=== PATIENT | male | born 1950 | race Caucasian/White ===

== ENCOUNTER 2021-11-20 15:00 | Emergency (ER) | payer MEDICARE, BC, SELFPAY ==
[2021-11-20] VITALS (23 sets, daily range): BP systolic 133–150; BP diastolic 74–98; PULSE 62–69; RESP 20; TEMP 36.4; O2SAT 93–98; BMI 34.0
--- NOTE | 2021-11-20 15:02 | CRLHL7_ITS ---
For Patients: As a result of the Cures Act, medical imaging exams and procedure reports are released immediately into your electronic medical record. You may view this report before your referring provider. If you have questions, please contact your health care provider. INDICATION: Trauma, fall. TECHNIQUE: CT head without contrast. COMPARISON: None. FINDINGS: CSF spaces: Within normal limits for age. Brain parenchyma and extra-axial spaces: Areas of encephalomalacia and deep white matter low-attenuation change are in the left cerebral hemisphere with multiple benign-appearing calcifications in the left posterior frontal cortex. No intracranial hemorrhage. No extra-axial fluid collection. No mass effect or midline shift. Skull base and calvarium: The visualized paranasal sinuses and mastoid air cells demonstrate no acute or significant findings. The visualized orbits are grossly unremarkable. No skull fractures. IMPRESSION: No sign of acute injury. Suspected chronic areas of deep white matter low attenuation and encephalomalacia in the left cerebral hemisphere. Acute deep white matter edema superimposed on chronic disease is difficult to exclude. Please note that all CT scans at this facility use dose modulation, iterative reconstruction, and/or weight-based dosing when appropriate to reduce radiation dose to as low as reasonably achievable. Dictated by Jake Strange MD @ 11/20/2021 4:20:56 PM (Electronically Signed)
--- NOTE | 2021-11-20 15:02 | CRLHL7_ITS ---
For Patients: As a result of the 21st Century Cures Act, medical imaging exams and procedure reports are released immediately into your electronic medical record. You may view this report before your referring provider. If you have questions, please contact your health care provider. INDICATION: Fall 7 feet from ladder. TECHNIQUE: CT of the abdomen chest abdomen pelvis was performed with 111 cc of Isovue-370 IV contrast. COMPARISON: None FINDINGS: CHEST: Cardiovascular structures: Heart size is normal. The thoracic aorta and main pulmonary arteries are normal in size. No pericardial effusion. Aortic valve prosthesis is noted. No evidence for aortic dissection or mediastinal hematoma. Mediastinum and rich: No mass or lymphadenopathy. Lungs: The central airways are clear. No pneumothorax or pleural effusion. A minimal bilateral posterior dependent atelectasis. No consolidation. No suspicious pulmonary nodules. An azygos lobe is noted. Chest wall and axilla unremarkable: No lymphadenopathy. The thyroid is normal. Bones: Median sternotomy wires. Degenerative changes of the spine with findings consistent with DISH. No acute fracture. ABDOMEN AND PELVIS: There is a too small to characterize hyperdense focus within the left hepatic lobe. No liver laceration. The gallbladder, spleen, pancreas and adrenal glands are normal. 4.9 cm simple cyst within the right kidney. No hydronephrosis or stone bilaterally. The ureters and bladder are normal. Diverticulosis, primarily involving the sigmoid colon. Normal appendix. The stomach and small bowel are unremarkable. No lymphadenopathy. No free fluid or free intraperitoneal air. Postsurgical changes of prior right lower abdominal hernia repair are noted. Mild atherosclerotic calcification of the abdominal aorta and iliac arteries without aneurysmal dilatation. A penile implant is noted with the reservoir behind the left rectus abdominis muscle in the pelvis. The abdominal soft tissues are unremarkable. Bones: There are vertical transverse fractures of the left transverse processes of the L2, L3, L4, and L5 vertebral bodies. The sacrum is intact. Chronic irregular ossific changes about the right posterior acetabulum and ischium may represent heterotopic ossification from sequela of remote trauma. Degenerative changes of the lumbar spine and pubic symphysis. IMPRESSION: Vertical left transverse process fractures of L2, L3, L4, and L5. No solid organ or hollow viscus injury within the abdomen. No acute findings within the chest. Please note that all CT scans at this facility use dose modulation, iterative reconstruction, and/or weight-based dosing when appropriate to reduce radiation dose to as low as reasonably achievable. Dictated by Ayo Henao MD @ 11/20/2021 4:45:16 PM (Electronically Signed)
--- NOTE | 2021-11-20 15:02 | CRLHL7_ITS ---
For Patients: As a result of the Century Cures Act, medical imaging exams and procedure reports are released immediately into your electronic medical record. You may view this report before your referring provider. If you have questions, please contact your health care provider. INDICATION: Trauma, fall. TECHNIQUE: CT cervical spine without contrast. COMPARISON: None. FINDINGS: Vertebrae: Alignment is normal. There are no fractures or suspicious bony lesions. Discs and facet joints: There are degenerative disc changes most severe at C1-2, C4-5 and C5-6. There are multilevel degenerative changes in the facets. Extraspinal findings: Paraspinous soft tissues are unremarkable. IMPRESSION: 1. No sign of acute injury. 2. Multilevel degenerative spondylosis. Please note that all CT scans at this facility use dose modulation, iterative reconstruction, and/or weight-based dosing when appropriate to reduce radiation dose to as low as reasonably achievable. Dictated by Jake Strange MD @ 11/20/2021 4:14:42 PM (Electronically Signed)
--- NOTE | 2021-11-20 15:04 | ED_ITS ---
HPI - Fall General Chief Complaint: Fall/Minor Trauma Stated Complaint: Fall from ladder Time Seen by Provider: 11/20/21 15:14 History of Present Illness HPI Narrative: This 71-year-old male comes in by ambulance with a trauma team activation. He was up on a ladder trimming some trees when he fell. He was stepping back to dismount the ladder and missed the step and fell from approximately 7 ft. He landed on his back in some landscape a rock. He did not have loss of consciousness. He does have a history of aneurysm. He is not on blood thinners except for a baby aspirin daily. He reports pain in his right posterior ribs. He denies having any neck pain but does come in with C-collar in place for precautionary reasons. He did not get up after this fall. He does not report any other injury or pain. He denies having any abdominal pain. He does have an abrasion on his right knee. Related Data Home Medications Medication Instructions Recorded Confirmed albuterol sulfate 90 mcg/actuation 2 puff inhalation Q4H PRN 11/20/21 11/20/21 aerosol inhaler (Ventolin HFA) aspirin 81 mg capsule 81 mg PO DAILY 11/20/21 11/20/21 atorvastatin 40 mg tablet 40 mg PO DAILY 11/20/21 11/20/21 azelastine 137 mcg (0.1 %) nasal 2 spray intranasal Q12H 11/20/21 11/20/21 spray aerosol fluticasone propionate 230 2 inh inhalation Q12H 11/20/21 11/20/21 mcg-salmeterol 21 mcg/actuation HFA inhaler (Advair HFA) losartan 50 mg-hydrochlorothiazide 1 tab PO DAILY 11/20/21 11/20/21 12.5 mg tablet montelukast 10 mg tablet 10 mg PO DAILY 11/20/21 11/20/21 omeprazole 40 mg capsule,delayed mg 11/20/21 release Allergies Allergy/AdvReac Type Severity Reaction Status Date / Time hydrocodone Allergy vomiting Verified 11/20/21 15:35 Review of Systems Status of ROS: Reports: 10 or more systems reviewed and unremarkable except as noted in History and below Narrative: Constitutional: No fevers, no weight gain or loss. Eyes: No discharge. No vision changes. HENT: No congestion, no sore throat, no ear pain. Cardiovascular: No chest pain, no palpitations. Respiratory: No shortness of breath, no wheezes, no cough. Pain with taking a deep breath in the right posterior ribs. Gastrointestinal: No abdominal pain, no vomiting, no diarrhea. Genitourinary: No dysuria, no hematuria. Musculoskeletal: Normal range of motion. Skin: No rashes, no pruritis. Neurological: No dizziness, weakness, sensory change, speech change. Endo/Heme/Allergies: No bruising or bleeding. No polydipsia. Pysch: no suicidality, no anxiety, no insomnia. All other systems reviewed and are negative. [facility] Social History Smoking Status: Never smoker Do you use any of these nicotine containing products: None How often do you have a drink containing alcohol: 2-4 times a month How many standard drinks containing alcohol do you have on a typical day: 1 or 2 How often do you have six or more drinks on one occasion: Never AUDIT-C Alcohol total score: 2 Non-prescribed substance use: denies use Exam Narrative: Exam Narrative: Primary Survey: Vital Signs are within normal limits. Airway: Open. Breathing: Easy. Circulation: no obvious bleeding; normal capillary refill. Disability: GCS is 15. Normal pupillary response and motor movements. Secondary Survey: Head: Normocephalic Neck: No midline tenderness. ROM intact. Chest: No external signs of trauma. Abdomen: Non tender. No rebound tenderness. Normal bowel sounds. Pelvis/Genitals: No tenderness to A/P and lateral stress. No blood at the urethral meatus. Extremities: Atraumatic. Back: Pain in the right posterior ribs. Critical Care Time: Primary and Secondary surveys are completed. The patient's GCS is 15. Const: Vital Signs, click to edit/add: Vital Signs - 24 hr 11/20/21 15:00 Temperature 97.5 F L Pulse Rate [Right Pulse Oximeter] 68 Respiratory Rate 20 Blood Pressure [Ri ght Upper Arm] 150/88 H Pulse Oximetry 95 Oxygen Delivery Me thod Room Air Course Course Hospital Course: This patient comes in with a fall as described above. He has discomfort when laying flat but after a bit of time here there was an attempt to sit him up which caused him to become very short of breath and rather uncomfortable. A CT scan of head, C-spine, and chest abdomen pelvis is ordered. I was able to see the the images at approximately 4:[address] scan of the head and C-spine appear negative to me. I did remove his cervical collar. I am awaiting report for the chest, abdomen, and pelvis CT imaging. It appears to me there is a fracture of 1 of the thoracic vertebral bodies. This would explain the patient's symptoms in preference to remain lying flat. I did advise the patient at this time that we would likely transfer him but I would prefer to see an official radiology report. The patient's vital signs are stable. He did agree now to have some pain medicine. An order was placed for Dilaudid 0.5 mg and Zofran 4 mg. Reevaluation(s) Reevaluation #1: At 4:08 p.m. I instructed the ADVISOR CONSULTANT to make a connection with [facility] for transfer this patient. Time: 16:20 Reevaluation #2: I had discussion with Dr. Cuello at [facility]. He states that they are unable to take any patient's as there trauma center is over full at the time. Reconstruction images are being obtained of the thoracic spine at this time. Time: 16:35 Reevaluation #3: I had discussion with phone referral nurse at [facility]. They agree to have him transferred there to the emergency department for further evaluation and treatment. Radiology results of the chest, abdomen, and pelvis CT and reconstruction images are yet pending at this time. Arrangements are made for ambulance transfer to occur within the hour. Vital Signs Vital signs: Initial Vital Signs Temperature 97.5 F L 11/20/21 15:00 Temperature Source Temporal Artery Scan 11/20/21 15:00 Pulse Rate 68 11/20/21 15:00 Respiratory Rate 20 11/20/21 15:00 Blood Pressure 150/88 H 11/20/21 15:00 Blood Pressure Mean 108 11/20/21 15:00 Blood Pressure Position Sitting 11/20/21 15:00 Pulse Oximetry 95 11/20/21 15:00 Oxygen Delivery Method 11/20/21 15:00 Vital Signs Temperature 97.5 F L 11/20/21 15:00 Pulse Rate 68 11/20/21 15:00 Respiratory Rate 20 11/20/21 15:00 Blood Pressure 150/88 H 11/20/21 15:00 Pulse Oximetry 95 11/20/21 15:00 Oxygen Delivery Method 11/20/21 15:00 Temperature 97.5 F L 11/20/21 15:00 Pulse Rate 68 11/20/21 15:00 Respiratory Rate 20 11/20/21 15:00 Blood Pressure 150/88 H 11/20/21 15:00 Pulse Oximetry 95 11/20/21 15:00 Oxygen Delivery Method 11/20/21 15:00 MDM - Fall MDM Narrative Medical decision making narrative: This patient comes in with injury to his back as described above. He has significant pain in this area that is much worse with any kind of upright position such that it becomes difficult for him to breathe. CT imaging of the chest, abdomen, and pelvis by my review with radiology report pending show suggestion of a fracture of the thoracic vertebral body. I did order reconstructed images of the thoracic spine. These results are pending along with the radiology report. The patient is accepted for transfer to [facility]. Initially there was an attempt to transfer to [facility] but they were unable to receive any further transfers for trauma as they are over full currently. The accepting physician at [facility] in [place] is Dr. Valencia. The patient received IV doses of Dilaudid 0.5 mg and Zofran [address] cervical spine: Radiologist's impression: 1. No sign of acute injury. 2. Multilevel degenerative spondylosis. CT scan - head: Radiologist's impression: No sign of acute injury. Suspected chronic areas of deep white matter low attenuation and encephalomalacia in the left cerebral hemisphere. Acute deep white matter edema superimposed on chronic disease is difficult to exclude. ECG Data Attestation: I personally reviewed and interpreted this ECG as follows: Interpretation: Normal sinus rhythm. Rate is 64 beats per minute. There are no specific ST or T-wave abnormalities. Discharge Plan Discharge Clinical Impression: Fracture of thoracic spine Patient Disposition: [facility] Condition: Unchanged Prescriptions: No Action albuterol sulfate [Ventolin HFA] 90 mcg/actuation HFA aerosol inhaler 2 puff INHALATION Q4H PRN Label Comments: INHALE TWO PUFFS BY MOUTH EVERY 4 HOURS atorvastatin 40 mg tablet 40 mg PO DAILY Label Comments: TAKE ONE TABLET BY MOUTH EVERY DAY azelastine 137 mcg (0.1 %) aerosol,spray 2 spray INTRANASAL Q12H Label Comments: TWO SPRAYS NASAL TWO TIMES A DAY Advair HFA 230-21 mcg/actuation HFA aerosol inhaler 2 inh INHALATION Q12H Label Comments: INHALE TWO PUFFS BY MOUTH TWICE A DAY losartan-hydrochlorothiazide 50-12.5 mg tablet 1 tab PO DAILY Label Comments: TAKE ONE TABLET BY MOUTH EVERY DAY montelukast 10 mg tablet 10 mg PO DAILY omeprazole 40 mg capsule,delayed release(DR/EC) Label Comments: TAKE ONE CAPSULE BY MOUTH 30-60 MINUTES BEFORE A MEAL / FOOD TWO TIMES A DAY aspirin 81 mg capsule 81 mg PO DAILY Follow Up/Referrals: Salas Raymundo MD [Primary Care Provider] - Stand Alone Forms[facility] Inst[facility]
--- OUTSIDE RECORDS SUMMARY | 2021-11-20 16:01 | XMS_ITS | Encounter Summary ---
:1950 Author Organization [place] Address [address] [place] [address] Care Team Providers Name Role Phone Salas Raymundo Primary Care Provider Charles Crawford MD Unavailable Charli Jefferson MD Unavailable Encounter Details Date Type Department Care Team Description 07/20/2020 [facility] Provider, Histor ical Social History Tobacco Use Types Packs/Day Years Used Date Never Smoker 0 0 Smokeless Tobacco: Never Used Alcohol Use Standard Drinks/Week Comments Yes 0 (1 standard drink = 0.6 oz pure alcoho l) 2-3/week Alcohol Habits Answer Date Recorded How often do you have a drink containing alcohol? Not asked How many drinks containing alcohol do you have on a typical Not asked day when you are drinking? How often do you have six or more drinks on one occasion? No t asked Comment: 2-3/week 09/08/2018 Sex Assigned at Date Recorded Male 09/04/2018 3:46 PM CDT documented as of this encounter Plan of Treatment Not on filedocumented as of this encounter Procedures Procedure Name Priority Date/Time Associated Diagnosis Comme nts XR VIDEO SWALLOW Routine 08/16/2009 12:00 AM Resu lts for this WITH TURNING LATHE TENDER OR OT CDT procedure are in the results section. documented in this encounter Results XR Video Swallow with TURNING LATHE TENDER or OT (08/16/2009 12:00 AM CDT) Anatomical Region Laterality Modality Other Specimen (Source) Anatomical Location Collection Method / Collectio n Time Received Time / Laterality Volume Narrative 08/16/2009 12:00 AM CDT See Historical Hospital Medical Record f or documentation Procedure Note Provider, Historical - 07/20/2020Formatt ing of this note might be different from the original. See Historical Hospital Medical Record f or documentation Historical Provider IMG DIAGNOSTIC IMAGING ORDER BRIDGETTE documented in this encounter Visit Diagnoses Not on filedocumented in this encounter Care Teams Patient Financial Services Coordinator Relationship Specialty Start Date End Date Salas Raymundo PCP - General Family Practice 08/15/18 Charles Crawford MD MD Urology 08/19/18 [address] [facility] [address] [place] [address] Charli Jefferson MD MD Urology 08/19/18 [address] [facility] [address] [place] [address] documented as of this encounter
--- OUTSIDE RECORDS SUMMARY | 2021-11-20 16:01 | XMS_ITS | Encounter Summary ---
:1950 Author Organization [place] Address [address] [place] [address] Care Team Providers Name Role Phone Salas Raymundo Primary Care Provider Charles Crawford MD Unavailable Charli Jefferson MD Unavailable Reason for Visit Reason Comments Follow Up 1 month Encounter Details Date Type Department Care Team Description 01/05/2019 Office Visit [facility] Urology and Christie Cruz Overactive bladder Inst for Prostate and T, Urologic Cancers [place] [id number] [facility] 4th Floor [address] [place], [place] [id number] [phone] Social History Tobacco Use Types Packs/Day Years [...] PM CDT documented as of this encounter Last Filed Vital Signs Vital Sign Reading Time Taken Comments Blood Pressure 150/80 01/05/2019 2:32 PM OLERICULTURE TEACHER Pulse 61 01/05/2019 2:32 PM OLERICULTURE TEACHER Temperature - - Respiratory Rate - - Oxygen Saturation - - Inhaled Oxygen Concentration - - Weight 101.6 kg (224 lb) 01/05/2019 2:32 PM OLERICULTURE TEACHER Height 174.2 cm (5' 8.6) 01/05/2019 2:32 PM OLERICULTURE TEACHER Body Mass Index 33.47 01/05/2019 2:32 PM OLERICULTURE TEACHER documented in this encounter Progress Notes Eva, Christie Triplett MD - 01/05/2019 3:00 PM CST Rajiv Restrepo is a 68 year old male who is 6-7 weeks s/p AUS placement. ?? 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 Urinary incontinence after that time. Was going through 3-5 pads per day and 2 at night. Also had an element of overactive bladder managed with myrbetriq. Today he reports that he is very happy. He is completely dry at night and when not active during theday. When he exercises is does wear a pad for leakage. Exam: BP (!) 150/80 (BP Location: Right arm, Patient Position: Sitting, Cuff Size: Adult Regular) Pulse 61 Ht 1.742 m (5' 8.6) Wt 101.6 kg (224 lb) BMI 33.47 kg/m?? Alert and healthy Abdomen soft, incision in LLQ well healed Circ male, orthotopic meatus, scrotal pump palpable without signs of infection Perineal incision well healed A/P Excellent outcome after AUS placement - some mild residual stress incontinence but much better than before. Patient is very pleased. F/U: -- Continue francisca -- RTC PRN ICULTURE TEACHER documented in this encounter Nursing Notes Mirian Cheng - 01/05/2019 3:00 PM CST Chief Complaint Patient presents with ??? Follow Up 1 month Blood pressure (!) 150/80, pulse 61, height 1.742 m (5' 8.6), weight 101.6 kg (224 lb). Body mass index is 33.47 kg/m??. Patient Active Problem List Diagnosis ??? Acute renal failure (H) ??? Acute respiratory failure (H) ??? Allergic rhinitis ??? Anemia, unspecified ??? Endocarditis, bacterial, acute/subacute ??? Esophageal reflux ??? Essential hypertension ??? Expressive aphasia syndrome ??? Hyperglycemia ??? Hyperlipidemia ??? Impotence of organic origin ??? Asthma ??? Intracranial hemorrhage (H) ??? Left inguinal hernia ??? Obesity, unspecified ??? Other abnormal glucose ??? Personal history of colonic polyps ??? Prostate cancer (H) ??? Right hemiparesis (H) ??? S/P AVR (aortic valve replacement) ??? Sensorineural hearing loss, bilateral ??? Sepsis (H) ??? Status post tracheostomy (H) ??? Vitamin D deficiency Allergies Allergen Reactions ??? Hydrocodone-Acetaminophen Nausea and Vomiting Current Outpatient Medications Medication Sig Dispense Refill ??? albuterol (PROAIR HFA) 108 (90 Base) MCG/ACT inhaler Inhale 2 puffs into the lungs ??? aspirin 81 MG EC tablet Take 81 mg by mouth ??? atorvastatin (LIPITOR) 40 MG tablet Take 40 mg by mouth ??? Cholecalciferol (D 1000) 1000 units CAPS Take 2,000 Units by mouth ??? famotidine (PEPCID) 20 MG tablet Take 20 mg by mouth 2 times daily ??? fexofenadine (MIGUEL) 180 MG tablet Take 180 mg by mouth ??? fluticasone-salmeterol (ADVAIR HFA) 115-21 MCG/ACT inhaler Inhale 2 puffs into the lungs ??? FLUZONE HIGH-DOSE 0.5 ML injection See Admin Instructions 0 ??? lisinopril-hydrochlorothiazide (PRINZIDE/ZESTORETIC) 10-12.5 MG tablet Take 1 tablet by mouth ??? mirabegron (MYRBETRIQ) 25 MG 24 hr tablet Take 1 tablet (25 mg) by mouth daily (Patient taking differently: Take 50 mg by mouth daily ) 30 tablet 11 ??? mirabegron (MYRBETRIQ) 50 MG 24 hr tablet Take 1 tablet (50 mg) by mouth daily 30 tablet 3 ??? montelukast (SINGULAIR) 10 MG tablet Take 10 mg by mouth ??? Multiple Vitamin (MULTI-VITAMINS) TABS Take 1 tablet by mouth ??? oxybutynin ER (DITROPAN-XL) 5 MG 24 hr tablet Take 3 tablets (15 mg) by mouth daily 30 tablet 3 ??? ranitidine (ZANTAC) 150 MG tablet Take 150 mg by mouth Social History Tobacco Use ??? Smoking status: Never Smoker ??? Smokeless tobacco: Never Used Substance Use Topics ??? Alcohol use: Yes Comment: 2-3/week ??? Drug use: Never MICHA Elena 01/05/2019 2:44 PM ICULTURE TEACHER documented in this encounter Plan of Treatment Not on filedocumented as of this encounter Visit Diagnoses Diagnosis Overactive bladder Hypertonicity of bladder documented in this encounter Care Teams Vp Of Technology Relationship Specialty Start Date End Date Salas Raymundo PCP - General Family Practice 08/15/18 Charles Crawford MD MD Urology 08/19/18 [address] [place] [address] Charli Jefferson MD MD Urology 08/19/18 [address] [facility] [address] [place] [address] documented as of this encounter
--- OUTSIDE RECORDS SUMMARY | 2021-11-20 16:01 | XMS_ITS | Encounter Summary ---
:1950 Author Organization [place] Address [address] [place] [address] Care Team Providers Name Role Phone Salas Raymundo Primary Care Provider Charles Crawford MD Unavailable Charli Jefferson MD Unavailable Encounter Details Date Type Department Care Team Description 01/05/2019 Travel Social History Tobacco Use Types Packs/Day Years [...] filedocumented as of this encounter Visit Diagnoses Not on filedocumented in this encounter Care Teams Public Health Epidemiologist Relationship Specialty Start Date End Date Salas Raymundo PCP - General Family Practice 08/15/18 Charles Crawford MD MD Urology 08/19/18 [address] [facility] [address] [place] [address] Charli Jefferson MD MD Urology 08/19/18 [address] [facility] [address] [place] [address] documented as of this encounter
--- OUTSIDE RECORDS SUMMARY | 2021-11-20 16:01 | XMS_ITS | Encounter Summary ---
:1950 Author Organization [facility] Address [address] [place] [address] Care Team Providers Name Role Phone Salas Raymundo Primary Care Provider Charles Crawford MD Unavailable Charli Jefferson MD Unavailable Christie Cruz MD Unavailable Charli Jefferson MD Unavailable Christie Cruz MD Unavailable Reason for Visit Reason Comments Other acp Encounter Details Date Type Department Care Team Description 11/24/2018 Ambulatory - [facility] [address] [facility] [address] [place] [address] Social History Tobacco Use Types Packs/Day Years [...] on filedocumented in this encounter Care Teams Tie Fastener Relationship Specialty Start Date End Date Salas Raymundo PCP - General Family Practice 08/15/18 Charles Crawford MD MD Urology 08/19/18 [address] [place] [address] Charli Jefferson MD Urology 08/19/18 MD Radha SPIVEY [address] [address] Christie Cruz, Assigned Surgical Provider 11/1904/16/20 [facility] [address] [place] [address] Charli Jefferson, Assigned Surgical Provider 04/1705/03/20 MD Radha SPIVEY [facility] [address] [place] [address] Christie Cruz, Assigned Surgical Provider 05/0407/09/20 [facility] [address] [place], [place] [id number] documented as of this encounter
--- OUTSIDE RECORDS SUMMARY | 2021-11-20 16:01 | XMS_ITS | Encounter Summary ---
:1950 Author Organization [facility] Address [address] [place] [address] Care Team Providers Name Role Phone Salas Raymundo Primary Care Provider Charles Crawford MD Unavailable Charli Jefferson MD Unavailable Reason for Visit Auth/Cert Specialty Diagnoses / Procedures Referred By Contact Refer red To Contact Surgery Diagnoses Male Urinary Stress Incontinence Uu Periop Procedures INSERTION, ARTIFICIAL URINARY SPHINCTER [address] [place] [address] Phone: Fax: Referral ID Status Reason Start Date Expiration Date Visits Requ ested Visits Authorized [id number] 1 1 Encounter Details Date Type Department Care Team Description 11/12/2018 Anesthesia Event [facility], A nna M, MD [address] [place], [place] [id number] PeriOp Services Ferdinand Mitchell MD [address] [place] [address] [address] [place] [address] Anesthesia Record Procedure Summary Procedure Name Responsible Anesthesia Start Anesthesia Stop Anesthesiologist Time Time Insertion Of Lisa Moreno MD 11/12/18 1521 11/12/18 1737 Artifical Urinary Sphincter, Cystoscopy (N/A Bladder) Events Date Time Event Comment 11/12/2018 1521 An Start 1525 An Start Data 1533 An Induction 1536 An Intubation 1545 Initial Antibiotic (Started) 1604 AN INCISION 1725 AN Extubation 1729 an stop data 1737 An Stop Electronically s igned by Checo Bajwa APRN CRNA on Oct 5:49 PM Name Total midazolam 1mg/mL 2 mg fentaNYL (SUBLIMAZE) injection 150 mcg lidocaine 2% 100 mg propofol (DIPRIVAN) injection 10 mg/mL vial 150 mg rocuronium 10mg/mL 80 mg ondansetron 2mg/mL 4 mg sugammadex (BRIDION) 200mg/2ml 200 mg ceFAZolin (ANCEF) intermittent infusion 2 g in 100 mL dextrose PRE-MIX 2 g lactated ringers infusion 1,000 mL Agents Name NO HELIOX O2 N2O Air Exp Sevoflurane Exp Isoflurane Exp Desflurane Exp N2O Ins Sevoflurane Ins Isoflurane Ins Desflurane O2 Auxiliary Blood No blood administrations on file. Lines, Drains, and Airways Type Details Placement Removal Incision/Surgical Site 11/12/18; 1633; 11/12/18 1633 by Dinorah Perineum Radha Lima RN Incision/Surgical Site 11/12/18; 1633; 11/12/18 1633 by Dinorah, Abdomen Radha Lima RN Incision/Surgical Site 11/12/18; 1704; 11/12/18 1704 by Dinorah, Right; Groin Radha Lima RN Peripheral IV 11/12/18; 1225; 20 G; 11/12/18 1225 by Dusty, 10/20 by Right, Dorsal; Hand; Inessa Bello, RN Willis Hager, Chlorhexidine; None RN documented in this encounter Social History Tobacco Use Types Packs/Day Years [...] PM CDT documented as of this encounter OR Notes Anesthesia Postprocedure Evaluation - Vince Howe MD - 11/12/2018 6:38 PM CDT Anesthesia POST Procedure Evaluation Patient: Rajiv Restrepo Gender: male Age: [age] year old : 1950 Preoperative Diagnosis: Male Urinary Stress Incontinence Procedure(s): Insertion Of Artifical Urinary Sphincter, Cystoscopy Postop Comments: No value filed. Anesthesia Type: Not documented No value filed. Reportable Event: NO PAIN: Uncomplicated Sign Out status: Comfortable, Well controlled pain PONV: No PONV Sign Out status: No Nausea or Vomiting Neuro/Psych: Uneventful perioperative course Sign Out Status: Preoperative baseline; Age appropriate mentation Airway/Resp.: Uneventful perioperative course Sign Out Status: Non labored breathing, age appropriate RR; Resp. Status within EXPECTED Parameters CV: Uneventful perioperative course Sign Out status: Appropriate BP and perfusion indices; Appropriate HR/Rhythm Disposition: Sign Out in: PACU Disposition: Phase II; Home Recovery Course: Uneventful Follow-Up: Not required Last Anesthesia Record Vitals: MATCH UP PERSON VITALS 11/12/2018 1659 - 11/12/2018 1759 11/12/2018 EKG: -- Last PACU Vitals: Vitals Value Taken Time BP 134/81 11/12/2018 6:30 PM Temp 36.7 ??C (98 ??F) 11/12/2018 5:35 PM Pulse 54 11/12/2018 6:30 PM Resp 14 11/12/2018 6:00 PM SpO2 97 % 11/12/2018 6:38 PM Temp src NIBP Pulse SpO2 Resp Temp Ht Rate Temp 2 Vitals shown include unvalidated device data. Electronically Signed By: Vince Howe MD, November 12, 2018, 6:38 PM Anesthesia Preprocedure Evaluation - Lisa Moreno MD - 11/12/2018 3:40 PM CDT Anesthesia Pre-Procedure Evaluation Patient: Rajvi Restrepo Gender: male Age: [age] year old : 1950 Preoperative Diagnosis: Male Urinary Stress Incontinence Procedure(s): Insertion Of Artifical Urinary Sphincter, Cystoscopy Past Medical History: Diagnosis Date ??? Antiplatelet or antithrombotic long-term use asa 81 stopped one week preop ??? 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 Gastroesophageal reflux disease ??? Hemiplegia (H) right face and side ??? Hernia, abdominal ??? History of thrombophlebitis ??? Hypertension ??? 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 Renal disease H/O renal failure with dialysis/ with full recovery ??? Sepsis (H) 2009 Past Surgical History: Procedure Laterality Date ??? ABDOMEN SURGERY feeding tube placed and removed 07-29-2009 ??? APPENDECTOMY ??? CARDIAC SURGERY aortic valve replacement 07-26-2009 ??? COLONOSCOPY ??? CYSTOSCOPY ??? ENT SURGERY h/o trach with removal ??? HERNIA REPAIR Incarcerated [facility] 11-27-2010 ??? ORTHOPEDIC SURGERY Bilat CTR ??? PROSTATE SURGERY ??? VASCULAR SURGERY IVC filter placement/removal 09-15-2009 Anesthesia Evaluation . ROS/MED HX ENT/Pulmonary: Neurologic: (+)CVA date: hemorrhagic with deficits- weakness and numbness in bilateral lower extremities, Cardiovascular: (+) hypertension----. Taking blood thinners : Instructions Given to patient: Takes ASA only s/p ICH.. . :. 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 METS/Exercise Tolerance: Hematologic: Musculoskeletal: GI/Hepatic: (+) GERD Asymptomatic on medication, Renal/Genitourinary: Endo: (+) Obesity, . Psychiatric: Infectious Disease: (+) MRSA, Malignancy: Other: PHYSICAL EXAM: Mental Status/Neuro: Age Appropriate Airway: Facies: Feasible Mallampati: I Mouth/Opening: Full TM distance: > 6 cm Neck ROM: Full Respiratory: Auscultation: CTAB Resp. Rate: Normal Resp. Effort: Normal CV: Rhythm: Regular Heart: Normal Sounds Edema: None Comments: Dental: Normal Dentition LABS: CBC: No results found for: WBC, HGB, HCT, PLT BMP: Lab Results Component Value Date POTASSIUM 3.9 11/12/2018 COAGS: No results found for: PTT, INR, FIBR POC: Lab Results Component Value Date BGM 101 (H) 11/12/2018 OTHER: No results found for: PH, LACT, A1C, TAJ, PHOS, MAG, ALBUMIN, PROTTOTAL, ALT, AST, GGT, ALKPHOS, BILITOTAL, BILIDIRECT, LIPASE, AMYLASE, JAGDEEP, TSH, T4, T3, CRP, SED Preop Vitals BP Readings from Last 3 Encounters: 11/12/18 132/80 10/29/18 114/73 09/08/18 125/83 Pulse Readings from Last 3 Encounters: 11/12/18 67 10/29/18 80 09/08/18 61 Resp Readings from Last 3 Encounters: 11/12/18 16 09/08/18 16 SpO2 Readings from Last 3 Encounters: 11/12/18 97% 08/15/18 97% Temp Readings from Last 1 Encounters: 11/12/18 37.2 ??C (98.9 ??F) (Oral) Ht Readings from Last 1 Encounters: 11/12/18 1.727 m (5' 8) Wt Readings from Last 1 Encounters: 11/12/18 101 kg (222 lb 10.6 oz) Estimated body mass index is 33.86 kg/m?? as calculated from the following: Height as of this encounter: 1.727 m (5' 8). Weight as of this encounter: 101 kg (222 lb 10.6 oz). LDA: Peripheral IV 11/12/18 Right;Dorsal Hand (Active) Line Status Saline locked 11/12/2018 12:25 PM Phlebitis Scale 0-->no symptoms 11/12/2018 12:25 PM Number of days: 0 Assessment: ASA SCORE: 3 H&P: History and physical reviewed and following examination; no interval change. Smoking Status: Non-Smoker/Unknown NPO Status: NPO Appropriate Plan: Anes. Type: General Pre-Medication: None Induction: IV (Standard) Airway: ETT; Oral Access/Monitoring: PIV Maintenance: Balanced Postop Plan: Postop Pain: Opioids Postop Sedation/Airway: Not planned Disposition: Outpatient PONV Management: Adult Risk Factors:, Non-Smoker, Postop Opioids Prevention: Ondansetron CONSENT: Direct conversation Plan and risks discussed with: Patient Blood Products: Consent Deferred (Minimal Blood Loss) Lisa Moreno MD documented in this encounter Miscellaneous Notes Anesthesia Care Transfer Note - Checo Bajwa APRN CRNA - 11/12/2018 5:49 PM CDT Patient: Rajiv Restrepo Procedure(s): Insertion Of Artifical Urinary Sphincter, Cystoscopy Diagnosis: Male Urinary Stress Incontinence Diagnosis Additional Information: No value filed. Anesthesia Type: No value filed. Note: Airway :Room Air Patient transferred to:PACU Comments: Awake in PAR. Tolerated anesthesia well. VSSHandoff Report: Identifed the Patient, Identified the Reponsible Provider, Reviewed the pertinent medical history, Discussed the surgical course, Reviewed Intra-OP anesthesia mangement and issues during anesthesia, Set expectations for post-procedure period and Allowed opportunity for questions and acknowledgement of understanding Vitals: (Last set prior to Anesthesia Care Transfer) TERENCE VITALS 11/12/2018 1659 - 11/12/2018 1749 11/12/2018 EKG: -- Electronically Signed By: Checo Bajwa APRN CRNA November 12, 2018 5:49 PM documented in this encounter Plan of Treatment Not on filedocumented as of this encounter Visit Diagnoses Not on filedocumented in this encounter Administered Medications Inactive Administered Medications - up to 3 most recent administrations Medication Order MAR Action Action Date Dose Rate Site ceFAZolin (ANCEF) intermittent Given 11/12/2018 3:45 PM CDT 2 g infusion 2 g in 100 mL dextrose PRE-MIX Routine, 2 g, Intravenous, PRE-OP/PRE-PROCEDURE, Starting on Sat11/12/18 at 1115, For 1 dose, Give first dose within 1 hour PRIOR to incision. If patient weight is greater than or equal to 120 kg increase dose to 3 g., Indications: Perioperative Pharmacoprophylaxis, Pre-procedure fentaNYL (PF) (SUBLIMAZE) injection Given 11/12/2018 4:03 PM CDT 100 mcg Intravenous, PRN, Administer over 3-5 Minutes, Starting on Sat11/12/18 at 1533, Anesthesia Intra-op Given 11/12/2018 3:33 PM CDT 50 mcg lactated ringers infusion New Bag 11/12/2018 5:07 PM CDT at 25 mL/hr, Intravenous, CONTINUOUS, IF patient NOT on dialysis., Pre-procedure, Starting on Sat11/12/18 at 1130, Until Sat11/12/18 at 1732 New Bag 11/12/2018 3:21 PM CDT lidocaine 2% injection (MDV) Given 11/12/2018 3:33 PM CDT 100 mg Intravenous, PRN, Starting on Sat11/12/18 at 1533, Anesthesia Intra-op midazolam (VERSED) injection Given 11/12/2018 3:21 PM CDT 2 mg Intravenous, Administer over 2 Minutes, PRN, Starting on Sat11/12/18 at 1521, Anesthesia Intra-op ondansetron (ZOFRAN) injection Given 11/12/2018 5:05 PM CDT 4 mg Intravenous, PRN, Administer over 2-5 Minutes, Starting on Sat11/12/18 at 1705, Anesthesia Intra-op propofol (DIPRIVAN) injection 10 mg/mL v ial Given 11/12/2018 3:33 PM CDT 150 mg Intravenous, PRN, Starting on Sat11/12/18 at 1533, Anesthesia Intra-op rocuronium injection Given 11/12/2018 4:31 PM CDT 30 mg Intravenous, PRN, Starting on Sat11/12/18 at 1533, Anesthesia Intra-op Given 11/12/2018 3:33 PM CDT 50 mg sugammadex (BRIDION) injection Given 11/12/2018 5:17 PM CDT 200 mg PRN, Starting on Sat11/12/18 at 1717, Anesthesia Intra-op documented in this encounter Care Teams Electrical Assistant Relationship Specialty Start Date End Date Salas Raymundo PCP - General Family Practice 08/15/18 Charles Crawford MD MD Urology 08/19/18 [address] [facility] [address] [place] [address] Charli Jefferson MD MD Urology 08/19/18 [address] [facility] [address] [place] [address] documented as of this encounter
--- OUTSIDE RECORDS SUMMARY | 2021-11-20 16:01 | XMS_ITS | Encounter Summary ---
:1950 Author Organization [facility] Address [address] [place] [address] Care Team Providers Name Role Phone Salas Raymundo Primary Care Provider Charles Crawford MD Unavailable Charli Jefferson MD Unavailable Encounter Details Date Type Department Care Team Description 11/12/2018 Travel Social History Tobacco Use Types Packs/Day [...] on filedocumented in this encounter Care Teams Preventive Medicine Officer Relationship Specialty Start Date End Date Salas Raymundo PCP - General Family Practice 08/15/18 Charles Crawford MD MD Urology 08/19/18 [address] [facility] [address] [place] [address] Charli Jefferson MD MD Urology 08/19/18 [address] [facility] [address] [place] [address] documented as of this encounter
--- OUTSIDE RECORDS SUMMARY | 2021-11-20 16:01 | XMS_ITS | Clinical Summary ---
:1950 Author Organization [facility] Address Formerly [facility], [facility] [place] [address] Care Team Providers Name Role Phone Salas Raymundo Primary Care Provider Charles Crawford MD Unavailable Charli Jefferson MD Unavailable Allergies Active Allergy Reactions Severity Noted Date Comments Hydrocodone-Acetaminophen Nausea and Vomiting 03/15/19 15 Medications Medication Sig Dispensed Refills Start Date End Date Status albuterol (PROAIR HFA) Inhale 2 puffs 0 02/05/2014 Active 108 (90 Base) MCG/ACT into the lungs inhaler aspirin 81 MG EC Take 81 mg by 0 09/05/2009 Active tablet mouth atorvastatin (LIPITOR) Take 40 mg by 0 05/20/2018 Active 40 MG tablet mouth Cholecalciferol (D Take 2,000 Units 0 02/10/2016 Active 1000) 1000 units CAPS by mouth fexofenadine (MIGUEL) Take 180 mg by 0 10/07/2009 Active 180 MG tablet mouth lisinopril-hydrochloro Take 1 tablet by 0 04/22/2018 Active thiazide mouth (PRINZIDE/ZESTORETIC) 10-12.5 MG tablet montelukast Take 10 mg by 0 04/11/2017 Act soni (SINGULAIR) 10 MG mouth tablet fluticasone-salmeterol Inhale 2 puffs 0 09/01/2010 Active (ADVAIR HFA) 115-21 into the lungs MCG/ACT inhaler Multiple Vitamin Take 1 tablet by 0 11/27/2010 Active (MULTI-VITAMINS) TABS mouth ranitidine (ZANTAC) Take 150 mg by 0 02/05/2014 Active 150 MG tablet mouth oxybutynin ER Take 3 tablets (15 30 tablet 3 09/08/2018 Active (DITROPAN-XL) 5 MG 24 mg) by mouth daily hr tabletIndications: Urinary urgency famotidine (PEPCID) 20 Take 20 mg by 0 Active MG tablet mouth 2 times daily FLUZONE HIGH-DOSE 0.5 See Admin 0 11/25/2018 Active ML injection Instructions mirabegron (MYRBETRIQ) Take 1 tablet (50 90 tablet 3 9 Active 50 MG 24 hr mg) by mouth daily tabletIndications: Overactive bladder Active Problems Problem Noted Date Essential hypertension 09/08/2018 Obesity, unspecified 09/08/2018 Sensorineural hearing loss, bilateral 09/11/2013 Prostate cancer 11/20/2012 Vitamin D deficiency 11/20/2012 Personal history of colonic polyps 08/14/2012 Overview: Colonoscopy 07/2012 normal repeat in 5 ye ars Colonoscopy 08/2017 polyps, repeat in 5 y ears Left inguinal hernia 12/12/2010 Expressive aphasia syndrome 08/29/2009 Anemia, unspecified 08/05/2009 Hyperglycemia 08/05/2009 Right hemiparesis 08/05/2009 Status post tracheostomy 08/05/2009 S/P AVR (aortic valve replacement) 07/26/2009 Overview: 07/26/09 Minimally invasive aortic valve r eplacement (25 mm) Clemente magna supraannular pericardial tissue valve per Dr. Bond. Acute renal failure 07/11/2009 Acute respiratory failure 07/11/2009 Intracranial hemorrhage 07/11/2009 Sepsis 07/11/2009 Endocarditis, bacterial, acute/subacute 07/06/2009 Other abnormal glucose 07/06/2009 Hyperlipidemia 07/02/2009 Impotence of organic origin 07/02/2009 Esophageal reflux 02/18/1986 Asthma 02/18/1986 Allergic rhinitis 02/19/1976 Overview: seasonal Immunizations Name Administration Dates Next Due FLU 6-35 months 11/11/2015, 11/10/2014, 11/20/2010, 10/28/2009 Flu, Unspecified 11/02/2016, 11/12/2015 [id number] Novel Flu 02/09/2009 Influenza (H1N1) 02/09/2009 Influenza (High Dose) 3 valent 10/31/2017 vaccine Influenza (IIV3) PF 11/02/2016, 11/11/2014, 10/21/2012, 10/29/2011, 10/09/2011, 11/01/2010, 10/28/2009, 11/18/2008, 11/29/2003, 12/21/1996, 11/27/1995, 12/15/1994, 12/16/1993, 11/26/1992, 01/12/1992 Influenza Vaccine IM > 6 months 11/20/2013 Valent IIV4 (Alfuria,Fluzone) Influenza Vaccine, 6+MO IM 11/02/2016 (QUADRIVALENT W/PRESERVATIVES) Pneumo Conj 13-V (2010&after) 04/24/2017 Pneumococcal 23 valent 04/22/2018, 12/14/2008 TDAP Vaccine (Adacel) 09/01/2015, 02/09/2009 Td (Adult), Adsorbed 03/16/1999 Zoster vaccine recombinant adjuvanted 02/13/2018, 01/31/2018 , 10/31/2017 (SHINGRIX) Zoster vaccine, live 02/03/2013 Family History Medical History Relation Comments Diabetes Brother Diabetes Father Heart Disease Father Skin Cancer Father Heart Disease Mother Cancer Sister Relation Status Comments Brother Father Mother Sister Social History Tobacco Use Types Packs/Day Years Used Date Never Smoker 0 0 Smokeless Tobacco: Never Used Tobacco Cessation: Counseling Given: No Alcohol Use Standard Drinks/Week Comments Yes 0 [...] Date Recorded Male 09/04/2018 3:46 PM CDT Last Filed Vital Signs Vital Sign Reading Time Taken Comments Blood Pressure 150/80 01/05/2019 2:32 PM NIGHT WORKER Pulse 61 01/05/2019 2:32 PM NIGHT WORKER Temperature 36.6 ??C (97.8 ??F) 11/12/2018 7:50 PM CDT Respiratory Rate 16 11/12/2018 7:50 PM CDT Oxygen Saturation 98% 11/12/2018 8:10 PM CDT Inhaled Oxygen Concentration - - Weight 101.6 kg (224 lb) 01/05/2019 2:32 PM NIGHT WORKER Height 174.2 cm (5' 8.6) 01/05/2019 2:32 PM NIGHT WORKER Body Mass Index 33.47 01/05/2019 2:32 PM NIGHT WORKER Plan of Treatment Health Maintenance Due Date Last Done Comments ANNUAL REVIEW OF HM ORDERS 1950 ASTHMA ACTION PLAN 1950 ASTHMA CONTROL TEST 1950 [address] COLONOGRAPHY 1950 FIT-DNA (Cologuard) 1950 FIT 1950 FLEX SIG 1950 COVID-19 Vaccine (#1) 1950 HEPATITIS C SCREENING 1970 LIPID 1987 AORTIC ANEURYSM SCREENING 2017 (SYSTEM ASSIGNED) MEDICARE ANNUAL WELLNESS 2017 VISIT FALL RISK ASSESSMENT 12/02/2019 12/01/2018 PHQ-2 (once per calendar 02/18/2021 08/15/2018 year) INFLUENZA VACCINE (#1) 2021 11/25/2018, 10/31/2017, 11/02/2016, Additional history exists ADVANCE CARE PLANNING 11/25/2023 11/24/2018 DTAP/TDAP/TD IMMUNIZATION 08/31/2025 09/01/2015, 02/09/2009 , (3 - Td or Tdap) 03/16/1999 COLONOSCOPY 08/21/2027 08/20/2017 COLORECTAL CANCER SCREENING 08/21/2027 ZOSTER IMMUNIZATION Completed 02/13/2018, 01/31/2018, 10/31/2017, Additional history exists Pneumococcal Vaccine: 65+ Completed 04/22/2018, 04/24/2017 , Years 12/14/2008 HEPATITIS B IMMUNIZATION Aged Out No long er eligible based on patient 's age to complete this topic IPV IMMUNIZATION Aged Out No longer eligi ble based on patient 's age to complete this topic MENINGITIS IMMUNIZATION Aged Out No longe r eligible based on patient 's age to complete this topic Medical Devices Implanted Type Area Developer Prover Upholstering Device Shelf Model / Identifier Expiration Serial / Lot Date Kit Accessory Ucs Ams 800 [id number] Leads N/A: ICELANDIC 09/29/2022 [id number] / Implanted: Qty: 1 on 11/12/2018 by Christie Pandya MD at [facility] Abdomen MEDICAL SY S / [id number] Imp Urinary Sphincter Balloon Ams 61-70cm [id number] Metallic N/A: ICELANDIC 03/11/2023 [id number] / Implanted: Qty: 1 on 11/12/2018 by Christie Pandya MD at [facility] Hardware/Anch Abdomen MEDICAL SYS / or [id number] Imp Urinary Sphincter Cuff Occlusive Ams 5.0cm [id number] Prosthes is N/A: ICELANDIC 01/20/2019 [id number] / Implanted: Qty: 1 on 11/12/2018 by Christie Pandya MD at [facility] Groin MEDICAL SY S / [id number] Description: around urethra Insurance Payer Benefit Plan / Subscriber ID Effective Phone Address T ype Group Dates MEDICARE MEDICARE FOR HB [id number] 2017-Prese [phone] ATTN CLAIMS Medicare SUPPLEMENT nt 40 [address] [place] [address] [place] [id number] 2017-Prese [phone] [address] [address] PPO BLUE nt 00 [place] [address] (Home) [place] [address] Rajiv Restrepo Personal/Family Self [address] (Home) [place] [address] Advance Directives For more information, please contact: [phone] Documents on File Type Date Recorded Patient Cloth Neutralizer Explanati on Advance Directives and 11/24/2018 8:06 AM Health Care Directive Living Will 12-27-14 Healthcare Agents on File Name Relationship Healthcare Agent Communication Relationship Mary Restrepo Spouse Health Care Agent Ayo Restrepo Son [facility] Health Care Agent Carla Restrepo Daughter [facility] Health Care Agent Brent Restrepo Son [facility] Health Care Agent Moraima (step-dtr) Relative [facility] Health Octavio Care Agent Care Teams Lawn Mower Sharpener Relationship Specialty Start Date End Date Salas Raymundo PCP - General Family Practice 08/15/18 Charles Crawford MD MD Urology 08/19/18 [address] [place] [address] Charli Jefferson MD MD Urology 08/19/18 [address] [facility] [address] [place] [address]
--- OUTSIDE RECORDS SUMMARY | 2021-11-20 16:01 | XMS_ITS | Encounter Summary ---
:1950 Author Organization [place] Address [address] [place] [address] Care Team Providers Name Role Phone Salas Raymundo Primary Care Provider Charles Crawford MD Unavailable Charli Jefferson MD Unavailable Reason for Visit Reason Onset Date Comments Medication Question 01/06/2019 mirabegron (MYRBETRI Q) 50 MG 24 hr tablet Encounter Details Date Type Department Care Team Description 01/06/2019 [facility] Urology and Christie Cruz Medication Question Inst for Prostate and TMD (mirabegron Urologic Cancers [facility] (MYRBETRIQ) 50 MG [address] [place] hr tablet ) 4th [address] [place], [place] [address] [phone] Social History Tobacco Use Types Packs/Day Years [...] PM CDT documented as of this encounter Miscellaneous Notes Telephone Encounter - Tracey Bhandari RN - 01/06/2019 2:04 PM CST Spoke to Roxy Marinelli pharmacist, he just wanted verification of the Myrbetriq because it wasn't signed in clinic when script was given to patient. Tracey Bhandari RN, BSN Passenger Car Conductor- Reconstructive Urology STRY PROFESSOR Telephone Encounter - Cecy Maxwell - 01/06/2019 11:46 AM CST [facility] Phone Message May a detailed message be left on voicemail: yes Reason for Call: Medication Question or concern regarding medication Prescription Clarification Name of Medication: mirabegron (MYRBETRIQ) 50 MG 24 hr tablet Prescribing Provider: Roopa Velasquez Pharmacy: [facility] What on the order needs clarification? Information on medication Action Taken: Message routed to: [facility] URO STRY PROFESSOR documented in this encounter Plan of Treatment Not on filedocumented as of this encounter Visit Diagnoses Not on filedocumented in this encounter Care Teams Pot Lining Supervisor Relationship Specialty Start Date End Date Salas Raymundo PCP - General Family Practice 08/15/18 Charles Crawford MD MD Urology 08/19/18 [address] [place] [address] Charli Jefferson MD MD Urology 08/19/18 [address] [facility] [address] [place] [address] documented as of this encounter
--- OUTSIDE RECORDS SUMMARY | 2021-11-20 16:01 | XMS_ITS | Encounter Summary ---
:1950 Author Organization [place] Address [address] [place] [address] Care Team Providers Name Role Phone Salas Raymundo Primary Care Provider Charles Crawford MD Unavailable Charli Jefferson MD Unavailable Encounter Details Date Type Department Care Team Description 07/20/2020 Records - [facility] Provider, Histor ical Social History Tobacco [...] Name Priority Date/Time Associated Diagnosis Comme nts US MISC(FCIS) US Routine 08/11/2009 12:00 AM Resu lts for this ORDER CDT procedure are i n the results section. documented in this encounter Results US Miscellaneous US Order (08/11/2009 12:00 AM CDT) Anatomical Region Laterality Modality Other Specimen (Source) Anatomical Location Collection Method / Collectio n Time Received Time / Laterality Volume Narrative 08/11/2009 12:00 AM CDT See Historical Hospital Medical Record f or documentation Procedure Note Provider, Historical - 07/20/2020Formatt ing of this note might be different from the original. See Historical Hospital Medical Record f or documentation Historical Provider IMG US ORDERABLES documented in this encounter Visit Diagnoses Not on filedocumented in this encounter Care Teams Stained Glass Glazier Helper Relationship Specialty Start Date End Date Salas Raymundo PCP - General Family Practice 08/15/18 Charles Crawford MD MD Urology 08/19/18 [address] [facility] [address] [place] [address] Charli Jefferson MD MD Urology 08/19/18 [address] [facility] [address] [place] [address] documented as of this encounter
--- OUTSIDE RECORDS SUMMARY | 2021-11-20 16:01 | XMS_ITS | Encounter Summary ---
:1950 Author Organization [place] Address [address] [place] [address] Care Team Providers Name Role Phone Salas Raymundo Primary Care Provider Charles Crawford MD Unavailable Charli Jefferson MD Unavailable Encounter Details Date Type Department Care Team Description 07/20/2020 Records - [facility] Provider, Histor ical Social [...] encounter Procedures Procedure Name Priority Date/Time Associated Comments Diagnosis US MISC(FCIS) US ORDER Routine 08/13/2009 12:00 R esults for this AM CDT procedure are i n the results section. IR IVC FILTER Routine 08/13/2009 12:00 Results fo r this PLACEMENT AM CDT procedure are i n the results section. IR MISCELLANEOUS Routine 08/13/2009 12:00 Results for this PROCEDURE AM CDT procedure are i n the results section. IR MISCELLANEOUS Routine 08/13/2009 12:00 Results for this PROCEDURE AM CDT procedure are i n the results section. IR VENOCAVAGRAM Routine 08/13/2009 12:00 Results for this INFERIOR AM CDT procedure are i n the results section. documented in this encounter Results IR Miscellaneous Procedure (08/13/2009 12:00 AM CDT) Anatomical Region Laterality Modality Procedure Other Specimen (Source) Anatomical Location Collection Method / Collectio n Time Received Time / Laterality Volume Narrative 08/13/2009 12:00 AM CDT See Historical Hospital Medical Record f or documentation Procedure Note Provider, Historical - 07/20/2020Formatt ing of this note might be different from the original. See Historical Hospital Medical Record f or documentation Historical Provider IMG IR ORDERABLES IR Miscellaneous Procedure (08/13/2009 12:00 AM CDT) Anatomical Region Laterality Modality Procedure Other Specimen (Source) Anatomical Location Collection Method / Collectio n Time Received Time / Laterality Volume Narrative 08/13/2009 12:00 AM CDT See Historical Hospital Medical Record f or documentation Procedure Note Provider, Historical - 07/20/2020Formatt ing of this note might be different from the original. See Historical Hospital Medical Record f or documentation Historical Provider IMG IR ORDERABLES IR Venocavagram Inferior (08/13/2009 12:00 AM CDT) Anatomical Region Laterality Modality Abdomen/Pelvis Other Specimen (Source) Anatomical Location Collection Method / Collectio n Time Received Time / Laterality Volume Narrative 08/13/2009 12:00 AM CDT See Historical Hospital Medical Record f or documentation Procedure Note Provider, Historical - 07/20/2020Formatt ing of this note might be different from the original. See Historical Hospital Medical Record f or documentation Historical Provider IMG IR ORDERABLES IR IVC Filter Placement (08/13/2009 12:00 AM CDT) Anatomical Region Laterality Modality Abdomen/Pelvis Other Specimen (Source) Anatomical Location Collection Method / Collectio n Time Received Time / Laterality Volume Narrative 08/13/2009 12:00 AM CDT See Historical Hospital Medical Record f or documentation Procedure Note Provider, Historical - 07/20/2020Formatt ing of this note might be different from the original. See Historical Hospital Medical Record f or documentation Historical Provider IMG IR ORDERABLES US Miscellaneous US Order (08/13/2009 12:00 AM CDT) Anatomical Region Laterality Modality Other Specimen (Source) Anatomical Location Collection Method / Collectio n Time Received Time / Laterality Volume Narrative 08/13/2009 12:00 AM CDT See Historical Hospital Medical Record f or documentation Procedure Note Provider, Historical - 07/20/2020Formatt ing of this note might be different from the original. See Historical Hospital Medical Record f or documentation Historical Provider IMG US ORDERABLES documented in this encounter Visit Diagnoses Not on filedocumented in this encounter Care Teams Zipper Setter Relationship Specialty Start Date End Date Salas Raymundo PCP - General Family Practice 08/15/18 Charles Crawford MD MD Urology 08/19/18 [address] [facility] [address] [place] [address] Charli Jefferson MD MD Urology 08/19/18 [address] [facility] [address] [place] [address] documented as of this encounter
--- OUTSIDE RECORDS SUMMARY | 2021-11-20 16:01 | XMS_ITS | Encounter Summary ---
:1950 Author Organization [place] Address [address] [place] [address] Care Team Providers Name Role Phone Salas Raymundo Primary Care Provider Charles Crawford MD Unavailable Charli Jefferson MD Unavailable Encounter Details Date Type Department Care Team Description 07/20/2020 Records - [facility] CONVERSION Provider, Histor ical Social History Tobacco [...] Diagnosis Comme nts US MISC(FCIS) US Routine 08/25/2009 12:00 AM Resu lts for this ORDER CDT procedure are i n the results section. documented in this encounter Results US Miscellaneous US Order (08/25/2009 12:00 AM CDT) Anatomical Region Laterality Modality Other Specimen (Source) Anatomical Location Collection Method / Collectio n Time Received Time / Laterality Volume Narrative 08/25/2009 12:00 AM CDT See Historical Hospital Medical Record f or documentation Procedure Note Provider, Historical - 07/20/2020Formatt ing of this note might be different from the original. See Historical Hospital Medical Record f or documentation Historical Provider IMG US ORDERABLES documented in this encounter Visit Diagnoses Not on filedocumented in this encounter Care Teams Lens Matcher Relationship Specialty Start Date End Date Salas Raymundo PCP - General Family Practice 08/15/18 Charles Crawford MD MD Urology 08/19/18 [address] [facility] [address] [place] [address] Charli Jefferson MD MD Urology 08/19/18 [address] [facility] [address] [place] [address] documented as of this encounter
--- OUTSIDE RECORDS SUMMARY | 2021-11-20 16:01 | XMS_ITS | Encounter Summary ---
:1950 Author Organization [place] Address [address] [place] [address] Care Team Providers Name Role Phone Salas Raymundo Primary Care Provider Charles Crawford MD Unavailable Charli Jefferson MD Unavailable Reason for Visit Reason Comments Follow Up Post-op follow up, procedure 11/12 Encounter Details Date Type Department Care Team Description 12/01/2018 Office Visit [facility] Urology and Christie Cruz Male urinary stress Inst for Prostate TMD incontinence (Primary and Urologic Cancers [facility] Dx) [address] [facility] 4th Floor [address] [place], [place] [address] [phone] Social History Tobacco Use Types Packs/Day Years [...] Sign Reading Time Taken Comments Blood Pressure 120/78 12/01/2018 4:54 PM CDT Pulse 60 12/01/2018 4:54 PM CDT Temperature - - Respiratory Rate - - Oxygen Saturation - - Inhaled Oxygen Concentration - - Weight 101.6 kg (224 lb) 12/01/2018 4:54 PM CDT Height 172.7 cm (5' 8) 12/01/2018 4:54 PM CDT Body Mass Index 34.06 12/01/2018 4:54 PM CDT documented in this encounter Patient Instructions Patient InstructionsMirian Cheng - 12/01/2018 5:00 PM CDT Please schedule a follow up appointment with Dr. Velasquez in 1 month. It was a pleasure meeting with you today. Thank you for allowing me and my team the privilege of caring for you today. YOU are the reason we are here, and I truly hope we provided you with the excellent service you deserve. Please let us know if there is anything else we can do for you so that we can be sure you are leaving completely satisfied with your care experience. documented in this encounter Progress Notes Christie Velasquez MD - 12/01/2018 5:00 PM CDT HPI: Rajiv Restrepo is a 68 year old male who is 2.5 weeks s/p AUS placement. 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 Urinary incontinence since that time. Managed with nixon clamp. Was going through 3-5 pads per day and 2 at night. Also has an element of overactive bladder managed with myrbetriq. Pain is gone. He continues to leak. Eager for activation. Exam: BP 120/78 Pulse 60 Ht 1.727 m (5' 8) Wt 101.6 kg (224 lb) BMI 34.06 kg/m?? Incision clean, dry, intact No tenderness or evidence of cellulitis Some bruising in the inguinal crease Pump palpable in scrotum with minimal edema AUS activated and patient had slight leakage with strong cough. A/P Excellent outcome after AUS placement. F/U: -- RTC 1 month for assessment of symptoms documented in this encounter Nursing Notes Mirian Cheng - 12/01/2018 5:00 PM CDT Chief Complaint Patient presents with ??? Follow Up Post-op follow up, procedure 11/12 Blood pressure 120/78, pulse 60, height 1.727 m (5' 8), weight 101.6 kg (224 lb). Body mass index is 34.06 kg/m??. Patient Active Problem List Diagnosis ??? [...] 1 tablet (25 mg) by mouth daily 30 tablet 11 ??? montelukast (SINGULAIR) 10 MG tablet Take [...] 2-3/week ??? Drug use: Never MICHA Elena 12/01/2018 4:56 PM documented in this encounter Plan of Treatment Not on filedocumented as of this encounter Visit Diagnoses Diagnosis Male urinary stress incontinence - Prima ry Stress incontinence, male documented in this encounter Care Teams Dairy Frozen Manager Relationship Specialty Start Date End Date Salas Raymundo PCP - General Family Practice 08/15/18 Charles Crawford MD MD Urology 08/19/18 [address] [place] [address] Charli Jefferson MD MD Urology 08/19/[address] [place] [address] [address] [place] [address] documented as of this encounter
--- OUTSIDE RECORDS SUMMARY | 2021-11-20 16:01 | XMS_ITS | Encounter Summary ---
:1950 Author Organization [place] Address [address] [place] [address] Care Team Providers Name Role Phone Salas Raymundo Primary Care Provider Charles Crawford MD Unavailable Charli Jefferson MD Unavailable Reason for Visit Reason Onset Date Comments Pre Visit Planning - Done 12/17/2018 Encounter Details Date Type Department Care Team Description 12/17/2018 PRE VISIT [facility] Urology and Christie Cruz Pre Visit Planning - Inst for Prostate and TMD Done Urologic Cancers [address] 4th Floor [address] [place], [place] [address] [phone] Social History Tobacco Use Types Packs/Day Years [...] this encounter Miscellaneous Notes Telephone Encounter - Mirian Cheng - 12/17/2018 2:37 PM CDT Reason for Visit: 1 month symptom check Diagnosis: Urinary stress incontinence Orders/Procedures/Records: Records available Contact Patient: N/A Rooming Requirements: Elia Cheng 12/17/18 2:37 PM documented in this encounter Plan of Treatment Not on filedocumented as of this encounter Visit Diagnoses Not on filedocumented in this encounter Care Teams Director Of Catering Sales Relationship Specialty Start Date End Date Salas Raymundo PCP - General Family Practice 08/15/18 Charles Crawford MD MD Urology 08/19/18 [address] [facility] [address] [place] [address] Charli Jefferson MD MD Urology 08/19/18 [address] [facility] [address] [place] [address] documented as of this encounter
--- OUTSIDE RECORDS SUMMARY | 2021-11-20 16:01 | XMS_ITS | Encounter Summary ---
:1950 Author Organization [place] Address [facility] [place] [address] Care Team Providers Name Role Phone Salas Raymundo Primary Care Provider Charles Crawford MD Unavailable Charli Jefferson MD Unavailable Encounter Details Date Type Department Care Team Description 12/31/2018 Orders Only [facility] Urology and Christie Cruz Overactive bladder Inst for Prostate and TMD (Primary Dx) Urologic Cancers [address] 4th Floor [address] [place], [place] [address] [phone] Social History Tobacco Use Types Packs/Day Years [...] this encounter Visit Diagnoses Diagnosis Overactive bladder - Primary Hypertonicity of bladder documented in this encounter Care Teams Client Evaluator Relationship Specialty Start Date End Date Salas Raymundo PCP - General Family Practice 08/15/18 Charles Crawford MD MD Urology 08/19/18 [address] [facility] [address] [place] [address] Charli Jefferson MD MD Urology 08/19/18 [address] [place] [address] [facility] [address] [place] [address] documented as of this encounter
--- OUTSIDE RECORDS SUMMARY | 2021-11-20 16:01 | XMS_ITS | Encounter Summary ---
:1950 Author Organization [place] Address [address] [place] [address] Care Team Providers Name Role Phone Salas Raymundo Primary Care Provider Charles Crawford MD Unavailable Charli Jefferson MD Unavailable Encounter Details Date Type Department Care Team Description 07/20/2020 Records - [facility] Provider, Histor ical Social History Tobacco [...] Procedure Name Priority Date/Time Associated Comments Diagnosis CT LEG LENGTH Routine 08/26/2009 12:00 AM Results for this COMPARISON CDT procedure are i n the results section. documented in this encounter Results CT Leg Length Comparison (08/26/2009 12:00 AM CDT) Anatomical Region Laterality Modality Leg, SUBRAD CT MSK, UMP CT MSK, RAD CT C omputed Tomography Specimen (Source) Anatomical Location Collection Method / Collectio n Time Received Time / Laterality Volume Narrative 08/26/2009 12:00 AM CDT See Historical Hospital Medical Record f or documentation Procedure Note Provider, Historical - 07/20/2020Formatt ing of this note might be different from the original. See Historical Hospital Medical Record f or documentation Historical Provider IMG CT ORDERABLES documented in this encounter Visit Diagnoses Not on filedocumented in this encounter Care Teams Senior Systems Analyst Relationship Specialty Start Date End Date Salas Raymundo PCP - General Family Practice 08/15/18 Charles Crawford MD MD Urology 08/19/18 [address] [facility] [address] [place] [address] Charli Jefferson MD MD Urology 08/19/18 [address] [facility] [address] [place] [address] documented as of this encounter
--- OUTSIDE RECORDS SUMMARY | 2021-11-20 16:01 | XMS_ITS | Encounter Summary ---
:1950 Author Organization [place] Address [address] [place] [address] Care Team Providers Name Role Phone Salas Raymundo Primary Care Provider Charles Crawford MD Unavailable Charli Jefferson MD Unavailable Encounter Details Date Type Department Care Team Description 07/20/2020 Records - [facility] Provider, Histor ical Social History Tobacco [...] Name Priority Date/Time Associated Diagnosis Comme nts CT HEAD W/O Routine 08/12/2009 12:00 AM Results for this CONTRAST CDT procedure are i n the results section. documented in this encounter Results CT Head w/o Contrast (08/12/2009 12:00 AM CDT) Anatomical Region Laterality Modality Head, SUBRAD CT NEURO, SUBRAD CT NEURO, UMP CT NEURO, Computed Tomography RAD CT Specimen (Source) Anatomical Location Collection Method / Collectio n Time Received Time / Laterality Volume Narrative 08/12/2009 12:00 AM CDT See Historical Hospital Medical Record f or documentation Procedure Note Provider, Historical - 07/20/2020Formatt ing of this note might be different from the original. See Historical Hospital Medical Record f or documentation Historical Provider IMG CT ORDERABLES documented in this encounter Visit Diagnoses Not on filedocumented in this encounter Care Teams Acquisitions Logistics Analyst Relationship Specialty Start Date End Date Salas Raymundo PCP - General Family Practice 08/15/18 Charles Crawford MD MD Urology 08/19/18 [address] [facility] [address] [place] [address] Charli Jefferson MD MD Urology 08/19/18 420 [facility] [address] [place] [address] documented as of this encounter
--- OUTSIDE RECORDS SUMMARY | 2021-11-20 16:01 | XMS_ITS | Encounter Summary ---
:1950 Author Organization [place] Address [address] [place] [address] Care Team Providers Name Role Phone Salas Raymundo Primary Care Provider Charles Crawford MD Unavailable Charli Jefferson MD Unavailable Reason for Visit Reason Onset Date Comments Pre Visit Planning - Done 11/17/2018 Encounter Details Date Type Department Care Team Description 11/17/2018 PRE VISIT [facility] Urology and Christie Cruz Pre Visit Planning - Inst for Prostate and TMD Done Urologic Cancers [address] 4[address] Floor [address] [place], [place] [address] [phone] Social History Tobacco Use Types Packs/Day Years [...] Notes Telephone Encounter - Mirian Cheng - 11/17/2018 10:20 AM CDT Reason for Visit: Post-op follow up, procedure 11/12 Diagnosis: Male stress urinary incontinence Orders/Procedures/Records: Records available Contact Patient: N/a Rooming Requirements: Flow/PVR Mirian Cheng 11/17/18 10:20 AM documented in this encounter Plan of Treatment Not on filedocumented as of this encounter Visit Diagnoses Not on filedocumented in this encounter Care Teams Staff Development Coordinator Rn Relationship Specialty Start Date End Date Salas Raymundo PCP - General Family Practice 08/15/18 Charles Crawford MD MD Urology 08/19/18 [address] [facility] [address] [place] [address] Charli Jefferson MD MD Urology 08/19/18 420 [facility] [address] [place] [address] documented as of this encounter
--- OUTSIDE RECORDS SUMMARY | 2021-11-20 16:01 | XMS_ITS | Encounter Summary ---
:1950 Author Organization [place] Address [address] [place] [address] Care Team Providers Name Role Phone Salas Raymundo Primary Care Provider Charles Crawford MD Unavailable Charli Jefferson MD Unavailable Reason for Visit Reason Comments acp Encounter Details Date Type Department Care Team Description 11/24/2018 Documentation Only [place] Pilar Kessler acp [address] [facility] [address] [place] [address] Social History Tobacco Use Types Packs/Day Years [...] on filedocumented in this encounter Care Teams Icing Maker Relationship Specialty Start Date End Date Salas Raymundo PCP - General Family Practice 08/15/18 Charles Crawford MD MD Urology 08/19/18 [address] [address] Charli Jefferson MD MD Urology 08/19/18 420 [facility] [address] [place] [address] documented as of this encounter
--- OUTSIDE RECORDS SUMMARY | 2021-11-20 16:01 | XMS_ITS | Encounter Summary ---
:1950 Author Organization [place] Address [address] [place] [address] Care Team Providers Name Role Phone Salas Raymundo Primary Care Provider Charles Crawford MD Unavailable Charli Jefferson MD Unavailable Encounter Details Date Type Department Care Team Description 12/01/2018 Travel Social History Tobacco Use Types Packs/Day [...] on filedocumented in this encounter Care Teams Ice Guard Inspector Relationship Specialty Start Date End Date Salas Raymundo PCP - General Family Practice 08/15/18 Charles Crawford MD MD Urology 08/19/18 [address] [facility] [address] [place] [address] Charli Jefferson MD MD Urology 08/19/18 420 [facility] [address] [place] [address] documented as of this encounter
--- OUTSIDE RECORDS SUMMARY | 2021-11-20 16:01 | XMS_ITS | Encounter Summary ---
:1950 Author Organization [place] Address [address] [place] [address] Care Team Providers Name Role Phone Salas Raymundo Primary Care Provider Charles Crawford MD Unavailable Charli Jefferson MD Unavailable Encounter Details Date Type Department Care Team Description 07/20/2020 Records - [facility] Provider, Histor ical Social History [...] Diagnosis Comme nts US MISC(FCIS) US Routine 08/15/2009 12:00 AM Resu lts for this ORDER CDT procedure are i n the results section. US MISC(FCIS) US Routine 08/15/2009 12:00 AM Resu lts for this ORDER CDT procedure are i n the results section. documented in this encounter Results US Miscellaneous US Order (08/15/2009 12:00 AM CDT) Anatomical Region Laterality Modality Other Specimen (Source) Anatomical Location Collection Method / Collectio n Time Received Time / Laterality Volume Narrative 08/15/2009 12:00 AM CDT See Historical Hospital Medical Record f or documentation Procedure Note Provider, Historical - 07/20/2020Formatt ing of this note might be different from the original. See Historical Hospital Medical Record f or documentation Historical Provider IMG US ORDERABLES US Miscellaneous US Order (08/15/2009 12:00 AM CDT) Anatomical Region Laterality Modality Other Specimen (Source) Anatomical Location Collection Method / Collectio n Time Received Time / Laterality Volume Narrative 08/15/2009 12:00 AM CDT See Historical Hospital Medical Record f or documentation Procedure Note Provider, Historical - 07/20/2020Formatt ing of this note might be different from the original. See Historical Hospital Medical Record f or documentation Historical Provider IMG US ORDERABLES documented in this encounter Visit Diagnoses Not on filedocumented in this encounter Care Teams Client Evaluator Relationship Specialty Start Date End Date Salas Raymundo PCP - General Family Practice 08/15/18 Charles Crawford MD MD Urology 08/19/18 [address] [facility] [address] [place] [phone] Charli Jefferson MD MD Urology 08/19/[address] [place] [address] [address] [place] [address] documented as of this encounter
--- OUTSIDE RECORDS SUMMARY | 2021-11-20 16:02 | XMS_ITS | Encounter Summary ---
:1950 Author Organization [place] Address [address] [place] [address] Care Team Providers Name Role Phone Salas Raymundo Primary Care Provider Charles Crawford MD Unavailable Charli Jefferson MD Unavailable Reason for Visit Reason Onset Date Comments Medication Question 11/06/2018 oxybutynin ER (DITRO TAN-XL) 5 MG 24 hr tablet Encounter Details Date Type Department Care Team Description 11/06/2018 [facility] Urology and Charli Jefferson Medica tion Question Inst for Prostate and Ioana Rudd (oxybutynin ER Urologic Cancers [address] [facility] (DITROPAN-XL) 5 MG 24 [address] [facility] [address] hr tablet) [address] [place] [id number] [phone] Social History Tobacco Use Types Packs/Day Years [...] this encounter Miscellaneous Notes Telephone Encounter - Anaya Mallory LPN - 11/06/2018 8:[address] jaime last note from October mentioned changing medication to myrbetriq Called patient and sent new script Anaya Mallory LPN Staff Nurse Telephone Encounter - Jaimie Tan - 11/06/2018 8:22 AM CDT [facility] Call Center Phone Message May a detailed message be left on voicemail: yes Reason for Call: Medication Question or concern regarding medication Prescription Clarification Name of Medication: oxybutynin ER (DITROPAN-XL) 5 MG 24 hr tablet Prescribing Provider: Dr. Jefferson Pharmacy: -[facility] What on the order needs clarification? [facility] called because the pt though he was supposedto be having a new medication sent over to them from Dr. Jefferson to try in place of the Oxybutynin. Pt could not recall the name of the new medication, but [facility] did not have any new prescription on file. Please give them a call back. Action Taken: Message routed to: [facility] Urology documented in this encounter Plan of Treatment Not on filedocumented as of this encounter Visit Diagnoses Not on filedocumented in this encounter Care Teams Junior Systems Engineer Relationship Specialty Start Date End Date Salas Raymundo PCP - General Family Practice 08/15/18 Charles Crawford MD MD Urology 08/19/18 [address] [facility] [address] [place] [address] Charli Jefferson MD MD Urology 08/19/18 [address] [facility] [address] [place] [address] documented as of this encounter
--- OUTSIDE RECORDS SUMMARY | 2021-11-20 16:02 | XMS_ITS | Encounter Summary ---
:1950 Author Organization [place] Address [address] [place] [address] Care Team Providers Name Role Phone Salas Raymundo Primary Care Provider Charles Crawford MD Unavailable Charli Jefferson MD Unavailable Reason for Visit Reason Comments Health Maintenance Encounter Details Date Type Department Care Team Description 11/05/2018 Documentation Only [facility] Magali Hodgson, Health Maintenance Coordination, [facility] Ambulatory [address] [place] [address] Social History Tobacco Use Types Packs/Day Years [...] Name Priority Date/Time Associated Diagnosis Comme nts HIM COLONOSCOPY SCAN Routine 08/20/2017 Results for this procedure are i n the results section . documented in this encounter Results - HIM Screen Colonoscopy Scan (08/20/2017) Narrative Magali Hodgson CMA - 08/20/2017 Result Transit Department Clerk Simone eRnee MD - 08/20/2017 10 :07 AM CDT Patient Name: Rajiv Restrepo ?Procedure Date: 08/20/2017 ? Gender: Male ? Date of : 1950 Admit Type: Outpatient ? Procedure: ? Colonoscopy Proceduralist: ?Golden Renee MD , Irasema Chapman (Nurse) Referring MD: ? Anselmo Raymundo Indications/Pre-Op Diagnosis: Surveillan ce: Personal history of adenomatous ?polyps on last colonoscopy 5 years ago, Last ?colonoscopy: July 2012 Medications: ?F entanyl 200 micrograms IV, Midazolam 4 mg IV Procedure Description: ? The patient had risks, benefits a nd alternatives explained to and gave ? informed consent. The patient had a stable cardiopulmonary status and ? judged an adequate candidate for conscious sedation. ? The Colon [id number] was p assed through the anus and advanced to ? the cecum, identified by appendic eal orifice and ileocecal valve. The ? colonoscopy was performed without difficulty. The patient tolerated the ? procedure well. The quality of th e bowel preparation was good. The ? ileocecal valve, appendiceal orif ice, and rectum were photographed. Complications: ?No immediate complications. Estimated Blood Loss & Specimen: ? Estimated blood loss: none. Speci men collected - Yes and sent to ? Laboratory Findings: ? The perianal and digital rectal e xaminations were normal. ? Multiple small and large-mouthed diverticula were found in the sigmoid ? colon and descending colon. ? A 2 mm polyp was found in the cec um. The polyp was removed with a cold ? biopsy forceps. Resection and ret rieval were complete. ? Two sessile polyps were found in the transverse colon. The polyps were 4 ? mm in size. These polyps were rem cristobal with a cold snare. Resection and ? retrieval were complete. ? The colon (entire examined portio n) was significantly redundant. Cecum ? reached with patient prone using an adult scope. ? The exam was otherwise without ab normality. Impressions/Post-Op Diagnosis: ? - Diverticulosis in the sigmoid c olon and in the descending colon. ? - One 2 mm polyp in the cecum, re moved with a cold biopsy forceps. ? Resected and retrieved. ? - Two 4 mm polyps in the transver se colon, removed with a cold snare. ? Resected and retrieved. ? - Redundant colon. ? - The examination was otherwise n ormal. Recommendation: ? - Patient has a contact number av ailable for emergencies. The signs and ? symptoms of potential delayed com plications were discussed with the ? patient. Return to normal activit ies tomorrow. Written discharge ? instructions were provided to the patient. ? - Resume previous diet. ? - Continue present medications. ? - Await pathology results. ? - Repeat colonoscopy in 5 years f or surveillance. ? - Patient's sedation for a repeat study will require Anesthesia staff ? assistance. ? - For future colonoscopy the katrin ent will require an extended ? preparation, PEG 4L. If there are any questions, please contact the ? precinct captain. Moderate Sedation: ? Moderate (conscious) sedation was administered by the endoscopy nurse ? and supervised by the endoscopist . The following parameters were ? monitored: oxygen saturation, hea rt rate, respiratory rate, blood ? pressure, adequacy of pulmonary v entilation and reponse to care. ? Please refer to the [facility] record flowsheets and nursing ? notes for moderate sedation detai ls. ? Total physician intraservice time was 43 minutes. Simone Renee MD 08/20/2017 10:07:00 AM This report has been signed electronical ly. Note Initiated On: 08/20/2017 8:36 AM Scope In: 8:48:46 AM Scope Withdrawal Time 0 hours 11 minutes 32 seconds Scope Out: 9:29:41 AM Result Narrative This result has an attachment that is no t available. Provider Outside PROCEDURES documented in this encounter Visit Diagnoses Not on filedocumented in this encounter Care Teams Wax Specialist Relationship Specialty Start Date End Date Salas Raymundo PCP - General Family Practice 08/15/18 Charles Crawford MD MD Urology 08/19/18 [address] [facility] [address] [place] [address] Charli Jefferson MD MD Urology 08/19/18 [address] [facility] [address] [place] [address] documented as of this encounter
--- OUTSIDE RECORDS SUMMARY | 2021-11-20 16:02 | XMS_ITS | Encounter Summary ---
:1950 Author Organization [place] Address [address] [place] [address] Care Team Providers Name Role Phone Salas Raymundo Primary Care Provider Charles Crawford MD Unavailable Charli Jefferson MD Unavailable Encounter Details Date Type Department Care Team Description 09/08/2018 Travel Social History Tobacco Use Types Packs/Day [...] on filedocumented in this encounter Care Teams Solar Energy Sales Specialist Relationship Specialty Start Date End Date Salas Raymundo PCP - General Family Practice 08/15/18 Charles Crawford MD MD Urology 08/19/18 [address] [facility] [address] [place] [address] Charli Jefferson MD MD Urology 08/19/18 [address] [facility] [address] [place] [address] documented as of this encounter
--- OUTSIDE RECORDS SUMMARY | 2021-11-20 16:02 | XMS_ITS | Encounter Summary ---
:1950 Author Organization [place] Address [address] [place] [address] Care Team Providers Name Role Phone Salas Raymundo Primary Care Provider Charles Crawford MD Unavailable Charli Jefferson MD Unavailable Encounter Details Date Type Department Care Team Description 10/29/2018 Travel Social History Tobacco Use Types Packs/Day [...] on filedocumented in this encounter Care Teams Counter Top Assembler Relationship Specialty Start Date End Date Salas aRymundo PCP - General Family Practice 08/15/18 Charles Crawford MD MD Urology 08/19/18 [address] [facility] [address] [place] [address] Charli Jefferson MD MD Urology 08/19/18 [address] [facility] [address] [place] [address] documented as of this encounter
--- OUTSIDE RECORDS SUMMARY | 2021-11-20 16:02 | XMS_ITS | Encounter Summary ---
:1950 Author Organization [place] Address [address] [place] [address] Care Team Providers Name Role Phone Salas Raymundo Primary Care Provider Charles Crawford MD Unavailable Charli Jefferson MD Unavailable Reason for Visit Reason Onset Date Comments Pre Visit Planning - Done 10/21/2018 Encounter Details Date Type Department Care Team Description 10/21/2018 PRE VISIT [facility] Urology and Charli Jefferson Pre Vi sit Planning - Inst for Prostate and Ioana Rudd Done Urologic Cancers [address] [facility] [address] [facility] [address] [place], [place] [address] [phone] Social History Tobacco Use Types Packs/Day Years [...] this encounter Miscellaneous Notes Telephone Encounter - Arianne Daley CMA - 10/21/2018 5:00 PM CDT Reason for visit: Discuss AUS Relevant information: incontinence, Thuy clamp Records/imaging/labs/orders: all records available Pt called: no need for a call At Rooming: regular documented in this encounter Plan of Treatment Not on filedocumented as of this encounter Visit Diagnoses Not on filedocumented in this encounter Care Teams Employment Instructional Associate Relationship Specialty Start Date End Date Salas Raymundo PCP - General Family Practice 08/15/18 Charles Crawford MD MD Urology 08/19/18 [address] [facility] [address] [place] [address] Charli Jefferson MD MD Urology 08/19/18 [address] [facility] [address] [place] [address] documented as of this encounter
--- OUTSIDE RECORDS SUMMARY | 2021-11-20 16:02 | XMS_ITS | Encounter Summary ---
:1950 Author Organization [place] Address [address] [place] [address] Care Team Providers Name Role Phone Salas Raymundo Primary Care Provider Charles Crawford MD Unavailable Charli Jefferson MD Unavailable Reason for Visit Reason Onset Date Comments Medication Question 11/06/2018 Encounter Details Date Type Department Care Team Description 11/06/2018 Telephone [facility] Urology and Charli Jefferson Medica tion Question Inst for Prostate and Ioana Rudd Urologic Cancers [address] [facility] [address] [facility] [address] [place] [address] [place], [place] [phone] (Wo rk) [address] [phone] Social History Tobacco Use Types Packs/Day Years [...] bladder documented in this encounter Care Teams Garbage Collector Supervisor Relationship Specialty Start Date End Date Salas Raymundo PCP - General Family Practice 08/15/18 Charles Crawford MD MD Urology 08/19/18 [address] [facility] [facility] [address] [place] [address] Charli Jefferson MD MD Urology 08/19/18 [address] [facility] [address] [place] [address] documented as of this encounter
--- OUTSIDE RECORDS SUMMARY | 2021-11-20 16:02 | XMS_ITS | Encounter Summary ---
:1950 Author Organization [facility] Address [address] [place] [address] Care Team Providers Name Role Phone Salas Raymundo Primary Care Provider Charles Crawford MD Unavailable Charli Jefferson MD Unavailable Reason for Visit Auth/Cert Specialty Diagnoses / Procedures Referred By Contact Refer red To Contact Surgery Diagnoses Male Urinary Stress Incontinence Uu Periop Procedures INSERTION, ARTIFICIAL URINARY SPHINCTER [address] [place] [address] Phone: Fax: Referral ID Status Reason Start Date Expiration Date Visits Requ ested Visits Authorized [id number] 1 1 Encounter Details Date Type Department Care Team Description 11/12/2018 Hospital Encounter [facility] Charli Jefferson Str ess incontinence [facility] Same Day MD Tobin of urine (Primary Surgery [place] [address] Dx) [address] [facility] [address] [place] [address] [place], [place] [phone] Social History Tobacco Use Types Packs/Day Years [...] Sign Reading Time Taken Comments Blood Pressure 125/76 11/12/2018 7:50 PM CDT Pulse 54 11/12/2018 7:50 PM CDT Temperature 36.6 ??C (97.8 ??F) 11/12/2018 7:50 PM CDT Respiratory Rate 16 11/12/2018 7:50 PM CDT Oxygen Saturation 98% 11/12/2018 8:10 PM CDT Inhaled Oxygen Concentration - - Weight 101 kg (222 lb 10.6 oz) 11/12/2018 11:15 AM CDT Height 172.7 cm (5' 8) 11/12/2018 11:15 AM CDT Body Mass Index 33.86 11/12/2018 11:15 AM CDT documented in this encounter Discharge Instructions Discharge Ce Marte RN - 11/12/2018 6:31 PM CDT Same-Day Surgery Adult Discharge Orders & Instructions For 24 hours after surgery: 1. Get plenty of rest. A responsible adult must stay with you for at least 24 hours after you leave the hospital. 2. Pain medication can slow your reflexes. Do not drive or use heavy equipment. If you have weaknessor tingling, don't drive or use heavy equipment until this feeling goes away. 3. Mixing alcohol and pain medication can cause dizziness and slow your breathing. It can even be fatal. Do not drink alcohol while taking pain medication. 4. Avoid strenuous or risky activities. Ask for help when climbing stairs. 5. You may feel lightheaded. If so, sit for a few minutes before standing. Have someone help you getup. 6. If you have nausea (feel sick to your stomach), drink only clear liquids such as apple juice, sudeep renee, broth or 7-Up. Rest may also help. Be sure to drink enough fluids. Move to a regular diet asyou feel able. Take pain medications with a small amount of solid food, such as toast or crackers, to avoid nausea. 7. A slight fever is normal. Call the doctor if your fever is over 100??F (37.7??C) (taken under thetongue) or lasts longer than 24 hours. 8. You may have a dry mouth, muscle aches, trouble sleeping or a sore throat. These symptoms should go away after 24 hours. 9. Do not make important or legal decisions. Tips for taking pain medications To get the best pain relief possible , remember these points: ?? Take pain medications as directed, before pain becomes severe ?? Pain medication can upset your stomach: taking it with food may help ?? Constipation is a common side effect of pain medication. Drink plenty of Fluids ?? Eat foods high in fiber. Take a stool softener if recommended by your doctor or Pharmacist. ?? Do not drink alcohol, drive or operate machinery while taking pain medications. ?? Ask about other ways to control pain, such as with heat, ice or relaxation. Call your doctor for any of the followin. Signs of infection (fever, growing tenderness at the surgery site, severe pain, a large amount ofdrainage or bleeding, foul-smelling drainage, redness, swelling). 2. It has been over 8 to 10 hours since surgery and you are still not able to urinate (pee). To contact a doctor, call Dr Hernandez's office at [phone] (clinic)or: X [phone] and ask for the Resident Electrician'S Assistant for: Urology (answered 24 hours a day) X Emergency Department: [facility]: [phone] Rev. 11/2013 documented in this encounter Medications at Time of Discharge Medication Sig Dispensed Refills Start Date End Date albuterol (PROAIR HFA) 108 Inhale 2 puffs 0 02/05 (90 Base) MCG/ACT inhaler into the lungs aspirin 81 MG EC tablet Take 81 mg by 0 0 mouth atorvastatin (LIPITOR) 40 Take 40 mg by 0 019 MG tablet mouth Cholecalciferol (D 1000) Take 2,000 Units 0 02/09 1000 units CAPS by mouth famotidine (PEPCID) 20 MG Take 20 mg by 0 tablet mouth 2 times daily fexofenadine (MIGUEL) 180 Take 180 mg by 0 10/07 MG tablet mouth fluticasone-salmeterol Inhale 2 puffs 0 1 (ADVAIR HFA) 115-21 MCG/ACT into the lungs inhaler lisinopril-hydrochlorothiaz Take 1 tablet by 0 martin (PRINZIDE/ZESTORETIC) mouth 10-12.5 MG tablet montelukast (SINGULAIR) 10 Take 10 mg by 0 2017 MG tablet mouth Multiple Vitamin Take 1 tablet by 0 11/27/2010 (MULTI-VITAMINS) TABS mouth oxybutynin ER (DITROPAN-XL) Take 3 tablets (15 30 tablet 3 09/08/2018 5 MG 24 hr mg) by mouth daily tabletIndications: Urinary urgency ranitidine (ZANTAC) 150 MG Take 150 mg by 0 02/05 tablet mouth oxyCODONE (ROXICODONE) 5 MG Take 1 tablet (5 12 tablet 0 11/15/2018 tabletIndications: Stress mg) by mouth every incontinence of urine 6 hours as needed for pain mirabegron (MYRBETRIQ) 25 Take 1 tablet (25 30 tablet 11 01/05/2019 MG 24 hr tabletIndications: mg) by mouth daily Overactive bladder documented as of this encounter Progress Notes Wilmer Love - 11/12/2018 12:59 PM CDT Spiritual Health Services Progress Note [facility] [address] Provided systems engineer care with Gopal, his (Heather) and their friend (Maddison) prior to his surgery. Discussed hopes related to surgery and how it will hopefully improve his quality of life. They are active within their jewish ([employer], in [place]). Mariana is important for coping. Prayer was shared. I have no plan for follow-up as surgery is scheduled for same day. Chaplain Wilmer Love Inessa Montano RN - 11/12/2018 11:22 AM CDT PRE OP CARE: PLANNED PROCEDURE: (A) Insertion of Artificial Urinary Spincter (B) Cystoscopy RELATED TO: Urinary Incontinent from a Prosectomy In 2009 for prostate cancer Surgeon: Dr. Jefferson In pt chart assessing medical documentation relevant to gathering information in order to do my job as pt nurse while proving safe care and documentation of such reflected in my charting. @1120 NST in room with pt obtaining VS and preforming pre op care. (see VS flow sheet for more details) Surgical pre op orders released Anesthesia standing orders placed Pt has no jewelery on at this time Pt assessed. Adult assessment charted. Skin assessed. Mepilex dressing placed on sacrum for protection and prevention. CBC, BMP, UA obtained 11/06 (see chart for details) EKG 11/06 SB with PVCs HR 58 Status Board ALERT: Bariatric BMI 33.86 Consent is signed and matches aff. Of consent order in [facility] Pt has glasses inside of bubble wrap with label in FMCU Bag @ 1225 PIV 20g insert to right hand ([id number]) SL @ 1230 [place] @ pt bedside @ 1235 Family @ pt bedside Maddison (friend) & Mary (spouse) Advance care directives obtained from and placed in chart Albuterol inhaler placed inside of bag with label and taped inside pt chart Pt states that he will randomly experience mild numbness intermittently to right toes since 2009. Pt states that he experiences infrequent cough since 2009. Pt denies pain, numbness, SOB, difficulty breathing, chest pain/pressure, nausea, numbness, tingling, sensation change, weakness, new vision changes, ringing in ears or other new alterations to baseline or major forms of discomfort mentioned. Handoff to Radha GONZALEZ @ 1205 @ pt bedside documented in this encounter Miscellaneous Notes Op Note - Ignacio Gonzalez MD - 11/12/2018 6:11 PM CDT PREOPERATIVE DIAGNOSIS: male stress urinary incontinence. POSTOPERATIVE DIAGNOSIS: male stress urinary incontinence. PROCEDURES PERFORMED: 1. Artificial urinary sphincter placement. 5 cm cuff placed through perineal incision. 61-70 cm H2O pressure regulating balloon placed through abdominal incision in the left above the posterior sheath . Scrotal pump placed on patients left side. 2. Cystoscopy. SURGEON: Charli Jefferson MD FELLOW: Christie Velasquez MD RESIDENT: Ignacio Gonzalez MD ESTIMATED BLOOD LOSS: 20 mL. TUBES AND DRAINS: None BRIEF HISTORY OF PRESENT ILLNESS: Rajiv Restrepo is a 68 year oldnbl-mdsb-sla gentleman with urinary incontinence refractory to minimally invasive management. Etiology of incontinence is history of prostatectomy (no history of radiation). Prior failed treatments for incontinencehave included Daley clamp use. Risks, benefits and alternatives of AUS placement were discussedincluding but not limited to bleeding, infection, penile/scrotal pain/numbness, device erosion, urinary retention, persistent urinary incontinence and need for additional procedures. DESCRIPTION OF PROCEDURE: After informed consent was obtained and pre-operative antibiotics were given in the form of vancomycin and gentamycin, the patient was brought to the operating room. Under general anesthesia he was placed in the low lithotomy position with all pressure points well-padded. Thelower abdomen, penis, scrotum and perineum were prepped and draped in the standard sterile fashion. The nursing team began preparing a 61-70 cm H2O PRB. A vertical midline perineal incision was made and carried down through Colle's fascia. The bulbospongiosus muscles were divided in the midline and dissected off the corpus spongiosum. We circumferentially dissected the bulbar urethra off the underlying corporal bodies and encircled it with the measuring tape. The diameter measured comfortably at 5 cm.. A 5 cm cuff was selected and prepared. An abdominal incision was made on the left side and dissection was carried down to the anterior sheath and 0-PDS sutures were pre-placed. We then dissected down to the level above the posterior sheath.. The 61-70 cm H20 PRB was placed in this space in the deflated state then inflated with 22cc NS. Theprevious placed sutures were then tied down. The cuff was then passed around the urethra with the tubing exiting on the left side. A sub-inguinal incision was subsequently made on the patient's left side. A sub dartos pouch was subsequently created using blunt dissection through this wound. A single stitch of 3-0 vicryl was then to separate tubing and pretend cephalad migration of the pump. A tubing p asser was then used to pass the tubing from the PRB to the sub-inguinal wound. Tubing was then cut in parallel and connections were all done in the standard fashion. The subinguinal wound was closed in2 layers with 3-0 Vicryl on Minerva's fascia and a 4-0 Monocryl subcuticular stitch. The abdominal wound was closed in a similar fashion. Steri-strips and small island dressings were applied. The perineal wound was closed in 2 layers with 3-0 Vicryl on Colle's fascia and 4-0 Monocryl in an interrupted horizontal mattress fashion on the skin. Bacitracin was applied. Fluffs and a scrotal support were also applied. The cuff was left deactivated. 5' 8 222 lbs 10.63 oz Body mass index is 33.86 kg/m??. Associated attestation - Charli Jefferson MD - 11/19/2018 6:51 PM CDT Physician Attestation I was present for the entire procedure between opening and closing. Charli Jefferson Brief Op Note - Ignacio Gonzalez MD - 11/12/2018 5:30 PM CDT [facility], [facility] Brief Operative Note Pre-operative diagnosis: Male Urinary Stress Incontinence Post-operative diagnosis * No post-op diagnosis entered * Procedure: Procedure(s): Insertion Of Artifical Urinary Sphincter, Cystoscopy Surgeon: Surgeon(s) and Role: * Charli Jefferson MD - Primary * Ignacio Gonzalez MD - Resident - Assisting * Christie Velasquez MD - Fellow - Assisting Anesthesia: General Estimated blood loss: Less than 50 ml Drains: None Specimens: * No specimens in log * Findings: See full operative report, pump in left jessica-scrotum, PRB in left sub- rectus space, 22 cc NSm 5 cm cuff. Complications: None. Implants: Implant Name Type Inv. Item Serial No. Med Spa Manager Lot No. LRB No. Used IMP URINARY SPHINCTER BALLOON AMS 61-70CM [id number] Metallic Hardware/[place] IMP URINARY SPHINCTER BALLOON AMS 61-70CM [id number] [employer] [id number] N/A 1 IMP URINARY SPHINCTER AMS 800 PUMP SYSTEM [id number] Prosthesis IMP URINARY SPHINCTER AMS 800 PUMP SYSTEM [id number] [employer] [id number] N/A 1 KIT ACCESSORY UCS AMS 800 076150-16 Leads KIT ACCESSORY UCS AMS 800 [id number] [employer] [id number] N/A 1 IMP URINARY SPHINCTER CUFF OCCLUSIVE AMS 5.0CM [id number] Prosthesis IMP URINARY SPHINCTER CUFF OCCLUSIVE AMS 5.0CM [id number] [employer] [phone] N/A 1 documented in this encounter Plan of Treatment Not on filedocumented as of this encounter Procedures Procedure Name Priority Date/Time Associated Diagnosis Comme nts INSERTION, ARTIFICIAL 11/12/2018 3:23 PM Male Urinary Stress URINARY SPHINCTER CDT Incontinence Special Needs Body mass index is 33.75 kg/ m??. GLUCOSE BY METER Routine 11/12/2018 2:22 PM CDT R esults for this procedure are in the resu lts section. POTASSIUM STAT 11/12/2018 11:34 AM CDT Resu lts for this procedure are in the resu lts section. GLUCOSE BY METER Routine 11/12/2018 11:20 AM CDT Results for this procedure are in the resu lts section. EKG CARDIAC - HIM SCAN 11/06/2018 12:00 AM CDT documented in this encounter Results (ABNORMAL) Glucose by meter (11/12/2018 2:22 PM CDT) P athologist Signature Glucose 101 (H) 70 - 99 11/12/2018 POINT OF CARE mg/dL 2:33 PM CDT TEST, GLUCOSE Comment: /LISA Notified Specimen Anatomical Collection Method Collection Time Receive d Time (Source) Location / / Volume Laterality 11/12/2018 2:22 PM 9 2:33 CDT PM CDT Charli BRYANT - TAMIKO POCT Performing Organization Address City/State/ZIP Code Phon e Number [facility] POINT OF CARE TEST, GLUCOSE POINT OF CARE TEST, GLUCOSE Potassium (11/12/2018 11:34 AM CDT) athologist Signature Potassium 3.9 3.4 - 5.3 11/12/2018 [facility] mmol/L 12:50 PM CDT [facility] Specimen Anatomical Collection Method Collection Time Receive d Time (Source) Location / / Volume Laterality Blood specimen 11/12/2018 11:34 9 (specimen) AM CDT 11:35 AM CDT Rohan Yarbrough MD LAB - BLOOD ORDERABLES Performing Organization Address City/State/ZIP Code Phon e Number [facility] [address] [place] [address] [facility] (ABNORMAL) Glucose by meter (11/12/2018 11:20 AM CDT) athologist Signature Glucose 100 (H) 70 - 99 11/12/2018 POINT OF CARE mg/dL 11:31 AM CDT TEST, GLUCOSE Comment: /LISA Notified Specimen Anatomical Collection Method Collection Time Receive d Time (Source) Location / / Volume Laterality 11/12/2018 11:20 11/12/2018 AM CDT 11:31 AM CDT Charli BRYANT - TAMIKO POCT Performing Organization Address City/State/ZIP Code Phon e Number [facility] POINT OF CARE TEST, GLUCOSE POINT OF CARE TEST, GLUCOSE EKG CARDIAC - HIM SCAN (11/06/2018 12:00 AM CDT) Specimen (Source) Anatomical Location Collection Method / Collectio n Time Received Time / Laterality Volume 11/06/2018 Narrative This result has an attachment that is no t available. Provider Outside ECG ORDERABLES documented in this encounter Visit Diagnoses Diagnosis Stress incontinence of urine - Primary documented in this encounter Administered Medications Inactive Administered Medications - up to 3 most recent administrations Medication Order MAR Action Action Date Dose Rate Site HYDROmorphone (PF) (DILAUDID) Given 11/12/2018 5:55 PM CDT 0.5 m g injection 0.3-0.5 mg 0.3-0.5 mg, Intravenous, EVERY 5 MIN PRN, other, acute pain. ??May administer if Respiratory Rate is greater than 10, Starting on Sat11/12/18 at 1745, Max cumulative dose = 2 mg If fentaNYL (SUBLIMAZE) is also ordered, use HYDROmorphone (DILAUDID) if pain control insufficient with fentaNYL (SUBLIMAZE) or a longer acting agent is needed. For ordered IV doses 0.1-4 mg give IV Push undiluted. Administer each 2mg over 2-5 minutes., PACU naloxone (NARCAN) injection 0.1-0.4 mg 0.1-0.4 mg, Intravenous, EVERY 2 MIN PRN , opioid reversal, Starting on Sat11/12/18 at 1746, For 24 hours, For apnea or imminent respirato ry arrest: give 0.4 mg IV undiluted Q 2 minutes PRN until desired degree of reversal is obtained, stop opioid and notify provider. Continue monitoring until dischar ge criteria are met for a minimum of 2 hours. For severe sedation, decrease in respiratory depth, quality or respiratory rate less than 8: give 0.1 m g IV Q 2 minutes x 3 doses, stop opioid and notify provider. Try to minimize reversa l of analgesia especially in end-of-life patients For ordered IV doses 0.1-2mg gi ve IVP. Give each 0.4mg over 15 seconds in emergency situations. For non-emergent s ituations further dilute in 9mL of NS to facilitate titration of response., Post-procedure ondansetron (ZOFRAN) injection 4 mg Given 11/12/2018 6:55 PM CDT 4 mg 4 mg, Intravenous, EVERY 30 MIN PRN, nausea, Administer over 2-5 Minutes, Starting on Sat11/12/18 at 1745, For 2 doses, MAX total dose = 8 mg, including OR dosing. If not resolved in 15 minutes, then go to step 2 [prochlorperazine (COMPAZINE), if ordered]. Irritant. For ordered IV doses 0.1-4 mg, give IV Push undiluted over 2-5 minutes., PACU oxyCODONE (ROXICODONE) tablet 5 mg Given 11/12/2018 6:08 PM CDT 5 mg 5 mg, Oral, EVERY 4 HOURS PRN, moderate to severe pain, Starting on Sat11/12/18 at 1746, Max: 5 mg for opioid-na??ve patient., Post-procedure documented in this encounter Active and Recently Administered Medications Times are shown in CDT. Scheduled Medication Order 11/10/2018 11/11/2018 11/12/2018 ceFAZolin (ANCEF) intermittent infusion 2 g in 100 mL dextrose PRE-MIX (COMPLETED) 1545 (Given - Provid er: Checo Bajwa APRN CRNA) 2 g, Intravenous, PRE-OP/PRE-PROCEDURE, Starting Sat11/12/18 at 1115, For 1 dose, Give first dose within 1 hour PRIOR to incision. If patient weight is greater than or equal to 120 kg increase dose to 3 g., Indications: Perioperative Pharmacoprophylaxis, Pre-procedu re Continuous Medication Order 11/10/2018 11/11/2018 11/12/2018 lactated ringers infusion (CANCELED) 1521 (New Bag - Provider: Checo Bajwa APRN CRNA)1707 (New Bag - Provider: Checo Bajwa APRN CRNA) at 25 mL/hr, Intravenous, CONTINUOUS, IF patient NOT on dialysis., Pre- procedure, Starting Sat11/12/18 at 1130, Until Sat11/12/18 at 1732 PRN Medication Order 11/10/2018 11/11/2018 11/12/2018 HYDROmorphone (PF) (DILAUDID) injection 0.3-0.5 mg (CANCELED) 1755 (Given - Provider: Ce Hager RN) 0.3-0.5 mg, Intravenous, EVERY 5 MIN PRN , Starting Sat11/12/18 at 1745, Until Sat11/12/18 at 1853, other, acute pain. ??May administer if Respiratory Rate is greater than 10, PACU, Max cumulative dose = 2 mg If fentaNYL (SUBLIMAZE) is also or dered, use HYDROmorphone (DILAUDID) if pain control insufficient with fentaNYL (SUBLIMAZE) or a longer acting agent is needed. For ordered IV doses 0.1-4 mg give IV Push undiluted. Administer each 2mg over 2-5 minutes. naloxone (NARCAN) injection 0.1-0.4 mg 0.1-0.4 mg, Intravenous, EVERY 2 MIN PRN , opioid reversal, Starting Sat11/12/18 at 1746, For 24 hours, For apnea or imminent respiratory arrest: give 0.4 mg IV undiluted Q 2 minutes PRN until desired de gree of reversal is obtained, stop opioi d and notify provider. Continue monitoring until discharge criteria are met for a minimum of 2 hours. For severe sedation, decrease in respiratory depth, quality or respiratory rate less than 8: give 0. 1 mg IV Q 2 minutes x 3 doses, stop opioid and notify provider. Try to minimize reversal of analgesia especially in end-of-life patients For ordered IV doses 0.1- 2mg give IVP. Give each 0.4mg over 15 se conds in emergency situations. For non- emergent situations further dilute in 9mL of NS to facilitate titration of response., Post-procedure ondansetron (ZOFRAN) injection 4 mg (CANCELED) 1854 (Given - Provider: Ce Hager, LISA) 4 mg, Intravenous, EVERY 30 MIN PRN, gage sea, Administer over 2-5 Minutes, Starting Sat11/12/18 at 1745, For 2 doses, MAX total dose = 8 mg, including OR dosing. If not resolved in 15 minutes, then go to step 2 [prochlorperazine (COMPAZINE), i f ordered]. Irritant. 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
--- OUTSIDE RECORDS SUMMARY | 2021-11-20 16:02 | XMS_ITS | Encounter Summary ---
:1950 Author Organization [place] Address [address] [place] [address] Care Team Providers Name Role Phone Salas Raymundo Primary Care Provider Charles Crawford MD Unavailable Charli Jefferson MD Unavailable Reason for Visit Reason Comments Consult Patient is here for consult for surgery Encounter Details Date Type Department Care Team Description 09/08/2018 Office Visit [facility] Urology and Charli Jefferson y urgency Inst for Prostate and Ioana Rudd (Primary Dx) Urologic Cancers [address] [facility] [address] [facility] [address] [place], [place] [phone] [phone] Social History Tobacco Use Types Packs/Day Years [...] Sign Reading Time Taken Comments Blood Pressure 125/83 09/08/2018 11:34 AM CDT Pulse 61 09/08/2018 11:34 AM CDT Temperature - - Respiratory Rate 16 09/08/2018 11:34 AM CDT Oxygen Saturation - - Inhaled Oxygen Concentration - - Weight 102.5 kg (226 lb) 09/08/2018 11:34 AM CDT Height - - Body Mass Index 33.86 08/15/2018 10:18 AM CDT documented in this encounter Patient Instructions Patient InstructionsCuArianne ponce CMA - 09/08/2018 12:00 PM CDT Return to clinic to discuss symptoms and possible AUS. It was a pleasure meeting with you [...] experience. documented in this encounter Progress Notes Charli Jefferson MD - 09/08/2018 12:00 PM CDT Images from the original note were not included. 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 Plan: - trial oxybutynin XL 15mg QD - will consider AUS placement after patient returns from vacation - based on history there is a component of Urge Incontinence but that shouldn't prevent us from addressing the ELIGIO with AUS or Daley clamp per patient's preference. No need for UDS. - I explained that AUS might help get his incontinence from 3-4 ppd with Daley clamp down to 1 ppd. Follow up: RTC mid-Sept As the attending surgeon I, Charli Jefferson, interviewed and examined the patient. The plan was developed between me and the patient. My findings and plan are as stated by the resident. Charli Jefferson MD Chief Complaint: Urinary incontinence HPI: Rajiv Restrepo is a 68 year old male referred from Dr. Crawford for consideration of AUS. 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 Fortunately, his PSAs have been undetectable but he has been incontinent since immediately post- op. He has both urinary urgency and stress incontinence. He had a normal cystoscopy with Dr. Gutierrez. Dr. Crawford was concerned that he may have a small bladder capacity and would require anticholinergic medication in addition to AUS. He currently uses a Daley clamp to manage his leakage however still needs 3-4 pads per day. He voids every 30-45 minutes with good strength of stream. He has never had urodynamics. Of note, he is scheduled for AUS with Dr Gutierrez on 11/17 however he is here for a 2nd opinion. Regarding his neurological deficits after stroke, pt notes residual weakness in his right hand and some loss of vision in his left eye. He ambulates independently. Given that he had a stroke in the immediate post-op period after RRP, he is unable to differentiate voiding symptoms pre and post stroke. Review of Systems: Pertinent items are noted in HPI or as below, remainder of complete ROS is negative. Active Medications: Current Outpatient Medications: ??? albuterol (PROAIR HFA) 108 (90 Base) MCG/ACT inhaler, Inhale 2 puffs into the lungs, Disp: , Rfl: ??? aspirin 81 MG EC tablet, Take 81 mg by mouth, Disp: , Rfl: ??? atorvastatin (LIPITOR) 40 MG tablet, Take 40 mg by mouth, Disp: , Rfl: ??? Cholecalciferol (D 1000) 1000 units CAPS, Take 2,000 Units by mouth, Disp: , Rfl: ??? fexofenadine (MIGUEL) 180 MG tablet, Take 180 mg by mouth, Disp: , Rfl: ??? fluticasone-salmeterol (ADVAIR HFA) 115-21 MCG/ACT inhaler, Inhale 2 puffs into the lungs, Disp:, Rfl: ??? lisinopril-hydrochlorothiazide (PRINZIDE/ZESTORETIC) 10-12.5 MG tablet, Take 1 tablet by mouth, Disp: , Rfl: ??? montelukast (SINGULAIR) 10 MG tablet, Take 10 mg by mouth, Disp: , Rfl: ??? Multiple Vitamin (MULTI-VITAMINS) TABS, Take 1 tablet by mouth, Disp: , Rfl: ??? ranitidine (ZANTAC) 150 MG tablet, Take 150 mg by mouth, Disp: , Rfl: Allergies: Hydrocodone-acetaminophen Past Medical History: Abdominal hernia History of thrombophlebitis Prostate cancer Stroke DVT Past Surgical History: Cystoscopy Hernia repair Radical prostatectomy Family History: Mother: heart disease Father: skin cancer, heart disease, diabetes mellitus Social History: No tobacco use. Physical Exam: B/P: Data Unavailable, T: Data Unavailable, P: Data Unavailable, R: Data Unavailable Estimated body mass index is 33.71 kg/m?? as calculated from the following: Height as of 08/15/18: 1.74 m (5' 8.5). Weight as of 08/15/18: 102.1 kg (225 lb). General: age-appropriate appearing male in NAD HEENT: Head AT/NC, EOMI, CN Grossly intact Resp: no respiratory distress Back: bony spine is non-tender, flanks are nontender Abdomen: mild obesity , soft, non-distended, non-tender. No organomegaly. Surgical scars include: midline suprapubic scar, right inginal scar : testicles normal without atrophy or masses and penis normal without urethral discharge; Daley clamp in place Neuro: grossly intact Motor: excellent strength throughout Skin: clear of rashes or ecchymoses. Imaging: No recent imaging Laboratory: No recent labs Laurel Merritt MD Urology PGY-3 Answers for HPI/ROS submitted by the patient on 09/04/2018 General Symptoms: No Skin Symptoms: No HENT Symptoms: Yes EYE SYMPTOMS: No HEART SYMPTOMS: No LUNG SYMPTOMS: No INTESTINAL SYMPTOMS: No URINARY SYMPTOMS: Yes REPRODUCTIVE SYMPTOMS: No SKELETAL SYMPTOMS: No BLOOD SYMPTOMS: No NERVOUS SYSTEM SYMPTOMS: No MENTAL HEALTH SYMPTOMS: No Ear pain: No Ear discharge: No Hearing loss: No Tinnitus: No Nosebleeds: No Congestion: Yes Sinus pain: No Trouble swallowing: No Voice hoarseness: Yes Mouth sores: No Sore throat: No Tooth pain: No Gum tenderness: No Bleeding gums: No Change in taste: No Change in sense of smell: No Dry mouth: Yes Hearing aid used: No Neck lump: No Trouble holding urine or incontinence: Yes Pain or burning: No Trouble starting or stopping: No Increased frequency of urination: No Blood in urine: No Decreased frequency of urination: No Frequent nighttime urination: Yes Flank pain: No Difficulty emptying bladder: No Answers for HPI/ROS submitted by the patient on 09/04/2018 General Symptoms: No Skin Symptoms: No HENT Symptoms: Yes EYE SYMPTOMS: No HEART SYMPTOMS: No LUNG SYMPTOMS: No INTESTINAL SYMPTOMS: No URINARY SYMPTOMS: Yes REPRODUCTIVE SYMPTOMS: No SKELETAL SYMPTOMS: No BLOOD SYMPTOMS: No NERVOUS SYSTEM SYMPTOMS: No MENTAL HEALTH SYMPTOMS: No Ear pain: No Ear discharge: No Hearing loss: No Tinnitus: No Nosebleeds: No Congestion: Yes Sinus pain: No Trouble swallowing: No Voice hoarseness: Yes Mouth sores: No Sore throat: No Tooth pain: No Gum tenderness: No Bleeding gums: No Change in taste: No Change in sense of smell: No Dry mouth: Yes Hearing aid used: No Neck lump: No Trouble holding urine or incontinence: Yes Pain or burning: No Trouble starting or stopping: No Increased frequency of urination: No Blood in urine: No Decreased frequency of urination: No Frequent nighttime urination: Yes Flank pain: No Difficulty emptying bladder: No documented in this encounter Nursing Notes Sheri Herron CMA - 09/08/2018 12:00 PM CDT Chief Complaint Patient presents with ??? Consult Patient is here for consult for surgery Sheri Herron CMA 11:34 AM on 09/08/2018. documented in this encounter Plan of Treatment Not on filedocumented as of this encounter Procedures Procedure Name Priority Date/Time Associated Diagnosis Comme nts HC MEASURE POST-VOID Routine 09/08/2018 1:13 PM Urinary urgenc y RESIDUAL URINE/BLADDER CDT CAPACITY, US NON-IMAGING HC COMPLEX UROFLOWMETRY Routine 09/08/2018 1:13 PM Urinary urg ency CDT documented in this encounter Visit Diagnoses Diagnosis Urinary urgency - Primary Urgency of urination documented in this encounter Care Teams Internal Salesperson Relationship Specialty Start Date End Date Salas Raymundo PCP - General Family Practice 08/15/18 Charles Crawford MD MD Urology 08/19/18 [address] [facility] [address] [place] [phone] Charli Jefferson MD MD Urology 08/19/[address] [place] [phone] documented as of this encounter
--- OUTSIDE RECORDS SUMMARY | 2021-11-20 16:02 | XMS_ITS | Encounter Summary ---
:1950 Author Organization [place] Address [address] [place] [address] Care Team Providers Name Role Phone Salas Raymundo Primary Care Provider Charles Crawford MD Unavailable Charli Jefferson MD Unavailable Reason for Visit Reason Comments Allied Health Visit Surgery Teaching Encounter Details Date Type Department Care Team Description 10/29/2018 [facility] Urology and Nurse, [facility] Health/Nurse Inst for Prostate Cancer Ctr (Surgery T eaching) Visit and Urologic Cancers [address] [facility] [address] [place] [address] Social History Tobacco Use Types [...] PM CDT documented as of this encounter Progress Notes Tracey Bhandari RN - 10/29/2018 11:30 AM CDT Pre Op Teaching Flowsheet Pre and Post op Patient Education Relevant Diagnosis: Male Stress Urinary Incontinence Teaching Topic: Pre and post op teaching for Insertion of artifical urinary sphincter; cystoscopy Person Involved in teaching: Rajiv Restrepo Motivation Level: Asks Questions: Yes Eager to Learn: Yes Cooperative: Yes Receptive (willing/able to accept information): Yes Patient demonstrates understanding of the following: Date and time of surgery: 11/12/18 Location of surgery: [address] [place] [address] History and Physical and any other testing necessary prior to surgery: Yes Required time line for completion of History and Physical and any pre-op testing: Yes NPO Guidelines: NPO per Anesthesia Guidelines Patient demonstrates understanding of the following: Patient understands the need for a responsible adult to drive them home and someone to stay with them for the first 24 hours post-operatively: YES Pre-op bowel prep: No, not needed Pre-op showering/scrub information with Hibiclens Soap: Yes Medications to take the day of surgery: Per PCP Blood thinner medications discussed and when to stop (if applicable): Yes Diabetes medication management (if applicable): N/A Discussed pain control after surgery: pain scale, pain medications and pain management techniques Infection Prevention: Patient demonstrates understanding of the following: Patient instructed on hand hygiene: Yes Surgical procedure site care taught: Yes Signs and symptoms of infection taught: Yes Wound care will be taught at the time of discharge. Central venous catheter care will be taught at the time of discharge (if applicable). Post-op follow-up: Discussed how to contact the hospital, nurse, and clinic scheduling staff if necessary. Instructional materials used/given/mailed: [facility] Booklet, post op teaching sheet, Map, Soap, and arrival/location information. Surgical instructions given to patient in clinic: Yes. Instructional Materials given: Before your surgery packet , Medications to avoid before surgery , Showering or Bathing instructionsbefore surgery and What to expect after surgery Post-op appointment/testing scheduled per MD orders: Yes Total time with patient: 10 minutes Tracey Bhandari RN, BSN Urology Window Shade Estimator documented in this encounter Plan of Treatment Not on filedocumented as of this encounter Visit Diagnoses Diagnosis Urinary urgency - Primary Urgency of urination Urinary incontinence, unspecified type Male urinary stress incontinence Stress incontinence, male documented in this encounter Care Teams Mid Level Business Analyst Relationship Specialty Start Date End Date Salas Raymundo PCP - General Family Practice 08/15/18 Charles Crawford MD MD Urology 08/19/18 [address] [facility] [address] [place] [phone] Charli Jefferson MD MD Urology 08/19/18 [address] [facility] [address] [place] [address] documented as of this encounter
--- OUTSIDE RECORDS SUMMARY | 2021-11-20 16:02 | XMS_ITS | Encounter Summary ---
:1950 Author Organization [place] Address [address] [place] [address] Care Team Providers Name Role Phone Salas Raymundo Primary Care Provider Charles Crawford MD Unavailable Charli Jefferson MD Unavailable Reason for Visit Auth/Cert Specialty Diagnoses / Procedures Referred By Contact Refer red To Contact Surgery Diagnoses Male Urinary Stress Incontinence Uu Periop Procedures INSERTION, ARTIFICIAL URINARY SPHINCTER [address] [place] [address] Phone: Fax: Referral ID Status Reason Start Date Expiration Date Visits Requ ested Visits Authorized [id number] 1 1 Encounter Details Date Type Department Care Team Description 11/12/2018 Surgery [facility] Charli Jefferson rtion Of Artifical PeriOp Services MD Tobin Urinary Sphincter, [address] [place] [address] [facility] [phone] [place] [address] (Wo rk) Surgery Details Date/Time Status Location OR Service Patient Case Class Case Tr auma Class Type Case? 11/12/18 3:05 Posted UU OR UU OR Urology Same Day PM 09 Surgery Panel 1 Procedure LRB Anes Op Region Wound Class Commen ts Insertion Of Artifical Urinary N/A General Bladder II-Cl katja Contaminated Sphincter, Cystoscopy Surgeon Surgeon Role Service Panel Charli Jefferson MD Primary Urology 1 Christie Cruz MD Fellow - Assisting Urology 1 Ignacio Gonzalez MD Resident - Assisting 1 Special Needs Body mass index is 33.75 kg/m??. documented in this encounter Social History Tobacco [...] Sign Reading Time Taken Comments Blood Pressure 132/80 11/12/2018 11:15 AM CDT Pulse 67 11/12/2018 11:15 AM CDT Temperature 37.2 ??C (98.9 ??F) 11/12/2018 11:15 AM CDT Respiratory Rate 16 11/12/2018 11:15 AM CDT Oxygen Saturation 97% 11/12/2018 11:15 AM CDT Inhaled Oxygen Concentration - - Weight 101 kg (222 lb 10.6 oz) 11/12/2018 11:15 AM CDT Height 172.7 cm (5' 8) 11/12/2018 11:15 AM CDT Body Mass Index 33.86 11/12/2018 11:15 AM CDT documented in this encounter Discharge Instructions Discharge InstructionsCe Hager RN - 11/12/2018 6:31 PM CDT Same-Day [...] only clear liquids such as apple juice, suedep renee, broth or 7-Up. Rest may also [...] a doctor, call Dr Hernandez's office at [phone] (clinic)or: X [phone] and ask for the Resident Home Health Specialist for: Urology (answered 24 hours a day) X Emergency Department: [facility]: [phone] Rev. 11/2013 documented in this encounter Medications [...] PM CDT Spiritual Health Services Progress Note [facility] [address] Provided sports medicine trainer care with Gopal, his (Heather) and their friend (Maddison) prior to his surgery. Discussed hopes related to surgery and how it will hopefully improve his quality of life. They are active within their rastafarian ([employer], in [place]). Mariana is important for coping. Prayer was [...] and matches aff. Of consent order in epic Pt has glasses inside of bubble wrap with label in FMCU Bag @ 1225 PIV 20g insert to right hand ([id number]) SL @ 1230 [place] @ pt bedside @ 1235 Family @ [...] forms of discomfort mentioned. Handoff to Radha RN @ 1205 @ pt bedside documented in [...] ILLNESS: Rajiv Restrepo is a 68 year oldjdl-yuoy-nth gentleman with urinary incontinence refractory to minimally [...] Gonzalez MD - 11/12/2018 5:30 PM CDT [facility] [place] Brief Operative Note Pre-operative diagnosis: Male Urinary [...] Implant Name Type Inv. Item Serial No. Living Advisor Lot No. LRB No. Used IMP URINARY SPHINCTER BALLOON AMS 61-70CM [id number] Metallic Hardware/[place] IMP URINARY SPHINCTER BALLOON AMS 61-70CM [id number] [facility] [id number] N/A 1 IMP URINARY SPHINCTER AMS 800 PUMP SYSTEM [id number] Prosthesis IMP URINARY SPHINCTER AMS 800 PUMP SYSTEM [id number] [facility] [id number] N/A 1 KIT ACCESSORY UCS AMS 800 [id number] Leads KIT ACCESSORY UCS AMS 800 156555-10 [facility] [id number] N/A 1 IMP URINARY SPHINCTER CUFF OCCLUSIVE AMS 5.0CM [id number] Prosthesis IMP URINARY SPHINCTER CUFF OCCLUSIVE AMS 5.0CM [id number] [facility] [id number] N/A 1 documented in this encounter Plan [...] Glucose by meter (11/12/2018 2:22 PM CDT) athologist Signature Glucose 101 (H) 70 - 99 11/12/2018 POINT OF CARE mg/dL 2:33 PM CDT TEST, GLUCOSE Comment: /RN Notified Specimen Anatomical Collection Method Collection Time Receive d Time (Source) Location / / Volume Laterality 11/12/2018 2:22 PM 9 2:33 CDT PM CDT Charli Jefferson MD LAB - BEAKER POCT Performing Organization Address City/State/ZIP Code Phon e Number [facility] POINT OF CARE TEST, GLUCOSE POINT OF CARE TEST, GLUCOSE Potassium (11/12/2018 11:34 AM CDT) athologist Signature Potassium 3.9 3.4 - 5.3 11/12/2018 [facility] mmol/L 12:50 PM CDT [facility] Specimen Anatomical Collection Method Collection Time Receive d Time (Source) Location / / Volume Laterality Blood specimen 11/12/2018 11:34 9 (specimen) AM CDT 11:35 AM CDT Rohan Yarbrough MD LAB - BLOOD ORDERABLES Performing Organization Address City/State/ZIP Code Phon e Number [facility] [address] [place] [address] [facility] (ABNORMAL) Glucose by meter (11/12/2018 11:20 AM CDT) athologist Signature Glucose 100 (H) 70 - 99 11/12/2018 POINT OF CARE mg/dL 11:31 AM CDT TEST, GLUCOSE Comment: Dr/RN Notified Specimen Anatomical Collection Method Collection Time Receive d Time (Source) Location / / Volume Laterality 11/12/2018 11:20 11/12/2018 AM CDT 11:31 AM CDT Charli Jefferson MD [facility] POCT Performing Organization Address City/State/ZIP Code Phon [...] HYDROmorphone (PF) (DILAUDID) injection 0.3-0.5 mg (CANCELED) 1754 (Given - Provider: Ce Hager RN) 0.3-0.5 [...] minutes., PACU oxyCODONE (ROXICODONE) tablet 5 mg 1803 (Given - Provider: Ce Hager, RN) 5 mg, Oral, EVERY 4 HOURS PRN, moderate to severe pain, Starting 11/12/18 at 1746, Max: 5 mg for opioid-na??ve patient., Post-procedure documented in this encounter Care Teams Registered Nurse Cardiac Telemetry Relationship Specialty Start Date End Date Salas Raymundo PCP - General [facility] Practice 08/15/18 Charles Crawford MD MD Urology 08/19/18 [address] [facility] [address] [place] [address] Charli Jefferson MD MD Urology 08/19/18 [address] [facility] [address] [place] [address] documented as of this encounter
--- OUTSIDE RECORDS SUMMARY | 2021-11-20 16:02 | XMS_ITS | Encounter Summary ---
:1950 Author Organization [place] Address [address] [place] [address] Care Team Providers Name Role Phone Salas Raymundo Primary Care Provider Charles Crawford MD Unavailable Charli Jefferson MD Unavailable Reason for Visit Reason Onset Date Comments Pre Visit Planning - Done 09/03/2018 Encounter Details Date Type Department Care Team Description 09/03/2018 PRE VISIT [facility] Urology and Charli Jefferson Pre Vi sit Planning - Inst for Prostate and Ioana Rudd Done Urologic Cancers [address] [facility] [address] [facility] [address] [place], [place] [phone] [phone] Social History Tobacco Use Types Packs/Day Years Used Date Never Smoker Smokeless Tobacco: Never Used Sex Assigned at Date Recorded Male 09/04/2018 3:46 PM CDT documented as of this encounter Miscellaneous Notes Telephone Encounter - Arianne Daley CMA - 09/03/2018 1:11 PM CDT Reason for visit: incontinence consult Relevant information: referred by Dr. Crawford, history of prostatectomy Records/imaging/labs/orders: records available Pt called: yes At [facility] hour pad weight documented in this encounter Plan of Treatment Not on filedocumented as of this encounter Visit Diagnoses Not on filedocumented in this encounter Care Teams Local Government Legislator Relationship Specialty Start Date End Date Salas Raymundo PCP - General Family Practice 08/15/18 Charles Crawford MD MD Urology 08/19/18 [address] [facility] [address] [place] [address] Charli Jefferson MD MD Urology 08/19/18 [address] [facility] [address] [place] [address] documented as of this encounter
--- OUTSIDE RECORDS SUMMARY | 2021-11-20 16:02 | XMS_ITS | Encounter Summary ---
:1950 Author Organization [place] Address [address] [place] [address] Care Team Providers Name Role Phone Salas Raymundo Primary Care Provider Encounter Details Date Type Department Care Team Description 08/15/2018 Travel Social History Tobacco Use Types Packs/Day Years Used Date Never Smoker Smokeless Tobacco: Never Used Sex Assigned at Date Recorded Male 09/04/2018 3:46 PM CDT documented as of this encounter Plan of Treatment Not on filedocumented as of this encounter Visit Diagnoses Not on filedocumented in this encounter Care Teams Machine Repairer Maintenance Relationship Specialty Start Date End Date Salas Raymundo PCP - General Family Practice 08/15/18 documented as of this encounter
--- OUTSIDE RECORDS SUMMARY | 2021-11-20 16:02 | XMS_ITS | Encounter Summary ---
:1950 Author Organization [facility] Address [address] [place] [address] Care Team Providers Name Role Phone Salas Raymundo Primary Care Provider Charles Crawford MD Unavailable Charli Jefferson MD Unavailable Reason for Visit Reason Onset Date Comments Medication Question 09/08/2018 Encounter Details Date Type Department Care Team Description 09/08/2018 Telephone [facility] Urology and Charli Jefferson Medica tion Question Inst for Prostate and Ioana Rudd Urologic Cancers [address] [facility] [address] [facility] [address] [place] [address] [place], [place] [phone] (Wo rk) [address] [phone] Social History Tobacco Use Types Packs/Day Years [...] this encounter Miscellaneous Notes Telephone Encounter - Carola Medrano CMA - 09/09/2018 4:26 PM CDT [facility] pharmacy was notified that the dispense should be 90 instead of 30. New Oxybutynin prescription with the correction was sent to [facility] pharmacy. Carola Medrano MA Telephone Encounter - Gavin Bernard - 09/09/2018 4:02 PM CDT [facility] Phone Message May a detailed message be left on voicemail: yes Reason for Call: Other: [facility] calling back. He states no one has called the pharmacy. Please call him back to discuss. Action Taken: Message routed to: [facility] otny arredondo Telephone Encounter - Jovi Mc - 09/08/2018 2:55 PM CDT [facility] Phone Message May a detailed message be left on voicemail: yes Reason for Call: Other: Pharmacy called said they need clarification on the OXYBUTIN 5mgs. Directions say take 3 capsules daily but quantity is written for 30 so it is only a 10 day supply. If doctor want to write 15 mgs for 30 days they can do that with refills. Please call to clarify Action Taken: Message routed to: [facility] urology documented in this encounter Plan of Treatment Not on filedocumented as of this encounter Visit Diagnoses Diagnosis Urinary urgency - Primary Urgency of urination documented in this encounter Care Teams Glove Parts Cutter Relationship Specialty Start Date End Date Salas Raymundo PCP - General Family Practice 08/15/18 Charles Crawford MD MD Urology 08/19/18 [address] [facility] [address] [place] [address] Charli Jefferson MD MD Urology 08/19/18 [address] [facility] [address] [place] [address] documented as of this encounter
--- OUTSIDE RECORDS SUMMARY | 2021-11-20 16:02 | XMS_ITS | Encounter Summary ---
:1950 Author Organization [place] Address [address] [place] [address] Care Team Providers Name Role Phone Salas Raymundo Primary Care Provider Reason for Visit Reason Comments Urine Incontinence Patient here today to talk a bout Artificial Sphincter Encounter Details Date Type Department Care Team Description 08/15/[address] [facility] Charles Crawford Urin ary incontinence, Urology Clinic Darin HOPKINS unspecified type [address] (Primary Dx) [address] [place] [address] [place] [phone] [address] Social History Tobacco Use Types Packs/Day Years Used Date Never Smoker Smokeless Tobacco: Never Used Tobacco Cessation: Counseling Given: No Sex Assigned at Date Recorded Male 09/04/2018 3:46 PM CDT documented as of this encounter Last Filed Vital Signs Vital Sign Reading Time Taken Comments Blood Pressure 118/66 08/15/2018 10:18 AM CDT Pulse 76 08/15/2018 10:18 AM CDT Temperature - - Respiratory Rate - - Oxygen Saturation 97% 08/15/2018 10:18 AM CDT Inhaled Oxygen Concentration - - Weight 102.1 kg (225 lb) 08/15/2018 10:18 AM CDT Per Pa tient Height 174 cm (5' 8.5) 08/15/2018 10:18 AM CDT Per Pat ient Body Mass Index 33.71 08/15/2018 10:18 AM CDT documented in this encounter Patient Instructions Patient InstructionsGrace Hobbs - 08/15/2018 10:30 AM CDT Please call [phone] to schedule an appointment with Dr Charli Jefferson. documented in this encounter Progress Notes Charles Crawford MD - 08/15/2018 10:30 AM CDT Rajiv Restrepo is a very pleasant 68-year-old male who underwent radical prostatectomy in [facility] 9 years ago. Immediately after discharge he was transferred to [facility] with a systemic infection, required dialysis and had a stroke. Fortunately, his PSAs have been undetectable but he has been incontinent since his Robertson catheter was removed. He has both urinary urgency and stress incontinence. I have reviewed the complete clinic notes from Wilmer Aguilar MD and Valdez Gutierrez MD. Patient has a normal urinalysis today. He had a normal cystoscopy with Dr. Gutierrez Other past medical history: History of DVT, hernia, non-smoker Medications: Albuterol, aspirin, Lipitor, vitamin D, Fe, Advair inhaler, lisinopril/hydrochlorothiazide, Singulair, multivitamin, Zantac Allergies: Hydrocodone Review of systems: No dysuria or hematuria. Wears 12 pads a day if he does not use the Daley clamp. He has not had urodynamic studies Exam: Alert and oriented, with spouse. Normal vital signs, normal appearance, normal respirations, neuro grossly intact Assessment: Stress and urgency incontinence. Patient should have urodynamic studies prior to any artificial sphincter insertion. I am concerned that after his stroke he has had urinary urgency and willhave a small bladder capacity. He may require anticholinergic medication or Myrbetriq daily in addition to his artificial sphincter. Suggest he see Charli Jefferson MD at the [facility] who has an expertise in these 2 areas. He will follow-up with Dr. Aguilar for PSA testing in the future documented in this encounter Nursing Notes Nisa Martinez CMA - 08/15/2018 10:30 AM CDT Chief Complaint Patient presents with ??? Urine Incontinence Patient here today to talk about Sphincter Blood pressure 118/66, pulse 76, height 1.74 m (5' 8.5), weight 102.1 kg (225 lb), SpO2 97 %. Body mass index is 33.71 kg/m??. There is no problem list on file for this patient. Allergies Allergen Reactions ??? Hydrocodone-Acetaminophen Nausea and Vomiting No current outpatient medications on file. Social History Tobacco Use ??? Smoking status: Never Smoker ??? Smokeless tobacco: Never Used Substance Use Topics ??? Alcohol use: None ??? Drug use: None UA RESULTS: Recent Labs Lab Test 08/15/18 1023 COLOR Yellow APPEARANCE Clear URINEGLC Negative URINEBILI Negative URINEKETONE Negative SG 1.015 UBLD Negative URINEPH 7.0 PROTEIN Negative UROBILINOGEN 0.2 NITRITE Negative LEUKEST Negative documented in this encounter Plan of Treatment Not on filedocumented as of this encounter Procedures Procedure Name Priority Date/Time Associated Diagnosis Comme nts URINE MACROSCOPIC Routine 08/15/2018 10:23 Urinary Result s for this ONLY AM CDT incontinence, procedure are in unspecified type the results section. documented in this encounter Results UA without Microscopic [[id number]] (08/15/2018 10:23 AM CDT) [facility] Method Time Signature Color Urine Yellow 08/15/2018 [facility] 10:27 AM [facility]OLOGIC [facility] Appearance Urine Clear 08/15/2018 [facility] 10:27 AM [facility]OLOGIC [facility] Glucose Urine Negative NEG^Negat 08/15/2018 [facility] soni mg/dL 10:27 AM [facility]OLOGIC CD[facility] Bilirubin Urine Negative NEG^Negat 08/15/2018 [facility] soni 10:27 AM [facility]OLOGIC [facility] Ketones Urine Negative NEG^Negat 08/15/2018 [facility] soni mg/dL 10:27 AM [facility]OLOGIC [facility] Specific [place] 1.015 1.003 - 08/15/2018 [facility] Urine 1.035 10:27 AM UROLOGIC CD[facility] Blood Urine Negative NEG^Negat 08/15/2018 [facility] soni 10:27 AM UROLOGIC [facility] pH Urine 7.0 5.0 - 7.0 08/15/2018 [facility] pH 10:27 AM [facility] Protein Albumin Negative NEG^Negat 08/15/2018 [facility] Urine soni mg/dL 10:27 AM UROLOGIC CD[facility] Urobilinogen 0.2 0.2 - 1.0 08/15/2018 [facility] Urine EU/dL 10:27 AM [facility]OLOGIC [facility] Nitrite Urine Negative NEG^Negat 08/15/2018 [facility] soni 10:27 AM UROLOGIC CD[facility] Leukocyte Negative NEG^Negat 08/15/2018 [facility] Esterase Urine soni 10:27 AM [facility]OLOGIC [facility] Source Midstream 08/15/2018 [facility] Urine 10:24 AM [facility]OLOGIC CD[facility] Specimen (Source) Anatomical Collection Method Collection Time Re ceived Time Location / / Volume Laterality Examination of 08/15/2018 10:23 9 midstream urine AM CDT 10:24 AM CDT specimen (procedure) Charles Crawford MD LAB - URINE ORDERABLES Performing Organization Address City/State/ZIP Code Phon e Number [facility] [address] [id number] CLINIC [address] documented in this encounter Visit Diagnoses Diagnosis Urinary incontinence, unspecified type - Primary documented in this encounter Care Teams Hitcher Relationship Specialty Start Date End Date Salas Raymundo PCP - General Family Practice 6/28/19 documented as of this encounter
--- OUTSIDE RECORDS SUMMARY | 2021-11-20 16:02 | XMS_ITS | Encounter Summary ---
:1950 Author Organization [facility] Address [address] [place] [address] Care Team Providers Name Role Phone Salas Raymundo Primary Care Provider Charles Crawford MD Unavailable Charli Jefferson MD Unavailable Reason for Visit Reason Onset Date Comments Pre Visit Planning - Done 08/19/2018 Encounter Details Date Type Department Care Team Description 08/19/2018 PRE VISIT [facility] Urology and Charli Jefferson Pre Vi sit Planning - Inst for Prostate and Ioana Rudd Done Urologic Cancers [address] [facility] [address] [facility] [address] [place], [place] [address] [phone] Social History Tobacco Use Types Packs/Day Years Used Date Never Smoker Smokeless Tobacco: Never Used Sex Assigned at Date Recorded Male 09/04/2018 3:46 PM CDT documented as of this encounter Miscellaneous Notes Telephone Encounter - Simone Jaimie - 08/19/2018 8:21 AM CDT Images from the original note were not included. MEDICAL RECORDS REQUEST [place] [facility] Urology Clinic [address] [place] [address] PHONE: [phone] FUTURE VISIT INFORMATION Rajiv Restrepo, : 1950 scheduled for future visit at [facility] APPOINTMENT INFORMATION: ?? Date: 09/08/18 12PM ?? Provider: Charli Hernandez MD ?? Reason for Visit/Diagnosis: Urinary Sphincter REFERRAL INFORMATION: ?? Referring provider: Charles Crawford ?? Specialty: MD ?? Referring providers clinic: [facility] ?? Clinic contact number: [phone] RECORDS REQUESTED FOR VISIT NOTES STATUS/DETAILS OFFICE NOTE from referring provider yes OFFICE NOTE from other specialist yes DISCHARGE SUMMARY from hospital no DISCHARGE REPORT from the ER no OPERATIVE REPORT yes MEDICATION LIST no PRE-VISIT CHECKLIST Record collection complete Yes- Recs in [facility] recs with Dr. Aguilar in Appointment appropriately scheduled (right time/right provider) Yes MyChart activation If no, please explain: In process Questionnaire complete If no, please explain: In process Completed by: Jaimie Nichols documented in this encounter Plan of Treatment Not on filedocumented as of this encounter Visit Diagnoses Not on filedocumented in this encounter Care Teams City Carrier Relationship Specialty Start Date End Date Salas Raymundo PCP - General Family Practice 08/15/18 Charles Crawford MD MD Urology 08/19/18 [address] [phone] Charli Jefferson MD MD Urology 08/19/18 [address] [facility] [address] [place] [address] documented as of this encounter
--- OUTSIDE RECORDS SUMMARY | 2021-11-20 16:02 | XMS_ITS | Encounter Summary ---
:1950 Author Organization [facility] Address [address] [place] [address] Care Team Providers Name Role Phone Salas Raymundo Primary Care Provider Charles Crawford MD Unavailable Charli Jefferson MD Unavailable Encounter Details Date Type Department Care Team Description 11/06/2018 Orders Only [facility] Urology and Inst Charli Jefferson, for Prostate and Urologic MD Cancers [address] [facility] [address] [place] [address] [address] [place], [place] [phone] Social History Tobacco Use Types Packs/Day Years [...] on filedocumented in this encounter Care Teams Axminster Weaver Relationship Specialty Start Date End Date Salas Raymundo PCP - General Family Practice 08/15/18 Charles Crawford MD MD Urology 08/19/18 [address] [facility] [address] [place] [address] Charli Jefferson MD MD Urology 08/19/18 [address] [facility] [address] [place] [address] documented as of this encounter
--- OUTSIDE RECORDS SUMMARY | 2021-11-20 16:02 | XMS_ITS | Clinical Summary ---
:1950 Author Organization [facility] [place] [address] Care Team Providers Name Role Phone Salas Raymundo MD Primary Care Provider [phone] Allergies Active Allergy Reactions Severity Noted Date Comments Hydrocodone-Acetaminophen Vomiting 03/15/2014 Medications Medication Sig Dispensed Refills Start Date End Date Status aspirin enteric Take 1 tablet by 30 tablet 0 09/05/2009 Active coated 81 mg tablet mouth once daily with a meal. fexofenadine Take 1 tablet by 90 tablet 3 10/07/2009 Active (MIGUEL) 180 mg mouth once daily. tablet multivitamin (MVI) Take 1 tablet by 0 11/27/2010 Active tablet mouth once daily. albuterol HFA Inhale 2 Puffs by 0 02/05/2014 Active (PRO-AIR; VENTOLIN; mouth 4 times daily PROVENTIL) 90 if needed. mcg/actuation inhaler cholecalciferol Take 1,000 units by 0 02/10/2016 Active (VITAMIN D3) 1,000 mouth 2 times unit capsule daily. montelukast Take 1 tablet by 0 04/11/2017 Active (SINGULAIR) 10 mg mouth at bedtime. tablet amoxicillin (AMOXIL) TAKE ONE CAPSULE BY 0 Active 500 mg capsule MOUTH THREE TIMES A DAY, STARTING THE MORNING PRIOR TO THE PROCEDURE atorvastatin Take 1 Tablet (40 90 tablet. 3 04/15/2021 Active (LIPITOR) 40 mg mg) by mouth once tabletIndications: daily. Due for Hypertension, cardiology follow unspecified type up in May 2020. Please call [phone] to schedule. mirabegron Take 1 Tablet (50 90 tablet. 3 06/02/2021 Active EXTENDED-release mg) by mouth once (MYRBETRIQ) 50 mg daily. tabletIndications: Overactive bladder azelastine 137 Inhale 1 [place] into 0 Active mcg/actuation affected nostril(s) (ASTELIN) nasal spray once daily. fluticasone (50 mcg Inhale 1 [place] into 0 Active per actuation) nasal affected nostril(s) solution (FLONASE) once daily in the afternoon. fluticasone Inhale 2 Puffs by 0 Active propion-salmeteroL mouth every 12 (Advair HFA) 230-21 hours. mcg/actuation inhaler polyethylene glycol Mix 17 g in liquid 0 06/17/2021 Active (MIRALAX; GLYCOLAX) then take by mouth 17 g powder for once daily. solutionIndications: Hiatal hernia ibuprofen (ADVIL; Take 3 Tablets (600 0 06/16/2021 Active MOTRIN) 200 mg mg) by mouth every tabletIndications: 6 hours if needed Hiatal hernia for Pain. Maximum of 3200 mg in 24 hours. acetaminophen Take 2 Tablets 0 06/16/2021 Active (TYLENOL EXTRA (1,000 mg) by mouth STRGTH) 500 mg every 6 hours if tabletIndications: needed for Pain. Hiatal hernia Max acetaminophen dose: 4000mg in 24 hrs. losartan-hydrochlorot Take 1 Tablet by 90 Tablet 3 06/19/2021 Active hiazide, 50-12.5 mg, mouth once daily. (HYZAAR) 50-12.5 mg tabletIndications: Benign essential HTN Active Problems Problem Noted Date Status post Paxton fundoplication 06/14/2021 06/20/2021 Hiatal hernia 09/08/2020 Laryngopharyngeal reflux (LPR) 09/08/2020 Chronic cough 09/08/2020 Cough syncope 05/11/2020 Urinary incontinence 05/11/2020 Sensorineural hearing loss, bilateral 09/11/2013 Prostate cancer 11/20/2012 Inguinal hernia, left 12/12/2010 Right hemiparesis 08/05/2009 S/P AVR (aortic valve replacement) 07/26/2009 Overview: 07/26/09 Minimally invasive aortic valve r eplacement (25 mm) Clemente magna supraannular pericardial tissue valve per Dr. Bond. Intracranial hemorrhage, left 07/14/2009 Endocarditis, bacterial, acute/subacute 07/06/2009 Unspecified asthma(493.90) Esophageal reflux Impotence of organic origin Other and unspecified hyperlipidemia Obesity, unspecified Unspecified essential hypertension Allergic rhinitis, cause unspecified Overview: seasonal Prediabetes Resolved Problems Problem Noted Date Resolved Date Vitamin D deficiency 11/20/2012 05/11/2020 Personal history of colonic polyps 08/14/201205/11 Overview: Colonoscopy 07/2012 normal repeat in 5 ye ars Colonoscopy 08/2017 polyps, repeat in 5 y ears Expressive aphasia syndrome 08/29/2009 04/30/2019 Clostridium difficile infection 08/05/2009 08/15/19 13 S/p tracheostomy 08/05/2009 05/11/2020 Diarrhea 08/05/2009 08/14/2012 Encephalopathy 08/05/2009 05/11/2020 Anemia, unspecified 08/05/2009 05/11/2020 Hyperglycemia 08/05/2009 05/11/2020 Fever 07/14/2009 08/14/2012 Sepsis, MRSA 07/11/2009 05/23/2021 Acute renal failure 07/11/2009 04/30/2019 Acute respiratory failure 07/11/2009 04/30/2019 Other abnormal glucose 05/23/2021 Encounters Date Type Specialty Care Team Description 08/29/2021 Office Visit Princess Santamaria MD Follow Up (1 year follow up/echo) 08/29/2021 Travel from Last 3 Months Immunizations Name Administration Dates Next Due AMB Influenza, IIV4 PF (=>6 mos 11/20/2013 Flulaval,Fluzone Fluarix)(Flu Clinic Only) COVID-19 vaccine ([employer] 05/02/2020, 04/11/2020 30mcg/0.3mL) PF, MDV Influenza A (H1N1), Inactivated 02/09/2009 Influenza A (H1N1), Inactivated (Age 1202/09/2009 >=3 Years) Influenza Virus, Unspecified 11/02/2016, 11/12/2015 Influenza, High-dose Inactivated 11/16/2020, 10/05/2019, 09/2018, 10/31/2017 Influenza, IIV3 (Age 6-35 mos) 11/11/2015, 11/10/2014, 11/20, 10/28/2009 Influenza, IIV3 (Age >=3 years) 11/02/2016, 11/11/2014, 04/2012, 10/29/2011, 11/01/2010, 10/28/2009, 11/18/2008, 11/29/2003, 12/21/1996, 11/27/1995, 12/15/1994, 12/16/1993, 11/26/1992, 01/12/1992 Influenza, IIV4 11/20/2013 Influenza, IIV4 (=>6mos) MDV 11/02/2016 Influenza, Inactivated AIIV4 (Age 65+ 11/16/2020 Years) Preserv Free Pneumococcal Poly,23-Valent 04/22/2018, 12/14/2008 (Pneumovax) Pneumococcal conj 13-Valent (Prevnar 04/24/2017 13) Td (Age >=7 Years) 03/16/1999 Tdap 09/01/2015, 02/09/2009 Zoster (Shingrix-RZV, recombinant) 02/13/2018, 10/31/2017 Zoster (Zostavax-ZVL, live) 02/03/2013 Family History Medical History Relation Name Comments Diabetes Brother Diabetes Father type 2 Heart Disease Father ND at age 55 Heart Disease Mother CHF Cancer-colon Neg. Cancer Sister 1 Liver, Brain, Kasie ng Cancer Sister 2 uterine Anesthesia Problem No Family History Relation Name Status Comments Brother Father Mother Neg. Sister 1 Sister 2 Social History Tobacco Use Types Packs/Day Years Used Date Never Smoker Smokeless Tobacco: Never Used Tobacco Cessation: Counseling Given: Yes Alcohol Use Standard Drinks/Week Comments Yes 0 (1 standard drink = 0.6 oz pure alcoho l) 1-3 drinks a week Alcohol Habits Answer Date Recorded How often do you have a drink containing alcohol? 2-4 times a month 04/22/2018 How many drinks containing alcohol do you have on a 1 or 2 04/22/2018 typical day when you are drinking? How often do you have six or more drinks on one Monthly 04/22/2018 occasion? Comment: 1-3 drinks a week 04/11/2017 Sex Assigned at Date Recorded Not on file Obstetrics History Last Filed Vital Signs Vital Sign Reading Time Taken Comments Blood Pressure 115/70 08/29/2021 10:38 AM CDT Pulse 64 08/29/2021 10:38 AM CDT Temperature 37 ??C (98.6 ??F) 06/16/2021 7:41 AM CDT Respiratory Rate 18 06/16/2021 7:41 AM CDT Oxygen Saturation 96% 08/29/2021 10:38 AM CDT Inhaled Oxygen Concentration - - Weight 106 kg (233 lb 11.2 oz) 08/29/2021 10:38 AM CDT Height 172.7 cm (5' 8) 06/14/2021 8:44 AM CDT Body Mass Index 35.53 06/14/2021 8:44 AM CDT Plan of Treatment Health Maintenance Due Date Last Done Comments Influenza for age 65+ 10/19/2021 11/16/2020, 11/16/2020, 10/05/2019, Additional history exists Depression screening for age 12+ 05/23/2022 05/23/2021, , 05/04/2019, Additional history exists Medicare Wellness for age 65+ 05/23/2022 05/23/2021, 2020, 04/30/2019, Additional history exists BMI (ht and wt on same day) for 06/02/2022 06/02/2021, 04/0 06/2021, age 18+ 09/08/2020, Additional history exists Colonoscopy through age 75 08/20/2022 08/20/2017, 8, 08/20/2017, Additional history exists Tetanus booster 08/31/2025 09/01/2015, 02/09/2009, 03/16/1999 Lipids for age 45-75 05/19/2026 05/19/2021, 05/11/2020, 06/01/2019, Additional history exists Hepatitis C screening for age Completed 02/08/2015, 2009 18-79 Tdap Completed 09/01/2015, 02/09/2009 Zoster (shingles) series for age Completed 02/13/2018, , 50+ 02/03/2013 Pneumococcal series for age 65+ Completed 04/22/2018, 08/2017, 12/14/2008 COVID-19 vaccine series Completed 05/19/2021, 11/17/2020, 05/02/2020, Additional history exists Medical Devices Implanted Type Area Dust Collector Device Shelf Model / Identifier Expiration Serial / Date Lot Anw [id number] Aortic Clemente 04/20/2013 3000 [id number] / Implanted: Qty: 1 on 07/26/2009 at [facility] Valve [employer] [id number] / Explanted: at [facility] (Quantity not on file) Kris Results Not on filefrom Last 3 Months Additional Health Concerns Infection Onset Date Last Indicated MRSA ClearanceComment: Infection Control Note: Hx of MRSA, surveillance criteria met, no need for further testing or isolation precautions. Do not delete or resolve the infection flag. 06/13/2021 06/13/2021 MRSA + urine 07/05/09 Insurance Payer Benefit Plan / Subscriber ID Effective Dates Phone Addre ss Type Group MEDICARE PART A MEDICARE PART A [id number] 2017-Presen ATTN: CLAIMS - HB USE ONLY HB ONLY t [address] [place] [address] BLUE CROSS [place] BLUE CROSS [id number] 2017-Presen [address] [address] [place] [address] [place], [place] ONLY [id number] MEDICARE PART B MEDICARE PART B [id number] 2017-Presen ATTN: CLAIMS - HB USE ONLY HB ONLY t [address] [place] [address] BLUE CROSS BLUE CROSS [id number] 2017-Presen [address] [address] [address] [place], [place] HB ONLY [id number] (Home) [place] [id number] Advance Directives Documents on File Type Date Recorded Patient Health Information Director Explanati on Healthcare Directive 02/09/2015 2:08 PM EUGENIO HALE, 12/27/2014 Latest Code Status on File Code Status Date Activated Date Inactivated Comments Full Code 06/14/2021 7:53 AM 06/16/2021 3:07 PM Code Status Discussion: Not Discussed Full Code 08/29/2009 11:18 AM 09/06/2009 6:38 PM Full Code 07/26/2009 1:05 PM 08/08/2009 3:32 PM Full Code 07/05/2009 7:15 AM 07/26/2009 1:05 PM Care Teams Ic Design Engineer Relationship Specialty Start Date End Date Salas Raymundo MD PCP - General 07/13/[address] [place] [address]
--- OUTSIDE RECORDS SUMMARY | 2021-11-20 16:02 | XMS_ITS | Encounter Summary ---
:1950 Author Organization [place] Address [facility] 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 Urology and Charli Jefferson Male u rinary stress incontinence (Primary Dx); Inst for Prostate and Ioana Rudd Urinary urgency; Urologic C[facility] [address] [facility] [address] Urinary incontinence, unspec ified type [address] [facility] [address] [place] [phone] Social History Tobacco Use Types Packs/Day Years [...] Sign Reading Time Taken Comments Blood Pressure 114/73 10/29/2018 10:07 AM CDT Pulse 80 10/29/2018 10:07 AM CDT Temperature - - Respiratory Rate - - Oxygen Saturation - - Inhaled Oxygen Concentration - - Weight 100.7 kg (222 lb) 10/29/2018 10:07 AM CDT Height 172.7 cm (5' 8) 10/29/2018 10:07 AM CDT Body Mass Index 33.75 10/29/2018 10:07 AM CDT documented in this encounter Patient Instructions Patient InstructionsTobin Ryder EMT - 10/29/2018 10:00 AM CDT Please schedule surgery with Dr. Jefferson, possibly on 11/12. It was a pleasure meeting with you [...] leaving completely satisfied with your care experience. 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 Has had urinary incontinence since that time. Managed with daley clamp. Goes through 3-5 pads per day and 2 at night. Also has an element of overactive bladder managed with oxybutynin 15mg daily but causes severe dry mouth. Interested in AUS placement. He understands the risks to include but not be limited to bleeding, infection, penile or scrotal pain/numbness, AUS infection, cuff erosion, urinary retention, sub-suff atrophy, persistent incontinence and need for additional procedures. He understands there is a 25-40% 10-year revision rate. He understands I consult for AMS. We will plan to place components on his left side and ectopically place his reservoir due to bilateral inguinal hernia repair. He is aware that we will perform cystoscopy the day of surgery to ensure no bladder neck or urethral stenosis/stricture and this could prevent us from placing the AUS. He wishes to proceed. Plan: -- AUS placement --Myrbetriq exchange for oxybutynin Angela Velasquez MD Reconstructive Urology Fellow ___ As the attending surgeon I, Charli Jefferson, interviewed and examined the patient. The plan was developed between me and the patient. My findings and plan are as stated by the resident. Charli Jefferson MD HPI Rajiv Restrepo is a 68 year old male who previously visited with Dr. Crawford for consideration of AUS. 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 He currently uses a Dlaey clamp to manage his leakage however still needs 3-5 pads per day. He voids every 60 minutes with good strength of stream. He is not dry at night, voids 3x and 2x pads per night. Activities which exacerbate incontinence include standing, coughing, lifting, walking, laughing. He has never had urodynamics. Of note, he is scheduled for AUS with Dr Gutierrez on 11/17. There is not a history of bladder neck contracture, just had cystoscopy with Dr. Gutierrez which hereports was normal but no records from that available. ?? 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 Physical Exam: Estimated body mass index is 33.86 kg/m?? as calculated from the following: Height as of 08/15/18: 1.74 m (5' 8.5). Weight as of 09/08/18: 102.5 kg (226 lb). General: age-appropriate appearing male in NAD. normal body habitus. HEENT: Head AT/NC, EOMI, CN Grossly intact Resp: no respiratory distress CV: heart rate regular Back: bony spine is non-tender, flanks are nontender Abdomen: mild obesity , soft, non-distended, non-tender. Surgical scars include: right open appy, midline RRP, right inguinal hernia incision hard to see any left incision LE: no edema. Skin: clear of rashes or ecchymoses. Laboratory: I personally reviewed all applicable laboratory data and went over findings with patient Significant for: UA RESULTS: Recent Labs Lab Test 08/15/18 1023 SG 1.015 URINEPH 7.0 NITRITE Negative Imaging: I personally reviewed all applicable imaging and went over the below findings with patient. No results found for this or any previous visit. Scribe Disclosure: Florida Munroe, a scribe, prepared the chart for today's encounter. documented in this encounter Nursing Notes Giancarlo Leon - 10/29/2018 10:00 AM CDT Chief Complaint Patient presents with ??? Consult Discuss surgery for artifical urinary sphincter Blood pressure 114/73, pulse 80, height 1.727 m (5' 8), weight 100.7 kg (222 lb). Body mass index is 33.75 kg/m??. Patient Active Problem List Diagnosis ??? [...] CAPS Take 2,000 Units by mouth ??? fluticasone-salmeterol (ADVAIR HFA) 115-21 MCG/ACT inhaler Inhale 2 puffs into the lungs ??? lisinopril-hydrochlorothiazide (PRINZIDE/ZESTORETIC) 10-12.5 MG tablet Take 1 tablet by mouth ??? montelukast (SINGULAIR) 10 MG tablet Take 10 mg by mouth ??? Multiple Vitamin (MULTI-VITAMINS) TABS Take 1 tablet by mouth ??? oxybutynin ER (DITROPAN-XL) 5 MG 24 hr tablet Take 3 tablets (15 mg) by mouth daily-oral 90 tablet 3 ??? oxybutynin ER (DITROPAN-XL) 5 MG 24 hr tablet Take 3 tablets (15 mg) by mouth daily 30 tablet 3 ??? ranitidine (ZANTAC) 150 MG tablet Take 150 mg by mouth ??? fexofenadine (MIGUEL) 180 MG tablet Take 180 mg by mouth Social History Tobacco Use ??? Smoking status: Never Smoker ??? Smokeless tobacco: Never Used Substance Use Topics ??? Alcohol use: Yes Comment: 2-3/week ??? Drug use: Never Giancarlo Leon 10/29/2018 10:11 AM documented in this encounter Plan of Treatment Scheduled Orders Name Type Priority Associated Diagnoses Order S chedule Queenie-Operative Procedures Routine Male urinary stress Ordere d: 10/29/2018 Worksheet (Urology incontinence General) documented as of this encounter Visit Diagnoses Diagnosis Male urinary stress incontinence - Prima ry Stress incontinence, male Urinary urgency Urgency of urination Urinary incontinence, unspecified type documented in this encounter Care Teams Geometry Tutor Relationship Specialty Start Date End Date Salas Raymundo PCP - General Family Practice 08/15/18 Charles Crawford MD MD Urology 08/19/18 [address] [facility] [address] [place] [address] Charli Jefferson MD MD Urology 08/19/[address] [place] [address] [address] [place] [address] documented as of this encounter
[2021-11-20] MEDS: ONDANSETRON 2 MG/ML inj 4 MG IVP (16:16)
[2021-11-20] MEDS: HYDROmorphone 0.5 mg/0.5 ml inj IVP (16:18)
--- NOTE | 2021-11-20 16:19 | CRLHL7_ITS ---
For Patients: As a result of the Cures Act, medical imaging exams and procedure reports are released immediately into your electronic medical record. You may view this report before your referring provider. If you have questions, please contact your health care provider. INDICATION: Trauma, fall. TECHNIQUE: CT thoracic spine without contrast. COMPARISON: None. FINDINGS: Vertebrae: Alignment is normal. There are no fractures or suspicious bony lesions. Multilevel anterior ankylosis. Discs and facet joints: Disc spaces and facets are within normal limits. Extraspinal findings: Prevertebral soft tissues, visualized airway, and visualized lungs are unremarkable. IMPRESSION: No sign of acute injury in the thoracic spine. Please note that all CT scans at this facility use dose modulation, iterative reconstruction, and/or weight-based dosing when appropriate to reduce radiation dose to as low as reasonably achievable. Dictated by Jake Strange MD @ 11/20/2021 5:33:24 PM (Electronically Signed)
--- NOTE | 2021-11-20 17:36 | ED.NURSE ---
Pt transfered to [facility] via [facility]. updated per pt request
== END 2021-11-20 17:40 | disposition short-term general hospital (02) ==
PROVIDERS: Emergency Provider Emergency Medicine Emergency Medical Services; PCP Family Medicine
DX: S22.009A Unspecified fracture of unspecified thoracic vertebra, initial encounter for closed fracture (principal); S32.028A Other fracture of second lumbar vertebra, initial encounter for closed fracture; S32.038A Other fracture of third lumbar vertebra, initial encounter for closed fracture; S32.048A Other fracture of fourth lumbar vertebra, initial encounter for closed fracture; S32.058A Other fracture of fifth lumbar vertebra, initial encounter for closed fracture; W11.XXXA Fall on and from ladder, initial encounter; Y93.H2 Activity, gardening and landscaping; Y92.017 Garden or yard in single-family (private) house as the place of occurrence of the external cause; Y99.8 Other external cause status
CPT/HCPCS: 70450; 71260; 72125; 72128; 74177; 93005; 96374; 96375; 99285; 99291; G0390; J1170; J2405; Q9967

== ENCOUNTER 2021-11-20 17:31 | Outpatient (CLI) | payer MEDICARE, BC, SELFPAY ==
--- OUTSIDE RECORDS SUMMARY | 2021-12-29 11:44 | XMS_ITS | Encounter Summary ---
:1950 Author Organization [facility] Address [address] [place] [address] Care Team Providers Name Role Phone Elsewhere, Pcp Primary Care Provider Unavailable Encounter Details Date Type Department Care Team Description 11/24/2021 Orders Only Department of [facility] Orthopedic Surgery in Adilia Galvin , M.S. Intermittent (HCC) [place], [place] [address] [facility] (Primary Dx) [address] [place] [phone] Social History Tobacco Use Types Packs/Day Years Used Date Smoking Tobacco: Never Smokeless Tobacco: Never Alcohol Use Standard Drinks/Week Comments Never 0 (1 standard drink = 0.6 oz pure alcoho l) Sex Assigned at Date Recorded Not on file documented as of this encounter Plan of Treatment Not on filedocumented as of this encounter Visit Diagnoses Diagnosis Asthma Mild Intermittent (HCC) - Primary documented in this encounter Care Teams Sorting Grapple Operator Relationship Specialty Start Date End Date Elsewhere, Pcp PCP - General 04/21/18 documented as of this encounter
--- OUTSIDE RECORDS SUMMARY | 2021-12-29 11:44 | XMS_ITS | Encounter Summary ---
:1950 Author Organization [facility] Address [address] [place] [address] Care Team Providers Name Role Phone Elsewhere, Pcp Primary Care Provider Unavailable Reason for Visit Reason Comments Med Refill Encounter Details Date Type Department Care Team Description 11/27/2021 Clinical Communication Department of Wilmer Nevarez Med Refill Orthopedic Surgery dameon Triplett M.D. [employer], [place] [address] [facility] [address] [place] [phone] Social History Tobacco Use Types Packs/Day Years Used Date Smoking Tobacco: Never Smokeless Tobacco: Never Alcohol Use Standard Drinks/Week Comments Never 0 (1 standard drink = 0.6 oz pure alcoho l) Sex Assigned at Date Recorded Not on file documented as of this encounter Miscellaneous Notes Telephone Encounter - Risa Lynn - 11/27/2021 4:39 PM CDT I called patient and notified him that refills have been sent to his pharmacy. He was appreciative of my call and had no further questions at this time. Telephone Encounter - Jameson Osullivan M.D. - 11/27/2021 1:48 PM CDT Rx written and sent. Please notify patient. Thank you Telephone Encounter - Ruthy Lau - 11/27/2021 12:23 PM CDT Who called: Patient Reason for call today: Pt is calling for a refill of Valium 5 mg, and Dilaudid 2mg; Pt states she istaking it as prescribed and only has enough for tonight Medication teed up. She doesn't want to run out of meds tomorrow. Expected reply: [facility] [place] [facility] [place] [place] [facility] [address] [facility] [phone] ESEQUIEL: Please call pt back once the script is sent to the pharmacy at [phone] [facility] Authorization Present: N/A-patient request documented in this encounter Plan of Treatment Not on filedocumented as of this encounter Visit Diagnoses Not on filedocumented in this encounter Care Teams Prison Officer Relationship Specialty Start Date End Date Elsewhere, Pcp PCP - General 04/21/18 documented as of this encounter
--- OUTSIDE RECORDS SUMMARY | 2021-12-29 11:44 | XMS_ITS | Encounter Summary ---
:1950 Author Organization [facility] Address [address] [place] [id number] Care Team Providers Name Role Phone Elsewhere, Pcp Primary Care Provider Unavailable Reason for Visit Reason Comments Med Refill Encounter Details Date Type Department Care Team Description 12/18/2021 Refill Department of Orthopedic Jameson Osullivan M.D. Med Refill Surgery in [place], [address] [place] [phone] [place] [address] [place] [address] [phone] Social History Tobacco Use Types Packs/Day Years [...] on filedocumented in this encounter Care Teams Living Supervisor Relationship Specialty Start Date End Date Elsewhere, Pcp PCP - General 04/21/18 documented as of this encounter
--- OUTSIDE RECORDS SUMMARY | 2021-12-29 11:44 | XMS_ITS | Clinical Summary ---
:1950 Author Organization [facility] Address [address] [place] [address] Care Team Providers Name Role Phone Elsewhere, Pcp Primary Care Provider Unavailable Source Comments Patient records contain information from all sites at [facility]. For routine questions regarding patient records, call [phone] during business hours, M-F 8:00 AM - 5:00 PM Central Time. Record requests for emergency care only can be directed to [phone] at any time.[facility] Allergies Active Allergy Reactions Severity Noted Date Comments Hydrocodone-Acetaminophen Nausea And Vomiting, GI 02/19 intolerance Medications Medication Sig Dispensed Refills Start End Status Date Date albuterol 90 Inhale 2 puffs 0 Ac tive mcg/actuation every 6 (six) 4 inhaler hours as needed for wheezing or shortness of breath. aspirin [address] Take 81 mg by 0 Active tablet mouth daily. 0 atorvastatin Take 40 mg by 0 Act soni (LIPITOR) 40 mg mouth at 9 tablet bedtime. azelastine Administer 1 0 Active (ASTELIN) 137 spray into mcg/spray (0.1 %) nostril(s) nasal spray daily. cholecalciferol Take 1,000 Units 0 Active (VITAMIN D3) 25 mcg by mouth 2 (two) 6 (1,000 Unit) times a day. capsule fexofenadine Take 1 tablet by 0 Active (MIGUEL) 180 mg mouth daily. 0 tablet fluticasone Inhale 2 puffs 0 Act soni propion-salmeteroL every 12 (ADVAIR HFA) 230-21 (twelve) hours. mcg/actuation inhaler fluticasone Administer 1 0 Activ e propionate spray into (FLONASE) 50 nostril(s) at mcg/actuation nasal bedtime. spray losartan-hydroCHLOR Take 1 tablet by 0 Active Othiazide (HYZAAR) mouth daily. 2 50-12.5 mg per tablet mirabegron Take 50 mg by 0 Activ e (MYRBETRIQ) 50 mg mouth at 9 24 hr tablet bedtime. montelukast Take 1 tablet by 0 A ctive (SINGULAIR) 10 mg mouth at 8 tablet bedtime. naproxen sodium Take 220 mg by 0 Active (ALEVE/ANAPROX) 220 mouth 2 (two) mg tablet times a day as needed for pain. multivitamin tablet Take 1 tablet by 0 Active mouth daily. acetaminophen Take 2 tablets 100 tablet 0 Active (TYLENOL) 500 mg (1,000 mg total) 2 tablet by mouth every 6 (six) hours as needed for mild pain or score 1-3 of 10 or moderate pain or score 4-6 of 10. albuterol 2.5 mg /3 Inhale 3 mL (2.5 75 mL 11 Active mL nebulizer mg total) by 2 solution nebulization every 6 (six) hours as needed for wheezing. HYDROmorphone Take 1 tablet (2 18 tablet 0 Active (DILAUDID) 2 mg mg total) by 2 tabletIndications: mouth every 4 Acute Pain (four) hours as Exception needed for moderate pain or score 4-6 of 10 Indication: Acute Pain Exception. diazePAM (VALIUM) 5 TAKE ONE TABLET 15 tablet 0 Active mg tablet BY MOUTH THREE 2 TIMES A DAY NEEDED FOR MUSCLE SPASMS sennosides-docusate TAKE 1 TABLET BY 100 tablet 0 Active sodium (SENOKOT-S) MOUTH TWO TIMES 2 023 8.6-50 mg per A DAY tablet diazePAM (VALIUM) 5 Take 1 tablet (5 15 tablet 0 Discontinued mg tablet mg total) by 2 022 mouth 3 (three) times a day as needed for muscle spasms. HYDROmorphone Take 1 tablet (2 18 tablet 0 Discontinued (DILAUDID) 2 mg mg total) by 2 022 ( Reorder) tabletIndications: mouth every 4 Acute Pain (four) hours as Exception needed for moderate pain or score 4-6 of 10 Indication: Acute Pain Exception. Active Problems Problem Noted Date Fracture Vertebra Thoracic Closed Initial 11/20/2021 Encounters Date Type Specialty Care Team Description 12/18/2021 Refill Orthopedic Surgery Jameson Osullivan Re ava Nelson M.D. 12/11/2021 Clinical Orthopedic Surgery [place], Pre-visit Testing Communication Wilmer Triplett M.D. Orders 11/30/2021 Clinical Orthopedic Surgery [place], Almost ou t of Communication Wilmer Triplett M.D. hydromorphone, refill request 11/27/2021 Clinical Orthopedic Surgery [place], Med Refil l Communication Wilmer Triplett M.D. 11/24/2021 Orders Only Orthopedic Surgery [place], Asthma Mi ld Bryan D, Intermittent (H CC) P.A.-C., M.S. (Primary Dx) 11/22/2021 Orders Only Jameson Osullivan M.D. 11/22/2021 Clinical Pharmacy Anirudh Ha Communication J, C.Ph.T. 11/21/2021 Surgery [place], Posterior thora cic Wilmer Triplett M.D. spine fusion, proceed as indicated 11/21/2021 Anesthesia Event Winnie Monteiro M.D. Layton, Justin S, APRN, PEGGER DOBBY [employer]OMS, DNAP 11/20/2021 Ancillary Procedure Radiology Mark Brooks M.D. 11/20/2021 Ancillary Procedure Radiology Mark Brooks M.D. 11/20/2021 Ancillary Procedure Radiology Mark Brooks M.D. 11/20/2021 Ancillary Procedure Radiology Mark Brooks M.D. 11/20/2021 Ancillary Procedure Radiology Mark Brooks M.D. 11/20/2021 - Hospital Encounter Mark Brooks Fractur e Vertebra Thoracic Closed Initial (HCC) (Primary Dx); 11/24/2021 Desire Johnson Difficulty In Walking Not Elsewhere Clas sified [R26.2 (ICD-10-CM)]; Geri, Ai Functio nal Status [R53.81 (ICD-10-CM)] Desire Luna Neha P, M.D., M.S. from Last 3 Months Social History Tobacco Use Types Packs/Day Years Used Date Smoking Tobacco: Never Smokeless Tobacco: Never Tobacco Cessation: Counseling Given: Not Answered Alcohol Use Standard Drinks/Week Comments Never 0 (1 standard drink = 0.6 oz pure alcoho l) Sex Assigned at Date Recorded Not on file Last Filed Vital Signs Vital Sign Reading Time Taken Comments Blood Pressure 113/62 11/24/2021 1:30 PM CDT Pulse 83 11/24/2021 1:30 PM CDT Temperature 36.9 ??C (98.4 ??F) 11/24/2021 1:30 PM CDT Respiratory Rate 18 11/24/2021 8:30 AM CDT Oxygen Saturation 94% 11/24/2021 8:30 AM CDT Inhaled Oxygen Concentration - - Weight 107 kg (236 lb 8.9 oz) 11/23/2021 1:57 PM CDT Height 176.8 cm (5' 9.6) 11/21/2021 12:09 AM CDT Body Mass Index 34.33 11/21/2021 12:09 AM CDT Plan of Treatment Health Maintenance Due Date Last Done Comments CT Colonography 1950 Cologuard 1950 Colonoscopy 1950 Colorectal Cancer Screening 1950 FIT 1950 Hepatitis C Screening 1950 Depression Screening (Annual 02/18/2021 PHQ-2) Creatinine Level 11/23/2022 11/23/2021, 11/22/2021, 11/20/2021, Additional history exists Potassium Level 11/23/2022 11/23/2021, 11/22/2021, 11/20/2021, Additional history exists Sodium Level 11/23/2022 11/23/2021, 11/22/2021, 11/20/2021, Additional history exists Fasting Glucose for Diabetes 11/23/2024 11/23/2021, 022, Screening 11/20/2021, Additional history exists DTaP,Tdap,and Td Vaccines (3 - Td 08/31/2025 09/01/2015, , or Tdap) 03/16/1999 Zoster Vaccines Completed 02/13/2018, 01/31/2018, 10/31/2017, Additional history exists Pneumococcal vaccine (65+ years) Completed 04/22/2018, 08/2017, 12/14/2008 Fall Risk Screen (Annual) Completed 11/21/2021 COVID-19 Vaccine Completed 12/18/2021, 05/19/2021, 11/17/2020, Additional history exists Influenza Vaccine Completed 12/18/2021, 11/16/2020, 11/16/2020, Additional history exists Medical Devices Implanted Type Area Motion Study Technician Device Shelf Model / Identifier Expiration Serial / Date Lot Ams 800 System Artificial Pelvis [id number] / Implanted: 11/12/2018 (Quantity not on file) Sphincter / Description: AMS 800 per Care Everywhere SLJ Grft Bn Fem Hd Fr 44 - [id number] - [id number] Bone or Posterior: Musculoskeletal 01/06/2026 [id number] / Implanted: Qty: 1 on 11/21/2021 by Wilmer Ladd M.D. 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 Pos terior: Spine Medtronic [id number] / Implanted: Qty: 12 on 11/21/2021 by Wilmer Live M.D. at [facility] pins/screws/rods Thoracic / Procedures Procedure Name Priority Date/Time Associated Comments Diagnosis DX CHEST PORTABLE 1 RAD - Semiurgent 11/24/2021 6:30 R esults for VIEW (Fast; most ED AM CDT this procedur e patients; some are in the inpatients) results section. ECG STAT 11/24/2021 5:53 Results for AM CDT this procedure are in the results section. CBC WITHOUT Routine 11/23/2021 3:41 Results for DIFFERENTIAL, B AM CDT this procedu re are in the results section. BASIC METABOLIC PANEL, Routine 11/23/2021 3:41 Re sults for S/P AM CDT this procedure are in the results section. CBC WITHOUT Routine 11/22/2021 5:06 Results for DIFFERENTIAL, B AM CDT this procedu re are in the results section. BASIC METABOLIC PANEL, Routine 11/22/2021 5:06 Re sults for S/P AM CDT this procedure are in the results section. ADULT OXYGEN THERAPY Routine 11/21/2021 7:15 PM CDT ADULT OXYGEN THERAPY Routine 11/21/2021 7:15 PM CDT AUTOLOGOUS RED BLOOD Routine 11/21/2021 6:14 CELLS-CELL SALVAGE PM CDT FL FLUORO LESS THAN 1 RAD - Routine 11/21/2021 5:55 Re sults for HOUR (most inpatients PM CDT this proced ure and all are in the outpatients) results section. LDA ANE ARTERIAL LINE Routine 11/21/2021 3:22 Res ults for INSERTION PM CDT this procedure are in the results section. GA ARTL CATH/CNULA Routine 11/21/2021 3:22 Result s for MONITOR PERC PM CDT this procedure are in the results section. LDA ANE ENDOTRACHEAL Routine 11/21/2021 3:02 Resu lts for AIRWAY PM CDT this procedure are in the results section. FUSION SPINE POSTERIOR 11/21/2021 2:33 Fracture THORACIC PM CDT Vertebra Thoracic Closed Initial (HCC) IONM - EMG Routine 11/21/2021 8:33 Results for AM CDT this procedure are in the results section. CT LUMBAR SPINE WITHOUT RAD - Semiurgent 11/21/2021 Results for IV CONTRAST (Fast; most ED 12:08 AM CDT this procedur e patients; some are in the inpatients) results section. SARS CORONAVIRUS 2, STAT 11/20/2021 Results for RNA, RAPID POC, V 11:41 PM CDT this proce dure are in the results section. ECG STAT 11/20/2021 9:42 Results for PM CDT this procedure are in the results section. LACTATE, POCT, B Routine 11/20/2021 8:23 Results for PM CDT this procedure are in the results section. LACTATE, POCT, B STAT 11/20/2021 8:22 Results for PM CDT this procedure are in the results section. HEPATIC FUNCTION PANEL, STAT 11/20/2021 8:22 R esults for S PM CDT this procedure are in the results section. TYPE AND SCREEN STAT 11/20/2021 8:22 Results f or PM CDT this procedure are in the results section. ACTIVATED PARTIAL STAT 11/20/2021 8:22 Results for THROMBOPLASTIN TIME PM CDT this pro cedure (APTT), P are in the results section. PROTHROMBIN TIME (PT), STAT 11/20/2021 8:22 Re sults for P PM CDT this procedure are in the results section. CBC WITH DIFFERENTIAL, STAT 11/20/2021 8:22 Re sults for B PM CDT this procedure are in the results section. ETHANOL, S STAT 11/20/2021 8:22 Results for PM CDT this procedure are in the results section. BASIC METABOLIC PANEL, STAT 11/20/2021 8:22 Re sults for S/P PM CDT this procedure are in the results section. ASPARTATE STAT 11/20/2021 8:22 Results for AMINOTRANSFERASE (AST), PM CDT this procedure S/P are in the results section. AMYLASE, TOT, S STAT 11/20/2021 8:22 Results f or PM CDT this procedure are in the results section. THROMBOELASTOGRAPH, STAT 11/20/2021 8:20 Resul ts for KAOLIN, B PM CDT this procedure are in the results section. INTERPRETATION OF RAD - Semiurgent 11/20/2021 8:14 Res ults for OUTSIDE CT SPINE (Fast; most ED PM CDT this proc edure patients; some are in the inpatients) results section. INTERPRETATION OF RAD - Semiurgent 11/20/2021 8:13 Res ults for OUTSIDE CT SPINE (Fast; most ED PM CDT this proc edure patients; some are in the inpatients) results section. INTERPRETATION OF RAD - Semiurgent 11/20/2021 8:13 Res ults for OUTSIDE CT HEAD (Fast; most ED PM CDT this proce dure patients; some are in the inpatients) results section. INTERPRETATION OF RAD - Semiurgent 11/20/2021 8:13 Res ults for OUTSIDE CT CHEST (Fast; most ED PM CDT this proc edure patients; some are in the inpatients) results section. INTERPRETATION OF RAD - Semiurgent 11/20/2021 8:12 Res ults for OUTSIDE CT ABDOMEN AND (Fast; most ED PM CDT thi s procedure OR PELVIS patients; some are in the inpatients) results section. OUTSIDE CT NEURO Routine 11/20/2021 4:35 Results for PM CDT this procedure are in the results section. OUTSIDE CT BODY Routine 11/20/2021 3:30 Results f or PM CDT this procedure are in the results section. OUTSIDE CT NEURO Routine 11/20/2021 3:25 Results for PM CDT this procedure are in the results section. OUTSIDE CT NEURO Routine 11/20/2021 3:20 Results for PM CDT this procedure are in the results section. from Last 3 Months Results DX Chest Portable 1 View (11/24/2021 6:30 AM CDT) Anatomical Region Laterality Modality Chest, Thoracic RST LOS, Thoracic ARZ LOS, Thoracic N/A Digital Radiography FLA LOS Specimen (Source) Anatomical Collection Method Collection Time Re ceived Time Location / / Volume Laterality 11/24/2021 6:39 AM CDT Impressions 11/24/2021 6:40 AM CDT Comparison with 11/20/2021. Hypoinflated lungs with mild bilateral perihilar atelectasis. No pneumothorax or effusion . Sternotomy and AVR. Spinal fusion hardware. Narrative 11/24/2021 6:40 AM CDT EXAM: ??DX CHEST PORTABLE 1 VIEW Procedure Note Vini Rubin M.D. - 11/24/2021Formatt ing of this note might be different from the original. EXAM: DX CHEST PORTABLE 1 VIEW IMPRESSION: Comparison with 11/20/2021. Hypoinflated lungs with mild bilateral perihilar atelectasis. No pneumothorax or effusion . Sternotomy and AVR. Spinal fusion hardware. Jameson Osullivan M.D. IMG DIAGNOSTIC IMAGING PROCE [facility] ECG 12 Lead (11/24/2021 5:53 AM CDT)Only the most recent of2 resultswithin the time period is included. P athologist Signature Ventricular Rate 79 BPM MUSE ECG/Min GA Interval 170 ms MUSE QRSD Interval 110 ms MUSE QT Interval 380 ms MUSE QTC Interval 435 ms MUSE P [place] 19 degrees MUSE R [place] -43 degrees MUSE T Wave [place] 28 degrees MUSE Specimen Anatomical Collection Method Collection Time Receive d Time (Source) Location / / Volume Laterality 11/24/2021 5:53 AM 2 CDT 10:20 AM CDT Impressions MUSE - 11/24/2021 6:01 AM CDT Normal sinus rhythm Left axis deviation Minimal voltage criteria for LVH, may be normal variant Non-specific intra-ventricular conductio n delay Nonspecific ST and T wave abnormality When compared with ECG of 20-NOV-2021 21 :42, GA interval has decreased Reviewed by ROXANNA Loya Narrative This result has an attachment that is no t available. Procedure Note Nestor Pritchett M.D. - 11/24/2021Formatt ing of this note might be different from the original. IMPRESSION: Normal sinus rhythm Left axis deviation Minimal voltage criteria for LVH, may be normal variant Non-specific intra-ventricular conductio n delay Nonspecific ST and T wave abnormality When compared with ECG of 20-NOV-2021 21 :42, GA interval has decreased Reviewed by ROXANNA Loya Jameson Osullivan M.D. ECG ORDERABLES Performing Organization Address City/State/ZIP Code Phon e Number MUSE MUSE NA (ABNORMAL) CBC without Differential (11/23/2021 3:41 AM CDT)Only the most recent of2 resultswithin the time period is included. [facility] Method Time Signature Hemoglobin 12.7 (L) 13.2 - 11/23/2021 DTL 16.6 g/dL 4:31 AM CDT Hematocrit 38.0 (L) 38.3 - 11/23/2021 DTL 48.6 % 4:31 AM CDT Erythrocytes 4.53 4.35 - 11/23/2021 DTL 5.65 4:31 AM CDT x10(12)/L MCV 83.9 78.2 - 11/23/2021 DTL 97.9 fL 4:31 AM CDT RBC Distrib Width 14.6 (H) 11.8 - 11/23/2021 DTL 14.5 % 4:31 AM CDT Platelet Count 155 135 - 317 11/23/2021 DTL x10(9)/L 4:31 AM CDT Leukocytes 10.5 (H) 3.4 - 9.6 11/23/2021 DTL x10(9)/L 4:31 AM CDT Specimen Anatomical Collection Method Collection Time Receive d Time (Source) Location / / Volume Laterality Blood (Blood, 11/23/2021 3:41 AM 11/24/19 4:24 Venous) CDT AM CDT Vince Hernandez M.D. LAB BLOOD ADD-ON Performing Organization Address City/State/ZIP Code Phon e Number [facility] - [address] [place], [place] [address] [facility] [place] [address] [facility] [address] [facility] Basic Metabolic Panel (11/23/2021 3:41 AM CDT)Only the most recent of3 results within the time period is included. P athologist Signature Potassium, S 4.4 3.6 - 5.2 11/23/2021 DTL mmol/L 4:58 AM CDT Sodium, S 137 135 - 145 11/23/2021 DTL mmol/L 4:58 AM CDT Chloride, S 101 98 - 107 11/23/2021 DTL mmol/L 4:58 AM CDT Bicarbonate, S 26 22 - 29 11/23/2021 DTL mmol/L 4:58 AM CDT Anion Gap 10 7 - 15 11/23/2021 DTL 4:58 AM CDT BUN (Blood Urea 14 8 - 24 11/23/2021 DTL Nitrogen), S mg/dL 4:58 AM CDT Creatinine 0.98 0.74 - 11/23/2021 DTL 1.35 mg/dL 4:58 AM CDT Estimated GFR 83 >=60 11/23/2021 DTL (eGFR) mL/min/BSA 4:58 AM CDT Comment: Estimated GFR calculated using the 2020 CKD_EPI creatinine equation. Calcium, Total, S 9.1 8.8 - 10.2 mg/dL 11/23/2021 4:58 AM CDT DTL Glucose, S 105 70 - 140 mg/dL 11/23/2021 4:58 AM CDT D TL Specimen Anatomical Collection Method Collection Time Receive d Time (Source) Location / / Volume Laterality Blood (Blood, 11/23/2021 3:41 AM 11/24/19 4:40 Venous) CDT AM CDT Vince Hernandez M.D. LAB BLOOD ADD-ON Performing Organization Address City/State/ZIP Code Phon e Number [facility] - [address] [place], [place] [address] [facility] [place] [address] [facility] [address] [facility] Transfuse autologous RBC (Cell Salvage) : (11/21/2021 6:15 PM CDT) Nicole Jefferson M.D. BLOOD TRANSFUSION ORDERABLES FL Fluoro Less Than 1 Hour (11/21/2021 5:55 PM CDT) Specimen (Source) Anatomical Location Collection Method / Collectio n Time Received Time / Laterality Volume Narrative 152 HOS LOS RST - 11/21/2021 5:58 PM CDT This exam does not require a radiologist review or interpretation. Please refer to the patient's medical record on this date for clinical details. Jameson Osullivan M.D. IMG FLUOROSCOPY PROCEDURES Performing Organization Address City/State/ZIP Code Phon e Number 152 HOS LOS RST GA ARTL CATH/CNULA MONITOR PERC, LDA ANE ARTERIAL LINE INSERTION (11/21/2021 3:22 PM CDT) Narrative Vini Eric APRN, CRNA - 11/21/2021 3:22 PM CDT Vini Eric APRN, CRNA ? 11/21/2021 ??3:23 PM Invasive Catheter Performed by: Vini Eric APRN, CRN A Authorized by: Rock Snow MIzabellaB.B. SIzabella Location: OR PROCEDURE DETAILS: Line type: arterial ?? Laterality: left Location: radial Location details: new site ? Age group: adult Catheter diameter: 20 Ga Technique: palpation ?? Monitored: yes ?? Number of attempts: 2 UNIVERSAL PROTOCOL All relevant documentation and testing w ere reviewed and available. All required blood products, implants, devic es and or special equipment were made available as applicable. Pre-proced ure verification was conducted and the correct site was marked if required. A fire risk assessment was done as applicable. The procedural time-out t o verify correct patient, correct side/site, and procedure was conducted p rior to performing the procedure and confirmed in a procedural pause. PRE-PROCEDURE DETAILS: Appropriate hand hygiene, gown, cap, mas k, protective eyewear, sterile gloves, skin preparation, sterile drape, and strict aseptic technique were utilized as applicable for the procedure .: yes ?? Skin preparation: chlorhexidine ?? SEDATION / ANESTHESIA Anesthesia method: anesthesia POST-PROCEDURE DETAILS: Procedure completed successfully: yes ?? Line secured: secured with sutureless de vice Chlorhexidine disc around insertion site and under catheter with slight turn: yes ?? Complications - arterial: none Rock Saba PROCEDURE/MINOR SURGICAL ORD ERABLES LDA ANE ENDOTRACHEAL AIRWAY (11/21/2021 3:02 PM CDT) Narrative Vini Eric APRN, CRNA - 11/21/2021 3:02 PM CDT Vini Eric APRN, CRNA ? 11/21/2021 ??3:24 PM Airway Date/Time: 11/21/2021 3:02 PM Performed by: Vini Eric APRN, CRN A Authorized by: Rock Snow M.B.B. S. Patient location during procedure: OR / Procedure Area PROCEDURE DETAILS: Mask difficulty assessment: not attempte d Final airway type: video laryngoscope Laryngeal Manipulation: no ?? Final best view of glottic structures - Cormack/Lehane Score: grade 1 ETT location: oral VL device: glide scope Montalba scope blade size: 4 Adult tube size: 7 Adult ETT distance at teeth/gum: 22 Oral tube type: standard ETT Cuffed: yes Number of attempt to successful placemen t: 1 Airway confirmation: bilateral breath so unds, positive ETCO2 and bilateral chest rise Other previous techniques attempted: non e PRE PROCEDURE DETAILS: Pre evaluation for airway management: pr ocedure Urgency: elective Preop assessment of probable difficulty: no difficulty anticipated Preoxygenation: bag valve mask SEDATION / ANESTHESIA Anesthesia method: anesthesia POST PROCEDURE DETAILS: ? Procedure outcome: successful ?? Airway event: no complications Rock Saba ANESTHESIA ORDERABLES IONM - EMG (11/21/2021 8:33 AM CDT) Specimen (Source) Anatomical Collection Method Collection Time Re ceived Time Location / / Volume Laterality 11/21/2021 9:00 AM CDT Narrative [facility] EMG - 11/21/2021 6:24 PM CDT Table formatting from the original result was not included. 21-Nov-2021 ? Intraopera tive Monitoring ? Final Report Study Number: 1 EMG Trade Facilitator: Dank Huffman . 127 or [phone] Referred by: WILMER NEVAREZ (127 or [phone]) Referred for: Referral Code: ?1956 RX: 1956 SUMMARY: Somatosensory evoked potentials (SEPs) and transcranial electric motor evoked potentials (MEPs) were monitored during posterior t horacic fusion. All stimulation and recording was performed with needle electrodes. Ulnar and tibial nerves were stimulated for SEPs. MEPs were recorded from the following muscles bila terally: extensor digitorum communis, abductor digiti minimi, vastus lateralis, tibialis anter ior, and abductor hallucis. Four twitches were present on train of four (TOF) from all four limbs during baseline MEP recordings and after exposure was completed prior to resumption of MEP mon itoring. SEP Reliable cortical SEPs were recorded at baseline from all four limbs in the supine position; the surgeon was informed prior to exposure. There were no significant iqbal ges in cortical SEP amplitudes during surgery. MEP Reliable MEPs were recorded at baseline from all muscles in the supine position; the surgeon was informed prior to exposure. There were no significant changes in MEPs during surgery. I provided exclusive direct professional oversight for the entirety of the surgery without providing oversight for other concurrent surgical monitoring or performing other direct patient care activities. ??Real-[place] neurophysiologic data was available for me to view and interrogate contemporaneously. Throughou t monitoring, there were provisions for continuous and immediate communication directly with [facility] operating room team in the surgical suite. Oscar Huffman (127 or [phone])/[facility] Surgery ? Staff Minutes Start-DateTime End-DateTim e Remote Simultaneous Supervision 0 2021 00:00 AM ART STUDIO TEACHER 11/21/2021 00:00 AM ART STUDIO TEACHER Remote Exclusive (1:1) Supervision 149 1 15:36 PM ART STUDIO TEACHER 11/21/2021 18:05 PM ART STUDIO TEACHER In-Room Exclusive (1:1) Supervision 0 00:00 AM ART STUDIO TEACHER 11/21/2021 00:00 AM ART STUDIO TEACHER Total Monitoring Time: 149 ?? This interpretation has been electron ically signed: Dank Huffman MD at 11/21/2021 6:21:07 PM CDT Procedure Note Dank Huffman M.D. - 11/22/2021Formatt ing of this note is different from the original. 21-Nov-2021 Intraoperative Monitoring Fi nal Report Study Number: 1 EMG Trade Facilitator: Dank Huffman . 127 or [phone] Referred by: WILMER NEVAREZ (127 or [phone]) Referred for: Referral Code: 1957 RX: 1956 SUMMARY: Somatosensory evoked potentials (SEPs) and transcranial electric motor evoked potentials (MEPs) were monitored during posterior t horacic fusion. All stimulation and recording was performed with needle electrodes. Ulnar and tibial nerves were stimulated for SEPs. MEPs were recorded from the following muscles bila terally: extensor digitorum communis, abductor digiti minimi, vastus lateralis, tibialis anter ior, and abductor hallucis. Four twitches were present on train of four (TOF) from all four limbs during baseline MEP recordings and after exposure was completed prior to resumption of MEP mon itoring. SEP Reliable cortical SEPs were recorded at baseline from all four limbs in the supine position; the surgeon was informed prior to exposure. There were no significant iqbal ges in cortical SEP amplitudes during surgery. MEP Reliable MEPs were recorded at baseline from all muscles in the supine position; the surgeon was informed prior to exposure. There were no significant changes in MEPs during surgery. I provided exclusive direct professional oversight for the entirety of the surgery without providing oversight for other concurrent surgical monitoring or performing other direct patient care activities. Real-betty e neurophysiologic data was available for me to view and interrogate contemporaneously. Throughou t monitoring, there were provisions for continuous and immediate communication directly with [facility] operating room team in the surgical suite. T. Nathanael ([phone] or [phone])/[facility] Surgery Staff Minutes Start-DateTime End-DateTim e Remote Simultaneous Supervision 0 2021 00:00 AM ART STUDIO TEACHER 11/21/2021 00:00 AM ART STUDIO TEACHER Remote Exclusive (1:1) Supervision 149 1 15:36 PM ART STUDIO TEACHER 11/21/2021 18:05 PM ART STUDIO TEACHER In-Room Exclusive (1:1) Supervision 0 00:00 AM ART STUDIO TEACHER 11/21/2021 00:00 AM ART STUDIO TEACHER Total Monitoring Time: 149 This interpretation has been electron ically signed: Dank Huffman MD at 11/21/2021 6:21:07 PM CDT Wilmer Nevarez M.D. NEUROLOGY ORDERABLES Performing Organization Address City/State/ZIP Code Phon e Number MC EMG CT Lumbar Spine without IV Contrast (11/21/2021 12:08 AM CDT) Anatomical Region Laterality Modality Lumbar Spine, Neuroradiology RST LOS, N/A Co mputed Tomography, Computed Neuroradiology ARZ LOS, Neuroradiology T omography FLA [facility] Specimen (Source) Anatomical Collection Method Collection Time Re ceived Time Location / / Volume Laterality 11/20/2021 11:47 PM CDT Impressions 11/21/2021 8:01 AM CDT Acute minimally displaced left transvers e process fractures at L2, L3, and L4. Narrative 11/21/2021 8:01 AM CDT EXAM: CT LUMBAR SPINE WITHOUT IV CONTRAST COMPARISON: CT abdomen and pelvis perfor med earlier today 11/20/2021. FINDINGS: There are 5 lumbar-type vertebral bodies . Normal alignment of the lumbar spine. The vertebral body heights are maintained. Acute minimally displaced and distracted left transverse process fractures at L2 (series 4 image 164), L3 (series 4 image 204), and L4 (series 4 image 250). No other fractures. Degenerative changes of the l umbar spine with prominent anterior disc osteophyte complex at L2-L3 and Schmorl's node at the infer ior L5 endplate. No high-grade central spinal canal or neural foraminal stenoses. Atherosclerot ic calcifications. Procedure Note Theo Alvarenga M.D. - 11/21/2021Formatti ng of this note might be different from the original. EXAM: CT LUMBAR SPINE WITHOUT IV CONTRAS T COMPARISON: CT abdomen and pelvis perfor med earlier today 11/20/2021. FINDINGS: There are 5 lumbar-type vertebral bodies . Normal alignment of the lumbar spine. The vertebral body heights are maintained. Acute minimally displaced and distracted left transverse process fractures at L2 (series 4 image 164), L3 (series 4 image 204), and L4 (series 4 image 250). No other fractures. Degenerative changes of the l umbar spine with prominent anterior disc osteophyte complex at L2-L3 and Schmorl's node at the infer ior L5 endplate. No high-grade central spinal canal or neural foraminal stenoses. Atherosclerot ic calcifications. IMPRESSION: Acute minimally displaced left transvers e process fractures at L2, L3, and L4. Alisia Moy APRNN.P., M.S.N. IMG CT PROCEDURES SARS Coronavirus 2, RNA, Rapid POC, V Asymptomatic (11/20/2021 11:41 PM CDT) [facility] Method Time Signature SARS Undetected Undetected 11/21/2021 DTLR Coronavirus-2 12:03 AM CDT , RNA, Rapid POC, V Comment: Negative for SARS-CoV-2. The [employer] COVID-19 test is a molecular una t for SARS-CoV-2, the virus that causes COVID- 19. A Negative result means that the [employer] COV ID-19 test did not detect SARS-CoV-2 virus in your sample. [employer] COVID-19 test uses the [employer] Mo nitoring System. This test has received Emergency Use Authorization (EUA) by the U.S. Food and Drug Administration (FDA) and is used per man acturer instructions. Performance characteristic s were verified by [facility] in a manner consistent with CLIA requirements. Fact sheets for this Emerg ency Use Authorization (EUA) can be found at the following links: Providers: https://[email or web address]/prov iders.pdf Patients: [email or web address]://[email or web address]/katrin [email or web address].pdf SARS Coronavirus 2, Source Nasopharynx DEFAULT 11/21/2021 12:03 AM CDT DTLR Specimen Anatomical Collection Method Collection Time Receive d Time (Source) Location / / Volume Laterality Swab 11/20/2021 11:41 11/20/2021 (Nasopharynx) PM CDT 11:41 PM CDT Halie Hong APRN, C.N.P., M.S.N. LAB MICROBIOLOGY - GE NERAL ORDERABLES Performing Organization Address City/[facility]/ZIP Code Phon e Number PERFORMING LABS, [place] [address] INTERFACE Ref Interface [address] [facility] DT Performing Labs, [place] [address] Interface 200 [facility] Lactate, POCT (11/20/2021 8:23 PM CDT)Only the most recent of2 resultswithin the time period is included. athologist Signature Lactate, POCT 0.72 0.50 - 11/20/2021 PCLX 2.20 8:30 PM CDT mmol/L Sample Site, Venstick 11/20/2021 PCLX POCT 8:30 PM CDT Specimen Anatomical Collection Method Collection Time Receive d Time (Source) Location / / Volume Laterality Blood 11/20/2021 8:23 PM 8:31 CDT PM CDT Unknown Provider LAB POCT ORDERABLES - DEVICE Performing Organization Address City/[facility] Phon e Number POC [facility] [address] [place] [address] PCLX [facility] [place] [address] [place] POC [address] [facility] Ethanol Level, Serum (11/20/2021 8:22 PM CDT) P athologist Signature Ethanol, S <10 <10 mg/dL 11/20/2021 9:08 DTL PM CDT Specimen Anatomical Collection Method Collection Time Receive d Time (Source) Location / / Volume Laterality Blood (Blood, 11/20/2021 8:22 PM 11/21/19 8:45 Venous) CDT PM CDT Mark Brooks M.D. LAB BLOOD NON ADD-ON Performing Organization Address City/[facility]/ZIP [facility] [place]on e [place] [facility] - [address] [place], [place] [address] [facility] [place] [address] Laboratories-[facility] [address] [facility] Hepatic Function Panel (11/20/2021 8:22 PM CDT) [facility] Method Time Signature Bilirubin, Total, S 0.9 <=1.2 11/20/2021 DTL mg/dL 9:08 PM CDT Bilirubin, Direct, S 0.3 0.0 - 0.3 11/20/2021 DTL mg/dL 9:08 PM CDT Aspartate CANCELED U/L 11/20/2021 DTL Aminotransferase 8:45 PM CDT (AST), S Comment: Duplicate test request. Result canceled by the ancillary. Alanine Aminotransferase (ALT), S 27 7 - 55 U/L 11/20 9:08 PM CDT DTL Alkaline Phosphatase, S 85 40 - 129 U/L 11/20/2021 9: 08 PM CDT DTL Albumin, S 4.5 3.5 - 5.0 g/dL 11/20/2021 9:08 PM CDT D TL Protein, Total, S 6.6 6.3 - 7.9 g/dL 11/20/2021 9:08 P M CDT DTL Specimen Anatomical Collection Method Collection Time Receive d Time (Source) Location / / Volume Laterality Blood (Blood, 11/20/2021 8:22 PM 11/21/19 8:45 Venous) CDT PM CDT Mark Brooks M.D. LAB BLOOD ADD-ON Performing Organization Address City/[facility] Code Phon e Number [facility] - [address] [place] [address] [address] [facility] APTT (Activated Partial Thromboplastin Time) (11/20/2021 8:22 PM CDT) P athologist Signature Activated 31 25 - 37 sec [facility] Partial 8:38 PM CDT Thrombopl Time, P Specimen Anatomical Collection Method Collection Time Receive d Time (Source) Location / / Volume Laterality Blood (Blood, 11/20/2021 8:22 PM 11/21/19 8:29 Venous) CDT PM CDT Mark Brooks M.D. LAB BLOOD ADD-ON Performing Organization Address City/[facility]/ZIP Code Phon e Number [facility] - [address] [place] [address] Prothrombin Time (PT) (11/20/2021 8:22 PM CDT) P athologist Signature Prothrombin 11.7 9.4 - 12.5 11/20/2021 [facility] Time, P sec 8:35 PM CDT INR 1.1 0.9 - 1.1 11/20/2021 [facility] 8:35 PM CDT Comment: ----ADDITIONAL INFORMATION---- Standard intensity warfarin therapeutic range: 2.0 to 3.0 ?? High intensity warfarin therapeutic rang e: 2.5 to 3.5 Specimen Anatomical Collection Method Collection Time Receive d Time (Source) Location / / Volume Laterality Blood (Blood, 11/20/2021 8:22 PM 11/21/19 8:29 Venous) CDT PM CDT Mark Brooks M.D. LAB BLOOD ADD-ON Performing Organization Address City/State/ZIP Code Phon e Number [facility] - [address] [place] [address] [place] [address] Laboratories-[address] (ABNORMAL) CBC with Differential, Blood (11/20/2021 8:22 PM CDT) Patholo gist Method Time Signature Hemoglobin 16.1 13.2 - 11/20/2021 [facility] 16.6 g/dL 8:31 PM CDT Hematocrit 47.3 38.3 - 11/20/2021 [facility] 48.6 % 8:31 PM CDT Erythrocytes 5.61 4.35 - 11/20/2021 [facility] 5.65 8:31 PM CDT x10(12)/L MCV 84.3 78.2 - 11/20/2021 [facility] 97.9 fL 8:31 PM CDT RBC Distrib Width 14.1 11.8 - 11/20/2021 [facility] 14.5 % 8:31 PM CDT Platelet Count 201 135 - 317 11/20/2021 [facility] x10(9)/L 8:31 PM CDT Leukocytes 11.3 (H) 3.4 - 9.6 11/20/2021 [facility] x10(9)/L 8:31 PM CDT Neutrophils 9.64 (H) 1.56 - 11/20/2021 [facility] 6.45 8:31 PM CDT x10(9)/L Lymphocytes 0.86 (L) 0.95 - 11/20/2021 [facility] 3.07 8:31 PM CDT x10(9)/L Monocytes 0.77 0.26 - 11/20/2021 [facility] 0.81 8:31 PM CDT x10(9)/L Eosinophils <0.03 0.03 - 11/20/2021 [facility] 0.48 8:31 PM CDT x10(9)/L Basophils <0.03 0.01 - 11/20/2021 [facility] 0.08 8:31 PM CDT x10(9)/L Specimen Anatomical Collection Method Collection Time Receive d Time (Source) Location / / Volume Laterality Blood (Blood, 11/20/2021 8:22 PM 11/21/19 22 8:28 Venous) CDT PM CDT Mark Brooks M.D. LAB BLOOD ADD-ON Performing Organization Address City/[facility] Phon e Number [facility] - [address] [place] [address] Type and Screen (with reflex Antibody ID) (11/20/2021 8:22 PM CDT) [facility] Method Time Signature ABORh A Pos Not 11/20/2021 STRM applicable 8:57 PM CDT Antibody Negative Negative 11/20/2021 STRM Screen 9:04 PM CDT Type & Screen 11/23/2021 11/20/2021 STRM Expiration 23:59 8:57 PM CDT Testing [place] DEFAULT 11/20/2021 STRM Location 8:30 PM CDT Specimen Anatomical Collection Method Collection Time Receive d Time (Source) Location / / Volume Laterality Blood (Blood, 11/20/2021 8:22 PM 11/21/19 8:30 Venous) CDT PM CDT Mark Brooks M.D. LAB BLOOD BANK TEST ORDERABL ES Performing Organization Address [facility] Phon e Number [facility] [address] [place] [address] AST (Aspartate Aminotransferase) (11/20/2021 8:22 PM CDT) [facility] Signature Aspartate 32 8 - 48 11/20/2021 [facility] Aminotransferase U/L 8:48 PM CDT (AST), P Specimen Anatomical Collection Method Collection Time Receive d Time (Source) Location / / Volume Laterality Blood (Blood, 11/20/2021 8:22 PM 11/21/19 22 8:28 Venous) CDT PM CDT Mark Brooks M.D. LAB BLOOD ADD-ON Performing Organization Address City/[facility] Phon e Number [facility] - [address] [place] [address] [place], [place] [address] [address] Amylase, Total (11/20/2021 8:22 PM CDT) athologist Signature Amylase, Total, 62 28 - 100 11/20/2021 DTL S U/L 9:08 PM CDT Specimen Anatomical Collection Method Collection Time Receive d Time (Source) Location / / Volume Laterality Blood (Blood, 11/20/2021 8:22 PM 11/21/19 8:45 Venous) CDT PM CDT Mark Brooks M.D. LAB BLOOD ADD-ON Performing Organization Address City/[facility] Code Phon e Number [facility] - [address] [place] [address] [address] [place] [address] Thromboelastograph, Kaolin, Blood (11/20/2021 8:20 PM CDT) athologist Signature R, Kaolin, TEG 6.1 4.0 - 9.0 11/20/2021 [facility] min 9:43 PM CDT K, Kaolin, TEG 1.4 1.0 - 1.8 11/20/2021 [facility] min 9:43 PM CDT Angle, Kaolin, 68.9 64.0 - 78.1 11/20/2021 [facility] TEG degrees 9:43 PM CDT MA, Kaolin, 64.3 57.1 - 72.6 11/20/2021 [facility] TEG mm 9:43 PM CDT Ly30, Kaolin, 0.1 0.0 - 4.8 % 11/20/2021 [facility] TEG 9:43 PM CDT Specimen Anatomical Collection Method Collection Time Receive d Time (Source) Location / / Volume Laterality Blood (Blood, 11/20/2021 8:20 PM 11/21/19 22 8:27 Venous) CDT PM CDT Mark Brooks M.D. LAB BLOOD NON ADD-ON Performing Organization Address City/State/ZIP Code Phon e Number [facility] - [address] [place], [place] [address] [place] [address] [facility] [address] Interpretation of Outside CT Spine (11/20/2021 8:14 PM CDT)Only the most recent of2 resultswithin the time period is included. Anatomical Region Laterality Modality Spine, Neuroradiology RST LOS, Neuroradiology ARZ LOS, N/A Computed Tomography Neuroradiology FLA LOS, Other Specimen (Source) Anatomical Collection Method Collection Time Re ceived Time Location / / Volume Laterality 11/20/2021 9:03 PM CDT Impressions 11/20/2021 9:19 PM CDT Acute T8-T9 fracture with mild distraction at the T9 superior endplate, suggesting anterior longitudinal ligament injury, and extens ion across the T8-9 intervertebral disc. No acute traumatic findings in the cervi tomi spine. Narrative 11/20/2021 9:19 PM CDT EXAM: ??INTERPRETATION OF OUTSIDE CT SPINE, INTERPRETATION OF OUTSIDE CT SPINE COMPARISON: ??None FINDINGS: ?? CT cervical spine without intravenous co ntrast performed 11/20/2021. No fracture or traumatic malalignment. Prevertebral soft tissues within normal limits. Spondylotic changes most advanced at C4-5 and C5-6. Disc osteophyte complexes result in canal narrowing that is mild C3-4 and C4-5 and mild to moderate C5-6. Uncovertebral and facet hypertrophy result in foraminal narrowings that are most advanced on the left at C4-5 and ri ght at C5-6. CT thoracic spine without intravenous co ntrast performed 11/20/2021. Note, bone algorithm axial images are not available for review. Acu te T8-T9 fracture. Transversely oriented component of the fracture extends through the anterior as pect of the T9 vertebral body, just along the inferior margin of the superior endplate and is m ildly distracted (approximately 2 mm) (series 4, image 19). This fracture extends through the mid as pect of the intervertebral disc and into the T8 vertebral body (series 4, image 13). Coronally margaret ented fracture cleft continues through the T8 vertebral body (series 1, image 124). The T8 fracture e xtends through the posterior lateral cortex of the vertebral body on the right (series 4, image 23 an d series 1, image 116). No bony retropulsion. No convincing involvement of the posterior elements. N o evidence of spinal significant spinal canal or foraminal narrowing. Procedure Note Juli Hinds M.D., Ph.D. - 11/20 EXAM: INTERPRETATION OF OUTSIDE CT SPINE , INTERPRETATION OF OUTSIDE CT SPINE COMPARISON: None FINDINGS: CT cervical spine without intravenous co ntrast performed 11/20/2021. No fracture or traumatic malalignment. Prevertebral soft tissues within normal limits. Spondylotic changes most advanced at C4-5 and C5-6. Disc osteophyte complexes result in canal narrowing that is mild C3-4 and C4-5 and mild to moderate C5-6. Uncovertebral and facet hypertrophy result in foraminal narrowings that are most advanced on the left at C4-5 and ri ght at C5-6. CT thoracic spine without intravenous co ntrast performed 11/20/2021. Note, bone algorithm axial images are not available for review. Acu te T8-T9 fracture. Transversely oriented component of the fracture extends through the anterior as pect of the T9 vertebral body, just along the inferior margin of the superior endplate and is m ildly distracted (approximately 2 mm) (series 4, image 19). This fracture extends through the mid as pect of the intervertebral disc and into the T8 vertebral body (series 4, image 13). Coronally margaret ented fracture cleft continues through the T8 vertebral body (series 1, image 124). The T8 fracture e xtends through the posterior lateral cortex of the vertebral body on the right (series 4, image 23 an d series 1, image 116). No bony retropulsion. No convincing involvement of the posterior elements. N o evidence of spinal significant spinal canal or foraminal narrowing. IMPRESSION: Acute T8-T9 fracture with mild distracti on at the T9 superior endplate, suggesting anterior longitudinal ligament injury, and extens ion across the T8-9 intervertebral disc. No acute traumatic findings in the cervi tomi spine. Mark Brooks M.D. [facility] CT PROCEDURES Interpretation of Outside CT Head (11/20/2021 8:13 PM CDT) Anatomical Region Laterality Modality Head, Neuroradiology RST LOS, Neuroradiology ARZ LOS, N/A Computed Tomography Neuroradiology FLA LOS, Other Specimen (Source) Anatomical Collection Method Collection Time Re ceived Time Location / / Volume Laterality 11/20/2021 8:55 PM CDT Impressions 11/20/2021 9:43 PM CDT No acute intracranial findings. Narrative 11/20/2021 9:43 PM CDT EXAM: ??INTERPRETATION OF OUTSIDE CT HEAD COMPARISON: ??None FINDINGS: ??Outside interpretation of a CT head without IV contrast performed on 11/20/2021. No intracranial hemorrhage, mass effect, or acute infarct. No acute calvarial fracture. Postoperative changes left frontotempora l lobe with embolization coils. Left frontotemporal and left temporoparietal encephalomalacia with mi ld asymmetric enlargement of the left ventricle. Mild generalized parenchymal volume loss and leukoaraiosis. Vertebral artery and intracranial vascular calcifications. Mild bilateral maxillary sinus mucosal thickening. Procedure Note Juli Hinds M.D., Ph.D. - 11/20 EXAM: INTERPRETATION OF OUTSIDE CT HEAD COMPARISON: None FINDINGS: Outside interpretation of a CT head without IV contrast performed on 11/20/2021. No intracranial hemorrhage, mass effect, or acute infarct. No acute calvarial fracture. Postoperative changes left frontotempora l lobe with embolization coils. Left frontotemporal and left temporoparietal encephalomalacia with mi ld asymmetric enlargement of the left ventricle. Mild generalized parenchymal volume loss and leukoaraiosis. Vertebral artery and intracranial vascular calcifications. Mild bilateral maxillary sinus mucosal thickening. IMPRESSION: No acute intracranial findings. Mark Brooks M.D. [place] CT PROCEDURES Interpretation of Outside CT Chest (11/20/2021 8:13 PM CDT) Anatomical Region Laterality Modality Chest, Thoracic RST LOS, Thoracic ARZ LOS, Thoracic N/A Computed Tomography FLA LOS, Other, Body Specimen (Source) Anatomical Collection Method Collection Time Re ceived Time Location / / Volume Laterality 11/20/2021 8:53 PM CDT Impressions 11/20/2021 9:13 PM CDT No acute findings in the chest cavity. ??Please see separate spine CT report. Narrative 11/20/2021 9:13 PM CDT EXAM: ??INTERPRETATION OF OUTSIDE CT CHEST COMPARISON: ??None FINDINGS: ??Interpretation of outside CT chest with intravenous contrast performed 11/20/2021 No pneumothorax or pleural effusions. No acute rib fractures. Chronic fracture of the lateral right 11th rib. No focal consolidations. The central air ways are widely patent. Azygos fissure. No hilar or mediastinal lymphadenopathy. Normal hear t size. Bioprosthetic aortic valve replacement. No pericardial effusion, thickening or calc ification. Small hiatal hernia. This examination was performed in conjun ction with separately dictated interpretations of the CT of the abdomen, pelvis and thoracic spine, which will be reported separately. Procedure Note Nathan Bauman M.D. - 11/20/2021Forma tting of this note might be different from the original. EXAM: INTERPRETATION OF OUTSIDE CT CHEST COMPARISON: None FINDINGS: Interpretation of outside CT c hest with intravenous contrast performed 11/20/2021 No pneumothorax or pleural effusions. No acute rib fractures. Chronic fracture of the lateral right 11th rib. No focal consolidations. The central air ways are widely patent. Azygos fissure. No hilar or mediastinal lymphadenopathy. Normal hear t size. Bioprosthetic aortic valve replacement. No pericardial effusion, thickening or calc ification. Small hiatal hernia. This examination was performed in conjun ction with separately dictated interpretations of the CT of the abdomen, pelvis and thoracic spine, which will be reported separately. IMPRESSION: No acute findings in the chest cavity. P lease see separate spine CT report. Mark Brooks M.D. IMG CT PROCEDURES Interpretation of Outside CT Abdomen and or Pelvis (11/20/2021 8:12 PM CDT) Anatomical Region Laterality Modality Abdomen, Pelvis, Abdominal RST LOS, Abdominal ARZ LOS, N/A Computed Tomography Abdominal FLA LOS, Other Specimen (Source) Anatomical Collection Method Collection Time Re ceived Time Location / / Volume Laterality 11/20/2021 8:38 PM CDT Impressions 11/20/2021 9:12 PM CDT 1. No acute abdominopelvic process. 2. Acute vertebral body fractures of T8 and T9, please see dedicated thoracic spine interpretation for further characterization. Narrative 11/20/2021 9:12 PM CDT EXAM: ??INTERPRETATION OF OUTSIDE CT ABDOMEN AND OR PELVIS COMPARISON: ??None FINDINGS: ??Outside interpretation of a CT abdomen and pelvis with IV contrast performed on 11/20/2021. Left hepatic lobe cyst versus hemangiom a. Normal gallbladder, spleen, adrenal glands, and left kidney. Atrophic pancreas. Right renal c ysts. Colonic diverticulosis without evidence of diverticulitis. Penile pump. Fat-contain ing left inguinal hernia. Scattered abdominal calcifications. No lymphadenopathy Aorto iliac arterial calcifications. Acute fractures involving the anterosupe rior T9 vertebral body and through the mid body of T8. Please see dedicated thoracic spine inte rpretation for further characterization. Prominent heterotopic ossification about the right hip without definite fracture. Procedure Note Nathan Bauman M.D. - 11/20/2021Forma tting of this note might be different from the original. EXAM: INTERPRETATION OF OUTSIDE CT ABDOM EN AND OR PELVIS COMPARISON: None FINDINGS: Outside interpretation of a CT abdomen and pelvis with IV contrast performed on 11/20/2021. Left hepatic lobe cyst versus hemangiom a. Normal gallbladder, spleen, adrenal glands, and left kidney. Atrophic pancreas. Right renal c ysts. Colonic diverticulosis without evidence of diverticulitis. Penile pump. Fat-contain ing left inguinal hernia. Scattered abdominal calcifications. No lymphadenopathy Aorto iliac arterial calcifications. Acute fractures involving the anterosupe rior T9 vertebral body and through the mid body of T8. Please see dedicated thoracic spine inte rpretation for further characterization. Prominent heterotopic ossification about the right hip without definite fracture. IMPRESSION: 1. No acute abdominopelvic process. 2. Acute vertebral body fractures of T8 and T9, please see dedicated thoracic spine interpretation for further characterization. Mark [facility] PROCEDURES CT THORACIC SPINE WO CON-Outside CT Neuro (11/20/2021 4:35 PM CDT)Only the most recent of3 resultswithin the time period is included. Specimen (Source) Anatomical Collection Method Collection Time Re ceived Time Location / / Volume Laterality 11/20/2021 4:34 PM CDT Narrative [facility] - 11/20/2021 4:45 PM CDT This order has been created and auto-finalized to support the import of outside images. If available, original i nterpretation can be found on the Media Tab in Chart Review, in Document V iewer, or as an image in QREADS. If a re-interpretation or overread is re quired please follow defined workflow. ?? Provider Not In System IMG CT PROCEDURES Performing Organization Address [facility] Code Phon e Number JODI ZAPATA NA CT chest abdomen pelv w con-Outside CT Body (11/20/2021 3:30 PM CDT) Specimen (Source) Anatomical Collection Method Collection Time Re ceived Time Location / / Volume Laterality 11/20/2021 3:20 PM CDT Narrative [facility] - 11/20/2021 4:50 PM CDT This order has been created and auto-finalized to support the import of outside images. If available, original i nterpretation can be found on the Media Tab in Chart Review, in Document V iewer, or as an image in QREADS. If a re-interpretation or overread is re quired please follow defined workflow. ?? Provider Not In System IMG CT PROCEDURES Performing Organization Address [facility] Code Phon e Number II II NA from Last 3 Months Insurance Payer Benefit Plan Subscriber ID Effective Phone Address Typ e / Group Dates MEDICARE MEDICARE A [id number] 2017-Pres [address] [place] [address] BLUE CROSS BCBS [place] [id number] 2017-Pres [phone] [address] X Cost Share BLUE SHIELD BLUE COST ent [phone] [place] [address] [phone] (Home) [place] [phone] Advance Directives For more information, please contact: [phone] Latest Code Status on File Code Status Date Activated Date Inactivated Comments Full Code 11/21/2021 12:22 AM 11/24/2021 5:46 PM Question Answer Comments Full Code: Discussed Care Teams Kick Press Operator Relationship Specialty Start Date End Date Elsewhere, Pcp PCP - General 04/21/18
--- OUTSIDE RECORDS SUMMARY | 2021-12-29 11:44 | XMS_ITS | Encounter Summary ---
:1950 Author Organization [facility] Address [address] [place] [address] Care Team Providers Name Role Phone Elsewhere, Pcp Primary Care Provider Unavailable Reason for Referral MRI/CAT/PET Scan (Routine) - Authorized Specialty Diagnoses / Procedures Referred By Contact Refer red To Contact Radiology Diagnoses Chance Flexion Fracture Injury Spine Thoracic Initial (HCC) Jameson Osullivan M.D. [facility] Procedures CT Thoracic Spine without IV Contrast [address] [place] [address] Referral ID Status Reason Start Date Expiration Date Visits V isits Requested Authorized [id number] Authorized 12/11/2021 12/11/2022 1 1 Outpatient (Routine) - Authorized Specialty Diagnoses / Procedures Referred By Contact Refer red To Contact Diagnoses Chance Flexion Fracture Injury Spine Thoracic Initial (HCC) Jameson Osullivan M.D. [facility] Procedures DX Thoracolumbar Spine with Flexion Extension 4 Views [address] [place] [address] Referral ID Status Reason Start Date Expiration Date Visits V isits Requested Authorized [id number] Authorized 12/11/2021 12/11/2022 1 1 Reason for Visit Reason Comments Pre-visit Testing Orders Encounter Details Date Type Department Care Team Description 12/11/2021 Clinical Communication Department of [place], Pre- visit Testing Orthopedic Surgery Wilmer Triplett M.D. Orders in [place], [address] [place], [place] [address] [place] [id number] [place], [place] [phone] (Work) [phone] Social History Tobacco Use Types Packs/Day Years Used Date Smoking Tobacco: Never Smokeless Tobacco: Never Alcohol Use Standard Drinks/Week Comments Never 0 (1 standard drink = 0.6 oz pure alcoho l) Sex Assigned at Date Recorded Not on file documented as of this encounter Miscellaneous Notes Telephone Encounter - Jameson Osullivan M.D. - 12/11/2021 10:[address] and XR orders created for the patient to complete prior to his 4 month appointment in early March Telephone Encounter - Nabeel Rain - 12/11/2021 10:01 AM CDT Patient is wanting imaging orders to be sent for him to complete locally. Thank You documented in this encounter Plan of Treatment Scheduled Orders Name Type Priority Associated Order Schedule Diagnoses DX Thoracolumbar Spine Imaging RAD - Routine (most Chance Flex ion Expected: with Flexion Extension inpatients and all Fracture Inj ury 03/23/2022, 4 Views outpatients) Spine Thoracic Expires: Initial ([facility]) 03/13/2023 CT Thoracic Spine Imaging RAD - Routine (most Chance Flexion E xpected: without IV Contrast inpatients and all Fracture Injury 03/23/2022, outpatients) Spine Thoracic Expires: Initial ([facility]) 03/13/2023 documented as of this encounter Visit Diagnoses Diagnosis Chance Flexion Fracture Injury Spine Tho racic Initial ([facility]) documented in this encounter Care Teams Carpet Measurer Relationship Specialty Start Date End Date Elsewhere, Pcp PCP - General 04/21/18 documented as of this encounter
--- OUTSIDE RECORDS SUMMARY | 2021-12-29 11:44 | XMS_ITS | Encounter Summary ---
:1950 Author Organization [facility] Address [address] [place] [address] Care Team Providers Name Role Phone Elsewhere, Pcp Primary Care Provider Unavailable Reason for Visit Reason Comments Almost out of hydromorphone, refill request Encounter Details Date Type Department Care Team Description 11/30/2021 Clinical Communication Department of [facility] out of Orthopedic Surgery Wilmer Triplett M.D. hydromorphone, in [place] [address] [address] [facility] refill request [place], [place] [address] [facility] [address] [place], [place] [phone] (Work) [phone] Social History Tobacco Use Types Packs/Day Years Used Date Smoking Tobacco: Never Smokeless Tobacco: Never Alcohol Use Standard Drinks/Week Comments Never 0 (1 standard drink = 0.6 oz pure alcoho l) Sex Assigned at Date Recorded Not on file documented as of this encounter Miscellaneous Notes Telephone Encounter - Jameson Osullivan M.D. - 11/30/2021 2:15 PM CDT Phone call, patient not seen or examined. I was able to speak with the patient regarding his currentpain regimen. He is taking Tylenol, 1000 mg every 6 hours and using ice. He has not tried any [id number] gels or creams in the other areas throughout his back that he is experiencing pain. He hasbeen taking hydromorphone approximately every 4 hours. I will send him a new prescription and he states that he will try to space out his Dilaudid to every 5 hours at this point and will plan on picking up some [id number]-[id number] gels and creams to be used at the pharmacy. I instructed him not to use the chills or creams directly around the incision. He expressed understanding of this and will reach out to us should any further questions or concerns arise. Telephone Encounter - Iman Garcia - 11/30/2021 10:38 AM CDT Who called: Patient Reason for call today: Patient is almost out of hydromorphone. He only has enough to last until tonight. Order palomo'd up for the [facility] in [place]. He says he has plenty of the valium. The patient also wonders what else can help relieve his pain. He has pretty bad bruising on his back. He has tried ice. Please call the patient to discuss. Pain Today: 5-6 after taking hydromorphone at 10 am Expected reply: Call patient on cell phone: [phone] 's cell Vaild Authorization Present: N/A-patient request documented in this encounter Plan of Treatment Not on filedocumented as of this encounter Visit Diagnoses Not on filedocumented in this encounter Care Teams Candy Attendant Relationship Specialty Start Date End Date Elsewhere, Pcp PCP - General 04/21/18 documented as of this encounter
--- OUTSIDE RECORDS SUMMARY | 2021-12-29 11:45 | XMS_ITS | Encounter Summary ---
:1950 Author Organization [facility] Address [address] [place] [address] Care Team Providers Name Role Phone Elsewhere, Pcp Primary Care Provider Unavailable Reason for Referral Outpatient (Routine) - Authorized Specialty Diagnoses / Procedures Referred By Contact Refer red To Contact Orthopedic Surgery Jameson Osullivan M .D. [facility] [address] [place] [address] Referral ID Status Reason Start Date Expiration Date Visits V isits Requested Authorized [id number] Authorized 11/22/2021 11/21/2024 1 1 Scheduling Instructions There will be imaging and testing relate d to this appointment Outpatient (Routine) - Authorized Specialty Diagnoses / Procedures Referred By Contact Refer red To Contact Diagnoses Fracture Vertebra Thoracic Closed Initial (HCC) Wilmer Nevarez M.D. [facility] Procedures DX Thoracic Spine 2 Views [address] [place] [address] Referral ID Status Reason Start Date Expiration Date Visits V isits Requested Authorized [id number] Authorized 11/21/2021 11/21/2022 1 1 MRI/CAT/PET Scan (Routine) - Authorized Specialty Diagnoses / Procedures Referred By Contact Refer red To Contact Radiology Diagnoses Fracture Vertebra Thoracic Closed Initial (HCC) Wilmer Nevarez M.D. [facility] Procedures CT Thoracic Spine without IV Contrast [address] [place] [address] Referral ID Status Reason Start Date Expiration Date Visits V isits Requested Authorized [id number] Authorized 11/21/2021 11/21/2022 1 1 Reason for Visit Reason Comments Fall Back Pain Encounter Details Date Type Department Care Team Description 11/20/2021 - Hospital Encounter [facility] Rogers Brooks M.D. [address] [place] [phone] Fracture Vertebra Thoracic Closed Initia l (HCC) (Primary Dx); 11/24/2021 [facility] Wilmer Nevarez M.D. [address] [place] [phone] Difficulty In Walking Not Elsewhere Clas sified [R26.2 (ICD-10-CM)]; [facility] Tamika Christine M.D., M.S. [address] [place] [phone] Decline Functional Status [R53.81 (ICD-1 0-CM)] [facility], Sixth Floor [address] [place] [phone] Social History Tobacco Use Types Packs/Day Years Used Date Smoking Tobacco: Never Smokeless Tobacco: Never Tobacco Cessation: Counseling Given: Not Answered Alcohol Use Standard Drinks/Week Comments Never 0 (1 standard drink = 0.6 oz pure alcoho l) Sex Assigned at Date Recorded Not on file documented as of this encounter Last Filed [...] Mass Index 34.33 11/21/2021 12:09 AM CDT documented in this encounter Discharge Summaries Jameson Osullivan M.D. - 11/24/2021 7:48 AM CDT DISCHARGE SUMMARY BRIEF OVERVIEW Hospital: [facility] Discharge Provider: Wilmer Nevarez M.D. Primary Team: [facility] Orthopedic Surgery - Geri Primary Care Providers: Elsewhere, Pcp (General) No address on file Primary Care Provider Phone Number: None Primary Care Provider Fax Number: None Other Providers: None Admission Date: 11/20/2021 Discharge Date: 11/24/2021 PRINCIPAL DIAGNOSIS Fracture Vertebra Thoracic Closed Initial (HCC) SECONDARY DIAGNOSES Principal Problem: Fracture Vertebra Thoracic Closed Initial (HCC) Resolved Problems: * No resolved hospital problems. * Surgery Information This Encounter Past Procedures (11/24/2020 to Today) Date Procedures Providers Location 11/21/2021 Posterior thoracic spine fusion, proceed as indicated Wilmer Nevarez M.D.Hadley, Matthew L, M.D.HardikVince piedra MZander., Ph.D. [facility] ROMB OR DISCHARGE DISPOSITION Home or Self Care [1] ACTIVE ISSUES REQUIRING FOLLOW UP None OUTPATIENT FOLLOW UP For appointment details refer to your Patient Appointment Guide. TEST RESULTS PENDING AT DISCHARGE Pending Labs None DETAILS OF HOSPITAL STAY REASON FOR ADMISSION Fracture Vertebra Thoracic Closed Initial (HCC) HOSPITAL COURSE After informed consent was obtained, the patient was brought to the operating room and underwent theabove-stated procedure performed by Dr. Nevarez. For further details, please see Dr. Nevarez'soperative note. The patient was taken to the post anesthesia care unit postoperatively for recovery.The patient was subsequently transferred to the general floor where care was uncomplicated. The patient worked with nursing staff and therapy as needed and progressed their mobility. When the patient's pain was well-controlled, diet was tolerated, bowel function had returned, ambulation was safe, and all discharge criteria was met, the patient was discharged from the hospital. Medication refills will not be provided outside of normal clinic hours of 8:00 am to 5:00 pm Saturday through Saturday. Please prepare ahead if you are going to run out of medication over the weekend. The patient should have a follow-up appointment in approximately 2 weeks from surgery for a wound check. This will be followed by an appointment at 4 months with x-rays, then at 1 year. These appointments will be arranged and sent to you in the mail. For any questions regarding these appointments please call and ask to speak with Dr. Nevarez's appointment desk. If the patient has general questions or concerns please call during regular weekday working hours (8 am to 5 pm). For urgent questions or situations at night or on weekends the patient may contact Dr. Nevarez's service through the [facility] do all operator at . Please note, this number should not be used for routine queries that can be answered during business hours. In theevent of an emergency please do not call this number, call or seek urgent care locally. CONSULTS ORDERED DURING THIS ADMISSION IP CONSULT TO ORTHO-NEURO SPINE IP CONSULT TO CARE MANAGEMENT IP CONSULT TO UROLOGY CONDITION AT DISCHARGE stable Discharge instructions were provided to the patient and caregiver(s). documented in this encounter Discharge Instructions Discharge Instr - Cady Walter D.PIzabellaT. - 11/23/2021 10:53 AM CDT Physical Therapy Discharge Summary MOBILITY RESTRICTIONS/PRECAUTIONS: Weight Bearing Status: WBAT Other Precautions: spinal, hx stroke (R side weakness) CURRENT FUNCTIONAL STATUS: Bed Mobility-Supine to Sit # of Assistants: 1 Level of Assistance: Supervision/Set-up, Minimal assistance Device: Bed rail, Head of bed elevated Cuing: Verbal Transfer-Sit to Stand # of Assistants: 1 Transfer Surface: Chair Transfer Equipment: Gait belt, Front wheeled walker Level of Assistance: Supervision/set-up Bed to Chair/Wheelchair Gait Assessment Distance (m): 116.67 m Surface: Even, Smooth/hard Device: Gait belt, Front-wheeled walker # of Assistants: 1 Level of Assistance: Contact guard assistance, Supervision/Set-up Quality/Pattern: Guarding, Increased base of support Cueing Provided: Verbal Stairs # Stairs: 5 Rails: 1 Device: Gait belt # of Assistants: 1 Level of Assistance: Contact guard assistance, Supervision/Set-up Stair Navigation Pattern-Ascending: Step-to pattern Stair Navigation Pattern-Descending: Step-to pattern Cueing Provided: Verbal RECOMMENDATIONS: Discharge Therapy Needs - PT: No further skilled therapy Level of Care Needed - PT: Assistance with walking and moving around the home, Assistance with bed mobility, Assistance with stairs Discharge information provided on 11/23/2021 Contact information: {[facility] CONTACT #'[id number]} AttachmentsThe following attachments cannot be sent through Care Everywhere. Acetaminophen (By mouth) ([place])Diazepam (By mouth) ([place])Hydromorphone (By mouth) ([place])Senna (By mouth) ([place])documented in this encounter Medications at Time of Discharge Medication Sig Dispensed Refills Start Date End Date acetaminophen (TYLENOL) Take 2 tablets 100 tablet 0 11/23/19 22 500 mg tablet (1,000 mg total) by mouth every 6 (six) hours as needed for mild pain or score 1-3 of 10 or moderate pain or score 4-6 of 10. albuterol 2.5 mg /3 mL Inhale 3 mL (2.5 mg 75 mL 11 08/2021 nebulizer solution total) by nebulization every 6 (six) hours as needed for wheezing. albuterol 90 Inhale 2 puffs every 0 02/05/2014 mcg/actuation inhaler 6 (six) hours as needed for wheezing or shortness of breath. aspirin [address] tablet Take 81 mg by mouth 0 daily. atorvastatin (LIPITOR) Take 40 mg by mouth 0 03/2018 40 mg tablet at bedtime. azelastine (ASTELIN) 137 Administer 1 spray 0 mcg/spray (0.1 %) nasal into nostril(s) spray daily. cholecalciferol (VITAMIN Take 1,000 Units by 0 D3) 25 mcg (1,000 Unit) mouth 2 (two) times capsule a day. fexofenadine (FE) Take 1 tablet by 0 010 180 mg tablet mouth daily. fluticasone Inhale 2 puffs every 0 propion-salmeteroL 12 (twelve) hours. (ADVAIR HFA) 230-21 mcg/actuation inhaler fluticasone propionate Administer 1 spray 0 (FLONASE) 50 into nostril(s) at mcg/actuation nasal bedtime. spray losartan-hydroCHLOROthia Take 1 tablet by 0 09/19 zide (HYZAAR) 50-12.5 mg mouth daily. per tablet mirabegron (MYRBETRIQ) Take 50 mg by mouth 0 12/19 50 mg 24 hr tablet at bedtime. montelukast (SINGULAIR) Take 1 tablet by 0 2017 10 mg tablet mouth at bedtime. multivitamin tablet Take 1 tablet by 0 mouth daily. naproxen sodium Take 220 mg by mouth 0 (ALEVE/ANAPROX) 220 mg 2 (two) times a day tablet as needed for pain. sennosides-docusate TAKE 1 TABLET BY 100 tablet 0 11/22/2021 11/22/2022 sodium (SENOKOT-S) MOUTH TWO TIMES A 8.6-50 mg per tablet DAY diazePAM (VALIUM) 5 mg Take 1 tablet (5 mg 15 tablet 0 06/202111/27/2021 tablet total) by mouth 3 (three) times a day as needed for muscle spasms. HYDROmorphone (DILAUDID) Take 1 tablet (2 mg 25 tablet 0 11/27/2021 2 mg tabletIndications: total) by mouth Acute Pain Exception every 4 (four) hours as needed for moderate pain or score 4-6 of 10 Indication: Acute Pain Exception. documented as of this encounter Progress Notes Cady Jauregui D.P.T. - 11/24/2021 11:54 AM CDT Physical Therapy Inpatient Treatment Note SUBJECTIVE Patient's Name: Rajiv Restrepo Referring/Attending: Wilmer Nevarez M.D. Medical Diagnosis: Fracture Vertebra Thoracic Closed Initial (HCC) [S22.009A] Reason for Referral: PT Evaluate and Treat General PT acute Onset Date: 11/20/21 Payor: MEDICARE / Plan: MEDICARE A AND B / Product Type: Medicare / History of Present Illness: 71 y.o. male w/ T8-T9 fracture now s/p T6-T11 posterior spinal fusion due to falling from ladder (Geri, 11/22/21). 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 Family/Caregiver Present: Yes Patient/Caregiver Goals: to return home Patient Comments: Patient agreeable to PT session. Reports 4/10 pain and just received pain medications. Planning to head home today. Precautions Weight Bearing Status: WBAT Other Precautions: spinal, hx stroke (R side weakness) Fall Risk (65 and older) Fall in the last 12 months: Yes Did you have an injury with the fall?: Yes Are you fearful of falling?: No Fall Risk Comments: most recent fall from ladder - causing current hospitalization OBJECTIVE Vitals not formally assessed during session. No concerns during chart review and the patient had no signs or symptoms consistent with vital changes during therapy session. Treatment consisted of: Bed Mobility - Supine to Sit # of Assistants: 0 Level of Assistance: Independent Device: None Comments: patient performed slowly and with increased effort but no cueing or physicla assist needed Bed Mobility - Sit to Supine # of Assistants: 0 Level of Assistance: Independent Device: None Sit to Stand Transfers # of Assistants: 0 Transfer Surface: Bed, Chair Transfer Equipment: Gait belt, Front wheeled walker Level of Assistance: Modified Independent Assessment/Delivery: Assessed Comments: Safely performed , good hand placement ; initial cueing in breathing Stand to Sit Transfers # of Assistants: 0 Transfer Surface: Bed, Chair Transfer Equipment: Gait belt, Front wheeled walker Level of Assistance: Modified independent Assessment/Delivery: Assessed Comments: Good controlled descent Gait Assessment/Training Distance (m): 66.67 m Surface: Even, Smooth/hard Device: Gait belt, Front-wheeled walker # of Assistants: 0 Level of Assistance: Supervision/Set-up, Modified Independent Quality/Pattern: Guarding Cueing Provided: Verbal Training/Intervention: Patient with improved step through gait and reduced guarding as walking improved Response: Tolerated well; pain remained stable Stairs/Curb # Stairs: 7 Rails: 1 Device: Gait belt # of Assistants: 1 Level of Assistance: Supervision/Set-up, Contact guard assistance Stair Navigation Pattern-Ascending: Step-to pattern Stair Navigation Pattern-Descending: Step-to pattern Patient/Caregiver Education Completed this Session: PT POC Discharge Planning spinal Precautions Assistive device use Gait training Deep Breathing Techniques Car Transfer Training Stair training The following coordination of care occurred today: Patient's nurse was contacted and patient's status was discussed, Discussed patient's care with OT Inpatient AVS Complete - PT: Yes Inpatient AVS Completion Date - PT: 11/24/21 Patient was left in bedside chair at end of session with call light in reach, all needs met and questions answered. Outcome Measures [facility] Inpatient Short Form: -[facility] Basic Mobility (V.2) How much help from another person do you currently need???If the patient hasn't done an activity recently, how much help from another person do you think he/she would need if he/she tried? 1. Turning from your back to your side while in a flat bed without using bedrails?: None 2. Moving from lying on your back to sitting on the side of a flat bed without using bedrails?: None 3. Moving to and from a bed to a chair (including a wheelchair)?: None 4. Standing up from a chair using your arms (e.g., wheelchair, or bedside chair)?: None 5. To walk in hospital room?: None 6. Climbing 3-5 steps with a railing?: A Little -[facility] Basic Mobility (V.2) Raw Score: 23 -[facility] Basic Mobility (V.2) Standardized Score: 50.88 Interpretation: Clinicians answer the -[facility] Inpatient Short Form based on observed patient activityand/or clinical judgement (ie. patient can be scored without physically performing each activity) Based on scoring guidelines using the raw score value: Those going to home had an average score at or above 18 Those going to facility had an average score at or below 17 Assessment Discharge Therapy Needs - PT: No further skilled therapy Skilled therapy can include physical therapy provided by home health, outpatient clinic, or a post-acute facility. The location of these services is determined by the patient's care team in partnershipwith patient/family. Level of Care Needed - PT: Assistance with stairs Equipment Recommended - PT: Front-wheeled walker ongoing - patient can borrow FWW from friend From a physical therapy perspective, the level of care above has been recommended for Mr. Restrepo after hospital discharge. This level of care is based on his functional abilities during today's session. This may change throughout the hospital course and will be updated as appropriate. Clinical Impression of today's session: Patient was seen today for progression of mobility, assessment of current level of function, facilitation of discharge planning, education and treatment to progress toward established physical therapy goals, gait training, and stair training to assess feasibility and safety of accessing home environment. Facilitated bed mobility, transfers, gait, and stairs. Patient grossly requiring Modified independent-contact guard assistance x1 with walker. Patient has met all goals. Limited by pain levels and spinal restrictions - though it was well controlled and patient adhered well. At this time, the patient appears to be at/near functional baseline and is no longer in need of skilled inpatient physical therapy intervention. If patient status significantly changes, please re-orderPT consultation. Educated and discussed home exercise program, precautions, and activity recommendations. Goals discussed with patient and patient agreeable to the plan of care at this time. Activity Recommendations During Hospitalization: Encourage active participation in ADL's Encourage up to chair 3-5x/day to improve functional strength and promote mobility Recommended DME and Assist: Assist x1, Gait Belt, and FWW Ambulate in hallway 3-5x/day to promote improvement in cardiovascular endurance Rehab potential: Mr. Restrepo has Good potential to achieve established physical therapy goals within the time frame outlined below. Progress: All PT goals achieved Functional Goals and Timeframes: PT Inpatient Goals PT Goal #1: Patient will perform bed mobility with independence in order to prepare for transfers. PT Goal #1 Status: Achieved PT Goal #2: Patient will perform all functional transfers with supervision and least restrictive assistive device in order to facilitate return to prior level of function. PT Goal #2 Status: Achieved PT Goal #3: Patient will ambulate x50 meters with supervision and least restrictive assistive devicein order to facilitate return to prior level of function. PT Goal #3 Status: Achieved PT Goal #4: Patient will negotiate x4 steps with minimum assist in order to access home environment. PT Goal #4 Status: Achieved Plan Treatment Plan: Plan: Discontinue PT PT Frequency: PT Amount: 1 visit per day PT Frequency: Follow-up visit only PT Inpatient Duration : Until goals are met or hospital discharge Requires Inpatient Follow-Up: No PT Plan Comments: All goals met and all questions answered - discontinue PT Treatment interventions may include: Treatment/Interventions: Therapeutic exercise, Therapeutic functional activity, Neuromuscular re-education, Gait training, Self-care/home management Billing: Time Spent with Patient Therapeutic Interventions Therapeutic Activity (min): 27 min Time Tracking Total Timed Units (min): 27 min Total Treatment Time (min): 27 min Cady Jauregui D.P.T. Jameson Osullivan M.D. - 11/24/2021 6:08 AM CDT Orthopedic Spine Surgery Progress Note Name: Rajiv Restrepo Surgery: Surgery Information This Encounter Past Procedures (11/24/2020 to Today) Date Procedures Providers Location 11/21/2021 Posterior thoracic spine fusion, proceed as indicated Wilmer Nevarez M.D.Hadley, Matthew L, M.D.[facility] Ph.D. [facility] OR Interval History: Mr. Restrepo was evaluated in his hospital room this morning. No acute events overnight. When I evaluated him, he had just returned to bed after voiding. He reports that he is quite short of breath and has been short of breath with any mobilizing since his surgery. He has not been using the incentivespirometer. He reports that otherwise his pain is well controlled, he is tolerating an oral diet, and passing gas. He does state he has a history of asthma. He denies any chest pain or other symptoms or concerns at this time. Physical Exam: Vital signs: BP 141/78 (BP Location: Left arm;Upper, Patient Position: Semi- recumbent) Pulse 80 Temp 36.9 ??C (Oral) Resp 18 Ht 176.8 cm Wt 107 kg SpO2 94% BMI 34.33 kg/m?? General: NAD, calm & comfortable Respiratory: Patient demonstrating increased work of breathing with some audible wheezing Dressing clean, dry and intact Sensory (UE) ?C5 (Ax)?? C6 (MC)?? C7 (Mid finger)?? C8 (MACN)?? T1 (MBCN)?? T2- L2 ?? R?? nl?? nl?? nl?? nl?? nl?? nl?? L?? nl?? nl?? nl?? nl?? nl?? nl?? Motor (UE) Deltoid?? (C5)Ax?? Biceps?? (C6)MC?? WrE??xt (C6)R?? Triceps?? (C7)R?? WrF??fercho (C7)M?? Fing Flex?? (C8)AIN?? Fing Abd?? (T1)?? R?? 5?? 5?? 5?? 5?? 5?? 5?? 5?? L?? 5?? 5?? 5?? 5?? 5?? 5?? 5?? Sensory (LE) L2?? (Groin)?? L3?? (Leg)?? L4?? (Knee)?? L5 ?? (Grt Toe)?? S1 ?? (Sm toe)?? S2 ?? (Post Thigh)?? R?? nl?? nl?? nl?? nl?? nl?? nl?? L?? nl?? nl?? nl?? nl?? nl?? nl? Motor (LE) Add?? (L2)?? Quad?? (L3)?? Ant Tib?? (L4/DP)?? EHL/GM?? (L5/SG)?? Peroneal?? (S1/SP)?? GS?? (S1-2/T)?? R?? 5 5 5?? 5?? 5?? 5?? L?? 5?? 5?? 5?? 5?? 5?? 5? His posterior wound dressing is intact with no strike through. Assessment & Plans: Lauro / [phone] ASSESSMENT: 71 y.o. male w/T8-T9 fracture now s/p T6-T11 posterior spinal fusion (Geri, 11/22/21). We will obtain an EKG as well as a chest x-ray to evaluate for this patient is short of shortness ofbreath. We will also administer albuterol which the patient takes at home given his history of asthma and his wheezing. As long as the patient is doing well from a clinical status later today he may discharge from the hospital. PLAN - Activity: Up to chair for meals. Weight-bearing as tolerated in his bilateral lower extremities. No heavy bending, twisting, or lifting. - Antibiotics: Perioperative cefazolin x2 doses. Completed - Blood: Hemodynamically stable; currently asymptomatic. - Cultures: None. - Diet: ADAT to general diet. - Drains: None. - DVT Prophylaxis: SCD's and early mobilization. No DVT chemoprophylaxis given spine surgery - Pain: Tylenol, oxycodone, tramadol, Dilaudid push as needed - Urinary: Removed - Disposition: Pending mobilization Active Issues # PT clearance # Pain control # Shortness of breath: no chest pain, EKG and CXR this am For any questions or concerns from 6 am until 6 pm, please page Geri service. If outside of 06:00 - 18:00 on weekdays or any time on the weekend, please contact the [facility] Orthopedic Surgery house resident travel registered nurse oncology at [phone]. Radha Davis [facility] - 11/23/2021 2:31 PM CDT Occupational Therapy Acute Hospital Inpatient Treatment SUBJECTIVE Patient's Name: Rajiv Restrepo Referring/Attending Provider: Wilmer Nevarez M.D. Medical Diagnosis: Fracture Vertebra Thoracic Closed Initial (HCC) [S22.009A] Reason for Referral: Occupational Therapy Evaluation and Treatment General OT acute Onset Date: 11/20/21 Payor: MEDICARE / Plan: MEDICARE A AND B / Product Type: Medicare / History of Present Illness:71 y.o. male w/ T8-T9 fracture now s/p T6-T11 posterior spinal fusion dueto falling from ladder (Geri, 11/22/21). 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 Family/Caregiver Present: Yes () Patient/Caregiver Goals: to return home Patient Comments: Upon OT arrival, patient was found lying supine in bed with . Patient was agreeable to OT session and patient rated pain at 3/10. Fall Risk (65 and older) Fall in the last 12 months: Yes Did you have an injury with the fall?: Yes Are you fearful of falling?: No Fall Risk Comments: most recent fall from ladder - causing current hospitalization Precautions Weight Bearing Status: WBAT Other Precautions: spinal, hx stroke (R side weakness) OBJECTIVE Vitals taken during session: Blood pressure: 121/65 mmHg LE Dressing LE Dressing Location: Supported sitting in bed LE Dressing Delivery: Assessed LE Dressing Adaptive Equipment: Dressing stick, Sock aid LE Dressing Items Included: Pants, Socks LE Dressing Level of Assistance: Modified independent, Supervision/Set-up LE Dressing Comments: Therapist educated and demonstrated the use of adaptive equipemnt for dressing. Patient found it most comfortable to perform task while lying in bed to avoid extreme bending adhering to precautions. Patient and caregiver receptive to education and provided with home-going equipment sheet to purchase needs. ADL Comments ADL Comments: Therapist provided education on home safety and fall prevention strategies. Patient and caregiver demonstrated understanding through connnecting information to current home environment and acknowledging tips or items currently at home. Handouts provided today: Bathroom Safety Equip. [id number] , Preventing Falls [id number], Home Safety Suggestions [id number], and Adaptive Equipment Catalog/List of Vendors Team Communication: Patient's nurse was contacted and patient's status was discussed Outcome Measures [facility] [facility] In[facility] Short Form: Putting on and taking off regular lower body clothing?: None Putting on and taking off regular upper body clothing?: None Taking care of personal grooming such as brushing teeth?: None Bathing (including washing, rinsing, drying)?: A Little Toileting, which includes using toilet, bedpan, or urinal?: None Eating meals?: None Daily Activities Raw Score (max 24): 23 Daily Activities Standardized Score: 51.12 Interpretation: Clinicians answer the [facility] Inpatient Short Form based on observed patient activityand/or clinical judgement (ie. patient can be scored without physically performing each activity) Based on scoring guidelines using the raw score value: Those going to home had an average score at or above 18 Those going to facility had an average score at or below 17 Patient was left in bed at end of session with call light in reach, all needs met and questions answered. Assessment Discharge Therapy Needs - OT: No further skilled therapy Skilled therapy can include occupational therapy provided by home health, outpatient clinic, or a post-acute facility. The location of these services is determined by the patient's care team in partnership with patient/family. Level of Care Needed - OT: Assistance with housekeeping, Assistance with transportation Barriers to Discharge Home: Fall risk Clinical Impression: Mr. Restrepo has made positive progress and achieved all his OT acute goals. Patient was able to verbalize understanding of home safety and fall prevention education to promote safe dismissal home. Additionally, patient verbalized understanding of adaptive equipment to utilize when performing dressing activities and effectively demonstrated proper use of adaptive equipment. Patient is currently performing transfers and self-care ADL activities with modified independence-supervision assistance of 1 and is currently approaching prior baseline level. Therefore at this time, no further OT skilled service is required and patient is ready for discharge home. Rehab potential: Mr. Restrepo has excellent potential to achieve established occupational therapy goals within the time frame outlined below. Functional Goals: OT Goal #1: Patient will tolerate standing at sink for grooming routine with supervision as needed to progress standing balance and endurance during functional tasks. OT Goal #1 Status: Achieved OT Goal #2: Patient will verbalize understanding of home safety and fall prevention strategies to implement safe discharge planning. OT Goal #2 Status: Achieved OT Goal #3: Patient will complete total body dressing utilizing adaptive equipment as needed with supervision by discharge. OT Goal #3 Status: Achieved Progress: All OT goals achieved Plan Occupational Therapy Attestation Statement: Patient agrees with the plan of care and goals. OT Frequency: OT Frequency: Follow-up visit only OT Inpatient Duration : Until goals are met or hospital discharge Requires Inpatient OT Follow-Up: No Plan: Discontinue OT Treatment interventions may include: Treatment Interventions: Self-care/home management Billing: Time Spent with Patient Therapeutic Interventions Home Management Training (min): 33 min Time Tracking Total Timed Units (min): 33 min Total Treatment Time (min): 33 min SALUD Bueno Associated attestation - Ruthy Meyer O.T. - 11/24/2021 8:56 AM CDT This therapist has reviewed all documentation and supervised today???s session. The therapist agreeswith the plan developed in collaboration with the patient. Cady Jauregui D.P.T. - 11/23/2021 10:03 AM CDT Physical Therapy Inpatient Treatment Note SUBJECTIVE Patient's Name: Rajiv Restrepo Referring/Attending: Wilmer Nevarez M.D. Medical Diagnosis: Fracture Vertebra Thoracic Closed Initial (HCC) [S22.009A] Reason for Referral: PT Evaluate and Treat General PT acute Onset Date: 11/20/21 Payor: MEDICARE / Plan: MEDICARE A AND B / Product Type: Medicare / History of Present Illness: 71 y.o. male w/ T8-T9 fracture now s/p T6-T11 posterior spinal fusion due to falling from ladder (Geri, 11/22/21). 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 Family/Caregiver Present: Yes Patient/Caregiver Goals: to return home Patient Comments: Patient agreeable to PT sessoin. Son and present for session. 4/10 back pain.Some nausea this morning. Wants to trial stairs. Precautions Weight Bearing Status: WBAT Other Precautions: spinal, hx stroke (R side weakness) Fall Risk (65 and older) Fall in the last 12 months: Yes Did you have an injury with the fall?: Yes Are you fearful of falling?: No Fall Risk Comments: most recent fall from ladder - causing current hospitalization OBJECTIVE Vitals monitored throughout session; within normal ranges. Treatment consisted of: Sit to Stand Transfers # of Assistants: 1 Transfer Surface: Chair Transfer Equipment: Gait belt, Front wheeled walker Level of Assistance: Supervision/set-up Assessment/Delivery: Assessed, Instructed Comments: Cueing in scooting forward and anterior weight shift; deep breathing to prevent holding breath Stand to Sit Transfers # of Assistants: 1 Transfer Surface: Bed Transfer Equipment: Gait belt, Front wheeled walker Level of Assistance: Contact guard assistance, Supervision/set-up Assessment/Delivery: Assessed, Instructed, Therapist assisted Comments: Patient had good controlled descent Balance Static Sitting-Balance: Good (Maintains balance without support) Dynamic Sitting-Balance: Good (Maintains balance without support) Static Standing-Balance: Fair (Maintains balance with handheld/contact guard assistance) Dynamic Standing-Balance: Fair (Maintains balance with handheld/contact guard assistance) Gait Assessment/Training Distance (m): 116.67 m Surface: Even, Smooth/hard Device: Gait belt, Front-wheeled walker # of Assistants: 1 Level of Assistance: Contact guard assistance, Supervision/Set-up Quality/Pattern: Guarding, Increased base of support Cueing Provided: Verbal Training/Intervention: Cueing in upright posture, increasing adi and step length bilaterally Response: tolerated well; slight inrease in pain and nauesa but able to progress amb. distance today Stairs/Curb # Stairs: 5 Rails: 1 Device: Gait belt # of Assistants: 1 Level of Assistance: Contact guard assistance, Supervision/Set-up Stair Navigation Pattern-Ascending: Step-to pattern Stair Navigation Pattern-Descending: Step-to pattern Cueing Provided: Verbal Training/Intervention: Initial cueing in step-to gait pattern Response: tolearted well; no LOB Seated Exercises Seated Exercise - Side Addressed: Bilateral Sitting Surface: Chair Seated Exercise: Ankle pumps Sets/Repetitions: x10 bilaterally for DVT prevention; along with quad sets and glute sets in reclined position bilaterally x10 Patient/Caregiver Education Completed this Session: PT POC Safe Transfer/Mobility Techniques Exercise Instruction Discharge Planning Assistive device use Gait training Deep Breathing Techniques Car Transfer Training Stair training The following coordination of care occurred today: Patient's nurse was contacted and patient's status was discussed, Discussed patient's care with OT Inpatient AVS Complete - PT: Yes Inpatient AVS Completion Date - PT: 11/23/21 Patient was left in bedside chair at end of session with call light in reach, all needs met and questions answered. Outcome Measures AM-PAC Inpatient Short Form: AM-PAC Basic Mobility (V.2) How much help from another person do you currently need???If the patient hasn't done an activity recently, how much help from another person do you think he/she would need if he/she tried? 1. Turning from your back to your side while in a flat bed without using bedrails?: None 2. Moving from lying on your back to sitting on the side of a flat bed without using bedrails?: A Little 3. Moving to and from a bed to a chair (including a wheelchair)?: None 4. Standing up from a chair using your arms (e.g., wheelchair, or bedside chair)?: A Little 5. To walk in hospital room?: A Little 6. Climbing 3-5 steps with a railing?: A Little AM-[facility] Basic Mobility (V.2) Raw Score: 20 AM-[facility] Basic Mobility (V.2) Standardized Score: 43.99 Interpretation: Clinicians answer the -[facility] Inpatient Short Form based on observed patient activityand/or clinical judgement (ie. patient can be scored without physically performing each activity) Based on scoring guidelines using the raw score value: Those going to home had an average score at or above 18 Those going to facility had an average score at or below 17 Assessment Discharge Therapy Needs - PT: No further skilled therapy Skilled therapy can include physical therapy provided by home health, outpatient clinic, or a post-acute facility. The location of these services is determined by the patient's care team in partnershipwith patient/family. Level of Care Needed - PT: Assistance with walking and moving around the home, Assistance with bed mobility, Assistance with stairs Equipment Recommended - PT: Front-wheeled walker ongoing - patient can borrow FWW from friend Barriers to Discharge Home: Current functional status, Fall risk Barriers to Discharge Comments: 3 KODY From a physical therapy perspective, the level of care above has been recommended for Mr. Restrepo after hospital discharge. This level of care is based on his functional abilities during today's session. This may change throughout the hospital course and will be updated as appropriate. Clinical Impression of today's session: Patient was seen today for progression of mobility, assessment of current level of function, facilitation of discharge planning, education and treatment to progress toward established physical therapy goals, instruction of exercise program to facilitate improved functional strength and range of motion, gait training, and stair training to assess feasibility and safety of accessing home environment. Facilitated transfers, gait, stairs x5 with 1 HR, and ambulating x350 feet with FWW. Patient grossly requiring CGA-SBA x1 with use of walker. Patient limited today by pain and nausea. Progressing exceptionally well. F/U visit per patient request if he does not DC home today. Supportive family, very motivated. Patient remains below their baseline level of function. Patient presents with deficits in mobility, transfers, ambulation, balance and safety. Therefore, continued skilled PT remains medically necessary in the acute care setting in order to restore and maximize function, participate in interdisciplinary discharge planning, and provide skilled education and training to return to patient's prior level of participation in daily roles. Activity Recommendations During Hospitalization: Encourage active participation in ADL's Encourage up to chair 3-5x/day to improve functional strength and promote mobility Recommended DME and Assist: Assist x1, Gait Belt, and FWW Ambulate in hallway 3-5x/day to promote improvement in cardiovascular endurance Rehab potential: Mr. Resrtepo has Good potential to achieve established physical therapy goals within the time frame outlined below. Progress: Progressing toward goals Functional Goals and Timeframes: PT Inpatient Goals PT Goal #1: Patient will perform bed mobility with independence in order to prepare for transfers. PT Goal #1 Status: Progressing PT Goal #2: Patient will perform all functional transfers with supervision and least restrictive assistive device in order to facilitate return to prior level of function. PT Goal #2 Status: Progressing PT Goal #3: Patient will ambulate x50 meters with supervision and least restrictive assistive devicein order to facilitate return to prior level of function. PT Goal #3 Status: Achieved PT Goal #4: Patient will negotiate x4 steps with minimum assist in order to access home environment. PT Goal #4 Status: Achieved Plan Treatment Plan: Plan: Continue with current plan PT Frequency: PT Amount: 1 visit per day PT Frequency: Follow-up visit only PT Inpatient Duration : Until goals are met or hospital discharge Requires Inpatient Follow-Up: Yes PT - Next Inpatient Appointment: 11/24/21 PT Plan Comments: progress independence with bed mobility and transfers; gait with LRAD; DC planning, review car transfer Treatment interventions may include: Treatment/Interventions: Therapeutic exercise, Therapeutic functional activity, Neuromuscular re-education, Gait training, Self-care/home management Billing: Time Spent with Patient Therapeutic Interventions Gait Training (min): 25 min Time Tracking Total Timed Units (min): 25 min Total Treatment Time (min): 25 min Ana Luisa RussoP.TIzabella Jameson Osullivan M.D. - 11/23/2021 6:47 AM CDT Orthopedic Spine Surgery Progress Note Name: Rajiv Restrepo Surgery: Surgery Information This Encounter Past Procedures (11/23/2020 to Today) Date Procedures Providers Location 11/21/2021 Posterior thoracic spine fusion, proceed as indicated Wilmer Nevarez M.D.Jameson Osullivan M.D.Vince Dye M.D., Ph.D. RST ROMB OR Interval History: Mr. Restrepo was evaluated in his hospital room this morning. No acute events overnight. He is overall feeling well. He reports that he was having some painful muscle spasms in his thoracic spine overnight which were alleviated with Valium. He otherwise denies any new numbness, tingling, or weakness.His Robertson catheter was removed, his artificial urinary sphincter was reactivated by the urology team, and he has been voiding spontaneously since. He is tolerating an oral diet. He states that he has not had a bowel movement in a number of days. No other issues or concerns this morning. Physical Exam: Vital signs: BP 128/79 Pulse 78 Temp 36.8 ??C (Oral) Resp 19 Ht 176.8 cm Wt 101 kg SpO2 92% BMI 32.45 kg/m?? General: NAD, calm & comfortable Dressing clean, dry and intact Sensory (UE) ?C5 (Ax)?? C6 (MC)?? C7 (Mid finger)?? C8 (MACN)?? T1 (MBCN)?? T2- L2 ?? R?? nl?? nl?? nl?? nl?? nl?? nl?? L?? nl?? nl?? nl?? nl?? nl?? nl?? Motor (UE) Deltoid?? (C5)Ax?? Biceps?? (C6)MC?? WrE??xt (C6)R?? Triceps?? (C7)R?? WrF??fercho (C7)M?? Fing Flex?? (C8)AIN?? Fing Abd?? (T1)?? R?? 5?? 5?? 5?? 5?? 5?? 5?? 5?? L?? 5?? 5?? 5?? 5?? 5?? 5?? 5?? Sensory (LE) L2?? (Groin)?? L3?? (Leg)?? L4?? (Knee)?? L5 ?? (Grt Toe)?? S1 ?? (Sm toe)?? S2 ?? (Post Thigh)?? R?? nl?? nl?? nl?? nl?? nl?? nl?? L?? nl?? nl?? nl?? nl?? nl?? nl? Motor (LE) Add?? (L2)?? Quad?? (L3)?? Ant Tib?? (L4/DP)?? EHL/GM?? (L5/SG)?? Peroneal?? (S1/SP)?? GS?? (S1-2/T)?? R?? 5 5 5?? 5?? 5?? 5?? L?? 5?? 5?? 5?? 5?? 5?? 5? His posterior wound dressing is intact with no strike through. Assessment & Plans: Lauro / [phone] ASSESSMENT: 71 y.o. male w/T8-T9 fracture now s/p T6-T11 posterior spinal fusion (Loiza, 11/22/21). Patient is doing well postoperatively. Patient is interested in trialing a suppository this morning.In order is in for this. I have also increase the frequency with which he can receive Valium for muscle spasms. We also discussed nutrition in the patient would like to try some of the boost protein supplements in his diet. Encouraged the patient to mobilize as much as possible out of bed today. If heis feeling well, he may discharge from the hospital this afternoon. Otherwise, if he requires additional assistance for mobility we will continue to work on this and consider discharge tomorrow. PLAN - Activity: Up to chair for meals. Weight-bearing as tolerated in his bilateral lower extremities. No heavy bending, twisting, or lifting. - Antibiotics: Perioperative cefazolin x2 doses. Completed - Blood: Hemodynamically stable; currently asymptomatic. - Cultures: None. - Diet: ADAT to general diet. - Drains: None. - DVT Prophylaxis: SCD's and early mobilization. No DVT chemoprophylaxis given spine surgery - Pain: Tylenol, oxycodone, tramadol, Dilaudid push as needed - Urinary: Removed - Disposition: Pending mobilization Active Issues # PT clearance # Pain control For any questions or concerns from 6 am until 6 pm, please page Geri service. If outside of 06:00 - 18:00 on weekdays or any time on the weekend, please contact the [facility] Orthopedic Surgery house resident travel registered nurse oncology at [phone]. Zoya Edgar L.I.C.S.W., M.S.W. - 11/22/2021 4:58 PM CDT SUBJECTIVE Social Work attempted to meet with patient, however patient was engaged with other providers at the time of my attempts. OBJECTIVE Discharge planning consult ASSESSMENT / PLAN ASSESSMENT Patient was not assessed. PLAN - Social Work attempted to meet with patient, however patient was not in his room at the time of this visit. Deven Mcdaniel, M.S.W. 11/22/21 HAT Vince Dye M.D., Ph.D. - 11/22/2021 6:34 AM CDT Orthopedic Spine Surgery Progress Note Name: Rajiv Restrepo Spine Fellow: Vince Dye M.D., Ph.D. Surgery: Surgery Information This Encounter Past Procedures (11/22/2020 to Today) Date Procedures Providers Location 11/21/2021 Posterior thoracic spine fusion, proceed as indicated Wilmer Nevarez M.D.Hadley, Matthew L, M.D.Goh, Brian C, M.D., Ph.D. RST ROMB OR Interval History: - No acute events overnight - Afebrile and vital signs stable - Pain well controlled - Denies any nausea, vomiting, shortness of breath, chest pain, or chest pressure - Tolerating PO appropriately - Patient has already ambulated the halls without difficulty - Plan to remove catheter today with urology reactivating the AUS - Switched to PO dilaudid as he was not tolerating PO oxycodone Physical Exam: Vital signs: BP 131/83 Pulse 73 Temp 36.7 ??C (Oral) Resp 19 Ht 176.8 cm Wt 101 kg SpO2 96% BMI 32.45 kg/m?? General: NAD, calm & comfortable Dressing clean, dry and intact Sensory (UE) ?C5 (Ax)?? C6 (MC)?? C7 (Mid finger)?? C8 (MACN)?? T1 (MBCN)?? T2- L2 ?? R?? nl?? nl?? nl?? nl?? nl?? nl?? L?? nl?? nl?? nl?? nl?? nl?? nl?? Motor (UE) Deltoid?? (C5)Ax?? Biceps?? (C6)MC?? WrE??xt (C6)R?? Triceps?? (C7)R?? WrF??fercho (C7)M?? Fing Flex?? (C8)AIN?? Fing Abd?? (T1)?? R?? 5?? 5?? 5?? 5?? 5?? 5?? 5?? L?? 5?? 5?? 5?? 5?? 5?? 5?? 5?? Sensory (LE) L2?? (Groin)?? L3?? (Leg)?? L4?? (Knee)?? L5 ?? (Grt Toe)?? S1 ?? (Sm toe)?? S2 ?? (Post Thigh)?? R?? nl?? nl?? nl?? nl?? nl?? nl?? L?? nl?? nl?? nl?? nl?? nl?? nl? Motor (LE) Add?? (L2)?? Quad?? (L3)?? Ant Tib?? (L4/DP)?? EHL/GM?? (L5/SG)?? Peroneal?? (S1/SP)?? GS?? (S1-2/T)?? R?? 5 5 5?? 5?? 5?? 5?? L?? 5?? 5?? 5?? 5?? 5?? 5? Assessment & Plans: Lauro / [phone] ASSESSMENT: 71 y.o. male w/T8-T9 fracture now s/p T6-T11 posterior spinal fusion (Loiza, 11/22/21). Pertinent PMH (and implications for clinical care): PLAN - Activity: Up to chair for meals. Weight-bearing as tolerated in his bilateral lower extremities. No heavy bending, twisting, or lifting. - Antibiotics: Perioperative cefazolin x2 doses. - Blood: Hemodynamically stable; currently asymptomatic. - Cultures: None. - Diet: ADAT to general diet. - Drains: None. - DVT Prophylaxis: SCD's and early mobilization. No DVT chemoprophylaxis given spine surgery - Pain: Tylenol, oxycodone, tramadol, Dilaudid push as needed - Urinary: To remain in place until tomorrow. - Disposition: Pending mobilization Active Issues # PT clearance # Pain control For any questions or concerns from 6 am until 6 pm, please page Loiza service. If outside of 06:00 - 18:00 on weekdays or any time on the weekend, please contact the [facility] Orthopedic Surgery house resident travel registered nurse oncology at [phone]. Vince Dye MD, PhD Spine Surgery Fellow [facility] Orthopedic Surgery [phone] Jameson Osullivan M.D. - 11/21/2021 7:21 PM CDT Orthopedic Service: [facility] Admission Day: 11/20/2021 SUBJECTIVE Mr. Restrepo was evaluated in the acute postoperative setting in the PACU. He is doing well at this time. He is following commands. VITALS Temperature: [36.4 ??C-36.7 ??C] 36.6 ??C Resp Rate: [17-19] 18 Blood Pressure: (127-164)/(79-90) 138/85 SpO2: [93 %-96 %] 96 % Pulse Rate: [58-74] 58 PHYSICAL EXAM General: No acute distress, resting comfortably Patient is moving all extremities to command. 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 The patient's urinary catheter should remain in place until tomorrow. The patient may mobilize out of bed when he is ready. He can be weight-bearing as tolerated in his bilateral lower extremities. No heavy bending, twisting, or lifting through the thoracic spine. The patient may have a regular diet. We will consult PT and OT to work with this patient. PLAN - Activity: Up to chair for meals. Weight-bearing as tolerated in his bilateral lower extremities. No heavy bending, twisting, or lifting. - Antibiotics: Perioperative cefazolin x2 doses. - Blood: Hemodynamically stable; currently asymptomatic. - Cultures: None. - Diet: ADAT to general diet. - Drains: None. - DVT Prophylaxis: SCD's and early mobilization. No DVT chemoprophylaxis given spine surgery - Pain: Tylenol, oxycodone, tramadol, Dilaudid push as needed - Urinary: To remain in place until tomorrow. - Disposition: Pending mobilization Active Issues # Acute blood loss anemia - monitor CBC and transfuse as needed Comorbidities Present on Admission Endocarditis status post valve replacement Stroke ICH Asthma Hypertension Hyperlipidemia For any questions or concerns from 6 am until 6 pm, please page [facility] at [phone] For urgent matters from 6 pm until 6 am, please page Ortho Mark. Radha Davis OTS - 11/21/2021 4:02 PM CDT 11/21/21 1602 Reason Therapy Missed Reason Therapy Missed Medical hold OT was unable to see patient today as patient had a procedure in the OR scheduled for today and has activity orders of bedrest until after surgery. OT will visit at a later time. Radha Davis OTS Sandy Blair PharmIzabellaDIzabella, R.Ph. - 11/21/2021 10:12 AM CDT Images from the original note were not included. 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 Admission Medication History Note Adherence issues: No concerns Medication list source: Patient Medication related information: NA Prior to Admission Medications Med List Status: Pharmacy Complete Set By: Sandy Blair, PharmIzabellaDIzabella, R.Ph. at 11/21/2021 10:12AM Taking? Last Dose Informant Start Date End Date LT albuterol 90 mcg/actuation inhaler -- -- 02/05/14 -- Inhale 2 puffs every 6 (six) hours as needed for wheezing or shortness of breath. aspirin [address] tablet 11/20/2021 -- 09/05/09 -- Take 81 mg by mouth daily. atorvastatin (LIPITOR) 40 mg tablet -- -- 05/20/18 -- Take 40 mg by mouth at bedtime. azelastine (ASTELIN) 137 mcg/spray (0.1 %) nasal spray -- -- -- -- Administer 1 spray into nostril(s) daily. cholecalciferol (VITAMIN D3) 25 mcg (1,000 Unit) capsule -- -- 02/10/16 -- Take 1,000 Units by mouth 2 (two) times a day. fexofenadine (FE) 180 mg tablet -- -- 10/07/09 -- Take 1 tablet by mouth daily. fluticasone propion-salmeteroL (ADVAIR HFA) 230-21 mcg/actuation inhaler -- -- -- -- Inhale 2 puffs every 12 (twelve) hours. fluticasone propionate (FLONASE) 50 mcg/actuation nasal spray -- -- -- -- Administer 1 spray into nostril(s) at bedtime. losartan-hydroCHLOROthiazide (HYZAAR) 50-12.5 mg per tablet 11/20/2021 -- 09/19/21 -- Take 1 tablet by mouth daily. mirabegron (MYRBETRIQ) 50 mg 24 hr tablet -- -- 01/05/19 -- Take 50 mg by mouth at bedtime. montelukast (SINGULAIR) 10 mg tablet -- -- 04/11/17 -- Take 1 tablet by mouth at bedtime. multivitamin tablet -- -- -- -- Take 1 tablet by mouth daily. naproxen sodium (ALEVE/ANAPROX) 220 mg tablet 11/18/2021 -- -- -- Take 220 mg by mouth 2 (two) times a day as needed for pain. Vince Dye M.D., Ph.D. - 11/21/2021 7:49 AM CDT Spine Surgery Fellow Attestation I have personally conducted a history and physical examination of this patient. Patient was discussed with travel registered nurse oncology resident and films were reviewed personally by me. I agree with the [facility], PMH, allergies, medications, social history, family history, and exam as documented by Dr. Hernandez with the following changes and additions: In brief, the patient is a 71 year old male who presents with back pain after a fall from a ladder yesterday. He has a history of prior prostate cancer status post resection as well as endocarditis with previous stroke with right distal lower extremity numbness at baseline. She On exam the patient demonstrates Sensory (UE) ?C5 (Ax)?? C6 (MC)?? C7 (Mid finger)?? C8 (MACN)?? T1 (MBCN)?? T2- L2 ?? R?? nl?? nl?? nl?? nl?? nl?? nl?? L?? nl?? nl?? nl?? nl?? nl?? nl?? Motor (UE) Deltoid?? (C5)Ax?? Biceps?? (C6)MC?? WrE??xt (C6)R?? Triceps?? (C7)R?? WrF??fercho (C7)M?? Fing Flex?? (C8)AIN?? Fing Abd?? (T1)?? R?? 5?? 5?? 5?? 5?? 5?? 5?? 4+ L?? 5?? 5?? 5?? 5?? 5?? 5?? 5?? Sensory (LE) L2?? (Groin)?? L3?? (Leg)?? L4?? (Knee)?? L5 ?? (Grt Toe)?? S1 ?? (Sm toe)?? S2 ?? (Post Thigh)?? R?? nl?? nl?? dim nl?? nl?? nl?? L?? nl?? nl?? nl?? nl?? nl?? nl? Motor (LE) Add?? (L2)?? Quad?? (L3)?? Ant Tib?? (L4/DP)?? EHL/GM?? (L5/SG)?? Peroneal?? (S1/SP)?? GS?? (S1-2/T)?? R?? 5 5 5?? 5?? 5?? 5?? L?? 5?? 5?? 5?? 5?? 5?? 5?\ NL = normal/intact, Dec = decreased, n/a = unable to assess Downgoing Babinski Lamin: Negative No clonus CT of the thoracic spine demonstrates fracture from T8 to T9 with extension to the posterior body ofT8 in the setting of severely ankylosed thoracic spine. Assessment/Plan: 71-year-old male with a previous history of prostate cancer as well as previous stroke with residualright-sided lower extremity numbness at baseline. Unfortunately the patient has suffered a T8-T9 vertebral body fracture with extension into the posterior vertebral body of T8. Unfortunately, this is a unstable injury in the setting of an ankylosed spine and lower choir surgical stabilization. We willplan for surgical intervention today for with posterior thoracic fusion. No additional imaging needed at this time. Vince Dye MD, PhD Spine Surgery Fellow Department of Orthopedic Surgery [phone] Jameson Osullivan M.D. - 11/21/2021 6:33 AM CDT Orthopedic Service: [facility] Admission Day: 11/20/2021 SUBJECTIVE Mr. Restrepo was evaluated on the general medical floor this morning. No acute events overnight. Thepatient reports that his pain is adequately controlled at this time. He denies any new numbness, tingling, or weakness in his bilateral lower extremities. He has been able to void spontaneously into a urinal. He is passing gas. He has remained NPO. He has no new issues or concerns this morning. VITALS Temperature: [36.4 ??C-37 ??C] 36.4 ??C Heart Rate: [67] 67 Resp Rate: [17-19] 17 Blood Pressure: (127-164)/(79-90) 153/79 SpO2: [93 %-96 %] 95 % Pulse Rate: [58-74] 64 PHYSICAL EXAM General: No acute distress, resting comfortably Lower Extremity: Hip Flexion: Left 5/5 Right 5/5 Hip Extension: Left 5/5 Right 5/5 Knee Flexion: Left 5/5 Right 5/5 Knee Extension: Left 5/5 Right 5/5 Ankle Plantarflexion: Left 5/5 Right 5/5 Ankle Dorsiflexion: Left 5/5 Right 5/5 1st Toe MCP Plantarflexion: Left 5/5 Right 5/5 1st Toe MCP Dorsiflexion: Left 5/5 Right 5/5 Sensation to soft touch intact and symmetric bilaterally in the obturator, LFC, sural, saphenous, deep peroneal, superficial peroneal and tibial distributions tested on exam. Negative clonus Vascular: DP 2+ bilaterally LABS Lab Results Component Value Date HGB 16.1 11/20/2021 WBC 11.3 (H) 11/20/2021 PLT 201 11/20/2021 CREATININE 0.87 11/20/2021 NA 133 (L) 11/20/2021 INR 1.1 11/20/2021 IMPRESSION & REPORT #1 T8/T9 vertebral body fracture in the setting of an ankylosed spine #2 Fall from 4 feet 11/20/2021 Fortunately, the patient remains neurologically intact. We will plan for the patient to continue to be NPO and obtain an MRI of his thoracic spine. Operative versus non operative decision will be basedoff of further discussion with staff and review of all available imaging this morning. Until then, the patient should remain on bed rest, all anticoagulation should be held, and he shouldremain NPO. For any questions or concerns from 6 am until 6 pm, please page Geri service at [phone] For urgent matters from 6 pm until 6 am, please page [facility]. documented in this encounter H&P Notes Wilmer Nevarez M.D. - 11/22/2021 7:47 AM CDT INTERVAL HISTORY AND PHYSICAL PRE-PROCEDURE UPDATE H&P reviewed. The patient was examined and there are no significant changes to the H&P. I had the opportunity to sit and visit and examined Mr. Jeffries in prior to surgery. He is in good spiritsbut unable to stand due to severe back pain, but does have preserved lower extremity function. He has a known mechanical sphincter for urinary management and this has been reviewed with urology and they have made specific recommendations. When he sits, he gets severe chest discomfort in a radicular pattern and is unable to take a complete breath. We did review his history, physical exam and imaging with him in detail. He does have largely ankylosed spine; he has an extension 3 column fracture which will require stabilization. We did discuss non operative management this and due to his poor mobilityand inability to sit I am not recommending it. We discussed the pros and cons of surgical treatment and recommended a posterior stabilization. He relates his understanding and is agreeable to the plan. Wilmer Nevarez M.D. Source Note - Jameson Osullivan M.D. - 11/21/2021 7:21 PM CDT Orthopedic Service: [facility] Admission Day: 11/20/2021 SUBJECTIVE Mr. Restrepo was evaluated in the acute postoperative setting in the PACU. He is doing well at this time. He is following commands. VITALS Temperature: [36.4 ??C-36.7 ??C] 36.6 ??C Resp Rate: [17-19] 18 Blood Pressure: (127-164)/(79-90) 138/85 SpO2: [93 %-96 %] 96 % Pulse Rate: [58-74] 58 PHYSICAL EXAM General: No acute distress, resting comfortably Patient is moving all extremities to command. 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 The patient's urinary catheter should remain in place until tomorrow. The patient may mobilize out of bed when he is ready. He can be weight-bearing as tolerated in his bilateral lower extremities. No heavy bending, twisting, or lifting through the thoracic spine. The patient may have a regular diet. We will consult PT and OT to work with this patient. PLAN - Activity: Up to chair for meals. Weight-bearing as tolerated in his bilateral lower extremities. No heavy bending, twisting, or lifting. - Antibiotics: Perioperative cefazolin x2 doses. - Blood: Hemodynamically stable; currently asymptomatic. - Cultures: None. - Diet: ADAT to general diet. - Drains: None. - DVT Prophylaxis: SCD's and early mobilization. No DVT chemoprophylaxis given spine surgery - Pain: Tylenol, oxycodone, tramadol, Dilaudid push as needed - Urinary: To remain in place until tomorrow. - Disposition: Pending mobilization Active Issues # Acute blood loss anemia - monitor CBC and transfuse as needed Comorbidities Present on Admission Endocarditis status post valve replacement Stroke ICH Asthma Hypertension Hyperlipidemia For any questions or concerns from 6 am until 6 pm, please page Loiza service at [phone] For urgent matters from 6 pm until 6 am, please page [facility]. documented in this encounter Consult Notes Radha Davis, OTS - 11/22/2021 12:02 PM CDT Occupational Therapy Acute Hospital Inpatient Evaluation/Treatment SUBJECTIVE Patient's Name: Rajiv Restrepo Referring/Attending Provider: Wilmer Nevarez M.D. Medical Diagnosis: Fracture Vertebra Thoracic Closed Initial (HCC) [S22.009A] Reason for Referral: Occupational Therapy Evaluation and Treatment General OT acute Onset Date: 11/20/21 Payor: MEDICARE / Plan: MEDICARE A AND B / Product Type: Medicare / PERTINENT MEDICAL / SURGICAL HISTORY: Patient Active Problem List Diagnosis Fracture Vertebra Thoracic Closed Initial (HCC) Past Surgical History: Procedure Laterality Date FUSION SPINE POSTERIOR THORACIC N/A 11/21/2021 Procedure: Posterior thoracic spine fusion, proceed as indicated; Surgeon: Wilmer Nevarez M.D.; Location: [facility] OR History of Present Illness:71 y.o. male w/ T8-T9 fracture now s/p T6-T11 posterior spinal fusion dueto falling from ladder (Geri, 11/22/21). 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 Leisure Interests: model train, read, woodworking Prior Mobility/Functional Transfers Level of [place]: Independent Home Living Type of Home: House Home Layout: Two level, Able to live on main level with bedroom/bathroom, Laundry main level Home Access: Stairs to enter with rails Entrance Stairs: Rails: Both Entrance Stairs: Number of Steps: 3 KODY Bathroom Shower/Tub: Walk-in shower Walk-in shower location: Main floor Walk-in shower enclosure type: Curtain Bathroom Toilet: Comfort height Bathroom Accessibility: Yes How Accessible: Accessible via walker Home Equipment Home Adaptive Equipment: None Bathroom Equipment: Grab bars in shower, Toilet safety frame, Hand-held shower head Family/Caregiver Present: Yes () Patient/Caregiver Goals: to return home Patient Comments: Upon OT arrival, patient was found seated in bedside chair with and PT. Patient was agreeable to OT session and patient rated pain at 2/10. Fall Risk (65 and older) Fall in the last 12 months: Yes Did you have an injury with the fall?: Yes Are you fearful of falling?: No Fall Risk Comments: most recent fall from ladder - causing current hospitalization Precautions Weight Bearing Status: WBAT Other Precautions: spinal, hx stroke (R side weakness) OBJECTIVE Vitals taken during session: Pre-Activity: Blood Pressure: 118/70 mmHg Post Activity: Blood Pressure: 142/83 mmHg Activity Tolerance Endurance: Tolerates 20-30 minutes of activity Balance Static Sitting-Balance: Good (Maintains balance without support) Dynamic Sitting-Balance: Good (Maintains balance without support) Static Standing-Balance: Fair (Maintains balance with handheld/contact guard assistance) Dynamic Standing-Balance: Fair (Maintains balance with handheld/contact guard assistance) General ROM / Strength Screening ROM - Upper Extremity Screen: Impaired right ROM - Upper Extremity Screen Comments: history of CVA and right frozen shoulder but WFL ROM - Lower Extremity Screen: Impaired right ROM - Lower Extremity Screen Comments: hx of CVA but hip mobility WFL Strength - Upper Extremity Screen: Impaired right Strength - Upper Extremity Screen Comments: hx of CVA Strength - Lower Extremity Screen: Impaired right Strength - Lower Extremity Screen Comments: hx of CVA Cognition Cognitive assessment method: Therapist observations Arousal/Alertness: Appropriate responses to stimuli Attention: Addressed, no concerns noted Initiation: No difficulty with initiation Orientation: Oriented X4 Following Commands: Follows all commands/directions without difficulty Safety/Judgment: Addressed, no concerns noted Cognition Comments: No cognitive deficits present at this time. Bed Mobility - Sit to Supine # of Assistants: 1 Level of Assistance: Supervision/Set-up, Modified Independent Device: Head of bed elevated, Bed rail Comments: Patient required supervision for safety and patient was able to complete log roll and change positions from sit to supine position with increased time. Sit to Stand Transfers # of Assistants: 1 Transfer Surface: Chair Transfer Equipment: Gait belt, Front wheeled walker Level of Assistance: Contact guard assistance Assessment/Delivery: Assessed, Instructed, Therapist assisted Comments: Patient demonstrated good carry over of hand placement and sequencing as well as deep breaths from PT session. Stand to Sit Transfers # of Assistants: 1 Transfer Surface: Bed Transfer Equipment: Gait belt, Front wheeled walker Level of Assistance: Contact guard assistance Assessment/Delivery: Assessed, Instructed, Therapist assisted Comments: Patient had good controlled descent into bed. Grooming Grooming Location: Standing at sink Grooming Delivery: Educated, Therapist assisted, Facilitated, Assessed Grooming Level of Assistance: Modified independent, Supervision/Set-up Grooming Comments: Therapist provided education on two-cup method for brushing teeth at the sink andrequired set-up assistance of grooming tools. Patient was able to complete task with increased time. ADL Comments ADL Comments: Therapist addressed questions and concerns patient's had about discharging home. Therapist will continue next session with addressing home safety, fall prevention and dressing adaptive equipment. Handouts provided today: Rehabilitation After Spine Surgery [id number] Team Communication: Patient's nurse was contacted and patient's status was discussed, Discussed patient's care with PT Outcome Measures -[facility] Inpatient Short Form: Putting on and taking off regular lower body clothing?: A Little Putting on and taking off regular upper body clothing?: A Little Taking care of personal grooming such as brushing teeth?: None Bathing (including washing, rinsing, drying)?: A Little Toileting, which includes using toilet, bedpan, or urinal?: None Eating meals?: None Daily Activities Raw Score (max 24): 21 Daily Activities Standardized Score: 44.27 Interpretation: Clinicians answer the -PAC Inpatient Short Form based on observed patient activityand/or clinical judgement (ie. patient can be scored without physically performing each activity) Based on scoring guidelines using the raw score value: Those going to home had an average score at or above 18 Those going to facility had an average score at or below 17 Patient was left in bed at end of session with call light in reach, all needs met and questions answered. Assessment Discharge Therapy Needs - OT: Ongoing skilled occupational therapy Skilled therapy can include occupational therapy provided by home health, outpatient clinic, or a post-acute facility. The location of these services is determined by the patient's care team in partnership with patient/family. Level of Care Needed - OT: Assistance with housekeeping, Assistance with transportation Barriers to Discharge Home: Fall risk Clinical Impression: Mr. Restrepo is progressing well towards OT acute goals. Patient is currently performing bed mobility, transfers, and self-care ADLs with a supervision and contact guard assistance of 1. Additionally, patient had good carryover of walker management, hand placement, and spinal precautions demonstratinggood safety awareness. In discussing discharge planning with patient and caregiver, patient is able to live on the main floor of his home with a bathroom, bedroom, and kitchen to perform self-care ADLsand household tasks which patient was previously independent with. OT would like to have a follow-upsession with patient and caregiver to provide education of home safety, fall prevention, and adaptive equipment to maximize safety upon dismissal from hospital. Therefore, patient would benefit from a follow-up OT session to promote safe discharge. Rehab potential: Mr. Restrepo has excellent potential to achieve established occupational therapy goals within the time frame outlined below. Tiered OT Evaluation Codes: Personal Factors: History of falls, Needs assistive device Occupational Profile and History review: Brief Performance Deficits: 1 - 3 performance deficits Evaluation Complexity: Low Functional Goals: OT Goal #1: Patient will tolerate standing at sink for grooming routine with supervision as needed to progress standing balance and endurance during functional tasks. OT Goal #1 Status: Achieved OT Goal #2: Patient will verbalize understanding of home safety and fall prevention strategies to implement safe discharge planning. OT Goal #2 Status: Ongoing OT Goal #3: Patient will complete total body dressing utilizing adaptive equipment as needed with supervision by discharge. OT Goal #3 Status: Ongoing Progress: Improving as expected Plan Occupational Therapy Attestation Statement: Patient agrees with the plan of care and goals. OT Frequency: OT Frequency: Follow-up visit only OT Inpatient Duration : Until goals are met or hospital discharge Requires Inpatient OT Follow-Up: Yes OT - Next Inpatient Appointment: 11/23/21 Plan: Plan of care initiated Treatment interventions may include: Treatment Interventions: Self-care/home management Billing: Time Spent with Patient Evaluations OT Eval - Low Complexity : 11 min Therapeutic Interventions Home Management Training (min): 26 min Time Tracking Total Timed Units (min): 26 min Total Treatment Time (min): 37 min SALUD Bueno Associated attestation - Ruthy Meyer O.T. - 11/23/2021 7:44 AM CDT This therapist has reviewed all documentation and supervised today???s session. The therapist agreeswith the plan developed in collaboration with the patient. Cady Jauregui D.P.T. - 11/22/2021 9:50 AM CDT Physical Therapy Inpatient Evaluation/Treatment SUBJECTIVE Patient's Name: Rajiv Restrepo Referring/Attending Provider: Wilmer Nevarez M.D. Medical Diagnosis: Fracture Vertebra Thoracic Closed Initial (HCC) [S22.009A] Reason for Referral: PT Evaluate and Treat General PT acute Onset Date: 11/20/21 Payor: MEDICARE / Plan: MEDICARE A AND B / Product Type: Medicare / PERTINENT MEDICAL / SURGICAL HISTORY: Patient Active Problem List Diagnosis Fracture Vertebra Thoracic Closed Initial (HCC) Past Surgical History: Procedure Laterality Date FUSION SPINE POSTERIOR THORACIC N/A 11/21/2021 Procedure: Posterior thoracic spine fusion, proceed as indicated; Surgeon: Wilmer Nevarez M.D.; Location: [facility] History of Present Illness: 71 y.o. male w/ T8-T9 fracture now s/p T6-T11 posterior spinal fusion due to falling from ladder (Geri, 11/22/21). 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 Leisure Interests: model train, read, woodworking Prior Mobility/Functional Transfers Level of [place]: Independent Home Equipment Home Adaptive Equipment: None Bathroom Equipment: Grab bars in shower, Toilet safety frame, Hand-held shower head Home Living Type of Home: House Home Layout: Two level, Able to live on main level with bedroom/bathroom, Laundry main level Home Access: Stairs to enter with rails Entrance Stairs: Rails: Both Entrance Stairs: Number of Steps: 3 KODY Bathroom Shower/Tub: Walk-in shower Walk-in shower location: Main floor Walk-in shower enclosure type: Curtain Bathroom Toilet: Comfort height Bathroom Accessibility: Yes How Accessible: Accessible via walker Dominant Hand: Left Family/Caregiver Present: Yes Patient/Caregiver Goals: to return home Patient Comments: Patient agreeable to PT consult. present. Rates pain as: 2/10 in spine. Lyingcomfortably in bed. Just got done walking and SN reports patient had a likely vago-vasal response. Assessed patient's home environment then came back 1.5 hours later to assess mobility when he was feeling better. Precautions Weight Bearing Status: WBAT Other Precautions: spinal, hx stroke (R side weakness) Fall Risk (65 and older) Fall in the last 12 months: Yes Did you have an injury with the fall?: Yes Are you fearful of falling?: No Fall Risk Comments: most recent fall from ladder - causing current hospitalization OBJECTIVE Vitals monitored throughout session; within normal ranges. Cognition Arousal/Alertness: Appropriate responses to stimuli Attention: Addressed, no concerns noted Initiation: No difficulty with initiation Orientation: Oriented X4 Following Commands: Follows all commands/directions without difficulty Safety/Judgment: Addressed, no concerns noted General ROM / Strength Screening ROM - Upper Extremity Screen: Impaired right ROM - Upper Extremity Screen Comments: history of CVA and right frozen shoulder but WFL ROM - Lower Extremity Screen: Impaired right ROM - Lower Extremity Screen Comments: hx of CVA but hip mobility WFL Strength - Upper Extremity Screen: Impaired right Strength - Upper Extremity Screen Comments: hx of CVA Strength - Lower Extremity Screen: Impaired right Strength - Lower Extremity Screen Comments: hx of CVA Bed Mobility - Supine to Sit # of Assistants: 1 Level of Assistance: Supervision/Set-up, Minimal assistance Device: Bed rail, Head of bed elevated Cuing: Verbal Comments: Cueing in log-rolling Sit to Stand Transfers # of Assistants: 1 Transfer Surface: Bed, Chair Transfer Equipment: Gait belt, Front wheeled walker Level of Assistance: Contact guard assistance, Minimal assistance Assessment/Delivery: Assessed, Instructed, Educated Comments: Cueing in sequencing and safety with walker; cueing in breathing as patient tends to hold breath Stand to Sit Transfers # of Assistants: 1 Transfer Surface: Bed, Chair Transfer Equipment: Gait belt, Front wheeled walker Level of Assistance: Contact guard assistance Assessment/Delivery: Assessed, Instructed, Facilitated Comments: Good controlled descent Balance Static Sitting-Balance: Good (Maintains balance without support) Dynamic Sitting-Balance: Good (Maintains balance without support) Static Standing-Balance: Fair (Maintains balance with handheld/contact guard assistance) Dynamic Standing-Balance: Fair (Maintains balance with handheld/contact guard assistance) Gait Assessment/Training Distance (m): 50 m Surface: Even, Smooth/hard Device: Gait belt, Front-wheeled walker # of Assistants: 1 Level of Assistance: Contact guard assistance Quality/Pattern: Guarding, Shuffling, Increased base of support Cueing Provided: Verbal Training/Intervention: Cueing in upright posture, increasing adi Response: tolerated well; no increase in pain; vitals remained stable Seated Exercises Seated Exercise - Side Addressed: Bilateral Sitting Surface: Chair Seated Exercise: Ankle pumps Sets/Repetitions: x10 bilaterally for DVT prevention Activity Tolerance Endurance: Tolerates 20-30 minutes of activity Patient/Caregiver Education Completed this Session: Role of PT in acute care PT POC Safe Transfer/Mobility Techniques Exercise Instruction Discharge Planning spinal Precautions Assistive device use Gait training Activity pacing techniques, Energy Conservation principles Deep Breathing Techniques The following coordination of care occurred today: Patient's nurse was contacted and patient's status was discussed, Discussed patient's care with OT Patient was left in bedside chair at end of session with call light in reach, all needs met and questions answered. Outcome Measures AM-PAC Inpatient Short Form: AM-[facility] Basic Mobility (V.2) How much help from another person do you currently need???If the patient hasn't done an activity recently, how much help from another person do you think he/she would need if he/she tried? 1. Turning from your back to your side while in a flat bed without using bedrails?: None 2. Moving from lying on your back to sitting on the side of a flat bed without using bedrails?: A Little 3. Moving to and from a bed to a chair (including a wheelchair)?: A Little 4. Standing up from a chair using your arms (e.g., wheelchair, or bedside chair)?: A Little 5. To walk in hospital room?: A Little 6. Climbing 3-5 steps with a railing?: A Lot AM-[facility] Basic Mobility (V.2) Raw Score: 18 AM-[facility] Basic Mobility (V.2) Standardized Score: 41.05 Interpretation: Clinicians answer the -[facility] Inpatient Short Form based on observed patient activityand/or clinical judgement (ie. patient can be scored without physically performing each activity) Based on scoring guidelines using the raw score value: Those going to home had an average score at or above 18 Those going to facility had an average score at or below 17 Assessment Discharge Therapy Needs - PT: No further skilled therapy Skilled therapy can include physical therapy provided by home health, outpatient clinic, or a post-acute facility. The location of these services is determined by the patient's care team in partnershipwith patient/family. Level of Care Needed - PT: Assistance with transfers (Comment), Assistance with walking and moving around the home, Assistance with bed mobility, Assistance with stairs, Physical assistance needed Equipment Recommended - PT: Front-wheeled walker ongoing - patient does not own any AD Barriers to Discharge Home: Current functional status, Fall risk Barriers to Discharge Comments: 3 KODY Clinical Impression of today's session: Rajiv Restrepo is a 71 y.o. y/o male who is admitted for 11/20/2021 for Fracture Vertebra ThoracicClosed Initial (HCC) [S22.009A] (see EMR for full details). Patient currently presents with impairedstatic and dynamic standing balance, decreased safety and independence with functional mobility, gait impairments, diminished activity tolerance, pain that limits activity, and new post-operative activity restrictions. Patient is currently requiring up to Supervision, Minimal assist x 1 with use of walker. Patient at baseline is IND without AD for ADLs, mobility, and IADLs; he lives in a two-level house (able to live on main floor) with 3 KODY. Facilitated bed mobility, transfers, gait x150 feet, andinitiation of HEP. Vitals stable and no adverse effects during session. Excellent support system. Limited primarily by pain and spinal precautions. Patient is motivated to improve. Patient is functioning below their baseline level of function. Therefore, patient would benefit fromskilled physical therapy in the acute care setting to address the above noted impairments and facilitate a return to prior level of function and participation in previous life roles. PT will assist with progression of mobility safety and independence, facilitate discharge planning, and update DME recommendations as appropriate. Activity Recommendations During Hospitalization: Encourage active participation in ADL's Encourage up to chair 3-5x/day to improve functional strength and promote mobility Recommended DME and Assist: Assist x1, Gait Belt, and FWW Ambulate in hallway 3-5x/day to promote improvement in cardiovascular endurance Rehab potential: Mr. Restrepo has Good potential to achieve established physical therapy goals within the time frame outlined below. Progress: Progressing toward goals Tiered PT Evaluation Codes: Comorbid Conditions: Cerebrovascular accident, Cancer Personal Factors: History of falls, Needs assistive device Examination elements: 4+ Clinical Presentation: Evolving Clinical Decision Making: Moderate complexity clinical decision making Functional Goals: PT Inpatient Goals PT Goal #1: Patient will perform bed mobility with independence in order to prepare for transfers. PT Goal #1 Status: Progressing PT Goal #2: Patient will perform all functional transfers with supervision and least restrictive assistive device in order to facilitate return to prior level of function. PT Goal #2 Status: Progressing PT Goal #3: Patient will ambulate x50 meters with supervision and least restrictive assistive devicein order to facilitate return to prior level of function. PT Goal #3 Status: Progressing PT Goal #4: Patient will negotiate x steps with minimum assist in order to access home environment. PT Goal #4 Status: Ongoing Plan Patient agrees with the plan of care and goals. Treatment Plan: Plan: Plan of care initiated PT Amount: 1 visit per day PT Frequency: 3 times per week PT Inpatient Duration : Until goals are met or hospital discharge Requires Inpatient Follow-Up: Yes PT - Next Inpatient Appointment: 11/23/21 PT Plan Comments: progress independence with bed mobility, transfers, gait; stairs x3 with 2 HR; progress HEP; assess for DME needs Treatment interventions may include: Treatment/Interventions: Therapeutic exercise, Therapeutic functional activity, Neuromuscular re-education, Gait training, Self-care/home management Billing: Time Spent with Patient Evaluations PT Eval - Mod Complexity: 15 min Therapeutic Interventions Therapeutic Activity (min): 24 min Time Tracking Total Timed Units (min): 24 min Total Treatment Time (min): 39 min Cady Jauregui D.P.T. Sergio Perea M.B., B.Ch. - 11/21/2021 12:55 PM CDTAssociated Order(s): IP CONSULT TO UROLOGY Urology Consult Note: Subjective: 71 y.o. 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 Urology service were consulted for AUS device deactivation in planning of Robertson catheter placement intraoperatively. AUS was deactivated at bedside with urine leak on Valsalva. I waited for 5 minutes by bedside to confirm persistent deactivation of the device. Recommendations: - No placement of more than 10-12 [place] Robertson catheter - Robertson catheter has to be removed within 48 hours at maximum - Patient can stay on diaper versus condom catheter after 48 hours - If the patient develops retention or will require more than 48 hours of catheter placement, we recommend considering suprapubic tube placement by IR - Please page Urology Service for device activation when seems appropriate by the primary Electronically signed by: Derek Mullins, B.Ch. 11/21/21 1:05 PM CDT Vince Hernandez M.D. - 11/20/2021 10:12 PM CDTAssociated Order(s): Spine Surgery consult (hospital) REFERRAL SOURCE Spine Surgery consult ([facility]) Referring Provider: Mrak Brooks M.D. SUBJECTIVE CHIEF COMPLAINT: back pain s/p fall HISTORY OF PRESENT ILLNESS Rajiv Restrepo is a 71 y.o. 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 Around 2:00 p.m. today, the patient was up for feet on a wall while he was repositioning a ladder. 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 Unfortunately, he lost his balance and landed onhis back on an uneven surface. He noted immediate pain in his mid back and subsequently presented [facility] outside emergency department. At that ED, CT scan of his abdomen, chest, pelvis was performed. This revealed a T8/T9 fracture in the setting of an ankylosed spine. No other injuries were detected. The patient was subsequently transferred to [facility] for further evaluation and care. Patient notes pain in his back currently but denies any pain elsewhere in his body. He denies any history of back surgery or prior injections. He states he has only had mild intermittent back pain which has not been evaluated in the past. He denies any numbness, tingling, weakness in his bilateral lower extremities at this time. He denies any saddle anesthesia though does note that he has some chronic groin numbness from a prior MRSA infection. He states this is unchanged since his recent injury. 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 Denies any bowel incontinence. Bowel/bladder: No changes, does have prosthetic urethra Saddle anesthesia: no new - does have chronic groin numbness secondary to MRSA infection after prostate surgery Weakness: At baseline, he does have some right upper extremity weakness which he describes as mostlydifficulty with dexterity secondary to a prior stroke 12 years ago. He does have some numbness/tingling in his right toes again secondary to the prior stroke. No new weakness or numbness the patient has detected since this injury. Balance: Has not tested Fever/chills: None Gait Aide: None Prior level of mobility: Normal Living Situation: Lives with NPO since: Noon 11/20/21 Anticoagulation: Baby aspirin Malignancy: Prior prostate cancer s/p resection DM: None Chronic Neuropathy: Slight numbness in RLE toes secondary to stroke - unchanged at this time PAST MEDICAL & SURGICAL HISTORY PMH: Endocarditis s/p valve replacement, stroke, ICH, asthma, htn, hld PSH: No prior spine surgery Meds: Albuterol, baby aspirin, atorvastatin, Advair FAMILY HISTORY Denies past history bone or bleeding issues. SOCIAL HISTORY Tobacco: Denies Lives with OBJECTIVE VITAL SIGNS Temperature: [36.4 ??C-37 ??C] 36.4 ??C Heart Rate: [67] 67 Resp Rate: [18] 18 Blood Pressure: (127-164)/(81-90) 127/81 SpO2: [93 %-96 %] 94 % Height: [175.3 cm] 175.3 cm Pulse Rate: [58-71] 64 PHYSICAL EXAM General: No acute distress. Alert and oriented x 3. Lungs: Non-labored breathing Neurological/Spine: - Midline tenderness to palpation: C-spine no; T-spine yes, L-spine no - Upper Extremity Motor: Delt Bi Tri WE WF Retail Manager In Training Fing Flex Fing Abd RIGHT 5 5 5 5 5 4 5 5 LEFT 5 5 5 5 5 5 5 5 *NT = not tested. PL = pain limited. PLAG = pain limited, but antigravity. Sensory: UE C5 C6 C7 C8 T1 Median Ulnar Nondermatomal RIGHT N N N N N N N None LEFT N N N N N N N None N = normal. D = diminished. A = absent. IP = intermittant paresthesia. - Lower Extremity Motor: IP Quad HipAbd HipAdd Ham TA EHL P GS RIGHT 5 5 5 5 5 5 5 5 5 LEFT 5 5 5 5 5 5 5 5 5 *NT = not tested. PL = pain limited. PLAG = pain limited, but antigravity. Sensory LE L1 L2 L3 L4 L5 S1 Stocking Nondermatomal RIGHT N N N N N N None None LEFT D N N N N N None None N = normal. D = diminished. A = absent. IP = intermittant paresthesia. Reflexes: Bi Tri BR Pat Ach [place] IBR Clonus Bab RIGHT 2 2 2 2 2 - - 0-2bts - LEFT 2 2 2 2 2 - - 0-2bts - Tone: Normal Atrophy: None ERICKA: Deep anal pressure intact, Voluntary anal contraction intact. Sensation intact to light and sharp touch in all four quadrants. No saddle-distribution numbness or tingling. Peripheral vascular: Radial pulses are palpated and 2+ bilaterally. Posterior tibial pulses are palpated at 2+ bilaterally. There is no distal cyanosis or edema bilaterally. Skin: Inspection of the skin is unremarkable. DIAGNOSTICS Lab Results Component Value Date WBC 11.3 (H) 11/20/2021 HGB 16.1 11/20/2021 HCT 47.3 11/20/2021 MCV 84.3 11/20/2021 PLT 201 11/20/2021 Lab Results Component Value Date NA 133 (L) 11/20/2021 CL 95 (L) 11/20/2021 CO2 27 05/11/2020 Lab Results Component Value Date CREATININE 0.87 11/20/2021 Lab Results Component Value Date INR 1.1 11/20/2021 PT 11.7 11/20/2021 IMAGING: CT of the thoracic spine was reviewed. This demonstrates a fracture extending from T9 into T8 and exiting out the posterior body of T8. There is slight widening anteriorly between T8 and T9 intervertebral disc space suggestive of potentially ALL injury. There is evidence of ankylosis in multiple spinal segments including the region of the fracture. ASSESSMENT / PLAN #1 T8/T9 vertebral body fracture in the setting of an ankylosed spine #2 Fall from 4 feet 11/20/2021 PLAN: Rajiv Restrepo is a 71 y.o. 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 Unfortunately, Mr. Restrepo has sustained a T8/T9 vertebral body fracture in the setting of an ankylosed spine. Fortunately, the patient is currently at his neurologic baseline. He does have some chronic numbness in his left groin secondary to a prior MRSA infection. He also has some difficulty with dexterity and thumb strength in the right upper extremity as well as some tingling of his right lower extremity toes, but, besides these deficits he has no new neurologic deficits on exam. No evidence ofcauda equina. No long track signs. We will plan on admitting to the Orthopedic spine Service and have the patient NPO at midnight. Maintain thoracic spine precautions. We will obtain L-spine CT tonight for full imaging of his spine. I have ordered an MRI of the thoracic spine to be completed in the morning. This injury may require operative intervention which will be discussed further with the patient in the morning pending discussionwith staff. Patient was discussed with spine fellow on-call. Code status discussed with the patient and the patient is FULL CODE. Please contact Spine Surgery at [phone] with any questions or concerns regarding management of this patient. This patient will be staffed within 24 hours with the service of Dr. Nevarez. Once the patient has been staffed, please contact their team with spine related questions regarding this patient. Vince Hernandez MD Orthopedic Surgery Resident documented in this encounter OR Notes Op Note - Wilmer Nevarez M.D. - 11/21/2021 4:25 PM CDT Pre-op Diagnosis Fracture Vertebra Thoracic Closed Initial (HCC) Post-op Diagnosis Fracture Vertebra Thoracic Closed Initial (HCC) Findings There was disruption of the interspinous ligament and the spinous process at the fracture site. This case was substantially more difficult than usual because of significant effort and difficulty mobilizing and identifying anatomical structures due to altered surgical field secondary to distorted anatomy and obesity. Complications None Operative Note Narrative PROCEDURE(S) #1 Posterior spinal instrumentation, fifth thoracic through eleventh thoracic #2 Posterior spinal fusion, fifth thoracic through eleventh thoracic #3 Autologous spinal bone grafting harvesting; same fascial incision #4 Reduction of thoracolumbar fracture in the OR with instrumentation #5 Allograft bone grafting; Cecil [employer] femoral head Following correct identification of the patient and the procedure to be performed, the patient underwent a general anesthetic. They were endotracheally intubated and positioned prone in pinions on the Sukumar table frame. Antibiotics were given and a tranexamic acid bolus was initiated. Biplanar fluoroscopy was used to localize the planned incision, and then the back was prepped and draped in the usual sterile fashion. Neurophysiologic monitoring leads were placed and baseline SSEP and MEP signals were obtained prior to positioning prone. Complex sandwich flip was performed using the Sukumar table t o stabilize the spine. Following completion of the positioning there were no changes of the spinal cord signals from baseline. A surgical pause was completed to verify that the sponge and needle countswere correct and that all equipment necessary for the case was present and functioning. Headlamp illumination and loupe magnification were used throughout the case. The skin was excised and the spine was exposed. There was a large amount of soft tissue damage with disruption of the supraspinous and intraspinous ligament ligaments and fracture of the spinous processes seen, consistent with the trauma. Radiographic markers were placed and biplanar fluoroscopy was used to localize the levels. A secondary spine pause was performed, involving the entire operative team in which the intraoperative images were reviewed and compared to the preoperative films that were available in the operating room. Once consensus was obtained that we had identified the intended levels, the case progressed. The spine was then prepared to accept intra-pedicular instrumentation. This was placed from T-5 through 11. The position of the implants found to be acceptable using intraoperative biplanar fluoro. Thewound was irrigated with saline a dilute Betadine solution and saline again. Rods were cut contouredand placed. There was a very slow and planned reduction performed using the rods to bring the patient out of extension and into kyphosis. The rods were then final adjusted and tightened to specifications. Autologous bone graft was then taken from the spinous processes, transverse processes, and lamina from T5 through T11 through the same fascial incision. This was morselized, combined with Cecil Bone Bank femoral head. The bone graft placed over the decorticated lamina, transverse processes and posterolateral spine from T5 to T-11 Final sponge and needle count was performed after spine pause, and then the wound was closed in layers in watertight fashion using interrupted and running suture. The wound was covered andthe patient awakened and examined and was spontaneously moving the upper and lower extremities. Theywere kept intubated and removed from the operating room table to be transferred to the intensive care unit in stable condition. Wilmer Nevarez M.D. documented in this encounter ED Notes Maxine Lorenz, Ana LuisaO., M.P.H. - 11/20/2021 11:23 PM CDT Care of patient transferred to [place] by Outgoing team. Disposition pending Spine surgery consult. Mr. Restrepo is a very pleasant 71 year old male who presents to [facility] ED from outside ED with back pain after a fall from 4 feet onto an uneven amaya surface. At the time accepted care of the patient weare awaiting spine evaluation. VITAL SIGNS BP 144/88 Pulse 74 Temp 36.4 ??C (Oral) Resp 18 Ht 175.3 cm SpO2 95% ED Course as of 11/20/212333 Mon Nov 20, 2021 225 Patient experiencing emesis. Will give Zofran. [address] Spine Acute T8-T9 fracture with mild distraction at the T9 superior endplate, suggesting anterior longitudinal ligament injury, and extension across the T8-9 intervertebral disc. 2321 Will be admitted to spine for further care. 2333 Patient remains nauseous. Will provide additional doses Zofran. Final Diagnoses: as of 11/20/212333 Fracture Vertebra Thoracic Closed Initial (HCC) Maxine Lorenz D.O., M.P.H. Resident 11/20/212323 Mark Brooks M.D. - 11/20/2021 9:34 PM CDT SUBJECTIVE CHIEF COMPLAINT/REASON FOR VISIT Fall and Back Pain HISTORY OF PRESENT ILLNESS The patient is a 71-year-old male sent from the [facility] for evaluation of back pain. Earlier today he was working on trimming some shrubs when he stepped off his ladder onto a wall and slipped. He fell approximately 4 ft landing on his back and head. There was no loss of consciousness. Hehad the wind knocked out of him at that time. He was able to ambulate around the scene but complainsof severe back pain. No bowel or bladder symptoms. No neck pain. Has a mild headache associated withthis. He is not on blood thinners. Denies any chest or abdominal pain. Last tetanus was 3 years ago at an outside facility. Other than some scrapes and abrasions on his lower legs he has no complaints. REVIEW OF SYSTEMS Musculoskeletal: Positive for arthralgias, back pain and extremity pain. Neurological: Positive for headaches. All other systems reviewed and are negative. OBJECTIVE Initial Vitals Temperature Pulse Rate Heart Rate Resp Rate Blood Pressure SpO2 11/20/21190111/20/21 1935 11/20/21 19011/20/21 19011/20/21 19011/20/211901 37 ??C 71 67 18 146/82 96 % Pain Score 11/20/212022 4 PHYSICAL EXAMINATION Constitutional: Nursing note and vitals reviewed. He appears not lethargic. No distress. HENT: Head: Normocephalic and atraumatic. No signs of injury. Mouth/Throat: Oropharynx is clear and moist. Mucous membranes are moist. Eyes: EOM are normal. Pupils are equal, round, and reactive to light. Neck: Neck supple. No midline tenderness Cardiovascular: Regular rhythm, S1 normal and S2 normal. Exam reveals no friction rub. Murmur heard.Capillary refill: takes less than 3 seconds Pulmonary/Chest: Effort normal. No stridor. No respiratory distress. He has no wheezes. He has no rhonchi. He has no rales. Abdominal: exhibits no distension. There is no abdominal tenderness. There is no rebound and no guarding. Musculoskeletal: General: No tenderness, deformity or edema. Normal range of motion. Cervical back: Full passive range of motion without pain, normal range of motion and neck supple. No pain with movement, spinous process tenderness or muscular tenderness. Neurological: Alert and oriented to person, place, and time. He is not disoriented. Displays normal reflexes. No cranial nerve deficit. He exhibits normal muscle tone. Coordination normal. Skin: Skin is warm. He is not diaphoretic. Psychiatric: He has a normal mood and affect. Behavior is normal. Judgment and thought content normal. ASSESSMENT/PLAN Trauma imaging shows an acute T8-T9 fracture with mild distraction at the T9 superior endplate, suggesting anterior longitudinal ligament injury, and extension across the T8-9 intervertebral disc. The remainder of the CT trauma imaging was negative. He appears neurologically intact at this point. Spine surgery has been consulted. Final Diagnoses: as of 11/21/21 1656 Fracture Vertebra Thoracic Closed Initial (HCC) I have personally seen and examined this patient. I have fully participated in the care of this patient. I have reviewed all clinical information including history, physical exam, orders, and plan. I agree with the note of the resident. I saw the patient with the medical student. I was present for or re-performed the History of PresentIllness. I personally performed a Physical Exam and Medical Decision Making. I reviewed medical student documentation and agree or amended. Mark Brooks M.D. 11/21/211655 Mark Brooks M.D. 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 Restrepo is a very pleasant 71 year old male who presents to [facility] ED from outside ED with back pain after a fall from 4 feet onto an uneven amaya surface. He was working outside in his garden and was moving from a ladder to step onto a four foot wall, but slipped, landing straight on my back ontosome river rocks. The fall occurred around 2 pm this afternoon (11/20). He did not hit his head or lose consciousness. He has not had vomiting, did have nausea on the ride from outside ED to [facility] but that has resolved. He endorses having a headache, but no numbness, tingling, weakness, or dizziness. He denies chest pain, shortness of breath, and abdominal pain. He was given a narcotic for pain around 5 pm at the outside ED. 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 He takes daily aspirin for this, but no anticoagulation as he has a history of brain bleed. He was diagnosed with prostate cancer in 2009 and underwent surgicaltreatment. He ended up with severe MRSA infection following surgery and was ultimately put into a medically-induced coma. During that time he experienced three strokes and a brain bleed. The aortic valve was replaced around that time in connection to the infection. Surgical history also includes an appendectomy at 5 years old, artificial urinary sphincter in 2018, two inguinal hernia repairs (one on each side), and a hiatal hernia repair in May 2021. He lives in [place] with his . He is retired. Did not gather alcohol, tobacco, or drug use history. Medical history also includes asthma and allergies, for which he takes as needed albuterol, Fe, montelukast. REVIEW OF SYSTEMS Constitutional: Negative for chills, diaphoresis and fever. HENT: Negative for rhinorrhea and sinus pressure. Eyes: Negative for visual disturbance. Respiratory: Negative for cough, hemoptysis and shortness of breath. Cardiovascular: Negative for chest pain, palpitations and leg swelling. Gastrointestinal: Negative for abdominal pain. Genitourinary: Negative for dysuria. Musculoskeletal: Positive for back pain. Skin: Negative for rash and wound. Neurological: Positive for headaches. Negative for dizziness. Psychiatric/Behavioral: Negative for agitation. OBJECTIVE Initial Vitals Temperature Pulse Rate Heart Rate Resp Rate Blood Pressure SpO2 11/20/21190111/20/21 19311/20/21190111/20/21190111/20/21190111/20/211901 37 ??C 71 67 18 146/82 96 % Pain Score -- PHYSICAL EXAMINATION Constitutional: Nursing note and vitals reviewed. He is cooperative. No distress. Lying still, flat on his back. Visibly in pain, cries out occasionally due to back spasms. HENT: Head: Normocephalic and atraumatic. Eyes: Conjunctivae are normal. Cardiovascular: Normal rate and regular rhythm. Pulses are palpable. Pulmonary/Chest: Effort normal and breath sounds normal. There is normal air entry. No respiratory distress. Abdominal: Soft. exhibits no distension and no mass. There is no abdominal tenderness. There is no guarding. Neurological: Alert and oriented to person, place, and time. Normal speech. Very limited exam due to patient's pain and concern for spinal instability. Upper and lower extremities are capable of overcoming gravity. Skin: Skin is warm and dry. He is not diaphoretic. Psychiatric: He has a normal mood and affect. ASSESSMENT/PLAN Differential Diagnosis Spinal fracture - cervical vs thoracic vs lumbar Spinal cord injury Traumatic cardiac injury Thoracic aortic injury Intracranial bleed Abdominal bleed Pneumothorax Pulmonary contusion Soft tissue injury Mr. Restrepo is a vitally stable 71 year old male with history of aortic valve replacement secondaryto MRSA infection, multiple strokes and cerebral hemorrhage in 2009 following surgery for prostate cancer. He presented to [facility] ED from [facility] after a fall and back injury with concern for thoracic fractures per outside CT report. There was no loss of consciousness leading to the fall or resulting from it. He does not endorse paresthesias or subjective weakness, nausea or vomiting, chest pain, dyspnea, or abdominal pain. He does endorse headache, but has no evidence of head trauma on physical exam or outside trauma CT. No evidence at this time of cardiac, large vessel, pulmonary, abdominal, or intracranial bleed. Admit for further work-up and more detailed imaging via MRI. Management per orthopedic surgery recommendations. Given 0.5 mg IV hydromorphone for pain. Sarah Adams, 4 Sarah Adams 11/20/212108 Julee Lamar R.N. - 11/20/2021 7:01 PM CDT Pt presents via EMS as a transfer for concern for thoracic fractures. Pt is reporting back pain. No numbness or tingling. Julee Lamar R.N. 11/20/211901 documented in this encounter Miscellaneous Notes Hospital Course - Jameson Osullivan M.D. - 11/22/2021 1:31 PM CDT After informed consent was obtained, the patient was brought to the operating room and underwent theabove-stated procedure performed by Dr. Nevarez. For further details, please see Dr. Nevarez'soperative note. The patient was taken to the post anesthesia care unit postoperatively for recovery.The patient was subsequently transferred to the general floor where care was uncomplicated. The patient worked with nursing staff and therapy as needed and progressed their mobility. When the patient's pain was well-controlled, diet was tolerated, bowel function had returned, ambulation was safe, and all discharge criteria was met, the patient was discharged from the hospital. Medication refills will not be provided outside of normal clinic hours of 8:00 am to 5:00 pm Saturday through Saturday. Please prepare ahead if you are going to run out of medication over the weekend. The patient should have a follow-up appointment in approximately 2 weeks from surgery for a wound check. This will be followed by an appointment at 4 months with x-rays, then at 1 year. These appointments will be arranged and sent to you in the mail. For any questions regarding these appointments please call and ask to speak with Dr. Nevarez's appointment desk. If the patient has general questions or concerns please call during regular weekday working hours (8 am to 5 pm). For urgent questions or situations at night or on weekends the patient may contact Dr. Nevarez's service through the [facility] do all operator at . Please note, this number should not be used for routine queries that can be answered during business hours. In theevent of an emergency please do not call this number, call or seek urgent care locally. documented in this encounter Plan of Treatment Scheduled Orders Name Type Priority Associated Diagnoses Order S chedule CT Thoracic Spine Imaging RAD - Routine (most Fracture Vertebr a Expected: without IV Contrast inpatients and all Thoracic Closed 03/24/2022 outpatients) Initial (HCC) (Approximate), Expires: 11/21/2022 DX Thoracic Spine 2 Imaging RAD - Routine (most Fracture Verte bra Expected: Views inpatients and all Thoracic Closed 2022, outpatients) Initial (HCC) Expires: 02/21/2023 Scheduled Referrals Name Type Priority Associated Order Schedule Diagnoses Orthopedic Surgery Outpatient Referral Routine Ex pected: office visit 03/25/2022 (clinic) (Approximate), Expires: 11/22/2024 documented as of this encounter Procedures Procedure Name [...] all are in the outpatients) results section. F[facility] SPINE [facility]ERIOR 11/21/2021 2:33 [...] some are in the inpatients) results section. documented in this encounter Results DX Chest Portable 1 View (11/24/2021 [...] Jameson Osullivan M.D. IMG DIAGNOSTIC IMAGING PROCE [facility] ECG 12 Lead (11/24/2021 5:53 AM CDT) P athologist Signature Ventricular Rate 79 BPM MUSE ECG/Min IL Interval 170 ms MUSE QRSD Interval 110 ms MUSE QT Interval 380 ms MUSE QTC Interval 435 ms MUSE P Elnora 19 degrees MUSE R Eln[place] -43 degrees MUSE T Wave [place] 28 degrees MUSE Specimen Anatomical Collection Method Collection Time Receive d Time (Source) Location / / Volume Laterality 11/24/2021 5:53 AM CDT 10:20 AM CDT Impressions MUSE - 11/24/2021 6:01 AM CDT Normal sinus rhythm Left axis deviation Minimal voltage criteria for LVH, may be normal variant Non-specific intra-ventricular conductio n delay Nonspecific ST and T wave abnormality When compared with ECG of 20-NOV-2021 21 :42, IL interval has decreased Reviewed by ROXANNA Loya [...] compared with ECG of 20-NOV-2021 21 :42, IL interval has decreased Reviewed by ROXANNA Loya Jameson Osullivan M.D. ECG ORDERABLES Performing Organization Address City/[facility]/ZIP Code Phon e Number MUSE MUSE NA (ABNORMAL) CBC without Differential (11/23/2021 3:41 AM CDT) Patholo gist Method Time Signature Hemoglobin 12.7 (L) 13.2 [...] Organization Address City/State/ZIP Code Phon e Number [facility] - [address] [place], [place] [address] [facility] [place] [place] [address] [facility] [address] [facility] Basic Metabolic Panel (11/23/2021 3:41 AM CDT) P athologist Signature Potassium, S 4.4 3.6 [...] Organization Address City/State/ZIP Code Phon e Number [facility] - [address] [place] [address] [facility] [place] [address] [facility] 200 [facility] (ABNORMAL) CBC without Differential (11/22/2021 5:06 AM CDT) [facility] gist Method Time Signature Hemoglobin 14.0 13.2 - 11/22/2021 DTL 16.6 g/dL 5:26 AM CDT Hematocrit 41.3 38.3 - 11/22/2021 DTL 48.6 % 5:26 AM CDT Erythrocytes 4.92 4.35 - 11/22/2021 DTL 5.65 5:26 AM CDT x10(12)/L MCV 83.9 78.2 - 11/22/2021 DTL 97.9 fL 5:26 AM CDT RBC Distrib Width 14.1 11.8 - 11/22/2021 DTL 14.5 % 5:26 AM CDT Platelet Count 179 135 - 317 11/22/2021 DTL x10(9)/L 5:26 AM CDT Leukocytes 15.0 (H) 3.4 - 9.6 11/22/2021 DTL x10(9)/L 5:26 AM CDT Specimen Anatomical Collection Method Collection Time Receive d Time (Source) Location / / Volume Laterality Blood (Blood, 11/22/2021 5:06 AM 11/23/19 5:20 Venous) CDT AM CDT Vince Hernandez M.D. LAB BLOOD ADD-ON Performing Organization Address City/State/ZIP Code Phon e Number [facility] - [address] [place] [address] [facility] [place] [place] [address] [facility] 200 [facility] Basic Metabolic Panel (11/22/2021 5:06 AM CDT) athologist Signature Potassium, S 4.5 3.6 - 5.2 11/22/2021 DTL mmol/L 5:48 AM CDT Sodium, S 135 135 - 145 11/22/2021 DTL mmol/L 5:48 AM CDT Chloride, S 101 98 - 107 11/22/2021 DTL mmol/L 5:48 AM CDT Bicarbonate, S 22 22 - 29 11/22/2021 DTL mmol/L 5:48 AM CDT Anion Gap 12 7 - 15 11/22/2021 DTL 5:48 AM CDT BUN (Blood Urea 16 8 - 24 11/22/2021 DTL Nitrogen), S mg/dL 5:48 AM CDT Creatinine 1.02 0.74 - 11/22/2021 DTL 1.35 mg/dL 5:48 AM CDT Estimated GFR 80 >=60 11/22/2021 DTL (eGFR) mL/min/BSA 5:48 AM CDT Comment: Estimated GFR calculated using the 2020 CKD_EPI creatinine equation. Calcium, Total, S 9.2 8.8 - 10.2 mg/dL 11/22/2021 5:48 AM CDT DTL Glucose, S 130 70 - 140 mg/dL 11/22/2021 5:48 AM CDT D TL Specimen Anatomical Collection Method Collection Time Receive d Time (Source) Location / / Volume Laterality Blood (Blood, 11/22/2021 5:06 AM 11/23/19 5:32 Venous) CDT AM CDT Vince Hernandez M.D. LAB BLOOD ADD-ON Performing Organization Address City/[facility]/ZIP Code Phon e Number [facility] - [address] [place], [place] [address] [facility] [place] [place] [address] [facility] [address] Transfuse autologous RBC (Cell Salvage) : (11/21/2021 [...] M.D. IMG FLUOROSCOPY PROCEDURES Performing Organization Address City/[facility]/ZIP Code Phon e Number 152 HOS LOS RST IONM - EMG (11/21/2021 8:33 AM CDT) Specimen (Source) Anatomical Collection Method Collection Time Re ceived Time Location / / Volume Laterality 11/21/2021 9:00 AM CDT Narrative [facility] EMG - 11/21/2021 6:24 PM CDT Table formatting from the original result was not included. 21-Nov-2021 ? Intraopera tive Monitoring ? Final Report Study Number: 1 EMG Algebra Tutor: Dank Huffman . [phone] or [phone] Referred by: WILMER NEVAREZ ([phone] or [phone]) Referred for: Referral Code: ?1954 RX: 1954 [...] for continuous and immediate communication directly with e operating room team in the surgical suite. T. Nathanael (127 or [phone])/[facility] Surgery ? Staff Minutes Start-[facility] Remote Simultaneous Supervision 0 2021 00:00 AM CHILD DEVELOPMENT ASSISTANT 11/21/2021 00:00 AM CHILD DEVELOPMENT ASSISTANT Remote Exclusive (1:1) Supervision 149 1 15:36 PM CHILD DEVELOPMENT ASSISTANT 11/21/2021 18:05 PM CHILD DEVELOPMENT ASSISTANT In-Room Exclusive (1:1) Supervision 0 00:00 AM CHILD DEVELOPMENT ASSISTANT 11/21/2021 00:00 AM CHILD DEVELOPMENT ASSISTANT Total Monitoring Time: 149 ?? This interpretation has been electron ically signed: Dank Huffman MD at 11/21/2021 6:21:07 PM CDT Procedure Note Dank Huffman M.D. - 11/22/2021Formatt ing of this note is different from the original. 21-Nov-2021 Intraoperative Monitoring Fi nal Report Study Number: 1 EMG Algebra Tutor: Dank Huffman . [phone] or [phone] Referred by: WILMER NEVAREZ ([phone] or [phone]) Referred for: Referral Code: 1954 RX: 7 SUMMARY: Somatosensory evoked potentials (SEPs) and transcranial [...] for continuous and immediate communication directly with [facility] operating room team in the surgical suite. Oscar Huffman (127 or [phone])/[facility] Surgery Staff Minutes Start-DateTime End-DateTim e Remote Simultaneous Supervision 0 2021 00:00 AM CHILD DEVELOPMENT ASSISTANT 11/21/2021 00:00 AM CHILD DEVELOPMENT ASSISTANT Remote Exclusive (1:1) Supervision 149 1 15:36 PM CHILD DEVELOPMENT ASSISTANT 11/21/2021 18:05 PM CHILD DEVELOPMENT ASSISTANT In-Room Exclusive (1:1) Supervision 0 00:00 AM CHILD DEVELOPMENT ASSISTANT 11/21/2021 00:00 AM CHILD DEVELOPMENT ASSISTANT Total Monitoring Time: 149 This interpretation has [...] Neuroradiology ARZ LOS, Neuroradiology T omography FLA LOS Specimen (Source) Anatomical Collection Method [...] process fractures at L2, L3, and L4. Halie Hong APRN, C.N.P., M.S.N. IMG CT PROCEDURES SARS Coronavirus 2, RNA, Rapid POC, V Asymptomatic (11/20/2021 11:41 PM CDT) [facility] gist Method Time Signature SARS Undetected Undetected 11/21/2021 DTLR Coronavirus-2 12:03 AM CDT , RNA, Rapid POC, V Comment: Negative for SARS-CoV-2. The [employer] COVID-19 test is a molecular una t for SARS-CoV-2, the virus that causes COVID- 19. A Negative result means that the [employer] COV ID-19 test did not detect SARS-CoV-2 virus in your sample. [employer] COVID-19 test uses the [employer]. This test has received Emergency Use Authorization (EUA) by the U.S. Food and Drug Administration (FDA) and is used per man ufacturer instructions. Performance characteristic s were verified by [facility] in a manner consistent with CLIA requirements. Fact sheets for this Emerg ency Use Authorization (EUA) can be found at the following links: Providers: [email or web address]/prov iders.pdf Patients: [email or web address] SARS Coronavirus 2, Source Nasopharynx DEFAULT 11/21/2021 12:03 AM CDT DTLR Specimen Anatomical Collection Method Collection Time Receive d Time (Source) Location / / Volume Laterality Swab 11/20/2021 11:41 11/20/2021 (Nasopharynx) PM CDT 11:41 PM CDT Halie Hong APRN, C.N.P., M.S.N. LAB MICROBIOLOGY - [facility] ORDERABLES Performing Organization Address City/State/ZIP Code Phon e Number PERFORMING LABS, REF [facility] [place] [address] INTERFACE Ref Interface [address] [facility] DTLR Performing Labs, [place] [address] Interface [address] [facility] ECG 12 Lead (11/20/2021 9:42 PM CDT) athologist Signature Ventricular Rate 57 BPM MUSE ECG/Min IL Interval 208 ms MUSE QRSD Interval 118 ms MUSE QT Interval 462 ms MUSE QTC Interval 449 ms MUSE P Elnora 20 degrees MUSE R [place] -49 degrees MUSE T Wave [place] 35 degrees MUSE Specimen Anatomical Collection Method Collection Time Receive d Time (Source) Location / / Volume Laterality 11/20/2021 9:42 PM 2 9:50 CDT PM CDT Impressions MUSE - 11/20/2021 9:50 PM CDT Sinus bradycardia with 1st degree A-V block Left axis deviation Left ventricular hypertrophy with QRS wi dening No previous ECGs available Reviewed by ROXANNA Quintero Narrative This result has an attachment that is no t available. Procedure Note Jarvis Bowen M.D. - 11/20/2021Formatt ing of this note might be different from the original. IMPRESSION: Sinus bradycardia with 1st degree A-V bl ock Left axis deviation Left ventricular hypertrophy with QRS wi dening No previous ECGs available Reviewed by ROXANNA Quintero Mark Brooks M.D. ECG ORDERABLES Performing Organization Address City/[facility]/ZIP Code Phon e Number MUSE MUSE NA Lactate, POCT (11/20/2021 8:23 PM CDT) P athologist Signature Lactate, POCT 0.72 0.50 - 11/20/2021 PCLX 2.20 8:30 PM CDT mmol/L Sample Site, Venstick 11/20/2021 PCLX POCT 8:30 PM CDT Specimen Anatomical Collection Method Collection Time Receive d Time (Source) Location / / Volume Laterality Blood 11/20/2021 8:23 PM 2 8:31 CDT PM CDT Unknown Provider LAB POCT ORDERABLES - DEVICE Performing Organization Address City/State/ZIP Code Phon e Number POC [facility] [address] [place] [address] PCLX [facility] [place] [address] [facility] [address] [facility] Hepatic Function Panel (11/20/2021 8:22 PM CDT) Patholo gist Method Time Signature Bilirubin, Total, S [...] 11/21/19 8:45 Venous) CDT PM CDT Mark Boroks M.D. LAB BLOOD ADD-ON Performing Organization Address City/[facility] Phon e Number [facility] - [address] [place], [place] [id number] [place] [address] Type and Screen (with reflex Antibody ID) (11/20/2021 8:22 PM CDT) [facility] Method Time Signature ABORh A Pos Not 11/20/2021 STRM applicable 8:57 PM CDT Antibody Negative Negative 11/20/2021 STRM Screen 9:04 PM CDT Type & Screen 11/23/2021 11/20/2021 STRM Expiration 23:59 8:57 PM CDT Testing [facility] DEFAULT 11/20/2021 STRM Location 8:30 PM CDT Specimen Anatomical Collection Method Collection Time Receive d Time (Source) Location / / Volume Laterality Blood (Blood, 11/20/2021 8:22 PM 11/21/19 8:30 Venous) CDT PM CDT Mark Brooks M.D. LAB BLOOD BANK TEST ORDERABL ES Performing Organization Address City/[facility] Phon e Number [facility] - [address] [place] [address] [facility] [place] [address] APTT (Activated Partial Thromboplastin Time) (11/20/2021 8:22 PM CDT) athologist Signature Activated 31 25 - 37 sec 11/20/2021 [facility] Partial 8:38 PM CDT Thrombopl Time, P Specimen Anatomical Collection Method Collection Time Receive d Time (Source) Location / / Volume Laterality Blood (Blood, 11/20/2021 8:22 PM 11/21/19 8:29 Venous) CDT PM CDT Mark Brooks M.D. LAB BLOOD ADD-ON Performing Organization Address City/[facility] Phon e Number [facility] - [address] [place], [place] [address] [place] [address] [facility] [address] Prothrombin Time (PT) (11/20/2021 8:22 PM CDT) athologist Signature Prothrombin 11.7 9.4 - 12.5 11/20/2021 [facility] Time, P sec 8:35 PM CDT INR 1.1 0.9 - 1.1 11/20/2021 [facility] 8[facility]35 PM CDT Comment: ----ADDITIONAL INFORMATION---- Standard intensity warfarin therapeutic range: 2.0 to 3.0 ?? High intensity warfarin therapeutic rang e: 2.5 to 3.5 Specimen Anatomical Collection Method Collection Time Receive d Time (Source) Location / / Volume Laterality Blood (Blood, 11/20/2021 8:22 PM 11/21/19 8:29 Venous) CDT PM CDT Mark Brooks M.D. LAB BLOOD ADD-ON Performing Organization Address City/[facility] Phon e Number [facility] - [address] [place], [place] [address] [place] [address] [facility] [address] (ABNORMAL) CBC with Differential, Blood (11/20/2021 8:22 PM CDT) [facility] gist Method Time Signature Hemoglobin 16.1 13.2 [...] Laterality Blood (Blood, 11/20/2021 8:22 PM 11/21/19 8:28 Venous) CDT PM CDT Mark Brooks M.D. LAB BLOOD ADD-ON Performing Organization Address City/State/ZIP Code Phon e Number [facility] - [address] [place], [place] [address] [place] [address] [facility] [address] [facility] Ethanol Level, Serum (11/20/2021 8:22 PM CDT) P athologist Signature Ethanol, S <10 <10 mg/dL 11/20/2021 9:08 DTL PM CDT Specimen Anatomical Collection Method Collection Time Receive d Time (Source) Location / / Volume Laterality Blood (Blood, 11/20/2021 8:22 PM 11/21/19 8:45 Venous) CDT PM CDT Mark Brooks M.D. LAB BLOOD NON ADD-ON Performing Organization Address City/State/ZIP Code Phon e Number [facility] - [address] [place], [place] [address] [facility] [place] [address] [facility] [address] [facility] (ABNORMAL) Basic Metabolic Panel (11/20/2021 8:22 PM CDT) P athologist Signature Potassium, P 4.3 3.6 - 5.2 11/20/2021 [facility] mmol/L 8:48 PM CDT Sodium, P 133 (L) 135 - 145 11/20/2021 [facility] mmol/L 8:48 PM CDT Chloride, P 95 (L) 98 - 107 11/20/2021 [facility] mmol/L 8:48 PM CDT Bicarbonate, P 26 22 - 29 11/20/2021 [facility] mmol/L 8:48 PM CDT Anion Gap, P 12 7 - 15 11/20/2021 [facility] 8:48 PM CDT BUN (Blood Urea 13 8 - 24 11/20/2021 [facility] Nitrogen), P mg/dL 8:48 PM CDT Creatinine 0.87 0.74 - 11/20/2021 [facility] 1.35 mg/dL 8:48 PM CDT Estimated GFR >90 >=60 11/20/2021 [facility] (eGFR) mL/min/BSA 8:48 PM CDT Comment: Estimated GFR calculated using the 2020 CKD_EPI creatinine equation. Calcium, Total, P 9.8 8.8 - 10.2 mg/dL 11/20/2021 8:48 PM CDT STMA Glucose, P 123 70 - 140 mg/dL 11/20/2021 8:48 PM CDT S TMA Specimen Anatomical Collection Method Collection Time Receive d Time (Source) Location / / Volume Laterality Blood (Blood, 11/20/2021 8:22 PM 11/21/19 8:28 Venous) CDT PM CDT Mark Brooks M.D. LAB BLOOD ADD-ON Performing Organization Address City/State/[facility] Phon e Number [facility] - [address] [place], [place] [address] [place] [id number] [place] [address] AST (Aspartate Aminotransferase) (11/20/2021 8:22 PM CDT) Patholo gist Method Time Signature Aspartate 32 8 - 48 11/20/2021 [facility] Aminotransferase U/L 8:48 PM CDT (AST), P Specimen Anatomical Collection Method Collection Time Receive d Time (Source) Location / / Volume Laterality Blood (Blood, 11/20/2021 8:22 PM 11/21/19 8:28 Venous) CDT PM CDT Mark Brooks M.D. LAB BLOOD ADD-ON Performing Organization Address City/[facility]/ZIP Code Phon e Number [facility] - [address] [place], [place] [address] [place] [address] Amylase, Total (11/20/2021 8:22 PM CDT) P athologist Signature Amylase, Total, 62 28 - 100 11/20/2021 DTL S U/L 9:08 PM CDT Specimen Anatomical Collection Method Collection Time Receive d Time (Source) Location / / Volume Laterality Blood (Blood, 11/20/2021 8:22 PM 11/21/19 8:45 Venous) CDT PM CDT Mark Brooks M.D. LAB BLOOD ADD-ON Performing Organization Address City/[facility] Phon e Number [facility] - [address] [place], [place] [address] [facility] [place] [address] Lactate, POCT (11/20/2021 8:22 PM CDT) Analysis Performed At Patho logist Time Signature Lactate, POCT Collected DEFAULT 11/20/2021 SMLX 8:22 PM CDT Specimen Anatomical Collection Method Collection Time Receive d Time (Source) Location / / Volume Laterality Blood (Blood, 11/20/2021 8:22 PM 11/21/19 22 8:22 Venous) CDT PM CDT Mark Brooks M.D. LAB POCT ORDERABLES - DEVICE Performing Organization Address [facility]/ZIP Code Phon e Number [facility] - [address] [place] [address] [facility] [place] [address] Laboratories-[address] Thromboelastograph, Kaolin, Blood (11/20/2021 8:20 PM CDT) P athologist Signature R, Kaolin, TEG 6.1 4.0 [...] Laterality Blood (Blood, 11/20/2021 8:20 PM 11/21/19 8:27 Venous) CDT PM CDT Mark Brooks M.D. LAB BLOOD NON ADD-ON Performing Organization Address [facility] Code Phon e Number [facility] - [address] [place] [address] [address] [place] [address] [facility]-[address] Interpretation of Outside CT Spine (11/20/2021 8:14 PM CDT) Anatomical Region Laterality Modality Spine, Neuroradiology RST [...] findings in the cervi tomi spine. Mark [facility] CT PROCEDURES Interpretation of Outside CT Spine (11/20/2021 8:13 PM CDT) Anatomical Region Laterality Modality Spine, Neuroradiology RST [...] findings in the cervi tomi spine. Mark FRANCIS[facility] CT PROCEDURES Interpretation of Outside CT Head [...] thickening. IMPRESSION: No acute intracranial findings. Mark [facility] CT PROCEDURES Interpretation of Outside CT Chest [...] thoracic spine interpretation for further characterization. Mark Brooks M.D. IMMami CT PROCEDURES documented in this encounter Visit Diagnoses Diagnosis Fracture Vertebra Thoracic Closed Initia l (HCC) - Primary Fracture Vertebra Thoracic Closed Initia l (HCC) Difficulty In Walking Not Elsewhere Clas sified [R26.2 (ICD-10-CM)] Decline Functional Status [R53.81 (ICD-1 0-CM)] documented in this encounter Admitting Diagnoses Diagnosis Fracture Vertebra Thoracic Closed Initia l (HCC) documented in this encounter Administered Medications Inactive Administered Medications - up to 3 most recent administrations Medication Order MAR Action Action Date Dose Rate Site acetaminophen injection 1,000 New Bag 11/21/2021 7:21 PM 1,000 mg 400 mL/hr mg CDT 1,000 mg, intravenous, at 400 mL/hr, Administer over 15 Minutes, Once as needed, other, If patient has not received in previous 6 hours, Starting on Sat11/21/21 at 1915, For 1 dose, PACU (only), Oral unless RASS less than -1 or nausea/vomiting. Do not use if given in last 6 hours, Restriction Criteria (Pharmacy will review and approve if criteria met): Unable to take or tolerate medications administered via the enteral route or orally (not just NPO) acetaminophen tablet 1,000 mg (TYLENOL) Given 11/24/2021 1:57 PM CDT 1,000 mg 1,000 mg, oral, Every 6 hours PRN, mild pain or score 1-3 of 10, moderate pain or score 4-6 of 10, Starting on Sat11/21/21 at 0021 Given 11/24/2021 5:23 AM CDT 1,000 mg Given 11/23/2021 8:53 PM CDT 1,000 mg albuterol nebulizer solution 2.5 mg Given 11/24/2021 5:53 AM CDT 2.5 mg 2.5 mg, nebulization, Every 6 hours PRN, wheezing, shortness of breath, Starting on Sat11/21/21 at 1146, Albuterol nebs were interchanged for albuterol/levalbuterol MDI (same frequency) Given 11/22/2021 4:17 AM CDT 2.5 mg Given 11/21/2021 9:48 PM CDT 2.[address] tablet 81 mg Given 11/24/2021 8:40 AM CDT 81 mg 81 mg, oral, Daily, First dose on Sat11/23/21 at 0900, Swallow whole. Do NOT crush, chew, or split tablet. Given 11/23/2021 8:01 AM CDT 81 mg atorvastatin tablet 40 mg (LIPITOR) Given 11/23/2021 8:53 PM CDT 40 mg 40 mg, oral, Daily at bedtime, First dose on Sat11/21/21 at 2100 Given 11/22/2021 9:35 PM CDT 40 mg Given 11/21/2021 9:44 PM CDT 40 mg bisacodyL suppository 10 mg (DULCOLAX) Given 11/24/2021 11:50 AM CDT 10 mg 10 mg, rectal, Daily PRN, constipation, Starting on Sat11/21/21 at 0021, Ordered sequence of administration: polyethylene glycol, then bisacodyl until BM achieved. calcium citrate-vitamin D3 315 mg-5 mcg Given 11/24/2021 8:40 AM CDT 2 tablets (200 Unit) per tablet 2 tablet (CITRACAL+D) 2 tablet, oral, 2 times daily, First dose on Sat11/21/21 at 0900 Given 11/23/2021 8:53 PM CDT 2 tablets Given 11/23/2021 8:00 AM CDT 2 tablets ceFAZolin in dextrose (iso-os) IVPB 2 New Bag 11/22/2021 1:42 PM CDT 2 g 200 mL/hr g (ANCEF) 2 g, intravenous, at 200 mL/hr, Administer over 30 Minutes, Every 8 hours, First dose (after last modification) on Sat11/22/21 at 0515, For 2 doses, Drug Monitoring Program: Pharmacist to adjust medication dosing based on indication and drug clearance factors., Indications: Prophylaxis, surgical New Bag 11/22/2021 5:36 AM CDT 2 g 200 mL/hr diazePAM tablet 5 mg (VALIUM) Given 11/23/2021 1:31 AM CDT 5 mg 5 mg, oral, 3 times daily PRN, muscle spasms, Starting on Sat11/22/21 at 1606 diazePAM tablet 5 mg (VALIUM) Given 11/24/2021 8:40 AM CDT 5 mg 5 mg, oral, 4 times daily PRN, muscle spasms, Starting on Autumn 11/23/21 at 0700 Given 11/24/2021 2:55 AM CDT 5 mg Given 11/23/2021 8:53 PM CDT 5 mg fluticasone furoate-vilanteroL 100-25 Given 11/24/2021 6:00 AM C DT 1 puff mcg/actuation inhaler 1 puff (BREO ELLIPTA DISKUS) 1 puff, inhalation, Daily (RT), First dose on Sat11/21/21 at 0800, fluticasone/vilanterol diskus 100/25 mcg was interchanged for fluticasone/salmeterol MDI 45/21 mcg 1. Hold device upright in right hand with rough edge. 2. Using left hand open lid (toward left) until click is heard. 3. Tilt inhaler flat so air entrainment vents & counter face up. 4. Inhale to full breath somewhat fast. 5. Hold breath up to 10 seconds. 6. Remove inhaler from mouth. 7. Close lid. Given 11/23/2021 8:00 AM CDT 1 puff Given 11/22/2021 9:09 AM CDT 1 puff granisetron (PF) injection 1 mg (KYTRIL) Given 11/21/2021 7:37 PM CDT 1 mg 1 mg, intravenous, Once as needed, nausea, vomiting, Starting on Sat11/21/21 at 1915, For 1 dose, PACU (only), If patient does not respond to ondansetron or haloperidol. (order of antiemetic administration - ondansetron then haloperidol then granisetron) HYDROmorphone (PF) injection 0.2 mg Given 11/21/2021 7:59 PM CDT 0.2 mg (DILAUDID) 0.2 mg, intravenous, Every 5 min PRN, moderate pain or score 4-6 of 10, severe pain or score 7-10 of 10, Starting on Sat11/21/21 at 1915, PACU (only), Up to maximum total dose of 2 mg Given 11/21/2021 7:52 PM CDT 0.2 mg HYDROmorphone (PF) injection 0.5 mg Given 11/20/2021 8:23 PM CDT 0.5 mg (DILAUDID) 0.5 mg, intravenous, Once, On Sat11/20/21 at 2009, For 1 dose HYDROmorphone (PF) injection 0.5 mg Given 11/20/2021 10:50 PM CD T 0.5 mg (DILAUDID) 0.5 mg, intravenous, Every 1 hour PRN, severe pain or score 7-10 of 10, Starting on Sat11/20/21 at 2141 HYDROmorphone tablet 2 mg (DILAUDID) Given 11/24/2021 1:08 AM CDT 2 mg 2 mg, oral, Every 4 hours PRN, moderate pain or score 4-6 of 10, Starting on Sat11/22/21 at 0627 Given 11/23/2021 9:01 PM CDT 2 mg Given 11/23/2021 3:52 AM CDT 2 mg HYDROmorphone tablet 4 mg (DILAUDID) Given 11/24/2021 1:57 PM CDT 4 mg 4 mg, oral, Every 4 hours PRN, severe pain or score 7-10 of 10, Starting on Sat11/22/21 at 0627 Given 11/24/2021 9:55 AM CDT 4 mg Given 11/24/2021 5:23 AM CDT 4 mg losartan-hydroCHLOROthiazide 50-12.5 mg per Given 08/2021 8:41 AM CDT 1 tablet tablet 1 tablet (HYZAAR) 1 tablet, oral, Daily, First dose on Autumn 11/23/21 at 0900 Given 11/23/2021 8:00 AM CDT 1 tablet NaCl 0.9% infusion Continued from OR 11/21/2021 9:59 PM CDT 75 mL/hr 75 mL/hr 75 mL/hr, intravenous, Continuous, Starting on Sat11/21/21 at 0030, Discontinue when patient taking greater than 500 ml oral fluids daily New Bag 11/21/2021 1:23 AM CDT 75 mL/hr 75 mL/hr ondansetron (PF) injection 4 mg (ZOFRAN) Given 11/20/2021 10:50 PM CDT 4 mg 4 mg, intravenous, Once, On Sat11/20/21 at 2239, For 1 dose ondansetron (PF) injection 4 mg (ZOFRAN) Given 11/20/2021 11:33 PM CDT 4 mg 4 mg, intravenous, Once, On Sat11/20/21 at 2331, For 1 dose oxyCODONE IR tablet 10 mg (ROXICODONE) Given 11/21/2021 5:02 AM CDT 10 mg 10 mg, oral, Every 4 hours PRN, severe pain or score 7-10 of 10, Starting on Sat11/21/21 at 0021, Second line therapy. If patient is greater than 7 after 2 hours, call service for new order. oxyCODONE IR tablet 5 mg (ROXICODONE) Given 11/22/2021 5:36 AM CDT 5 mg 5 mg, oral, Every 4 hours PRN, moderate pain or score 4-6 of 10, Starting on Sat11/21/21 at 0021, Second line therapy Given 11/22/2021 1:38 AM CDT 5 mg Given 11/21/2021 9:44 PM CDT 5 mg polyethylene glycol powder packet 1 packet Given 11/24 8:41 AM CDT 1 packet (MIRALAX) 1 packet, oral, Daily, First dose on Sat11/21/21 at 0900, Ordered sequence of administration: polyethylene glycol, then bisacodyl until BM achieved. Avoid mixing with starch-based thickened liquids. Given 11/23/2021 8:00 AM CDT 1 packet Given 11/22/2021 8:47 AM CDT 1 packet promethazine injection 6.25 mg (PHENERGA N) Given 11/21/2021 8:17 PM CDT 6.25 mg 6.25 mg, intravenous, Every 6 hours PRN, nausea, vomiting, Starting on Sat11/21/21 at 2011, For 48 hours, PACU (only), RASS must be -2 or higher to administer. Reassess for nausea/vomiting after at least 10 minutes. If nausea or vomiting persists administer next ordered antiemetic medications (order for antiemetic medication administration ondansetron then droperidol then promethazine). sennosides-docusate sodium 8.6-50 mg per Given 11/24/2021 8:40 A M CDT 1 tablet tablet 1 tablet (SENOKOT-S) 1 tablet, oral, 2 times daily, First dose on Sat11/21/21 at 0900, Do not give if patient has diarrhea. Given 11/23/2021 8:53 PM CDT 1 tablet Given 11/23/2021 8:00 AM CDT 1 tablet sodium chloride 0.9 % injection 10 mL 10 mL, intravenous, As needed, line care, Starting on Sat11/20/21 at 2008, Peripheral Intravenous Catheter and Rapid Infusion Cat heter, prior to blood sampling, post blood transfusion or post blood samplin g sodium chloride 0.9 % injection 3 mL 3 mL, intravenous, As needed, line care, Starting on Sat11/20/21 at 2008, Prior to and following infusion and between multi ple consecutive infusions: sodium chloride 0.9 % injection sodium chloride 0.9 % injection 3 mL Given 11/23/2021 8:09 AM CDT 3 mL 3 mL, intravenous, Every 12 hours scheduled, First dose on Sat11/20/21 at 2100, Peripheral Intravenous Catheter and Rapid Infusion Catheter, when no infusion to maintain patency Given 11/22/2021 9:39 PM CDT 3 mL Given 11/22/2021 1:46 PM CDT 3 mL solifenacin tablet 5 mg (VESICARE) Given 11/22/2021 7:44 PM CDT 5 mg 5 mg, oral, Daily, First dose on Sat11/22/21 at 1900, mirabegron 50 mg daily was interchanged for solifenacin 5 mg oral daily See tube feeding guidelines for tube feeding administration instructions. SUFentanil 5 mcg/mL in Rate/Dose Change 11/21/2021 6:02 PM 0.1 mcg/ kg/hr 2.02 mL/hr NaCl 0.9% 100 mL CDT infusion (SUFENTA) 0.5 mcg/kg/hr ? 101 kg Dosing weight (10.1 mL/hr), intravenous, Continuous, Starting on Sat11/21/21 at 1415, Intra-Op Rate/Dose Change 11/21/2021 5:10 PM CDT 0.25 mcg/kg/hr 5.05 mL/hr Rate/Dose Change 11/21/2021 5:07 PM CDT 0.35 mcg/kg/hr 7.07 mL/hr tranexamic acid 8 mg/mL in New Bag 11/21/2021 3:57 PM CDT 2 mg /kg/hr 25.25 mL/hr NaCl 0.9% 250 mL infusion (CYKLOKAPRON) 2 mg/kg/hr ? 101 kg Dosing weight (25.25 mL/hr, rounded to 25.3 mL/hr), intravenous, Continuous, Starting on Sat11/21/21 at 1315, Intra-Op, In OR until skin closure. Pharmacy to adjust infusion dose for renal function. documented in this encounter Active and Recently Administered Medications Times are shown in CDT. Scheduled Medication Order 11/22/2021 11/23/2021 11/24/[address] tablet 81 mg 08 (Given - Provider: Nancy Potts RCarie) 0840 (Given - Provider: Nancy Potts R.N.) 81 mg, oral, Daily, First dose on Autumn at 0900, Swallow whole. Do NOT crush, chew, or split tablet. atorvastatin tablet 40 mg (LIPITOR) 2134 (Given - Prov ider: Yanique Molina R.N.) 2052 (Given - Provider: Yanique Molina RIzabellaNIzabella) 40 mg, oral, Daily at bedtime, First dose on Sat11/21/21 at 2100 calcium citrate-vitamin D3 315 mg-5 mcg (200 Unit) per tablet 2 tablet (CITRACAL+D) 0847 (Given - Provider: Nancy garcia R.N.)2134 (Given - Provider: Mary Lou GagnonN.) 08 (Given - Provider: Nancy garcia R.N.)2052 (Given - Provider: Yanique Molina R.N.) 0840 (Given - Provider: Nancy Potts R.N.) 2 tablet, oral, 2 times daily, First dose on Sat11/21/21 at 0900 ceFAZolin in dextrose (iso-os) IVPB 2 g (ANCEF) (COMPL ETED) 0536 (New Bag - Provider: Jass Grant R.N.)1342 (New Bag - Provider: Nancy Potts R.N.) 2 g, intravenous, at 200 mL/hr, Administ er over 30 Minutes, Every 8 hours, First dose (after last modification) on Sat11/22/21 at 0515, For 2 doses, Drug Monitoring Program: Pharmacist to adjust medicat ion dosing based on indication and drug clearance factors., Indications: Prophylaxis, surgical fluticasone furoate-vilanteroL 100-25 mc g/actuation inhaler 1 puff (BREO ELLIPTA DISKUS) 0909 (Given - Provider: Nancy Potts R.N.) 0800 (Given - Provider: Nancy Potts R.N.) 0600 (Given - Provider: Romain Yun R.N.) 1 puff, inhalation, Daily (RT), First do se on Sat11/21/21 at 0800, fluticasone/vilanterol diskus 100/25 mcg was interchanged for fluticasone/salmeterol MDI 45/21 mcg 1. Hold device upright in right hand with rough edge. 2. Using left hand ope n lid (toward left) until click is heard. 3. Tilt inhaler flat so air entrainment vents & counter face up. 4. Inhale to full breath somewhat fast. 5. Hold carrie ath up to 10 seconds. 6. Remove inhaler from mouth. 7. Close lid . losartan-hydroCHLOROthiazide 50-12.5 mg per tablet 1 tablet (HYZAAR) 0800 (Given - Provider: Nancy Potts R.N.) 0841 (Given - Provider: Nancy Potts R.N.) 1 tablet, oral, Daily, First dose on Sat11/23/21 at 0900 polyethylene glycol powder packet 1 packet (MIRALAX) 0 847 (Given - Provider: Nancy Potts R.N.) 0800 (Given - Provider: Nancy Potts R.N.) 0841 (Given - Provider: Nancy Potts R.N.) 1 packet, oral, Daily, First dose on Sat11/21/21 at 0900, Ordered sequence of administration: polyethylene glycol, then bisacodyl until BM achieved. Avoid mixing with starch-based thickened liquids. sennosides-docusate sodium 8.6-50 mg per tablet 1 tabl et (SENOKOT-S) 0847 (Given - Provider: Nancy Potts R.N.)2137 (Given - Provider: Yanique Molina R.N.) 08 (Given - Provider: Nancy garcia RIzabellaN.)2052 (Given - Provider: Yanique Molina R.N.) 0840 (Given - Provider: Nancy garcia RIzabellaNIzabella) 1 tablet, oral, 2 times daily, First dos e on Sat11/21/21 at 0900, Do not give if patient has diarrhea. sodium chloride 0.9 % injection 3 mL 1346 (Given - Pro vider: Nancy Potts R.N.)2138 (Given - Provider: Yanique Molina R.N.) 0809 (Given - Provider: Nancy Potts R.N.)2118 (Not Given - Provider: Yanique Molina R.N. - Reason: Other) 1000 (Not Given - Provider: Nancy escobedo R.N. - Reason: Other - Comment: IV will be DC'd) 3 mL, intravenous, Every 12 hours schedu led, First dose on Sat11/20/21 at 2100, Peripheral Intravenous Catheter and Rapid Infusion Catheter, when no infusion to maintain patency solifenacin tablet 5 mg (VESICARE) 1944 (Given - Provi johnna: Yanique Molina RIzabellaNIzabella) 0809 (Not Given - Provider: Nancy escobedo R.N. - Reason: Other - Comment: Pt wants at 1700.) 5 mg, oral, Daily, First dose on 07/09 at 1900, mirabegron 50 mg daily was interchanged for solifenacin 5 mg oral daily See tube feeding guidelines for tube feeding administration instructions. Continuous Medication Order 11/22/2021 11/23/2021 11/24/2021 NaCl 0.9% infusion 0335 (Stopped - Provider: Rei Hammer) 75 mL/hr, intravenous, Continuous, Start ing on Sat11/21/21 at 0030, Discontinue when patient taking greater than 500 ml oral fluids daily SUFentanil 5 mcg/mL in NaCl 0.9% 100 mL infusion (SUFENTA) 0733 (Stopped - Provider: Nancy Potts R.N.) 0.5 mcg/kg/hr ? 101 kg Dosing weight (10.1 mL/hr), intravenous, Continuous, Starting on Sat11/21/21 at 1415, Intra-Op tranexamic acid 8 mg/mL in NaCl 0.9% 250 mL infusion (CYKLOKAPRO N) 0734 (Stopped - Provider: Nancy Potts R.N.) 2 mg/kg/hr ? 101 kg Dosing weight (25.25 mL/hr, rounded to 25.3 mL/hr), intravenous, Continuous, Starting on Sat11/21/21 at 1315, Intra-Op, In OR until skin closure. Pharmacy to adjust infusion dose for renal function. PRN Medication Order 11/22/2021 11/23/2021 11/24/2021 acetaminophen tablet 1,000 mg (TYLENOL) 0138 (Given - Provider: Jass Grant R.N.)0942 (Given - Provider: Nancy Potts R.N.)1424 (Given - Provider: Nancy Potts R.N.)2135 (Given - Provider: Yanique Molina R.N.) 0352 (Given - Provider: Jass Grant R.N.)0945 (Given - Provider: Zulay Carrington R.N.)205 (Given - Provider: Yanique Molina R.N.) 0523 (Given - Provider: Beth Sommer R.N.)1357 (Given - Provider: Nancy Potts R.N.) 1,000 mg, oral, Every 6 hours PRN, mild pain or score 1-3 of 10, moderate pain or score 4-6 of 10, Starting on Sat11/21/21 at 0021 albuterol nebulizer solution 2.5 mg 0417 (Given - Prov ider: Jass Grant R.N.) 0553 (Given - Provider: Pretty Yun R.N.) 2.5 mg, nebulization, Every 6 hours PRN, wheezing, shortness of breath, Starting on Sat11/21/21 at 1146, Albuterol nebs were interchanged for albuterol/levalbuterol MDI (same frequency) bisacodyL suppository 10 mg (DULCOLAX) 1150 (Given - Provider: Nancy Potts R.N.) 10 mg, rectal, Daily PRN, constipation, Starting on Sat11/21/21 at 0021, Ordered sequence of administration: polyethylene glycol, then bisacodyl until BM achieved. calcium carbonate chewable tablet 400 mg of calcium (TUMS) 400 mg of calcium, oral, Every 2 hour IL N, indigestion, Starting on Sat11/21/21 at 0021, Doses listed are in mg of elemental calcium. Take with food. 500 mg calcium carbonate contains 200 mg of elemental calcium. diazePAM tablet 5 mg (VALIUM) (CANCELED) 0131 (Given - Provider: Jass Grant R.N.) 5 mg, oral, 3 times daily PRN, muscle spasms, Starting on Sat at 1606 diazePAM tablet 5 mg (VALIUM) 0756 (Give n - Provider: Nancy Potts R.N.)0801 (Not Given - Provider: Nancy Potts R.N. - Reason: Other - Comment: Scanned twice, only 1 dose given. PYXIS count is correct.)1630 (Given - Provider: Yanique Molina RCarie) 0255 (Given - Provider: Beth Sommer RIzabellaN.)0840 (Given - Provider: Nancy Potts R.N.) 5 mg, oral, 4 times daily PRN, muscle spasms, Starting on 11/23/21 at 0700 2053 (Given - Provider: Yanique Molina RIzabellaNIzabella) HYDROmorphone (PF) injection 0.2 mg (DILAUDID) 0.2 mg, intravenous, Every 2 hour PRN, s evere pain or score 7-10 of 10, Starting on Sat11/21/21 at 0021, For 3 doses, May administer if pain is greater than 7 after scheduled and PRN regimen exhausted. HYDROmorphone tablet 2 mg (DILAUDID)(Linked Group 1) 0 643 (Given - Provider: Jass Grant R.N.)1045 (Given - Provider: Nancy Potts R.N.)1531 (Given - Provider: Yanique Molina R.N.)1943 (Given - Provider: Yanique Molina R.N.) 0352 (Given - Provider: Jass Grant R.N.)0800 (See Alternative - Provider: Nancy Potts R.N.)1207 (See Alternative - Provider: Nancy Potts R.N.)1630 (See Alternative - Provider: Yanique Molina R.N.) 0108 (Given - Provider: Beth Sommer RIzabellaNIzabella)0523 (See Alternative - Provider: Beth Sommer R.N.)0955 (See Alternative - Provider: Nancy Potts R.N.)1357 (See Alternative - Provider: Nancy Potts R.N.) 2 mg, oral, Every 4 hours PRN, moderate pain or score 4-6 of 10, Starting on Sat11/22/21 at 0627 2345 (See Alternative - Provider: Mary Lou Hammer) 2101 (Given - Provider: Yanique Molina R.N.) HYDROmorphone tablet 4 mg (DILAUDID)(Linked Group 1) 0 643 (See Alternative - Provider: Jass Grant R.N.)1045 (See Alternative - Provider: Nancy Potts R.N.)1531 (See Alternative - Provider: Yanique Molina RIzabellaN.)1943 (See Alternative - Provider: Yanique Molina RIzabellaN.) 0352 (See Alternative - Provider: Jass Grant R.N.)0800 (Given - Provider: Nancy Potts R.N.)1207 (Given - Provider: Nancy Potts R.N.)1630 (Given - Provider: Yanique Molina R.N.) 0108 (See Alternative - Provider: Beth Smomer R.N.)0523 (Given - Provider: Beth Sommer R.N.)0955 (Given - Provider: Nancy Potts R.N.)1357 (Given - Provider: Nancy Potts R.N.) 4 mg, oral, Every 4 hours PRN, severe pa in or score 7-10 of 10, Starting on Sat11/22/21 at 0627 2345 (Given - Provider: Jass Grant R.N.) 2101 ( See Alternative - Provider: Yanique Molina R.N.) ondansetron (PF) injection 4 mg (ZOFRAN) 4 mg, intravenous, Every 6 hours PRN, na usea, vomiting, Starting on Sat11/21/21 at 0021 oxyCODONE IR tablet 5 mg (ROXICODONE) (CANCELED) 0138 (Given - Provider: Jass Grant R.N.)0536 (Given - Provider: Jass Grant R.N.) 5 mg, oral, Every 4 hours PRN, moderate pain or score 4-6 of 10, Starting on Sat11/21/21 at 0021, Second line therapy sodium chloride 0.9 % injection 10 mL 10 mL, intravenous, As needed, line care , Starting on Sat11/20/21 at 2008, Peripheral Intravenous Catheter and Rapid Infusion Catheter, prior to blood sampling, post blood transfusion or post blood sampling sodium chloride 0.9 % injection 3 mL 3 mL, intravenous, As needed, line care, Starting on Sat11/20/21 at 2008, Prior to and following infusion and between multiple consecutive infusions: sodium chloride 0.9 % injection Linked Groups Order Group 1: HYDROmorphone tablet 2 mg (DILAUDID)Jump to med 2 mg, oral, Every 4 hours PRN, moderate pain or score 4-6 of 10, Starting on Sat11/22/21 at 0627 Or HYDROmorphone tablet 4 mg (DILAUDID)Jump to med 4 mg, oral, Every 4 hours PRN, severe pa in or score 7-10 of 10, Starting on Sat11/22/21 at 0627 documented in this encounter Additional Health Concerns Infection Onset Date Last Indicated Resolved Time COVID19 Pending 11/20/2021 11/20/2021 11/21/2021 12:04 AM CDT documented as of this encounter Care Teams Store Operations Associate Relationship Specialty Start Date End Date Elsewhere, Pcp PCP - General 04/21/18 documented as of this encounter
--- OUTSIDE RECORDS SUMMARY | 2021-12-29 11:45 | XMS_ITS | Encounter Summary ---
:1950 Author Organization [facility] Address [address] [place] [id number] Care Team Providers Name Role Phone Elsewhere, Pcp Primary Care Provider Unavailable Encounter Details Date Type Department Care Team Description 11/21/2021 Anesthesia Event RST ROMB MAIN OR Winnie Monteiro M.D. [address] [place] [phone] [place] [address] Deric oCok S, PAST DUE ACCOUNTS CLERK, HARNESS TIER, DNAP [address] [place] [phone] [place] [address] Anesthesia Record Procedure Summary Procedure Name Responsible Anesthesia Start Anesthesia Stop Time Anesthesiologist Time Posterior thoracic Winnie Monteiro M.D. 11/21/21 1452 11/21/21 191 spine fusion, proceed as indicated Events Date Time Event Comment 11/21/2021 1452 An Start Machine/Equipmen t Checked Infection Precautions Foll owed Procedure/Site Verified NPO Sta tus Verified Supine Standard ASA Mon itors Applied 1458 An Induction 1502 An Intubation 1519 Turnover to Proceduralist 1625 Proc Start 1850 Proc Fin 1858 Izabel Off 1905 Turnover to ANE Staff 1905 Airway Removal Criteria Met 1905 Extubation/Airway Removed 190 an stop data 1918 An End I completed my h andoff to the receiving staff during [facility] we 1. Identified the patient 2. Ident ified the responsible provider 3. Revi ewed the pertinent medical history 4. Discussed the surgical course 5. Review ed intra-op anesthesia management and i ssues during anesthesia 6. Set expectati ons for post-procedure period 7. Allowe d opportunity for questions and ac knowledgement of understanding. Name Total fentanyl injection 50 mcg/mL 250 mcg lidocaine 2% (mg) injection 40 mg propofol 10 mg/mL 150 mg propofol 10 mg/mL infusion 1,982.37 mg succinylcholine 20 mg/mL injection 170 mg phenylephrine 100 mcg/mL injection 100 mcg ondansetron 4 mg/2 mL injection 4 mg SUFentanil 5 mcg/mL in NaCl 0.9% 100 mL infusion (SUFE NTA) 129.7 mcg phenylephrine 20 mg/250 mL infusion 3.43 mg tranexamic acid in NaCl IVPB 1,000 mg (CYKLOKAPRON) 1, 000 mg tranexamic acid 8 mg/mL in NaCl 0.9% 250 mL infusion ( CYKLOKAPRON) 407.37 mg dexamethasone 4 mg/mL injection 4 mg ceFAZolin injection 2,000 mg (ANCEF) 2 g ketorolac 30 mg injection 15 mg Lactated Ringers Free Drip 800 mL lactated ringers free drip 600 mL Agents No agents on file. Blood Name Total AUTOLOGOUS RBC-CELL SALVAGE 413 mL Lines, Drains, and Airways Type Details Placement Removal Wound 11/21/21; 1720; N; 11/21/21 1720 by 11/21/21; Incision; Radha Cunningham, Spine; Medial, Upper R.N. Peripheral IV Placement Date: 11/20/21 0000 by 11/24/21 0000 b y 11/20/21; Existing LDA Myles Leija R.N. Mens inkNancy Placed by: [facility], R[facility]; Catheter Size: 20 G; Orientation: Right; Location: Antecubital; Removal Date: 11/24/21; Removal Reason: Patient discharged Peripheral IV Placement Date: 11/20/21 0000 by 11/22/21 1452 b y 11/20/21; Catheter Size: Myles Leija R.N. Me nsink, Nancy 18 G; Orientation: Left; M, R.N. Location: Antecubital; Removal Date: 11/22/21; Removal Time: 1451 ETT Placement Date: 11/21/21 1502 by 11/21/21 1905 b y 11/21/21; Placement Vini Eric Brown, Step hen E, Time: 150 (created via PAST DUE ACCOUNTS CLERK, HARNESS TIER PAST DUE ACCOUNTS CLERK, CR NA, DNAP procedure documentation); Mask Ventilation: Not attempted; Type: Standard ETT; Single Lumen Tube Size: 7 mm; Cuffed: Yes; Location: Oral; Grade View: Grade 1; Insertion Attempts: 1; Placement Verification: Bilateral breath sounds, Positive ETCO2, Symmetrical chest wall movement; Removal Date: 11/21/21; Removal Time: 1904 Arterial Line Placement Date: 11/21/21 1523 by 11/21/211944 b y 11/21/21; Placemnt Time: Vini Eric, Harsha sinhaGlendy guerrero 1522 (created via TERENCE KERN, R.N. procedure documentation); Size: 20 G; Orientation: Left; Location: Radial; Site Prep: Chlorhexidine (Preferred); Technique: Anatomical landmarks; Insertion Attempts: 2; Securement: Securement dressing, Securement device; Removal Date: 11/21/21; Removal Time: 1944; Removal Reason: Completion of therapy Indwelling Urinary Placement Date: 11/21/21 1530 by 11/22/21 190 0 by Catheter 11/21/21; Placement Celia Hill T ricia Time: 1529; Type: R, R.N. Double-lumen, Coude; Size: 12 Fr.; Balloon Size: 10 mL; Urine Returned: Yes; Removal Date: 11/22/21; Removal Time: 1899; Removal Reason: No longer in place (removed by service) documented in this encounter Social History Tobacco Use Types Packs/Day Years Used Date Smoking Tobacco: Never Smokeless Tobacco: Never Alcohol Use Standard Drinks/Week Comments Never 0 (1 standard drink = 0.6 oz pure alcoho l) Sex Assigned at Date Recorded Not on file documented as of this encounter OR Notes Anesthesia Postprocedure Evaluation - Winnie Monteiro M.D. - 11/30/2021 7:25 AM CDT Patient: Rajiv Restrepo Procedure Summary Date: 11/21/21 Room / Location: [address] / [facility] in [place], [place] Anesthesia Start: 1451 Anesthesia Stop: 1917 Procedure: Posterior thoracic spine fusion, proceed as indicated Diagnosis: Fracture Vertebra Thoracic Closed Initial (HCC) (Fracture Vertebra Thoracic Closed Initial (HCC) [S22.009A]) Providers: Wilmer Nevarez M.D. Responsible Provider: Winnie Monteiro M.D. Anesthesia Type: general ASA Status: 2 Anesthesia Type: general Last vitals Vitals Value Taken Time BP 145/84 11/21/211929 Temp 36.4 ??C 11/21/211914 Pulse 56 11/21/211929 Resp 15 11/21/211929 SpO2 88 % 11/21/211929 Please reference Vitals flowsheet for most recent vital signs. Anesthesia Post Evaluation Patient Disposition: general care unit Cardiovascular status: hemodynamics (HR & BP) acceptable Respiratory status: patent airway with spontaneous effort Temperature: normothermic Level of consciousness: awake Pain score: pain adequately controlled and/or at baseline Post Op nausea/vomiting: none Hydration status: euvolemic Anesthesia Procedure Notes - Vini Eric APRN, CRNA - 11/21/2021 3:23 PM CDTAssociated Order(s): Airway Airway Date/Time: 11/21/2021 3:02 PM Performed by: Vini Eric APRN, CRNA Authorized by: Rock Snow, M.B.B.S. Patient location during procedure: OR / Procedure Area PROCEDURE DETAILS: Mask difficulty assessment: not attempted Final airway type: video laryngoscope Laryngeal Manipulation: no Final best view of glottic structures - Cormack/Lehane Score: grade 1 ETT location: oral VL device: glide scope Bronaugh scope blade size: 4 Adult tube size: 7 Adult ETT distance at teeth/gum: 22 Oral tube type: standard ETT Cuffed: yes Number of attempt to successful placement: 1 Airway confirmation: bilateral breath sounds, positive ETCO2 and bilateral chest rise Other previous techniques attempted: none PRE PROCEDURE DETAILS: Pre evaluation for airway management: procedure Urgency: elective Preop assessment of probable difficulty: no difficulty anticipated Preoxygenation: bag valve mask SEDATION / ANESTHESIA Anesthesia method: anesthesia POST PROCEDURE DETAILS: Procedure outcome: successful Airway event: no complications Anesthesia Procedure Notes - Vini Eric APRN, CRNA - 11/21/2021 3:22 PM CDTAssociated Order(s): Invasive Catheter Invasive Catheter Performed by: Vini Eric APRN, CRNA Authorized by: Rock Snow M.B.B.S. Location: OR PROCEDURE DETAILS: Line type: arterial Laterality: left Location: radial Location details: new site Age group: adult Catheter diameter: 20 Ga Technique: palpation Monitored: yes Number of attempts: 2 UNIVERSAL PROTOCOL All relevant documentation and testing were reviewed and available. All required blood products, implants, devices and or special equipment were made available as applicable. Pre-procedure verificationwas conducted and the correct site was marked if required. A fire risk assessment was done as applicable. The procedural time-out to verify correct patient, correct side/site, and procedure was conducted prior to performing the procedure and confirmed in a procedural pause. PRE-PROCEDURE DETAILS: Appropriate hand hygiene, gown, cap, mask, protective eyewear, sterile gloves, skin preparation, sterile drape, and strict aseptic technique were utilized as applicable for the procedure.: yes Skin preparation: chlorhexidine SEDATION / ANESTHESIA Anesthesia method: anesthesia POST-PROCEDURE DETAILS: Procedure completed successfully: yes Line secured: secured with sutureless device Chlorhexidine disc around insertion site and under catheter with slight turn: yes Complications - arterial: none Anesthesia Preprocedure Evaluation - Rock Snow M.B.B.S. - 11/21/2021 12:45 PM CDT Preprocedure Anesthesia & H&P Assessment Procedure Summary Date/Time: 11/21/21 1130 Procedure: Posterior thoracic spine fusion, proceed as indicated Diagnosis: Fracture Vertebra Thoracic Closed Initial (HCC) [S22.009A] Pre-op diagnosis: Fracture Vertebra Thoracic Closed Initial (HCC) [S22.009A] Location: [place] [address] / [facility] in [place], [place] Providers: Wilmer Nevarez M.D. Pertinent components of the patient's history including current problem list, medical history, surgical history, family history, social history, medications and allergies were reviewed. Present illnessand pre-op diagnosis were confirmed. The planned surgery / procedure was verified with the patient /legal guardian. The patient's general health condition remains unchanged RELEVANT COMORBID CONDITIONS No relevant active problems OBJECTIVE PHYSICAL EXAMINATION Airway (HEENT) Mallampati: I TM Distance: >3 FB Neck ROM: Full Mouth Opening: >3 cm Upper Lip Bite Test Class: I Cardiovascular Rhythm: Regular Rate: Normal Cardiovascular Assessment: cardiovascular normal Functional Capacity: >4 METS Pulmonary Pulmonary Assessment: Clear General / Constitutional Constitutional Assessment: Normal General State of Health:: healthy appearing and calm ASSESSMENT / PLAN ANESTHESIA PLAN ASA: 2 Anesthesia Plan: general Patient seen and allergies reviewed, anesthesia plan and risks discussed directly with patient /legal guardian or through an motor vehicle parts interpreter. Risks/Benefits/Alternatives of Blood transfusion discussed with patient / legal guardian, including an opportunity to ask questions and/or decline some or all transfusion therapies. The patient / legalguardian consented to the use of all blood products, as deemed medically necessary Approval to Proceed: approved for anesthesia documented in this encounter Miscellaneous Notes Addendum Note - Winnie Monteiro M.D. - 12/04/2021 8:11 AM CDT Addendum created 12/04/21810 by Winnie Monteiro M.D. Attestation recorded in Intraprocedure, Intraprocedure Attestations filed Addendum Note - Winnie Monteiro M.D. - 12/04/2021 8:10 AM CDT Addendum created 12/04/21809 by Winnie Monteiro M.D. Intraprocedure Attestations deleted documented in this encounter Plan of Treatment Not on filedocumented as of this encounter Procedures Procedure Name Priority Date/Time Associated Comments Diagnosis LDA ANE ARTERIAL LINE Routine 11/21/2021 3:22 PM Results for this INSERTION CDT procedure are i n the results section. CA ARTL CATH/CNULA Routine 11/21/2021 3:22 PM Res ults for this MONITOR PERC CDT procedure are i n the results section. LDA ANE ENDOTRACHEAL Routine 11/21/2021 3:02 PM R esults for this AIRWAY CDT procedure are i n the results section. documented in this encounter Results CA ARTL CATH/CNULA MONITOR PERC, LDA ANE ARTERIAL LINE INSERTION (11/21/2021 3:22 PM CDT) Narrative Vini Eric APRN, CRNA - 11/21/2021 3:22 PM CDT Vini Eric APRN, CRNA ? 11/21/2021 ??3:23 PM Invasive Catheter Performed by: Vini Eric APRN, CRN A Authorized by: Rock Snow M.B.B. S. Location: OR PROCEDURE DETAILS: Line type: arterial [...] APRN, CRN A Authorized by: Rock Snow M.B.BIzabella SIzabella Patient location during procedure: OR / Procedure Area PROCEDURE DETAILS: Mask difficulty assessment: not attempte d Final airway type: video laryngoscope Laryngeal Manipulation: no ?? Final best view of glottic structures - Cormack/Lehane Score: grade 1 ETT location: oral VL device: glide scope Bronaugh scope blade size: 4 Adult tube size: [...] successful ?? Airway event: no complications Rock ReedB.SIzabella ANESTHESIA ORDERABLES documented in this encounter Visit Diagnoses Not on filedocumented in this encounter Administered Medications Inactive Administered Medications - up to 3 most recent administrations Medication Order MAR Action Action Date Dose Rate Site ceFAZolin injection 2,000 mg (ANCEF) Given 11/21/2021 4:06 PM CDT 2 g 2,000 mg (rounded from 2,525 mg = 25 mg/kg ? 101 kg Dosing weight), intravenous, Once, On Sat11/21/21 at 1315, For 1 dose, Intra-Op, Preoperatively within 1 hour prior to surgical incision If needed, reconstitute vial per package insert instructions. See IVAG for administration guidelines. , Drug Monitoring Program: Pharmacist to adjust medication dosing based on indication and drug clearance factors., Indications: Prophylaxis, surgical dexAMETHasone injection (DECADRON) Given 11/21/2021 3:40 PM CDT 4 mg intravenous, As needed, Starting on Sat11/21/21 at 1540, Anesthesia Intra-op fentaNYL injection (SUBLIMAZE) Given 11/21/2021 2:58 PM CDT 250 mcg intravenous, As needed, Starting on Sat11/21/21 at 1458, Anesthesia Intra-op ketorolac injection (TORADOL) Given 11/21/2021 6:02 PM CDT 15 mg intravenous, As needed, Starting on Sat11/21/21 at 1802, Anesthesia Intra-op lactated ringers New Bag 11/21/2021 2:58 PM CDT intravenous, Continuous Infusion: Per Instructions PRN, Starting on Sat11/21/21 at 1458, Anesthesia Intra-op lactated ringers New Bag 11/21/2021 3:55 PM CDT intravenous, Continuous Infusion: Per Instructions PRN, Starting on Sat11/21/21 at 1555, Anesthesia Intra-op lidocaine (PF) (cardiac) injection Given 11/21/2021 2:58 PM CDT 40 mg intravenous, As needed, Starting on Sat11/21/21 at 1458, Anesthesia Intra-op ondansetron (PF) injection (ZOFRAN) Given 11/21/2021 6:02 PM CDT 4 mg intravenous, As needed, Starting on Sat11/21/21 at 1802, Anesthesia Intra-op phenylephrine 80 mcg/mL in Rate/Dose 11/21/2021 5:14 0.2 mcg/kg/min 15.21 NaCl 0.9% 250 mL infusion Change PM CDT mL/hr intravenous, Continuous Infusion: Per Instructions PRN, Starting on Sat11/21/21 at 1458, Anesthesia Intra-op Rate/Dose Change 11/21/2021 4:30 PM CDT 0.1 mcg/kg/min 7.605 mL/hr New Bag 11/21/2021 2:58 PM CDT 0.2 mcg/kg/min 15.21 mL/hr phenylephrine injection Given 11/21/2021 2:58 PM CDT 100 mcg intravenous, As needed, Starting on Sat11/21/21 at 1458, Anesthesia Intra-op propofol 10 mg/mL infusion Rate/Dose 11/21/2021 5:40 90 mcg/kg/min 5 4.756 (DIPRIVAN) Change PM CDT mL/hr intravenous, Continuous Infusion: Per Instructions PRN, Starting on Sat11/21/21 at 1458, Anesthesia Intra-op Rate/Dose Change 11/21/2021 4:14 PM CDT 100 mcg/kg/min 60.84 mL/hr Rate/Dose Change 11/21/2021 3:30 PM CDT 125 mcg/kg/min 76.05 mL/hr propofoL injection (DIPRIVAN) Given 11/21/2021 2:58 PM CDT 150 mg intravenous, As needed, Starting on Sat11/21/21 at 1458, Anesthesia Intra-op succinylcholine (PF) injection (ANECTINE ) Given 11/21/2021 2:58 PM CDT 170 mg intravenous, As needed, Starting on Sat11/21/21 at 1458, Anesthesia Intra-op SUFentanil 5 mcg/mL in Rate/Dose Change 11/21/2021 [...] to adjust infusion dose for renal function. tranexamic acid in NaCl IVPB 1,000 mg Given 11/21/2021 3:22 PM C DT 1,000 mg (CYKLOKAPRON) 1,000 mg (rounded from 1,010 mg = 10 mg/kg ? 101 kg Dosing weight), intravenous, at 300 mL/hr, Administer over 20 Minutes, Once in surgery, OR use only, Starting on Sat11/21/21 at 1310, For 1 dose, Intra-Op Transfuse autologous RBC (Cell Salvage) : New Bag 11/21/2021 6:14 PM CDT Routine documented in this encounter Care Teams Channel Process Plant Operator Relationship Specialty Start Date End Date Elsewhere, Pcp PCP - General 04/21/18 documented as of this encounter
--- OUTSIDE RECORDS SUMMARY | 2021-12-29 11:45 | XMS_ITS | Encounter Summary ---
:1950 Author Organization [facility] Address [address] [place] [address] Care Team Providers Name Role Phone Elsewhere, Pcp Primary Care Provider Unavailable Encounter Details Date Type Department Care Team Description 11/22/2021 Clinical Communication [facility] Main Phar Anirudh Unger, [address] [facility] C.Ph.T. [place], [place] [phone] (Work) [phone] Social History Tobacco Use Types Packs/Day Years [...] on filedocumented in this encounter Care Teams Process Controls Technician Relationship Specialty Start Date End Date Elsewhere, Pcp PCP - General 04/21/18 documented as of this encounter
--- OUTSIDE RECORDS SUMMARY | 2021-12-29 11:45 | XMS_ITS | Encounter Summary ---
:1950 Author Organization [facility] Address [address] [place] [address] Care Team Providers Name Role Phone Elsewhere, Pcp Primary Care Provider Unavailable Reason for Visit Reason Comments Fall Back Pain Encounter Details Date Type Department Care Team Description 11/21/2021 Surgery RST ROMB HUY OR Wilmer Nevarez Posterior thoracic spine [address] Des[address] [place]tt fusion, [place] [address] [address] [facility] indicated [phone] [place] [phone] Social History Tobacco Use Types Packs/Day Years Used Date Smoking Tobacco: Never Smokeless Tobacco: Never Tobacco Cessation: Counseling Given: Not Answered Alcohol Use Standard Drinks/Week Comments Never 0 (1 standard drink = 0.6 oz pure alcoho l) Sex Assigned at Date Recorded Not on file documented as of this encounter Last Filed Vital Signs Vital Sign Reading Time Taken Comments Blood Pressure 145/84 11/21/2021 7:30 PM CDT Pulse 56 11/21/2021 7:30 PM CDT Temperature 36.4 ??C (97.5 ??F) 11/21/2021 7:15 PM CDT Respiratory Rate 15 11/21/2021 7:30 PM CDT Oxygen Saturation 88% 11/21/2021 7:30 PM CDT Inhaled Oxygen Concentration - - Weight 101 kg (223 lb 8.7 oz) 11/21/2021 12:09 AM CDT Height 176.8 cm (5' 9.6) 11/21/2021 12:09 AM CDT Body Mass Index 34.33 11/21/2021 12:09 AM CDT documented in this encounter Discharge Summaries Jameson Osullivan M.D. - 11/24/2021 7:48 AM CDT DISCHARGE SUMMARY BRIEF OVERVIEW Hospital: [facility] Discharge Provider: Wilmer Nevarez M.D. Primary Team: [facility] Orthopedic Surgery - Geri Primary Care Providers: [...] as indicated Wilmer Nevarez M.D.Hadley, Matthew L, M.D.Vince Dye M.D., Ph.D. [facility] ROMB OR DISCHARGE DISPOSITION Home or Self [...] may contact Dr. Nevarez's service through the [facility] concaving machine operator at . Please note, this number [...] Discharge information provided on 11/23/2021 Contact information: {[facility] CONTACT #'[id number]} AttachmentsThe following attachments cannot be sent through Care Everywhere. Acetaminophen (By mouth) (Palauan)Diazepam (By mouth) (Palauan)Hydromorphone (By mouth) (Palauan)Senna (By mouth) (Palauan)documented in this encounter Medications at Time of [...] needs met and questions answered. Outcome Measures [facility] Inpatient Short Form: -[facility] Basic Mobility (V.2) How much help [...] 3-5 steps with a railing?: A Little -[facility] Basic Mobility (V.2) Raw Score: 23 -[facility] Basic Mobility (V.2) Standardized Score: 50.88 Interpretation: Clinicians answer the -[facility] Inpatient Short Form based on observed [...] as indicated Wilmer Nevarez M.D.Hadley, Matthew L, M.D.Vince Dye M.D., Ph.D. RST ROMB OR [...] time on the weekend, please contact the [facility] Orthopedic Surgery house resident outside production inspector at [phone]. Radha Davis OTS - 11/23/2021 2:31 PM CDT Occupational Therapy [...] home. Handouts provided today: Bathroom Safety Equip. [id number] , Preventing Falls [id number], Home Safety Suggestions [id number], and Adaptive Equipment Catalog/List of Vendors Team Communication: Patient's nurse was contacted and patient's status was discussed Outcome Measures [facility] Inpatient Short Form: Putting on and taking [...] Standardized Score: 51.12 Interpretation: Clinicians answer the [facility] Inpatient Short Form based on observed patient [...] needs met and questions answered. Outcome Measures [facility] Inpatient Short Form: -[facility] Basic Mobility (V.2) How much help [...] 3-5 steps with a railing?: A Little -[facility] Basic Mobility (V.2) Raw Score: 20 AM-[facility] Basic Mobility (V.2) Standardized Score: 43.99 Interpretation: Clinicians answer the -[facility] Inpatient Short Form based on observed [...] Treatment Time (min): 25 min Ana Luisa RussoPIzabellaT. Jameson Osullivan M.D. - 11/23/2021 6:47 AM [...] s/p T6-T11 posterior spinal fusion (Geri, 11/22/21). Patient is doing well postoperatively. Patient [...] time on the weekend, please contact the [facility] Orthopedic Surgery house resident outside production inspector at [phone]. Zoya Edgar L.I.C.S.W., M.S.W. - 11/22/2021 4:58 [...] of this visit. Deven Mcdaniel, M.S.W. 11/22/21 Vince Dye M.D., Ph.D. - 11/22/2021 6:34 [...] s/p T6-T11 posterior spinal fusion (Geri, 11/22/21). Pertinent PMH (and implications for clinical [...] 6 am until 6 pm, please page [place] service. If outside of 06:00 - 18:00 on weekdays or any time on the weekend, please contact the [facility] Orthopedic Surgery house resident outside production inspector at [phone]. Vince Dye MD, PhD Spine Surgery Fellow [facility] Orthopedic Surgery [phone] Jameson Osullivan M.D. - 11/21/2021 7:21 PM CDT Orthopedic Service: [facility] Admission Day: 11/20/2021 SUBJECTIVE Mr. Restrepo was [...] 6 am until 6 pm, please page [facility] at [phone] For urgent matters from 6 pm until 6 am, please page [facility]. Radha Akbar OTS - 11/21/2021 4:02 PM CDT 11/21/21 1602 Reason Therapy Missed Reason Therapy Missed Medical hold OT was unable to see patient today as patient had a procedure in the OR scheduled for today and has activity orders of bedrest until after surgery. OT will visit at a later time. SALUD Bueno Sandy Blair PharmIzabellaD., R.Ph. - 11/21/2021 10:12 AM CDT Images [...] days, consider resuming montelukast Med profile reviewed Pharm. ClintDIzabella, R.Ph. Admission Medication History Note Adherence issues: [...] times a day as needed for pain. HardikVince piedra M.D., Ph.D. - 11/21/2021 7:49 AM CDT Spine Surgery Fellow Attestation I have personally conducted a history and physical examination of this patient. Patient was discussed with outside production inspector resident and films were reviewed personally by me. I agree with the HPI, PMH, allergies, medications, social history, family history, [...] Spine Surgery Fellow Department of Orthopedic Surgery [phone] Jameson Osullivan M.D. - 11/21/2021 6:33 AM CDT Orthopedic Service: [facility] Admission Day: 11/20/2021 SUBJECTIVE Mr. Restrepo was [...] 6 pm, please page [facility] service at [phone] For urgent matters from 6 pm until 6 am, please page [facility]. documented in this encounter H&P Notes Wilmer [...] - 11/21/2021 7:21 PM CDT Orthopedic Service: [facility] Admission Day: 11/20/2021 SUBJECTIVE Mr. Restrepo was [...] 6 am until 6 pm, please page [place] service at [phone] For urgent matters from 6 pm until 6 am, please page Ortho House. documented in this encounter Consult Notes Radha [...] as indicated; Surgeon: Wilmer Nevarez M.D.; Location: [facility] ROMB OR History of Present Illness:71 y.o. [...] Independent Occupational Role: Retired Occupational Role Comments: [employer] Leisure Interests: model train, read, woodworking Prior Mobility/Functional Transfers Level of Dwight: Independent Home Living Type of Home: House [...] Handouts provided today: Rehabilitation After Spine Surgery [id number] Team Communication: Patient's nurse was contacted and patient's status was discussed, Discussed patient's care with PT Outcome Measures [facility] Inpatient Short Form: Putting on and taking [...] Standardized Score: 44.27 Interpretation: Clinicians answer the [facility] Inpatient Short Form based on observed patient [...] as indicated; Surgeon: Wilmer Nevarez M.D.; Location: [facility] ROMB OR History of Present Illness: 71 [...] Independent Occupational Role: 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 Outcome Measures -[facility] Inpatient Short Form: -[facility] Basic Mobility (V.2) How much help [...] 3-5 steps with a railing?: A Lot -[facility] Basic Mobility (V.2) Raw Score: 18 AM-[facility] Basic Mobility (V.2) Standardized Score: 41.05 Interpretation: Clinicians answer the -[facility] Inpatient Short Form based on observed [...] min Total Treatment Time (min): 39 min Ana Luisa RussoP.TIzabella Sergio Perea M.B., B.Ch. - 11/21/2021 12:55 [...] - No placement of more than 10-12 Italian Robertson catheter - Robertson catheter has to [...] consult (hospital) REFERRAL SOURCE Spine Surgery consult ([facility]) Referring Provider: Mark Brooks M.D. SUBJECTIVE CHIEF COMPLAINT: back pain [...] detected. The patient was subsequently transferred to [place] for further evaluation and care. Patient notes [...] Extremity Motor: Delt Bi Tri WE WF Wellhead Pumper Fing Flex Fing Abd RIGHT 5 5 [...] FULL CODE. Please contact Spine Surgery at [phone] with any questions or concerns regarding management [...] OR with instrumentation #5 Allograft bone grafting; Watts Bone Bank femoral head Following correct identification [...] fascial incision. This was morselized, combined with Watts Bone Bank femoral head. The bone graft [...] in this encounter ED Notes Maxine Lorenz, Jazmín., M.P.H. - 11/20/2021 11:23 PM CDT Care of patient transferred to [place] by Outgoing team. Disposition pending Spine surgery consult. Mr. Restrepo is a very pleasant 71 year old male who presents to [facility] ED from outside ED with back pain after a fall from 4 feet onto an uneven amaya surface. At the time accepted care of the patient weare awaiting spine evaluation. VITAL SIGNS BP 144/88 Pulse 74 Temp 36.4 ??C (Oral) Resp 18 Ht 175.3 cm SpO2 95% ED Course as of 11/20/21 2334 Mon Nov 20, 2021 2250 Patient experiencing emesis. Will give Zofran. [address] Spine Acute T8-T9 fracture with mild distraction at the T9 superior endplate, suggesting anterior longitudinal ligament injury, and extension across the T8-9 intervertebral disc. 2322 Will be admitted to spine for further care. 2334 Patient remains nauseous. Will provide additional doses Zofran. Final Diagnoses: as of 11/20/21 2334 Fracture Vertebra Thoracic Closed Initial (HCC) Maxine Lorenz D.O., M.P.H. Resident 11/20/212323 Mark Brooks M.D. - 11/20/2021 9:34 PM CDT SUBJECTIVE CHIEF COMPLAINT/REASON FOR VISIT Fall and Back Pain HISTORY OF PRESENT ILLNESS The patient is a 71-year-old male sent from the [facility] for evaluation of back pain. Earlier today [...] Heart Rate Resp Rate Blood Pressure SpO2 11/20/21 1902 11/20/21 1935 11/20/21 1902 11/20/21 19011/20/21 19011/20/211901 37 ??C 71 67 18 [...] has been consulted. Final Diagnoses: as of 11/21/211655 Fracture Vertebra Thoracic Closed Initial (HCC) I [...] OF PRESENT ILLNESS History provided by: Patient production control coordinator needed/used: no Mr. Restrepo is a very pleasant 71 year old male who presents to [facility] ED from outside ED with back [...] on the ride from outside ED to [facility] but that has resolved. He endorses [...] repair in May 2021. He lives in [place] with his . He is retired. Did [...] Heart Rate Resp Rate Blood Pressure SpO2 11/20/21 1902 11/20/21 1935 11/20/21 1902 11/20/21 19011/20/21190111/20/211901 37 ??C 71 67 18 146/82 96 [...] infection, multiple strokes and cerebral hemorrhage in 2010 following surgery for prostate cancer. He presented to [facility] ED from [facility] after a fall and back injury with [...] mg IV hydromorphone for pain. Sarah Adams, MS4 Sarah Adams 11/20/212108 Julee Lamar R.N. - [...] may contact Dr. Nevarez's service through the [facility] concaving machine operator at . Please note, this number [...] and all Thoracic Closed 03/24/2022 outpatients) Initial ([facility]) (Approximate), Expires: 11/21/2022 DX Thoracic Spine 2 Imaging RAD - Routine (most Fracture Verte bra Expected: Views inpatients and all Thoracic Closed 2022, outpatients) Initial ([facility]) Expires: 02/21/2023 Scheduled Referrals Name Type Priority [...] Jameson Osullivan M.D. IMG DIAGNOSTIC IMAGING PROCE [facility] ECG 12 Lead (11/24/2021 5:53 AM CDT) P athologist Signature Ventricular Rate 79 BPM MUSE ECG/Min NM Interval 170 ms MUSE QRSD Interval 110 ms MUSE QT Interval 380 ms MUSE QTC Interval 435 ms MUSE P Marathon 19 degrees MUSE R Marathon -43 degrees MUSE T Wave Marathon 28 degrees MUSE Specimen Anatomical Collection Method [...] compared with ECG of 20-NOV-2021 21 :42, NM interval has decreased Reviewed by ROXANNA Loya [...] compared with ECG of 20-NOV-2021 21 :42, NM interval has decreased Reviewed by ROXANNA Loya [...] Organization Address City/State/ZIP Code Phon e Number [facility] - [address] [place], [place] [address] [place] [address] Laboratories-[facility] [address] [facility] Basic Metabolic Panel (11/23/2021 3:41 AM CDT) [...] Organization Address City/State/ZIP Code Phon e Number [facility] - [address] [place] [address] [place] [address] [facility] [address] [facility] (ABNORMAL) CBC without Differential (11/22/2021 5:06 AM CDT) [facility] Method Time Signature Hemoglobin 14.0 13.2 - [...] Organization Address City/State/ZIP Code Phon e Number [facility] - [address] [place], [place] [address] [place] [address] [facility] [address] [facility] Basic Metabolic Panel (11/22/2021 5:06 AM CDT) P athologist Signature Potassium, S 4.5 3.6 - [...] Organization Address City/State/ZIP Code Phon e Number [facility] - [address] [place], [place] [address] [place] [address] [facility] [address] [facility] Transfuse autologous RBC (Cell Salvage) : (11/21/2021 [...] M.D. IMG FLUOROSCOPY PROCEDURES Performing Organization Address City/[facility]/ZIP Code Phon e Number 152 HOS LOS RST IONM - EMG (11/21/2021 8:33 AM CDT) Specimen (Source) Anatomical Collection Method Collection Time Re ceived Time Location / / Volume Laterality 11/21/2021 9:00 AM CDT Narrative [facility] EMG - 11/21/2021 6:24 PM CDT Table formatting from the original result was not included. 21-Nov-2021 ? Intraopera tive Monitoring ? Final Report Study Number: 1 EMG Disc Sander: Dank Huffman . [phone] or [phone] Referred by: WILMER NEVAREZ (127 or [phone]) Referred for: Referral Code: ?1954 RX: 1954 [...] for continuous and immediate communication directly with [facility] operating room team in the surgical suite. T. Nathanael (127 or [phone])/[facility] Surgery ? Staff Minutes Start-DateTime End-DateFormerly [facility] e Remote Simultaneous Supervision 0 2021 00:00 AM BULK PLANT SUPERVISOR 11/21/2021 00:00 AM BULK PLANT SUPERVISOR Remote Exclusive (1:1) Supervision 149 1 15:36 PM BULK PLANT SUPERVISOR 11/21/2021 18:05 PM BULK PLANT SUPERVISOR In-Room Exclusive (1:1) Supervision 0 00:00 AM BULK PLANT SUPERVISOR 11/21/2021 00:00 AM BULK PLANT SUPERVISOR Total Monitoring Time: 149 ?? This interpretation has been electron ically signed: Dank Huffman MD at 11/21/2021 6:21:07 PM CDT Procedure Note Dank Huffman M.D. - 11/22/2021Formatt ing of this note is different from the original. 21-Nov-2021 Intraoperative Monitoring Fi nal Report Study Number: 1 EMG Disc Sander: Dank Huffman . [phone] or [phone] Referred by: WILMER NEVAREZ (127 or [phone]) Referred for: Referral Code: 1956 RX: 1954 SUMMARY: Somatosensory evoked potentials (SEPs) [...] the surgical suite. Oscar Huffman (127 or [phone])/[facility] Surgery Staff Minutes Start-DateTime End-DateTim e Remote Simultaneous Supervision 0 2021 00:00 AM BULK PLANT SUPERVISOR 11/21/2021 00:00 AM BULK PLANT SUPERVISOR Remote Exclusive (1:1) Supervision 149 1 15:36 PM BULK PLANT SUPERVISOR 11/21/2021 18:05 PM BULK PLANT SUPERVISOR In-Room Exclusive (1:1) Supervision 0 00:00 AM BULK PLANT SUPERVISOR 11/21/2021 00:00 AM BULK PLANT SUPERVISOR Total Monitoring Time: 149 This interpretation has [...] POC, V Asymptomatic (11/20/2021 11:41 PM CDT) [facility] Method Time Signature SARS Undetected Undetected 11/21/2021 DTLR Coronavirus-2 12:03 AM CDT , RNA, Rapid POC, V Comment: Negative for SARS-CoV-2. The SlapVid COVID-19 test is a molecular una t for SARS-CoV-2, the virus that causes COVID- 19. A Negative result means that the SlapVid COV ID-19 test did not detect SARS-CoV-2 virus in your sample. SlapVid COVID-19 test uses the eCollect nitoring System. This test has received Emergency Use Authorization (EUA) by the U.S. Food and Drug Administration (FDA) and is used per man ufacturer instructions. Performance characteristic s were verified by [facility] in a manner consistent with CLIA requirements. Fact sheets for this Emerg ency Use Authorization (EUA) can be found at the following links: Providers: https://CyActive.VeedMe/documentation/prov iders.pdf Patients: https://CyActive.VeedMe/documentation/katrin ents.pdf SARS Coronavirus 2, Source Nasopharynx DEFAULT 11/21/2021 12:03 AM CDT DTLR Specimen Anatomical Collection Method Collection Time Receive d Time (Source) Location / / Volume Laterality Swab 11/20/2021 11:41 11/20/2021 (Nasopharynx) PM CDT 11:41 PM CDT Alisia Moy APRNNIzabellaP., M.S.N. LAB MICROBIOLOGY - [facility] ORDERABLES Performing Organization Address City/State/ZIP Code Phon e Number PERFORMING LABS, REF [place] [address] INTERFACE Ref Interface [address] [facility] DTLR Performing Labs, [place] [address] [facility] ECG 12 Lead (11/20/2021 9:42 PM CDT) P athologist Signature Ventricular Rate 57 BPM MUSE ECG/Min NM Interval 208 ms MUSE QRSD Interval 118 ms MUSE QT Interval 462 ms MUSE QTC Interval 449 ms MUSE P Marathon 20 degrees MUSE R Marathon -49 degrees MUSE T Wave [place] 35 degrees MUSE Specimen Anatomical Collection Method Collection Time Receive d Time (Source) Location / / Volume Laterality 11/20/2021 9:42 PM 9:50 CDT PM CDT Impressions MUSE - [...] No previous ECGs available Reviewed by ROXANNA Qiuntero Mark Brooks M.D. ECG ORDERABLES Performing Organization Address City/State/ZIP [...] POCT ORDERABLES - DEVICE Performing Organization Address City/[facility]/ZIP Code Phon e Number POC [facility] [address] [place] [address] PCLX [facility] [place] [address] [facility] Hepatic Function Panel (11/20/2021 8:22 PM CDT) [...] M.D. LAB BLOOD ADD-ON Performing Organization Address City/[facility] Phon e Number [facility] - [address] [place], [place] [address] [place] [address] Type and Screen (with reflex Antibody ID) (11/20/2021 8:22 PM CDT) Patholo gist Method Time Signature ABORh A Pos Not 11/20/2021 STRM applicable 8:57 PM CDT Antibody Negative Negative 11/20/2021 STRM Screen 9:04 PM CDT Type & Screen 11/23/2021 11/20/2021 STRM Expiration 23:59 8:57 PM CDT Testing Kinta DEFAULT 11/20/2021 STRM Location 8:30 PM CDT Specimen Anatomical Collection Method Collection Time Receive d Time (Source) Location / / Volume Laterality Blood (Blood, 11/20/2021 8:22 PM 11/21/19 8:30 Venous) CDT PM CDT Mark Brooks M.D. LAB BLOOD BANK TEST ORDERABL ES Performing Organization Address City/[facility] Phon e Number [facility] - [address] [place], [place] [address] [place] [place] [address] APTT (Activated Partial Thromboplastin Time) (11/20/2021 8:22 PM CDT) P athologist Signature Activated 31 25 - 37 sec 11/20/2021 STMA Partial 8:38 PM CDT Thrombopl Time, P Specimen Anatomical Collection Method Collection Time Receive d Time (Source) Location / / Volume Laterality Blood (Blood, 11/20/2021 8:22 PM 11/21/19 8:29 Venous) CDT PM CDT Mark Brooks M.D. LAB BLOOD ADD-ON Performing Organization Address City/[facility] Code Phon e Number [facility] - [address] [place] [address] [place] [address] [facility] [address] [facility] Prothrombin Time (PT) (11/20/2021 8:22 PM CDT) P athologist Signature Prothrombin 11.7 9.4 - 12.5 [facility] P sec 8:35 PM CDT INR 1.1 0.9 - 1.1 11/20/2021 [facility] 8:35 PM CDT Comment: ----ADDITIONAL INFORMATION---- Standard intensity warfarin therapeutic range: 2.0 to 3.0 ?? High intensity warfarin therapeutic rang e: 2.5 to 3.5 Specimen Anatomical Collection Method Collection Time Receive d Time (Source) Location / / Volume Laterality Blood (Blood, 11/20/2021 8:22 PM 11/21/19 8:29 Venous) CDT PM CDT Mark Brooks M.D. LAB BLOOD ADD-ON Performing Organization Address City/[facility] Code Phon e Number [facility] - [address] [place] [address] [place] [address] Laboratories-[address] (ABNORMAL) CBC with Differential, Blood (11/20/2021 8:22 PM CDT) [facility] Method Time Signature Hemoglobin 16.1 13.2 [...] M.D. LAB BLOOD ADD-ON Performing Organization Address City/[facility] Phon e Number [address] [address] [place] [address] Ethanol Level, Serum (11/20/2021 8:22 PM CDT) P athologist Signature Ethanol, S <10 <10 mg/dL 11/20/2021 9:08 DTL PM CDT Specimen Anatomical Collection Method Collection Time Receive d Time (Source) Location / / Volume Laterality Blood (Blood, 11/20/2021 8:22 PM 11/21/19 22 8:45 Venous) CDT PM CDT Mark Brooks M.D. LAB BLOOD NON ADD-ON Performing Organization Address City/[facility]/ZIP Code Phon e Number [facility] - [address] [place], [place] [address] [place] [address] Laboratories-[address] (ABNORMAL) Basic Metabolic Panel (11/20/2021 8:22 PM [...] City/State/ZIP Code Phon e Number [facility] - [address] [place], [place] [address] [facility] [place] [address] Laboratories-[address] AST (Aspartate Aminotransferase) (11/20/2021 8:22 PM CDT) Patholo gist Method Time Signature Aspartate 32 8 - 48 11/20/2021 STMA Aminotransferase U/L 8:48 PM CDT (AST), P Specimen Anatomical Collection Method Collection Time Receive d Time (Source) Location / / Volume Laterality Blood (Blood, 11/20/2021 8:22 PM 11/21/19 8:28 Venous) CDT PM CDT Mark Brooks M.D. LAB BLOOD ADD-ON Performing Organization Address City/[facility]/ZIP Code Phon e Number [facility] - [address] [place], [place] [address] [facility] [place] [address] [facility] [address] [facility] Amylase, Total (11/20/2021 8:22 PM CDT) P athologist Signature Amylase, Total, 62 28 - 100 11/20/2021 DTL S U/L 9:08 PM CDT Specimen Anatomical Collection Method Collection Time Receive d Time (Source) Location / / Volume Laterality Blood (Blood, 11/20/2021 8:22 PM 11/21/19 22 8:45 Venous) CDT PM CDT Mark Brooks M.D. LAB BLOOD ADD-ON Performing Organization Address City/[facility]/ZIP Code Phon e Number [facility] - [address] [place], [place] [address] [facility] [place] [place], [place] [id number] [place] [address] [facility] Lactate, POCT (11/20/2021 8:22 PM CDT) Analysis Performed At Patho logist Time Signature Lactate, POCT Collected DEFAULT 11/20/2021 SMLX 8:22 PM CDT Specimen Anatomical Collection Method Collection Time Receive d Time (Source) Location / / Volume Laterality Blood (Blood, 11/20/2021 8:22 PM 11/21/19 8:22 Venous) CDT PM CDT Mark Brooks M.D. LAB POCT ORDERABLES - DEVICE Performing Organization Address City/[facility]/ZIP Code Phon e Number [facility] - [address] [place], [place] [address] [facility] [place] [address] [place] [address] [facility] Thromboelastograph, Kaolin, Blood (11/20/2021 8:20 PM CDT) P athologist Signature R, Kaolin, TEG 6.1 4.0 - 9.0 11/20/2021 STMA min 9:43 PM CDT K, Evonolin, TEG 1.4 1.0 - 1.8 11/20/2021 STMA min 9:43 PM CDT Angle, Kaolin, 68.9 64.0 - 78.1 11/20/2021 STMA TEG degrees 9:43 PM CDT MAEvonolin, 64.3 57.1 - 72.6 11/20/2021 STMA TEG [...] Organization Address City/State/ZIP Code Phon e Number [facility] - [address] [place] [address] [place] [address] Laboratories[address] Interpretation of Outside CT Spine (11/20/2021 [...] No acute traumatic findings in the cervi toim spine. Mark [address] CT PROCEDURES Interpretation of Outside CT Head [...] No acute intracranial findings. Mark Brooks M.D. G CT PROCEDURES Interpretation of Outside CT Chest [...] for further characterization. Mark GREENWOOD CT PROCEDURES documented in this encounter Visit Diagnoses Diagnosis Fracture Vertebra Thoracic Closed Initia l (HCC) - Primary Fracture Vertebra Thoracic Closed Initia l (HCC) Difficulty In Walking Not Elsewhere Clas sified [R26.2 (ICD-10-CM)] Decline Functional Status [R53.81 (ICD-1 0-CM)] Fracture Vertebra Thoracic Closed Initia l (HCC) documented in this encounter Admitting Diagnoses Diagnosis Fracture Vertebra Thoracic Closed Initia l (HCC) documented in this encounter Administered Medications Inactive Administered Medications - up to 3 most recent administrations Medication Order MAR Action Action Date Dose Rate Site acetaminophen tablet 1,000 mg Given 11/24/2021 1:57 PM CDT 1,000 mg (TYLENOL) 1,000 mg, oral, Every 6 hours PRN, [...] polyethylene glycol, then bisacodyl until BM achieved. bupivacaine HCl 0.25 % (2.5 mg/mL) Given 11/21/2021 6:17 PM CDT 30 mL Back injection (MARCAINE) As needed, Starting on Sat11/21/21 at 1817, Intra-Op bupivacaine liposome (PF) 266 mg/20 mL Given 11/21/2021 6:17 PM CDT 20 mL Back (13.3 mg/mL) injection (EXPAREL) As needed, Starting on Sat11/21/21 at 1817, Intra-Op calcium citrate-vitamin D3 315 mg-5 mcg Given 11/24/2021 8:40 AM CDT 2 tablets (200 Unit) per tablet 2 tablet (CITRACAL+D) 2 tablet, oral, 2 times daily, First dose on Sat11/21/21 at 0900 Given 11/23/2021 8:53 PM CDT 2 tablets Given 11/23/2021 8:00 AM CDT 2 tablets diazePAM tablet 5 mg (VALIUM) Given 11/24/2021 8:40 AM CDT 5 mg 5 mg, oral, 4 times daily PRN, muscle spasms, Starting on Sat11/23/21 at 0700 Given 11/24/2021 2:55 AM CDT [...] Given 11/22/2021 9:09 AM CDT 1 puff gelatin absorbable powder (GELFOAM) Given 11/21/2021 5:00 PM CDT 2 g Back As needed, Starting on Sat11/21/21 at 1700, Intra-Op HYDROmorphone tablet 2 mg (DILAUDID) Given 11/24/2021 [...] Daily, First dose on Sat11/23/21 at 0900 Given 11/23/2021 8:00 AM CDT 1 tablet NaCl 0.9% infusion Continued from OR 11/21/2021 9:59 PM CDT 75 mL/hr 75 mL/hr 75 mL/hr, intravenous, Continuous, Starting on Sat11/21/21 at 0030, Discontinue when patient taking greater than 500 ml oral fluids daily New Bag 11/21/2021 1:23 AM CDT 75 mL/hr 75 mL/hr polyethylene glycol powder packet 1 packet Given 11/24 8:41 AM CDT 1 packet (MIRALAX) 1 packet, oral, Daily, First dose on Sat11/21/21 at 0900, Ordered sequence of administration: polyethylene glycol, then bisacodyl until BM achieved. Avoid mixing with starch-based thickened liquids. Given 11/23/2021 8:00 AM CDT 1 packet Given 11/22/2021 8:47 AM CDT 1 packet povidone iodine 0.25% in NaCl 0.9% Given 11/21/2021 5:27 PM CDT 1,000 mL irrigation solution irrigation, Once in surgery, OR use only, Starting on Sat11/21/21 at 1310, For 1 dose, Intra-Op, IRRIGATION USE ONLY sennosides-docusate sodium 8.6-50 mg per Given 11/24/2021 [...] 5:07 PM CDT 0.35 mcg/kg/hr 7.07 mL/hr thrombin (bovine) topical solution Given 11/21/2021 5:00 PM CDT 3 vials Back (THROMBIN-JMI) As needed, Starting on Sat11/21/21 at 1700, Intra-Op tranexamic acid 8 mg/mL in New Bag [...] 11/23/2021 11/24/[address] tablet 81 mg 0801 (Given - Provider: Nancy Potts R.N.) 0840 (Given - Provider: Nancy Potts, R.N.) 81 mg, oral, Daily, First dose on Autumn at 0900, Swallow whole. Do NOT crush, chew, or split tablet. atorvastatin tablet 40 mg (LIPITOR) 2134 (Given - Prov ider: Yanique Molina R.N.) 2052 (Given - Provider: Yanique Molina R.N.) 40 mg, oral, Daily at bedtime, First dose on Sat11/21/21 at 2100 calcium citrate-vitamin D3 315 mg-5 mcg (200 Unit) per tablet 2 tablet (CITRACAL+D) 0847 (Given - Provider: Nancy garcia RIzabellaN.)2135 (Given - Provider: Mary Lou GagnonNIzabella) 0800 (Given - Provider: Nancy garcia RIzabellaN.)2053 (Given - Provider: Yanique Molina RIzabellaNIzabella) 0840 (Given - Provider: Nancy Potts R.N.) [...] R.N.) 0600 (Given - Provider: Romain Yun RCarie) 1 puff, inhalation, Daily (RT), First do [...] Nancy Potts R.N.) 0841 (Given - Provider: Rei Higuera.N.) 1 tablet, oral, Daily, First dose on Sat11/23/21 at 0900 polyethylene glycol powder packet 1 packet (MIRALAX) 0 847 (Given - Provider: Nancy Potts R.N.) 0800 (Given - Provider: Rei Higuera.N.) 0841 (Given - Provider: Mary Lou HigueraN.) 1 packet, oral, Daily, First dose on Sat11/21/21 at 0900, Ordered sequence of administration: polyethylene glycol, then bisacodyl until BM achieved. Avoid mixing with starch-based thickened liquids. sennosides-docusate sodium 8.6-50 mg per tablet 1 tabl et (SENOKOT-S) 0847 (Given - Provider: Nancy Potts R.N.)2138 (Given - Provider: Yanique Molina R.N.) 0800 (Given - Provider: Nancy garcia, R.N.)205 (Given - Provider: Yanique Molina R.N.) 0840 (Given - Provider: Nancy garcia, R.N.) 1 tablet, oral, 2 times daily, First dos e on Sat11/21/21 at 0900, Do not give if patient has diarrhea. sodium chloride 0.9 % injection 3 mL 1346 (Given - Pro vider: Nancy Potts R.N.)2139 (Given - Provider: Yanique Molina R.N.) 0809 (Given - Provider: Nancy Potts R.N.)211 (Not Given - Provider: Yanique Molina R.N. [...] Grant R.N.)0945 (Given - Provider: Zulay Carrington R.N.)2053 (Given - Provider: Yanique Molina R.N.) 0523 (Given - Provider: Beth Sommer RIzabellaN.)1357 (Given - Provider: Nancy Potts R.N.) 1,000 mg, oral, Every 6 hours PRN, mild pain or score 1-3 of 10, moderate pain or score 4-6 of 10, Starting on Sat11/21/21 at 0021 albuterol nebulizer solution 2.5 mg 0417 (Given - Prov ider: Jass Grant R.N.) 0553 (Given - Provider: Pretty Yun RIzabellaNIzabella) 2.5 mg, nebulization, Every 6 hours PRN, [...] mg of calcium, oral, Every 2 hour NM N, indigestion, Starting on Sat11/21/21 at 0021, [...] is correct.)1630 (Given - Provider: Yanique Molina RIzabellaN.) 0255 (Given - Provider: Beth Sommer R.N.)0840 (Given - Provider: Nancy Potts R.N.) 5 mg, oral, 4 times daily PRN, muscle spasms, Starting on 11/23/21 at 0700 2053 (Given - Provider: Yanique Molina R.N.) HYDROmorphone (PF) injection 0.2 mg (DILAUDID) 0.2 [...] Potts R.N.)1531 (Given - Provider: Yanique Molina RIzabellaN.)1943 (Given - Provider: Yanique Molina R.N.) 0352 (Given - Provider: Jass Grant R.N.)0800 (See Alternative - Provider: Nancy Potts R.N.)1207 (See Alternative - Provider: Nancy Potts RIzabellaN.)1630 (See Alternative - Provider: Yanique Molina R.N.) 0108 (Given - Provider: Beth Sommer R.N.)0523 (See Alternative - Provider: Beth Sommer R.N.)0955 (See Alternative - Provider: Rei Higuera.Dane.)1357 (See Alternative - Provider: Nancy Potts R.N.) [...] R.N.)1531 (See Alternative - Provider: Yanique Molina R.N.)1943 (See Alternative - Provider: Rei Gagnon.N.) 0352 (See Alternative - Provider: Jass Grant R.N.)0800 (Given - Provider: Nancy Potts R.N.)1207 (Given - Provider: Mary Lou HigueraN.)1630 (Given - Provider: Yanique Molina RIzabellaN.) 0108 (See Alternative - Provider: Beth Sommer R.N.)0523 (Given - Provider: Beth Sommer R.N.)0955 (Given - Provider: Mary Lou HigueraN.)1357 (Given - Provider: Nancy Potts R.N.) 4 [...] 7-10 of 10, Starting on Sat11/22/21 at 06 documented in this encounter Additional Health Concerns Infection Onset Date Last Indicated Resolved Time COVID19 Pending 11/20/2021 11/20/2021 11/21/2021 12:04 AM CDT documented as of this encounter Care Teams Insulation Mechanic Relationship Specialty Start Date End Date Elsewhere, Pcp PCP - General 04/21/18 documented as of this encounter
--- OUTSIDE RECORDS SUMMARY | 2021-12-29 11:45 | XMS_ITS | Encounter Summary ---
:1950 Author Organization [facility] Address [address] [place] [address] Care Team Providers Name Role Phone Elsewhere, Pcp Primary Care Provider Unavailable Encounter Details Date Type Department Care Team Description 11/22/2021 Orders Only [facility], Jameson Walton M.D. [facility], Ajay [address] [facility] Building[address] [place], [place] [address] [facility] [address] [place] [address] [phone] Social History Tobacco Use Types Packs/Day Years [...] on filedocumented in this encounter Care Teams Brazer Assembler Relationship Specialty Start Date End Date Elsewhere, Pcp PCP - General 04/21/18 documented as of this encounter
--- OUTSIDE RECORDS SUMMARY | 2021-12-29 11:45 | XMS_ITS | Encounter Summary ---
:1950 Author Organization [facility] Address [address] [place] [address] Care Team Providers Name Role Phone Elsewhere, Pcp Primary Care Provider Unavailable Encounter Details Date Type Department Care Team Description 11/20/2021 Ancillary Procedure Department of Radiology [place] [facility] aubrey Phipps [address] [facility] [address] [place] [phone] (Wo rk) Social History Tobacco Use Types Packs/Day Years Used Date Smoking Tobacco: Never Smokeless Tobacco: Never Alcohol Use Standard Drinks/Week Comments Never 0 (1 standard drink = 0.6 oz pure alcoho l) Sex Assigned at Date Recorded Not on file documented as of this encounter Plan of Treatment Not on filedocumented as of this encounter Procedures Procedure Name Priority Date/Time Associated Comments Diagnosis INTERPRETATION OF RAD - Semiurgent 11/20/2021 8:13 Res ults for OUTSIDE CT CHEST (Fast; most ED PM CDT this proc edure patients; some are in the inpatients) results section. documented in this encounter Results Interpretation of Outside CT Chest (11/20/2021 8:13 [...] lease see separate spine CT report. Mark [address] CT PROCEDURES documented in this encounter Visit Diagnoses Not on filedocumented in this encounter Care Teams Substation Mechanic Relationship Specialty Start Date End Date Elsewhere, Pcp PCP - General 04/21/18 documented as of this encounter
--- OUTSIDE RECORDS SUMMARY | 2021-12-29 11:45 | XMS_ITS | Encounter Summary ---
:1950 Author Organization [facility] Address [address] [place] [address] Care Team Providers Name Role Phone Elsewhere, Pcp Primary Care Provider Unavailable Encounter Details Date Type Department Care Team Description 11/20/2021 Ancillary Procedure Department of Radiology [place] [facility] aubrey Phipps [address] [facility] [address] [place] [phone] (Wo rk) Social History Tobacco Use Types [...] Diagnosis INTERPRETATION OF RAD - Semiurgent 11/20/2021 8:14 Res ults for OUTSIDE CT SPINE (Fast; most ED PM CDT this proc edure patients; some are in the inpatients) results section. documented in this encounter Results Interpretation of Outside CT Spine (11/20/2021 8:14 [...] Modality Spine, Neuroradiology RST LOS, Neuroradiology [facility], N/A Computed Tomography Neuroradiology FLA LOS, Other [...] cervi tomi spine. Mark GRE[address] CT PROCEDURES documented in this encounter Visit Diagnoses Not on filedocumented in this encounter Care Teams Contract Agent Relationship Specialty Start Date End Date Elsewhere, Pcp PCP - General 04/21/18 documented as of this encounter
--- OUTSIDE RECORDS SUMMARY | 2021-12-29 11:46 | XMS_ITS | Encounter Summary ---
:1950 Author Organization [facility] Address [address] [place] [address] Care Team Providers Name Role Phone Salas Raymundo Primary Care Provider Charles Crawford MD Unavailable Charli Jefferson MD Unavailable Encounter Details Date Type Department Care Team Description 12/31/2018 Orders Only [facility] Urology and Christie Cruz Overactive bladder Inst for Prostate and TMD (Primary Dx) Urologic Cancers [address] [place], [place] [address] [phone] Social History Tobacco Use Types Packs/Day Years Used Date Smoking Tobacco: Never Smokeless Tobacco: Never Alcohol Use Standard Drinks/Week Comments Yes 0 (1 standard drink = 0.6 oz pure alcoho l) 2-3/week Sex Assigned at Date Recorded Male 09/04/2018 3:46 PM CDT documented as of this encounter Plan of Treatment Not on filedocumented as of this encounter Visit Diagnoses Diagnosis Overactive bladder - Primary Hypertonicity of bladder documented in this encounter Care Teams Tube Machine Operator Relationship Specialty Start Date End Date Salas Raymundo PCP - General Family Practice 08/15/18 Charles Crawford MD MD Urology 08/19/18 [address] [facility] [address] [place] [address] Charli Jeffersno MD MD Urology 08/19/18 [address] [facility] [address] [place] [address] documented as of this encounter
--- OUTSIDE RECORDS SUMMARY | 2021-12-29 11:46 | XMS_ITS | Encounter Summary ---
:1950 Author Organization [facility] Address [address] [place] [address] Care Team Providers Name Role Phone Unavailable Primary Care Provider Unavailable Encounter Details Date Type Department Care Team Description 06/25/2011 Hospital Encounter HX NO MAPPING Hitesh Amaya M.D. Social History Tobacco Use Types Packs/Day Years Used Date Smoking Tobacco: Never Assessed Sex Assigned at Date Recorded Not on file documented as of this encounter Medications at Time of Discharge Medication Sig Dispensed Refills Start Date End Date aspirin [address] tablet Take 81 mg by mouth 0 daily. fexofenadine (MIGUEL) 180 Take 1 tablet by 0 mg tablet mouth daily. documented as of this encounter Plan of Treatment Not on filedocumented as of this encounter Visit Diagnoses Not on filedocumented in this encounter
--- OUTSIDE RECORDS SUMMARY | 2021-12-29 11:46 | XMS_ITS | Encounter Summary ---
:[address] [facility] Address [address] [place] [address] Care Team Providers Name Role Phone Elsewhere, Pcp Primary Care Provider Unavailable Encounter Details Date Type Department Care Team Description 11/20/2021 Ancillary Procedure Department of Radiology [place] [facility] aubrey Phipps [address] [facility] [address] [place] [phone] (Wo rk) Social History Tobacco Use Types [...] Modality Spine, Neuroradiology RST LOS, Neuroradiology [facility], N/A Computed Tomography Neuroradiology FLA LOS, [...] on filedocumented in this encounter Care Teams Tail End Rider Relationship Specialty Start Date End Date Elsewhere, Pcp PCP - General 04/21/18 documented as of this encounter
--- OUTSIDE RECORDS SUMMARY | 2021-12-29 11:46 | XMS_ITS | Encounter Summary ---
:1950 Author Organization [facility] Address [address] [place] [address] Care Team Providers Name Role Phone Salas Raymundo Primary Care Provider Charles Crawford MD Unavailable Charli Jefferson MD Unavailable Reason for Visit Reason Comments Follow Up 1 month Encounter Details Date Type Department Care Team Description 01/05/2019 Office Visit [facility] Urology and Christie Cruz Overactive bladder Inst for Prostate and T, Urologic Cancers [address] [place], [place] [address] [phone] Social History Tobacco Use Types Packs/Day Years Used Date Smoking Tobacco: Never Smokeless Tobacco: Never Alcohol Use Standard Drinks/Week Comments Yes 0 (1 standard drink = 0.6 oz pure alcoho l) 2-3/week Sex Assigned at Date Recorded Male 09/04/2018 3:46 PM CDT documented as of this encounter Last Filed Vital Signs Vital Sign Reading Time Taken Comments Blood Pressure 150/80 01/05/2019 2:32 PM TRAIL MAINTENANCE WORKER Pulse 61 01/05/2019 2:32 PM TRAIL MAINTENANCE WORKER Temperature - - Respiratory Rate - - Oxygen Saturation - - Inhaled Oxygen Concentration - - Weight 101.6 kg (224 lb) 01/05/2019 2:32 PM TRAIL MAINTENANCE WORKER Height 174.2 cm (5' 8.6) 01/05/2019 2:32 PM TRAIL MAINTENANCE WORKER Body Mass Index 33.47 01/05/2019 2:32 PM TRAIL MAINTENANCE WORKER documented in this encounter Progress Notes Christie Velasquez MD - 01/05/2019 3:00 PM CST Rajiv [...] Patient is very pleased. F/U: -- Continue myrbetriq -- RTC PRN L MAINTENANCE WORKER documented in this encounter Nursing Notes Mirian [...] use: Never MICHA Elena 01/05/2019 2:44 PM L MAINTENANCE WORKER documented in this encounter Plan of Treatment Not on filedocumented as of this encounter Visit Diagnoses Diagnosis Overactive bladder Hypertonicity of bladder documented in this encounter Care Teams Car Driver Relationship Specialty Start Date End Date Salas Raymundo PCP - General Family Practice 08/15/18 Charles Crawford MD MD Urology 08/19/18 [address] [place] [address] Charli Jefferson MD MD Urology 08/19/18 420 [facility] [address] [place] [address] documented as of this encounter
--- OUTSIDE RECORDS SUMMARY | 2021-12-29 11:46 | XMS_ITS | Clinical Summary ---
:1950 Author Organization [facility] Address [address] [place] [address] Care Team Providers Name Role Phone Salas [...] 11/10/2014, 11/20/2010, 10/28/2009 Flu, Unspecified 11/02/2016, 11/12/2015 [id number] Novel Flu 02/09/2009 Influenza (H1N1) 02/09/2009 Influenza [...] Smokeless Tobacco: Never Tobacco Cessation: Counseling Given: No Alcohol Use Standard Drinks/Week Comments Yes 0 (1 standard drink = 0.6 oz pure alcoho l) 2-3/week Sex Assigned at Date Recorded Male 09/04/2018 3:46 PM CDT Last Filed Vital Signs Vital Sign Reading Time Taken Comments Blood Pressure 150/80 01/05/2019 2:32 PM SECURITY SYSTEMS INSTALLER Pulse 61 01/05/2019 2:32 PM SECURITY SYSTEMS INSTALLER Temperature 36.6 ??C (97.8 ??F) 11/12/2018 7:50 PM CDT Respiratory Rate 16 11/12/2018 7:50 PM CDT Oxygen Saturation 98% 11/12/2018 8:10 PM CDT Inhaled Oxygen Concentration - - Weight 101.6 kg (224 lb) 01/05/2019 2:32 PM SECURITY SYSTEMS INSTALLER Height 174.2 cm (5' 8.6) 01/05/2019 2:32 PM SECURITY SYSTEMS INSTALLER Body Mass Index 33.47 01/05/2019 2:32 PM SECURITY SYSTEMS INSTALLER Plan of Treatment Health Maintenance Due Date Last Done Comments ANNUAL REVIEW OF HM ORDERS 1950 ASTHMA ACTION PLAN 1950 ASTHMA CONTROL TEST 1950 [address] COLONOGRAPHY 1950 FIT-DNA (Cologuard) 1950 FIT 1950 FLEX SIG 1950 HEPATITIS B IMMUNIZATION (1 1950 of 3 - 3-dose series) COVID-19 Vaccine (#1) 1950 HEPATITIS C SCREENING [...] 65+ Completed 04/22/2018, 04/24/2017 , Years 12/14/2008 IPV IMMUNIZATION Aged Out No longer eligi ble based on patient 's age to complete this topic MENINGITIS IMMUNIZATION Aged Out No longe r eligible based on patient 's age to complete this topic Medical Devices Implanted Type Area Cooperative Manager Device Shelf Model / Identifier Expiration Serial / Lot Date Kit Accessory Ucs Ams 800 [id number] Leads N/A: FRENCH 09/29/2022 [id number] / Implanted: Qty: 1 on 11/12/2018 by Christie Pandya MD at [facility] Abdomen MEDICAL SY S / [id number] Imp Urinary Sphincter Balloon Ams 61-70cm [id number] Metallic N/A: FRENCH 03/11/2023 [id number] / Implanted: Qty: 1 on 11/12/2018 by Christie Pandya MD at [facility] Hardware/Anch Abdomen MEDICAL SYS / or [id number] Imp Urinary Sphincter Cuff Occlusive Ams 5.0cm [id number] Prosthes is N/A: FRENCH 01/20/2019 [id number] / Implanted: Qty: 1 on 11/12/2018 by Christie Pandya MD at [facility] Groin MEDICAL SY S / [id number] Description: around urethra Insurance Payer Benefit Plan / Subscriber ID Effective Phone Address T ype Group Dates MEDICARE MEDICARE FOR HB [id number] 2017-Prese [phone] ATTN CLAIMS Medicare SUPPLEMENT nt 40 [address] [place] [address] BCBS [place] [id number] 2017-Prese [phone] [address] [address] PPO BLUE nt 00 [id number] (Home) [facility] [address] Rajiv Restrepo Personal/Family Self [address] (Home) [place] [address] Advance Directives For more information, please contact: [phone] Documents on File Type Date Recorded Patient Qc Scientist Explanati on Advance Directives and 11/24/2018 8:06 AM Health Care Directive Living Will 12-27-14 Healthcare Agents on File Name Relationship Healthcare Agent Communication Relationship Mary Restrepo Spouse Health Care Agent Ayo Restrepo Son First Alternate Health Care Agent Carla Restrepo Daughter Second Alternate Health Care Agent Brent Restrepo Son Third Alternate Health Care Agent Moraima (step-dtr) Relative Fourth Alternate Health Octavio Care Agent Care Teams Roving Machine Operator Relationship Specialty Start Date End Date Salas Raymundo PCP - General Family Practice 08/15/18 Charles Crawford MD MD Urology 08/19/[address] [place] [address] Charli Jefferson MD MD Urology 08/19/[address] [facility] [address] [place] [address]
--- OUTSIDE RECORDS SUMMARY | 2021-12-29 11:46 | XMS_ITS | Encounter Summary ---
:1950 Author Organization [facility] Address [address] [place] [address] Care Team Providers Name Role Phone Salas Raymundo Primary Care Provider Charles Crawford MD Unavailable Charli Jefferson MD Unavailable Encounter Details Date Type Department Care Team Description 07/20/2020 Records - [facility] DEONTE HERBERT CONVERSION Provider, Histor ical Social History Tobacco [...] on filedocumented in this encounter Care Teams Sewing Machine Operator Zipper Relationship Specialty Start Date End Date Salas Raymundo PCP - General Family Practice 08/15/18 Charles Crawford MD MD Urology 08/19/18 [address] [facility] [address] [place] [address] Charli Jefferson MD MD Urology 08/19/18 420 [facility] [address] [place] [address] documented as of this encounter
--- OUTSIDE RECORDS SUMMARY | 2021-12-29 11:46 | XMS_ITS | Encounter Summary ---
:1950 Author Organization [place] Address [address] [place] [address] Care Team Providers Name Role Phone Salas Raymundo Primary Care Provider Charles Crawford MD Unavailable Charli Jefferson MD Unavailable Encounter Details Date Type Department Care Team Description 07/20/2020 Records - [facility] DEONTE HERBERT CONVERSION Provider, Histor ical Social [...] 12:00 AM Resu lts for this WITH TIRE CORD WEAVER OR OT CDT procedure are in the results section. documented in this encounter Results XR Video Swallow with TIRE CORD WEAVER or OT (08/16/2009 12:00 AM CDT) Anatomical [...] on filedocumented in this encounter Care Teams Manager Clinical Informatics Relationship Specialty Start Date End Date Salas Raymundo PCP - General Family Practice 08/15/18 Charles Crawford MD MD Urology 08/19/18 1363 [facility] 500 [place] [address] Charli Jefferson MD MD Urology 08/19/18 420 [facility] [address] [place] [address] documented as of this encounter
--- OUTSIDE RECORDS SUMMARY | 2021-12-29 11:46 | XMS_ITS | Encounter Summary ---
:1950 Author Organization [facility] Address [address] [place] [address] Care Team Providers Name Role Phone Elsewhere, Pcp Primary Care Provider Unavailable Encounter Details Date Type Department Care Team Description 11/20/2021 Ancillary Procedure Department of Radiology [place] [facility] aubrey Phipps [address] [facility] [address] [place] [address] [phone] (Wo rk) Social History Tobacco Use Types [...] Diagnosis INTERPRETATION OF RAD - Semiurgent 11/20/2021 8:12 Res ults for OUTSIDE CT ABDOMEN (Fast; most ED PM CDT this pr ocedure AND OR PELVIS patients; some are in the inpatients) results section. documented in this encounter Results Interpretation of Outside CT Abdomen and or [...] on filedocumented in this encounter Care Teams Idea Worker Relationship Specialty Start Date End Date Elsewhere, Pcp PCP - General 04/21/18 documented as of this encounter
--- OUTSIDE RECORDS SUMMARY | 2021-12-29 11:46 | XMS_ITS | Encounter Summary ---
:1950 Author Organization [place] Address [address] [address] Care Team Providers Name Role Phone Salas Raymundo Primary Care Provider Charles Crawford MD Unavailable Charli Jefferson MD Unavailable Reason for Visit Reason Onset Date Comments Medication Question 01/06/2019 mirabegron (MYRBETRI Q) 50 MG 24 hr tablet Encounter Details Date Type Department Care Team Description 01/06/2019 [facility] Urology and Christie Cruz Medication Question Inst for Prostate and TMD (mirabegron Urologic Cancers [facility] (MYRBETRIQ) 50 MG 24 909 [facility] hr tablet ) 4th Floor [address] [place], [place] [id number] [phone] Social History Tobacco Use Types Packs/Day Years [...] given to patient. Tracey Bhandari RN, BSN Auto Bench Mechanic- Reconstructive Urology OELECTRIC MACHINERY MECHANIC Telephone Encounter - Cecy Maxwell - 01/06/2019 11:[address] [facility] Call Center Phone Message May a detailed message be left on voicemail: yes Reason for Call: Medication Question or concern regarding medication Prescription Clarification Name of Medication: mirabegron (MYRBETRIQ) 50 MG 24 hr tablet Prescribing Provider: Roopa Velasquez Pharmacy: [facility] What on the order needs clarification? Information on medication Action Taken: Message routed to: [facility] URO OELECTRIC MACHINERY MECHANIC documented in this encounter Plan of Treatment Not on filedocumented as of this encounter Visit Diagnoses Not on filedocumented in this encounter Care Teams Narrow Fabric Loom Fixer Relationship Specialty Start Date End Date Salas Raymundo PCP - General Family Practice 08/15/18 Charles Crawford MD MD Urology 08/19/18 [address] [place] [phone] Charli Jefferson MD MD Urology 08/19/18 420 [facility] [address] [place] [address] documented as of this encounter
--- OUTSIDE RECORDS SUMMARY | 2021-12-29 11:46 | XMS_ITS | Encounter Summary ---
:1950 Author Organization [place] Address [address] 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 Uu Periop Procedures INSERTION, ARTIFICIAL URINARY SPHINCTER [address] [place] [address] Phone: Fax: Referral ID Status Reason Start Date Expiration Date Visits Requ ested Visits Authorized [id number] 1 1 Encounter Details Date Type Department Care Team Description 11/12/2018 Anesthesia Event [facility] Elizabeth Moreno MD 500 [place] [address] PeriOp Services Ferdinand Mitchell MD [address] [place], [place] [address] 500 [place] [address] Anesthesia Record Procedure Summary Procedure Name Responsible Anesthesia Start Anesthesia Stop Anesthesiologist Time Time Insertion Of Lisa Moreno MD 11/12/18 1521 11/12/18 1737 Artifical Urinary Sphincter, Cystoscopy (Bladder) Events Date Time Event Comment 11/12/2018 1521 [...] Follow-Up: Not required Last Anesthesia Record Vitals: TAX COMPLIANCE REPRESENTATIVE VITALS 11/12/2018 1659 - 11/12/2018 1759 11/12/2018 [...] 3:40 PM CDT Anesthesia Pre-Procedure Evaluation Patient: Rajiv Restrepo Gender: male Age: [...] Intra-op documented in this encounter Care Teams Rn Orthopaedic Relationship Specialty Start Date End Date Raymundo, Salas L PCP - General Family Practice 08/15/18 Charles Crawford MD MD Urology 08/19/18 [address] [place] [facility] 500 [place] [address] Charli Jefferson MD MD Urology 08/19/18 420 [facility] 394 [place] [address] documented as of this encounter
--- OUTSIDE RECORDS SUMMARY | 2021-12-29 11:46 | XMS_ITS | Encounter Summary ---
:1950 Author Organization [facility] Address [address] [place] [address] Care Team Providers Name Role Phone Unavailable Primary Care Provider Unavailable Encounter Details Date Type Department Care Team Description 12/31/2011 Hospital Encounter HX NO MAPPING Hitesh Amaya [...]
--- OUTSIDE RECORDS SUMMARY | 2021-12-29 11:46 | XMS_ITS | Encounter Summary ---
:1950 Author Organization [place] Address [address] [place] [address] Care Team Providers Name Role Phone Salas Raymundo Primary Care Provider Charles Crawford MD Unavailable Charli Jefferson MD Unavailable Encounter Details Date Type Department Care Team Description 07/20/2020 Records - [facility] DEONTE HERBERT CONVERSION Provider, Histor ical Social [...] on filedocumented in this encounter Care Teams Dialysis Tech Relationship Specialty Start Date End Date Salas Raymundo PCP - General Family Practice 08/15/18 Charles Crawford MD MD Urology 08/19/18 [address] [place] [address] Charli Jefferson MD MD Urology 08/19/18 420 [facility] [address] [place], [place] [address] documented as of this encounter
--- OUTSIDE RECORDS SUMMARY | 2021-12-29 11:46 | XMS_ITS | Encounter Summary ---
:1950 Author Organization [place] Address [address] [place] [address] Care Team Providers Name Role Phone Salas Raymundo Primary Care Provider Charles Crawford MD Unavailable Charli Jefferson MD Unavailable Encounter Details Date Type Department Care Team Description 07/20/2020 Records - [facility] DEONTE HERBERT CONVERSION Provider, Histor [...] on filedocumented in this encounter Care Teams Special Officer Automat Relationship Specialty Start Date End Date Salas Raymundo PCP - General Family Practice 08/15/18 Charles Crawford MD MD Urology 08/19/18 4163 [facility] 500 [place] [address] Charli Jefferson MD MD Urology 08/19/18 420 [facility] [address] [place] [address] documented as of this encounter
--- OUTSIDE RECORDS SUMMARY | 2021-12-29 11:46 | XMS_ITS | Encounter Summary ---
:1950 Author Organization [place] Address [address] [place] [address] Care Team Providers Name Role Phone Salas Raymundo Primary Care Provider Charles Crawford MD Unavailable Charli Jefferson MD Unavailable Reason for Visit Auth/Cert Specialty Diagnoses / Procedures Referred By Contact Refer red To Contact Surgery Diagnoses Male Urinary Stress Incontinence Uu Periop Procedures INSERTION, ARTIFICIAL URINARY SPHINCTER 500 [place] [address] Phone: Fax: Referral ID Status Reason Start Date Expiration Date Visits Requ ested Visits Authorized [id number] 1 1 Encounter Details Date Type Department Care Team Description 11/12/2018 Surgery [facility] Charli Jefferson rtion Of Artifical PeriOp Services MD Tobin Urinary Sphincter, [address] [place] [address] [address] [place] [address] (Wo rk) Surgery Details Date/Time Status Location [...] a doctor, call Dr Hernandez's office at [phone] (clinic)or: X [phone] and ask for the Resident Chief Hydroelectric Station Operator for: Urology (answered 24 hours a day) X Emergency Department: [facility]: [phone] Rev. 11/2013 documented in this encounter Medications [...] PM CDT Spiritual Health Services Progress Note [facility] [address] Provided oil field pumper care with Gopal, his (Heather) and their friend (Maddison) prior to his surgery. Discussed hopes related to surgery and how it will hopefully improve his quality of life. They are active within their taoism (ED[place] Car[place], in [place]). Mariana is important for coping. Prayer was [...] 1225 PIV 20g insert to right hand ([id number]) SL @ 1230 Tammi @ pt bedside @ 1235 Family @ [...] discomfort mentioned. Handoff to Radha GONZALEZ @ 1208 @ pt bedside documented in this encounter [...] ILLNESS: Rajiv Restrepo is a 68 year [id number] gentleman with urinary incontinence refractory to minimally [...] Gonzalez MD - 11/12/2018 5:30 PM CDT [facility] Brief Operative Note Pre-operative diagnosis: Male Urinary [...] Implant Name Type Inv. Item Serial No. Antisubmarine Weapons Officer Lot No. LRB No. Used IMP URINARY SPHINCTER BALLOON AMS 61-70CM [id number] Metallic Hardware/[place] IMP URINARY SPHINCTER BALLOON AMS 61-70CM [id number] [facility] [id number] N/A 1 IMP URINARY SPHINCTER AMS 800 PUMP SYSTEM [id number] Prosthesis IMP URINARY SPHINCTER AMS 800 PUMP SYSTEM [id number] [facility] [id number] N/A 1 KIT ACCESSORY UCS AMS 800 [id number] Leads KIT ACCESSORY UCS AMS 800 [id number] [facility] [id number] N/A 1 IMP URINARY SPHINCTER CUFF OCCLUSIVE AMS 5.0CM [id number] Prosthesis IMP URINARY SPHINCTER CUFF OCCLUSIVE AMS 5.0CM [id number] [facility] [id number] N/A 1 documented in this encounter Plan [...] TEST, GLUCOSE Potassium (11/12/2018 11:34 AM CDT) P athologist Signature Potassium 3.9 3.4 - 5.3 11/12/2018 [facility] mmol/L 12:50 PM CDT [facility] Specimen Anatomical Collection Method Collection Time Receive d Time (Source) Location / / Volume Laterality Blood specimen 11/12/2018 11:34 9 (specimen) AM CDT 11:35 AM CDT Rohan Yarbrough MD LAB - BLOOD ORDERABLES Performing Organization Address City/State/ZIP Code Phon e Number [facility] 500 [place] [address] [facility] (ABNORMAL) Glucose by meter (11/12/2018 11:20 AM CDT) P athologist Signature Glucose 100 (H) 70 - 99 11/12/2018 POINT OF CARE mg/dL 11:31 AM CDT TEST, GLUCOSE Comment: /LISA Notified Specimen Anatomical Collection Method Collection Time Receive d Time (Source) Location / / Volume Laterality 11/12/2018 11:20 11/12/2018 AM CDT 11:31 AM CDT Charli Jefferson MD LAB - BEAKER [...] (CANCELED) 1521 (New Bag - Provider: Checo aBjwa APRN CRNA)1707 (New Bag - Provider: Checo [...] Starting Sat11/12/18 at 1745, Until Sat11/12/18 at 1852, other, acute pain. ??May administer if Respiratory [...] PRN , opioid reversal, Starting Sat11/12/18 at 174, For 24 hours, For apnea or imminent [...] minutes., PACU oxyCODONE (ROXICODONE) tablet 5 mg 1808 (Given - Provider: Ce Hager, RN) 5 mg, Oral, EVERY 4 HOURS PRN, moderate to severe pain, Starting 11/12/18 at 1746, Max: 5 mg for opioid-na??ve patient., Post-procedure documented in this encounter Care Teams Roofer Helper Relationship Specialty Start Date End Date Salas Raymundo PCP - General [facility] Practice 08/15/18 Charles Crawford MD MD Urology 08/19/18 [address] [facility] [address] [place] [address] Charli Jefferson MD MD Urology 08/19/18 420 [facility] [address] [place] [address] documented as of this encounter
--- OUTSIDE RECORDS SUMMARY | 2021-12-29 11:46 | XMS_ITS | Encounter Summary ---
:1950 Author Organization [place] Address [address] [place] [address] Care Team Providers Name Role Phone Salas [...] on filedocumented in this encounter Care Teams Mule Spinner Relationship Specialty Start Date End Date Salas Raymundo PCP - General Family Practice 08/15/18 Charles Crawford MD MD Urology 08/19/18 [address] [place] [facility] 500 [place] [address] Charli Jefferson MD MD Urology 08/19/18 420 [facility] [address] [place] [address] documented as of this encounter
--- OUTSIDE RECORDS SUMMARY | 2021-12-29 11:46 | XMS_ITS | Encounter Summary ---
:1950 Author Organization [place] Address [address] [place] [address] Care Team Providers Name Role Phone Salas Raymundo Primary Care Provider Charles Crawford MD Unavailable Charli Jefferson MD Unavailable Reason for Visit Reason Comments acp Encounter Details Date Type Department Care Team Description 11/24/2018 Documentation Only [place] Pilar Kessler acp [address] [facility] [address] [place] [address] Social History Tobacco Use Types Packs/Day [...] on filedocumented in this encounter Care Teams Financial Agent Relationship Specialty Start Date End Date Salas Raymundo PCP - General Family Practice 08/15/18 Charles Crawford MD MD Urology 08/19/18 [address] [place] [facility] [address] [place] [address] Charli Jefferson MD MD Urology 08/19/18 420 [facility] 394 [place] [address] documented as of this encounter
--- OUTSIDE RECORDS SUMMARY | 2021-12-29 11:46 | XMS_ITS | Encounter Summary ---
:1950 Author Organization [place] Address [address] [place] [address] Care Team Providers Name Role Phone Salas Raymundo Primary Care Provider Charles Crawford MD Unavailable Charli Jefferson MD Unavailable Reason for Visit Reason Comments Follow Up Post-op follow up, procedure 11/12 Encounter Details Date Type Department Care Team Description 12/01/2018 Office Visit [facility] Urology and Christie Cruz Male urinary stress Inst for Prostate MD Marybeth incontinence (Primary and Urologic Cancers [facility] Dx) 909 [facility] 4th Floor [address] [place], [place] [address] [phone] Social History Tobacco Use Types Packs/Day Years [...] male documented in this encounter Care Teams Anesthesia Assistant Relationship Specialty Start Date End Date Salas Raymundo PCP - General Family Practice 08/15/18 Charles Crawford MD MD Urology 08/19/18 [address] [facility] [address] [place] [address] Charli Jefferson MD MD Urology 08/19/18 420 [facility] [address] [place] [address] documented as of this encounter
--- OUTSIDE RECORDS SUMMARY | 2021-12-29 11:46 | XMS_ITS | Encounter Summary ---
:[address] [facility] Address [address] [place] [address] Care Team Providers Name Role Phone Elsewhere, Pcp Primary Care Provider Unavailable Encounter Details Date Type Department Care Team Description 11/20/2021 Ancillary Procedure Department of Radiology [place] in [facility] aubrey Phipps [address] [facility] [address] [place] [phone] (Wo rk) Social History Tobacco Use Types [...] this encounter Results Interpretation of Outside CT Head (11/20/2021 8:13 [...] acute intracranial findings. Mark [facility] CT PROCEDURES documented in this encounter Visit Diagnoses Not on filedocumented in this encounter Care Teams Teletypewriter Installer Relationship Specialty Start Date End Date Elsewhere, Pcp PCP - General 04/21/18 documented as of this encounter
--- OUTSIDE RECORDS SUMMARY | 2021-12-29 11:46 | XMS_ITS | Encounter Summary ---
:1950 Author Organization [place] Address [address] [place] [address] Care Team Providers Name Role Phone Salas Raymundo Primary Care Provider Charles Crawford MD Unavailable Charli Jefferson MD Unavailable Encounter Details Date Type Department Care Team Description 07/20/2020 Records - [facility] DEONTE HERBERT CONVERSION Provider, Histor ical Social [...] on filedocumented in this encounter Care Teams Artificial Inseminator Relationship Specialty Start Date End Date Salas Raymundo PCP - General Family Practice 08/15/18 Charles Crawford MD MD Urology 08/19/18 [address] [facility] [address] [place] [address] Charli Jefferson MD MD Urology 08/19/18 420 [facility] [address] [place] [address] documented as of this encounter
--- OUTSIDE RECORDS SUMMARY | 2021-12-29 11:46 | XMS_ITS | Encounter Summary ---
:1950 Author Organization [place] Address [address] [place] [address] Care Team Providers Name Role Phone Salas Raymundo Primary Care Provider Charles Crawford MD Unavailable Charli Jefferson MD Unavailable Christie Cruz MD Unavailable Charli Jefferson MD Unavailable Christie Cruz MD Unavailable Reason for Visit Reason Comments Other acp Encounter Details Date Type Department Care Team Description 11/24/2018 Ambulatory - [place] [facility] [address] [facility] [address] [place] [address] Social History Tobacco Use Types Packs/Day Years [...] on filedocumented in this encounter Care Teams Histology Supervisor Relationship Specialty Start Date End Date Salas Raymundo PCP - General Family Practice 08/15/18 Charles Crawford MD MD Urology 08/19/18 [address] [place] [address] Charli Jefferson MD Urology 08/19/18 MD [facility] [place] [address] Christie Cruz, Assigned Surgical Provider 11/1904/16/20 [facility] [address] [place] [address] Charli Jefferson, Assigned Surgical Provider 04/1705/03/20 MD Rad[facility] [address] [place] [address] Christie Cruz, Assigned Surgical Provider 05/0407/09/20 [facility] [address] [place] [address] documented as of this encounter
--- OUTSIDE RECORDS SUMMARY | 2021-12-29 11:46 | XMS_ITS | Encounter Summary ---
:1950 Author Organization [place] Address [address] [place] [address] Care Team Providers Name Role Phone Salas [...] on filedocumented in this encounter Care Teams Back Digger Operator Relationship Specialty Start Date End Date Salas Raymundo PCP - General Family Practice 08/15/18 Charles Crawford MD MD Urology 08/19/18 [address] [facility] [address] [place] [address] Charli Jefferson MD MD Urology 08/19/18 420 [facility] [address] [place] [address] documented as of this encounter
--- OUTSIDE RECORDS SUMMARY | 2021-12-29 11:46 | XMS_ITS | Encounter Summary ---
:1950 Author Organization [place] Address [address] [place] [address] Care Team Providers Name Role Phone Salas Raymundo Primary Care Provider Charles Crawford MD Unavailable Charli Jefferson MD Unavailable Reason for Visit Reason Onset Date Comments Pre Visit Planning - Done 12/17/2018 Encounter Details Date Type Department Care Team Description 12/17/2018 PRE VISIT [facility] Urology and Christie Cruz Pre Visit Planning - Inst for Prostate and TMD Done Urologic Cancers [address] 4th Floor [address] [place], [place] [address] [phone] Social History Tobacco Use Types Packs/Day Years [...] on filedocumented in this encounter Care Teams Industrial Technologist Relationship Specialty Start Date End Date Salas Raymundo PCP - General Family Practice 08/15/18 Charles Crawford MD MD Urology 08/19/18 [address] [facility] 500 [place] [address] Charli Jefferson MD MD Urology 08/19/18 420 [facility] [address] [place] [address] documented as of this encounter
--- OUTSIDE RECORDS SUMMARY | 2021-12-29 11:46 | XMS_ITS | Encounter Summary ---
:1950 Author Organization [place] Address [address] [place] [address] Care Team Providers Name Role Phone Salas Raymundo Primary Care Provider Charles Crawford MD Unavailable Charli Jefferson MD Unavailable Encounter Details Date Type Department Care Team Description 07/20/2020 Records - [facility] DEONTE HERBERT CONVERSION Provider, Histor ical [...] filedocumented in this encounter Care Teams Solar Pool Heating Installer Relationship Specialty Start Date End Date Salas Raymundo PCP - General Family Practice 08/15/18 Charles Crawford MD MD Urology 08/19/18 [address] [place] [address] Charli Jefferson MD MD Urology 08/19/18 420 [facility] [address] [place] [address] documented as of this encounter
--- OUTSIDE RECORDS SUMMARY | 2021-12-29 11:46 | XMS_ITS | Encounter Summary ---
:1950 Author Organization [place] Address [address] [place] [address] Care Team Providers Name Role Phone Salas Raymundo Primary Care Provider Charles Crawford MD Unavailable Charli Jefferson MD Unavailable Encounter Details Date Type Department Care Team Description 07/20/2020 Records - [facility] DEONTE HERBERT CONVERSION Provider, Histor ical [...] on filedocumented in this encounter Care Teams Orthopedic Shoes Salesperson Relationship Specialty Start Date End Date Salas Raymundo PCP - General Family Practice 08/15/18 Charles Crawford MD MD Urology 08/19/18 [address] [facility] [address] [place] [address] Charli Jefferson MD MD Urology 08/19/18 420 [facility] [address] [place] [address] documented as of this encounter
--- OUTSIDE RECORDS SUMMARY | 2021-12-29 11:46 | XMS_ITS | Encounter Summary ---
:1950 Author Organization [place] Address [address] [place] [address] Care Team Providers Name Role Phone Salas [...] on filedocumented in this encounter Care Teams Maintenance Person Relationship Specialty Start Date End Date Salas Raymundo PCP - General Family Practice 08/15/18 Charles Crawford MD MD Urology 08/19/18 [address] [facility] [address] [place] [address] Charli Jefferson MD MD Urology 08/19/18 420 [facility] [address] [place] [address] documented as of this encounter
--- OUTSIDE RECORDS SUMMARY | 2021-12-29 11:46 | XMS_ITS | Encounter Summary ---
:1950 Author Organization [place] Address [address] [place] [address] Care Team Providers Name Role Phone Salas Raymundo Primary Care Provider Charles Crawford MD Unavailable Charli Jefferson MD Unavailable Reason for Visit Reason Onset Date Comments Pre Visit Planning - Done 11/17/2018 Encounter Details Date Type Department Care Team Description 11/17/2018 PRE VISIT [facility] Urology and Christie Cruz Pre Visit Planning - Inst for Prostate and TMD Done Urologic Cancers [address] 4th Floor [address] [place], [place] [address] [phone] Social History Tobacco Use Types Packs/Day Years [...] on filedocumented in this encounter Care Teams Soa Engineer Relationship Specialty Start Date End Date Salas Raymundo PCP - General Family Practice 08/15/18 Charles Crawford MD MD Urology 08/19/18 [address] [facility] 500 [place] [address] Charli Jefferson MD MD Urology 08/19/18 420 [facility] 394 [place] [address] documented as of this encounter
--- OUTSIDE RECORDS SUMMARY | 2021-12-29 11:47 | XMS_ITS | Encounter Summary ---
:1950 Author Organization [place] Address [address] [place] [address] Care Team Providers Name Role Phone Salas [...] on filedocumented in this encounter Care Teams Scout Leaser Relationship Specialty Start Date End Date Salas Raymundo PCP - General Family Practice 08/15/18 Charles Crawford MD MD Urology 08/19/18 [address] [facility] [address] [place] [address] Charli Jefferson MD MD Urology 08/19/18 420 [facility] 394 [place] [address] documented as of this encounter
--- OUTSIDE RECORDS SUMMARY | 2021-12-29 11:47 | XMS_ITS | Encounter Summary ---
:1950 Author Organization [place] Address [address] [place] [address] Care Team Providers Name Role Phone Salas Raymundo Primary Care Provider Charles Crawford MD Unavailable Charli Jefferson MD Unavailable Reason for Visit Reason Comments Health Maintenance Encounter Details Date Type Department Care Team Description 11/05/2018 Documentation Only [facility] Magali Hodgson, Health Maintenance Coordination, [facility] Ambulatory [address] [place] [address] Social History Tobacco Use Types [...] Narrative Magali Hodgson CMA - 08/20/2017 Result Treating Machine Operator Simone Renee MD - 08/20/2017 10 :07 AM CDT [...] for conscious sedation. ? The Colon [id number] was p assed through the anus and [...] are any questions, please contact the ? reverberatory skimmer. Moderate Sedation: ? Moderate (conscious) sedation was administered by the endoscopy nurse ? and supervised by the endoscopist . The following parameters were ? monitored: oxygen saturation, hea rt rate, respiratory rate, blood ? pressure, adequacy of pulmonary v entilation and reponse to care. ? Please refer [facility] record flowsheets and nursing ? notes for [...] on filedocumented in this encounter Care Teams Clerical Supervisor Relationship Specialty Start Date End Date Salas Raymundo PCP - General Family Practice 08/15/18 Charles Crawford MD MD Urology 08/19/18 [address] [facility] 500 [place] [address] Charli Jefferson MD MD Urology 08/19/18 420 [facility] 394 [place] [address] documented as of this encounter
--- OUTSIDE RECORDS SUMMARY | 2021-12-29 11:47 | XMS_ITS | Encounter Summary ---
:1950 Author Organization [place] Address [address] [place] [address] Care Team Providers Name Role Phone Salas Raymundo Primary Care Provider Charles Crawford MD Unavailable Charli Jefferson MD Unavailable Encounter Details Date Type Department Care Team Description 11/06/2018 Orders Only [facility] Urology and Inst Charli Jefferson, for Prostate and Urologic MD Cancers [address] [facility] 394 [address] [place] [address] [facility] Floor [place], [place] [address] [phone] Social History Tobacco Use Types Packs/Day Years [...] on filedocumented in this encounter Care Teams Corporate Training Manager Relationship Specialty Start Date End Date Salas Raymundo PCP - General Family Practice 08/15/18 Charles Crawford MD MD Urology 08/19/18 [address] [facility] [address] [place] [address] Charli Jefferson MD MD Urology 08/19/18 420 [facility] 394 [place] [address] documented as of this encounter
--- OUTSIDE RECORDS SUMMARY | 2021-12-29 11:47 | XMS_ITS | Encounter Summary ---
:1950 Author Organization [place] Address [address] [place] [address] Care Team Providers Name Role Phone Salas Raymundo Primary Care Provider Charles Crawford MD Unavailable Charli Jefferson MD Unavailable Reason for Visit Reason Onset Date Comments Pre Visit Planning - Done 09/03/2018 Encounter Details Date Type Department Care Team Description 09/03/2018 PRE VISIT [facility] Urology and Charli Jefferson Pre Vi sit Planning - Inst for Prostate and Ioana Rudd Done Urologic Cancers 420 [facility] 909 [facility] 394 4th Floor [place], [place] [address] [phone] Social History Tobacco Use Types Packs/Day Years Used Date Smoking Tobacco: Never Smokeless Tobacco: Never Sex Assigned at Date Recorded Male 09/04/2018 [...] on filedocumented in this encounter Care Teams Wood Carver Hand Relationship Specialty Start Date End Date Salas Raymundo PCP - General Family Practice 08/15/18 Charles Crawford MD MD Urology 08/19/18 [address] [facility] 500 [place] [address] Charli Jefferson MD MD Urology 08/19/18 420 [facility] 394 [place], [place] [address] documented as of this encounter
--- OUTSIDE RECORDS SUMMARY | 2021-12-29 11:47 | XMS_ITS | Encounter Summary ---
:1950 Author Organization [place] Address [address] [place] [address] Care Team Providers Name Role Phone Salas Raymundo Primary Care Provider Charles Crawford MD Unavailable Charli Jefferson MD Unavailable Reason for Visit Reason Onset Date Comments Medication Question 11/06/2018 oxybutynin ER (DITRO TAN-XL) 5 MG 24 hr tablet Encounter Details Date Type Department Care Team Description 11/06/2018 Telephone [facility] Urology and Charli Jefferson Medica tion Question Inst for Prostate and Ioana Rudd (oxybutynin ER Urologic Cancers 420 [facility] (DITROPAN-XL) 5 MG 24 909 [facility] 394 hr tablet) 4th [place] [address] [phone] Social History Tobacco Use Types Packs/Day Years [...] Jaimie Tan - 11/06/2018 8:22 AM CDT [facility] Phone Message May a detailed message be left on voicemail: yes Reason for Call: Medication Question or concern regarding medication Prescription Clarification Name of Medication: oxybutynin ER (DITROPAN-XL) 5 MG 24 hr tablet Prescribing Provider: Dr. Jefferson Pharmacy: [facility] What on the order needs clarification? [facility] called because the pt though he was supposedto be having a new medication sent over to them from Dr. Jefferson to try in place of the Oxybutynin. Pt could not recall the name of the new medication, but [facility] did not have any new prescription on file. Please give them a call back. Action Taken: Message routed to: [facility] Urology documented in this encounter Plan of Treatment Not on filedocumented as of this encounter Visit Diagnoses Not on filedocumented in this encounter Care Teams Visual Presentation Manager Relationship Specialty Start Date End Date Salas Raymundo PCP - General Family Practice 08/15/18 Charles Crawford MD MD Urology 08/19/18 [address] [facility] 500 [place] [address] Charli Jefferson MD MD Urology 08/19/18 [address] [facility] [address] [facility] [address] [place] [address] documented as of this encounter
--- OUTSIDE RECORDS SUMMARY | 2021-12-29 11:47 | XMS_ITS | Encounter Summary ---
:1950 Author Organization [place] Address [address] [place] [address] Care Team Providers Name Role Phone Salas Raymundo Omar Primary Care Provider Reason for Visit Reason Comments Urine Incontinence Patient here today to talk a bout Artificial Sphincter Encounter Details Date Type Department Care Team Description 08/15/2018 Office Visit [facility] Charles Crawford Urin ary incontinence, Urology Clinic Darin HOPKINS unspecified type [address] (Primary Dx) [address] [place] [address] [place] [address] [place] [phone] [address] Social History Tobacco Use Types Packs/Day Years Used Date Smoking Tobacco: Never Smokeless Tobacco: Never Tobacco Cessation: Counseling Given: No Sex Assigned [...] - 08/15/2018 10:30 AM CDT Please call [phone] to schedule an appointment with Dr Charli Jefferson. documented in this encounter Progress Notes Charles Crawford MD - 08/15/2018 10:30 AM CDT Rajiv Restrepo is a very pleasant 68-year-old male who underwent radical prostatectomy in [facility] 9 years ago. Immediately after discharge he was transferred to [facility] with a systemic infection, required dialysis [...] he see Charli Jefferson MD at the [place] who has an expertise in these 2 [...] in this encounter Results UA without Microscopic [[id number]] (08/15/2018 10:23 AM CDT) [facility] Method Time Signature Color Urine Yellow 08/15/2018 [...] 10:27 AM UROLOGIC CDT [facility] [place] 1.015 1.003 - 08/15/2018 [facility] Urine 1.035 [...] Number [facility] [address] [place] [address] CLINIC [address] documented in this encounter Visit Diagnoses Diagnosis Urinary incontinence, unspecified type - Primary documented in this encounter Care Teams Commanding Officer Motorized Squad Relationship Specialty Start Date End Date Raymundo, Salas L PCP - General Family Practice 08/15/18 documented as of this encounter
--- OUTSIDE RECORDS SUMMARY | 2021-12-29 11:47 | XMS_ITS | Encounter Summary ---
:1950 Author Organization [place] Address [address] [place] [address] Care Team Providers Name Role Phone Salas Raymundo Primary Care Provider Charles Crawford MD Unavailable Charli Jefferson MD Unavailable Reason for Visit Auth/Cert Specialty Diagnoses / Procedures Referred By Contact Refer red To Contact Surgery Diagnoses Male Urinary Stress Incontinence Uu Periop Procedures INSERTION, ARTIFICIAL URINARY SPHINCTER 500 [place] [address] Phone: Fax: Referral ID Status Reason Start Date Expiration Date Visits Requ ested Visits Authorized [id number] 1 1 Encounter Details Date Type Department Care Team Description 11/12/2018 Hospital Encounter [facility] Charli Jefferson Str ess incontinence [facility] Same Day MD Tobin of urine (Primary Surgery [place] [facility] [address] [facility] 394 [place] [address] [place], [place] [phone] Social History Tobacco Use Types Packs/Day Years [...] a doctor, call Dr Hernandez's office at [phone] (clinic)or: X [phone] and ask for the Resident Concrete Boom Pump Operator for: Urology (answered 24 hours a day) X Emergency Department: [facility]: [phone] Rev. 11/2013 documented in this encounter Medications [...] PM CDT [facility] Progress Note [facility], [address] Provided precision assembler bench care with Gopal, his (Heather) and their friend (Maddison) prior to his surgery. Discussed hopes related to surgery and how it will hopefully improve his quality of life. They are active within their hindu ([place] Car[place], in [place]). Mariana is important for coping. Prayer was [...] 1225 PIV 20g insert to right hand ([id number]) SL @ 1230 Tammi @ pt bedside [...] discomfort mentioned. Handoff to Radha GONZALEZ @ 1202 @ pt bedside documented in this encounter [...] ILLNESS: Rajiv Restrepo is a 68 year oldsrs-ohle-qen gentleman with urinary incontinence refractory to minimally [...] Gonzalez MD - 11/12/2018 5:30 PM CDT [facility] [place] Brief Operative Note Pre-operative diagnosis: Male Urinary [...] Implant Name Type Inv. Item Serial No. Photogrammetric Technician Lot No. LRB No. Used IMP URINARY SPHINCTER BALLOON AMS 61-70CM [id number] Metallic Hardware/[employer] IMP URINARY SPHINCTER BALLOON AMS 61-70CM [id number] [facility] [id number] N/A 1 IMP URINARY SPHINCTER AMS 800 PUMP SYSTEM [id number] Prosthesis IMP URINARY SPHINCTER AMS 800 PUMP SYSTEM [id number] [facility] [id number] N/A 1 KIT ACCESSORY UCS AMS 800 108106-89 Leads KIT ACCESSORY UCS AMS 800 361982-36 [facility] [id number] N/A 1 IMP URINARY SPHINCTER CUFF OCCLUSIVE AMS 5.0CM [id number] Prosthesis IMP URINARY SPHINCTER CUFF OCCLUSIVE AMS 5.0CM [id number] [facility] [id number] N/A 1 documented in this encounter Plan [...] 2:33 CDT PM CDT Charli BRYANT - BEMINI POCT Performing Organization Address City/State/ZIP Code Phon e Number [facility] POINT OF CARE TEST, GLUCOSE POINT OF CARE TEST, GLUCOSE Potassium (11/12/2018 11:34 AM CDT) P athologist Signature Potassium 3.9 3.4 - 5.3 11/12/2018 [facility] mmol/L 12:50 PM CDT [facility] Specimen Anatomical Collection Method Collection Time Receive d Time (Source) Location / / Volume Laterality Blood specimen 11/12/2018 11:34 9 (specimen) AM CDT 11:35 AM CDT Rohan Yarbrough MD LAB - BLOOD ORDERABLES Performing Organization Address City/[facility]/ZIP Code Phon e Number [facility] [address] [place] [address] [facility] (ABNORMAL) Glucose by meter (11/12/2018 11:20 AM CDT) P athologist Signature Glucose 100 (H) 70 - 99 11/12/2018 POINT OF CARE mg/dL 11:31 AM CDT TEST, GLUCOSE Comment: /LISA Notified Specimen Anatomical Collection Method Collection Time Receive d Time (Source) Location / / Volume Laterality 11/12/2018 11:20 11/12/2018 AM CDT 11:31 AM CDT Charli BRYANT - BEAKER POCT Performing Organization Address City/State/ZIP [...] (CANCELED) 1854 (Given - Provider: Ce Hager, RN) 4 mg, Intravenous, EVERY 30 MIN PRN, [...] 5 mg 1807 (Given - Provider: Ce Hager, RN) 5 mg, Oral, EVERY 4 HOURS PRN, moderate to severe pain, Starting Sat11/12/18 at 1746, Max: 5 mg for opioid-na??ve patient., Post-procedure documented in this encounter Care Teams Safety Counselor Relationship Specialty Start Date End Date Salas Raymundo PCP - General [facility] Practice 08/15/18 Charles Crawford MD MD Urology 08/19/18 [address] [place] [address] [place] [address] Charli Jefferson MD MD Urology 08/19/[address] [place] [phone] documented as of this encounter
--- OUTSIDE RECORDS SUMMARY | 2021-12-29 11:47 | XMS_ITS | Encounter Summary ---
:1950 Author Organization [place] Address [address] [place] [address] Care Team Providers Name Role Phone Salas Raymundo Primary Care Provider Charles Crawford MD Unavailable Charli Jefferson MD Unavailable Reason for Visit Reason Comments Consult Patient is here for consult for surgery Encounter Details Date Type Department Care Team Description 09/08/2018 Office Visit [facility] Urology and Charli Jefferson y urgency Inst for Prostate and Ioana Rudd (Primary Dx) Urologic Cancers [address] [facility] [employer] 909 [facility] 394 4th Floor [place], [place] [address] [phone] Social History Tobacco Use Types Packs/Day Years [...] documented in this encounter Patient Instructions Patient InstructionsCuAiranne ponce CMA - 09/08/2018 12:00 PM CDT [...] 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, required dialysis [...] calculated from the following: Height as of 6/28/19: 1.74 m (5' 8.5). Weight as of [...] urination documented in this encounter Care Teams Drafter Mechanical Relationship Specialty Start Date End Date Salas Raymundo PCP - General Family Practice 08/15/18 Charles Crawford MD MD Urology 08/19/18 [address] [place] [address] [place] [address] Charli Jefferson MD MD Urology 08/19/18 420 [facility] 394 [place] [address] documented as of this encounter
--- OUTSIDE RECORDS SUMMARY | 2021-12-29 11:47 | XMS_ITS | Encounter Summary ---
:1950 Author Organization [place] Address [address] [place] [address] Care Team Providers Name Role Phone Salas [...] on filedocumented in this encounter Care Teams Complaint Inspector Relationship Specialty Start Date End Date Salas Raymundo PCP - General Family Practice 08/15/18 Charles Crawford MD MD Urology 08/19/18 [address] [facility] 500 [place] [address] Charli Jefferson MD MD Urology 08/19/18 420 [facility] 394 [place] [address] documented as of this encounter
--- OUTSIDE RECORDS SUMMARY | 2021-12-29 11:47 | XMS_ITS | Encounter Summary ---
:1950 Author Organization [place] Address [address] [place] [address] Care Team Providers Name Role Phone Salas [...] filedocumented in this encounter Care Teams Special Education Paraprofessional Relationship Specialty Start Date End Date Salas Raymundo PCP - General Family Practice 08/15/18 documented as of this encounter
--- OUTSIDE RECORDS SUMMARY | 2021-12-29 11:47 | XMS_ITS | Encounter Summary ---
:1950 Author Organization [place] Address [address] [place] [address] Care Team Providers Name Role Phone Salas Raymundo Primary Care Provider Charles Crawford MD Unavailable Charli Jefferson MD Unavailable Reason for Visit Reason Comments Allied Health Visit Surgery Teaching Encounter Details Date Type Department Care Team Description 10/29/2018 Allied Health Urology and Nurse, [facility] Health/Nurse Inst for Prostate Cancer Ctr (Surgery T eaching) Visit and Urologic Cancers 909 [facility] [address]th [place] [address] Social History Tobacco Use Types [...] time of surgery: 11/12/18 Location of surgery: [address] [place] [address] History and Physical and any other testing [...] scheduling staff if necessary. Instructional materials used/given/mailed: [place] Surgery Booklet, post op teaching sheet, Map, Soap, and arrival/location information. Surgical instructions given to patient in clinic: Yes. Instructional Materials given: Before your surgery packet , Medications to avoid before surgery , Showering or Bathing instructionsbefore surgery and What to expect after surgery Post-op appointment/testing scheduled per MD orders: Yes Total time with patient: 10 minutes Tracey Bhandari, RN, BSN Urology Aircraft Maintenance Instructor documented in this encounter Plan of Treatment Not on filedocumented as of this encounter Visit Diagnoses Diagnosis Urinary urgency - Primary Urgency of urination Urinary incontinence, unspecified type Male urinary stress incontinence Stress incontinence, male documented in this encounter Care Teams Rfp Writer Relationship Specialty Start Date End Date Salas Raymundo PCP - General Family Practice 08/15/18 Charles Crawford MD MD Urology 08/19/18 [address] [facility] [facility] [address] [place] [address] Charli Jefferson MD MD Urology 08/19/18 420 [facility] 394 [place] [address] documented as of this encounter
--- OUTSIDE RECORDS SUMMARY | 2021-12-29 11:47 | XMS_ITS | Encounter Summary ---
:1950 Author Organization [place] Address [address] [place] [address] Care Team Providers Name Role Phone Salas Raymundo Primary Care Provider Charles Crawford MD Unavailable Charli Jefferson MD Unavailable Reason for Visit Reason Comments Consult Discuss surgery for artifica l urinary sphincter Encounter Details Date Type Department Care Team Description 10/29/2018 Office Visit [facility] Urology and Charli Jefferson Male u rinary stress incontinence (Primary Dx); Inst for Prostate and Ioana Rudd Urinary urgency; Urologic Cancers [address] Urinary incontinence, unspec ified type 909 [facility] [address] 4th [place] [address] Social History Tobacco Use Types Packs/Day Years [...] the resident. Charli Jefferson MD HPI Rajiv Jeffriesen is a 68 year old male who previously visited with Dr. Crawford for consideration of AUS. 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 He currently uses a Daley clamp to [...] type documented in this encounter Care Teams Button Station Worker Relationship Specialty Start Date End Date Salas Raymundo PCP - General Family Practice 08/15/18 Charles Crawford MD MD Urology 08/19/18 [address] [place] [address] Charli Jefferson MD MD Urology 08/19/18 420 [facility] 394 [place] [address] documented as of this encounter
--- OUTSIDE RECORDS SUMMARY | 2021-12-29 11:47 | XMS_ITS | Encounter Summary ---
:1950 Author Organization [place] Address [address] [place] [address] Care Team Providers Name Role Phone Salas Raymundo Primary Care Provider Charles Crawford MD Unavailable Charli Jefferson MD Unavailable Reason for Visit Reason Onset Date Comments Medication Question 11/06/2018 Encounter Details Date Type Department Care Team Description 11/06/[address] [facility] Urology and Charli Jefferson Medica tion Question Inst for Prostate and Ioana Rudd Urologic Cancers [address] [facility] 909 [facility] 394 4th [place] [address] [place], [place] [phone] (Wo rk) [address] [phone] Social History Tobacco Use Types Packs/Day Years [...] bladder documented in this encounter Care Teams Extrusion Bender Relationship Specialty Start Date End Date Salas Raymundo PCP - General Family Practice 08/15/18 Charles Crawford MD MD Urology 08/19/18 [address] [facility] 500 [place] [address] Charli Jefferson MD MD Urology 08/19/18 420 [facility] 394 [place] [address] documented as of this encounter
--- OUTSIDE RECORDS SUMMARY | 2021-12-29 11:47 | XMS_ITS | Encounter Summary ---
:1950 Author Organization [place] Address [address] [place] [address] Care Team Providers Name Role Phone Salas Raymundo Primary Care Provider Charles Crawford MD Unavailable Charli Jefferson MD Unavailable Reason for Visit Reason Onset Date Comments Pre Visit Planning - Done 08/19/2018 Encounter Details Date Type Department Care Team Description 08/19/2018 PRE VISIT [facility] Urology and Charli Jefferson Pre Vi sit Planning - Inst for Prostate and Ioana Rudd Done Urologic Cancers [address] [facility] 909 [facility] [address] [place], [place] [address] [phone] Social History Tobacco Use Types Packs/Day Years Used Date Smoking Tobacco: Never Smokeless Tobacco: Never Sex Assigned at Date Recorded Male 09/04/2018 3:46 PM CDT documented as of this encounter Miscellaneous Notes Telephone Encounter - Jaimie Nichols - 08/19/2018 8:21 AM CDT Images from the original note were not included. MEDICAL RECORDS REQUEST [facility] [address] [place] [address] PHONE: [phone] FUTURE VISIT INFORMATION Rajiv Restrepo, : 1950 scheduled for future visit at [facility] APPOINTMENT INFORMATION: ?? Date: 09/08/18 12PM ?? Provider: Charli Hernandez MD ?? Reason for Visit/Diagnosis: Urinary Sphincter REFERRAL INFORMATION: ?? Referring provider: Charles Crawford ?? Specialty: MD ?? Referring providers clinic: [facility] ?? Clinic contact number: [phone] RECORDS REQUESTED FOR VISIT NOTES STATUS/DETAILS OFFICE NOTE from referring provider yes OFFICE NOTE from other specialist yes DISCHARGE SUMMARY from hospital no DISCHARGE REPORT from the ER no OPERATIVE REPORT yes MEDICATION LIST no PRE-VISIT CHECKLIST Record collection complete Yes- Recs in [facility] recs with Dr. Aguilar in Appointment appropriately scheduled (right time/right provider) Yes MyChart activation If no, please explain: In process Questionnaire complete If no, please explain: In process Completed by: Jaimie Nichols documented in this encounter Plan of Treatment Not on filedocumented as of this encounter Visit Diagnoses Not on filedocumented in this encounter Care Teams Core Worker Relationship Specialty Start Date End Date Salas Raymundo PCP - General Family Practice 08/15/18 Charles Crawford MD MD Urology 08/19/18 [address] [facility] [address] [place] [phone] Charli Jefferson MD MD Urology 08/19/[address] [address] documented as of this encounter
--- OUTSIDE RECORDS SUMMARY | 2021-12-29 11:47 | XMS_ITS | Encounter Summary ---
:1950 Author Organization [place] Address [address] [place] [address] Care Team Providers Name Role Phone Salas Raymundo Primary Care Provider Charles Crawford MD Unavailable Charli Jefferson MD Unavailable Reason for Visit Reason Onset Date Comments Medication Question 09/08/2018 Encounter Details Date Type Department Care Team Description 09/08/2018 Telephone [facility] Urology and Charli Jefferson Medica tion Question Inst for Prostate and Ioana Rudd Urologic Cancers [address] [facility] 909 [facility] [address] [place] [address] [place], [place] [phone] (Wo rk) [address] [phone] Social History Tobacco Use Types Packs/Day Years Used Date Smoking Tobacco: Never Smokeless Tobacco: Never Alcohol Use Standard Drinks/Week Comments Yes 0 (1 standard drink = 0.6 oz pure alcoho l) 2-3/week Sex Assigned at Date Recorded Male 09/04/2018 3:46 PM CDT documented as of this encounter Miscellaneous Notes Telephone Encounter - Carola Medrano CMA - 09/09/2018 4:26 PM CDT [facility] pharmacy was notified that the dispense should be 90 instead of 30. New Oxybutynin prescription with the correction was sent to [facility] pharmacy. Carola Medrano MA Telephone Encounter - Gavin Bernard - 09/09/2018 4:02 PM CDT Ioana [facility] Phone Message May a detailed message be left on voicemail: yes Reason for Call: Other: [place] calling back. He states no one has called the pharmacy. Please call him back to discuss. Action Taken: Message routed to: [facility] ([facility]): uro Telephone Encounter - Jovi Mc - 09/08/2018 2:55 PM CDT Ioana [facility] Phone Message May a detailed message be [...] Message routed to: [facility] ([facility]): [facility] urology documented in this encounter Plan of Treatment Not on filedocumented as of this encounter Visit Diagnoses Diagnosis Urinary urgency - Primary Urgency of urination documented in this encounter Care Teams Bottom Cager Relationship Specialty Start Date End Date Salas Raymundo PCP - General Family Practice 08/15/18 Charles Crawford MD MD Urology 08/19/18 [address] [facility] [address] [place] [address] Charli Jefferson MD MD Urology 08/19/18 420 [facility] [address] [place] [address] documented as of this encounter
--- OUTSIDE RECORDS SUMMARY | 2021-12-29 11:47 | XMS_ITS | Encounter Summary ---
:1950 Author Organization [place] Address [address] [place] [address] Care Team Providers Name Role Phone Salas Raymundo Primary Care Provider Charles Crawford MD Unavailable Charli Jefferson MD Unavailable Reason for Visit Reason Onset Date Comments Pre Visit Planning - Done 10/21/2018 Encounter Details Date Type Department Care Team Description 10/21/2018 PRE VISIT [facility] Urology and Charli Jefferson Pre Vi sit Planning - Inst for Prostate and Ioana Rudd Done Urologic Cancers 420 [facility] 909 [facility] [address] [place], [place] [address] [phone] Social History Tobacco Use Types Packs/Day Years [...] Reason for visit: Discuss AUS Relevant information: incontinenceThuy clamp Records/imaging/labs/orders: all records available Pt called: no need for a call At Rooming: regular documented in this encounter Plan of Treatment Not on filedocumented as of this encounter Visit Diagnoses Not on filedocumented in this encounter Care Teams Hop Weigher Relationship Specialty Start Date End Date Salas Raymundo PCP - General Family Practice 08/15/18 Charles Crawford MD MD Urology 08/19/18 [address] [facility] [address] [place] [address] Charli Jefferson MD MD Urology 08/19/18 420 [facility] [address] [place], [place] [phone] documented as of this encounter
== END 2021-11-20 17:32 | disposition home or self-care (01) ==
PROVIDERS: PCP Family Medicine; Visit Provider Emergency Medicine Emergency Medical Services
DX: S32.029S Unspecified fracture of second lumbar vertebra, sequela (principal); S32.039S Unspecified fracture of third lumbar vertebra, sequela; S32.049S Unspecified fracture of fourth lumbar vertebra, sequela; S32.059S Unspecified fracture of fifth lumbar vertebra, sequela
CPT/HCPCS: A0425; A0428

== ENCOUNTER 2022-06-22 14:23 | Emergency (ER) | payer MEDICARE, BC, SELFPAY ==
[2022-06-22 14:52] VITALS: BP 122/73; PULSE 78; RESP 18; TEMP 36.7; O2SAT 97; BMI 34.7
--- NOTE | 2022-06-22 15:01 | CRLHL7_ITS ---
For Patients: As a result of the Century Cures Act, medical imaging exams and procedure reports are released immediately into your electronic medical record. You may view this report before your referring provider. If you have questions, please contact your health care provider. INDICATION: RT LEG PAIN AND SWELLING COMPARISON: None. TECHNIQUE: A compression venous ultrasound exam was performed of the right lower extremity using garner-scale imaging, color Doppler and spectral Doppler analysis. FINDINGS: Sonographic imaging of the right lower extremity demonstrates normal compressibility and color Doppler venous blood flow within the common femoral vein, deep femoral vein, and the proximal greater saphenous vein. Within the thigh, the femoral vein is patent and compressible. At a lower level, the popliteal and posterior tibial veins also show normal compressibility and color Doppler venous blood flow. Limited imaging of the contralateral groin demonstrates a normal spectral waveform and color Doppler venous blood flow within the left common femoral vein. IMPRESSION: Normal venous ultrasound exam. No evidence of deep vein thrombosis within the right lower extremity. Dictated by Rajiv Leon MD @ 06/22/2022 6:00:04 PM (Electronically Signed)
--- NOTE | 2022-06-22 22:43 | ED_ITS ---
HPI - General Adult General Chief complaint: Extremity Pain/Injury, Lower Stated complaint: Swollen R calf, History of DVTs Time Seen by Provider: 06/22/22 15:43 History of Present Illness HPI narrative: Patient here with right calf pain since this morning. 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 Significant health history: brain bleed, back injury, heart valve replacement, etc. 72-year-old man presenting to the emergency department with spouse with concern of right lower leg/calf area swelling beginning yesterday evening continuing to today. It is a little bit more than the right while admittedly not marked. Not so much pain. Has tingling on the inside of the knee. History of DVT in this leg as well as intracerebral hemorrhage occurred 12-13 years ago. No recent periods of significant immobility. No chest pain or shortness of breath or lightheadedness. No trauma. No fever or specific joint swelling or redness. Does continue to take low-dose aspirin daily. Related Data Home Medications Medication Instructions Recorded Confirmed albuterol sulfate 90 mcg/actuation 2 puff inhalation Q4H PRN 11/20/21 06/22/22 aerosol inhaler (Ventolin HFA) aspirin 81 mg capsule 81 mg PO DAILY 11/20/21 06/22/22 atorvastatin 40 mg tablet 40 mg PO DAILY 11/20/21 06/22/22 azelastine 137 mcg (0.1 %) nasal 2 spray intranasal Q12H 11/20/21 06/22/22 spray aerosol fluticasone propionate 230 2 inh inhalation Q12H 11/20/21 06/22/22 mcg-salmeterol 21 mcg/actuation HFA inhaler (Advair HFA) losartan 50 mg-hydrochlorothiazide 1 tab PO DAILY 11/20/21 06/22/22 12.5 mg tablet montelukast 10 mg tablet 10 mg PO DAILY 11/20/21 06/22/22 Allergies Allergy/AdvReac Type Severity Reaction Status Date / Time hydrocodone Allergy vomiting Verified 06/22/22 14:55 Review of Systems Status of ROS: Reports: 6 or more systems reviewed and unremarkable except as noted in History and below PFSH PFSH Social History Smoking Status: Never smoker Do you use any of these nicotine containing products: None How often do you have a drink containing alcohol: 2-4 times a month How many standard drinks containing alcohol do you have on a typical day: 1 or 2 How often do you have six or more drinks on one occasion: Never AUDIT-C Alcohol total score: 2 Non-prescribed substance use: denies use Exam Narrative: Exam Narrative: Pleasant. NAD. Seated on the bed with his legs down. Breathing easily. Cranial nerves 2-12 look to be intact. Moving all extremities without difficulty. Examination leg shows that the right lower leg is mildly enlarged versus the left. No pitting edema. No indication of trauma. No fullness or pain to palpation popliteal fossa. Looks to be well perfused. Further exam of the groin is without apparent swelling. Strong pulse. No pain to internal external rotation of the hip. He does describe some soreness in the outer aspect of the right thigh. No blisters or rash appreciated. The soreness extends along the lateral aspect toward the greater trochanter to palpation. Const: Vital Signs, click to edit/add: Vital Signs - 24 hr 06/22/22 14:52 Temperature 98.1 F Pulse Rate [Pulse Oximeter] 78 Respiratory Rate 18 Blood Pressure [Ri ght Upper Arm] 122/73 Pulse Oximetry 97 Oxygen Delivery Me thod Room Air Documenting provider has reviewed patient's vital signs: yes Course Vital Signs Vital signs: Initial Vital Signs Temperature 98.1 F 06/22/22 14:52 Temperature Source Temporal Artery Scan 06/22/22 14:52 Pulse Rate 78 06/22/22 14:52 Respiratory Rate 18 06/22/22 14:52 Blood Pressure 122/73 06/22/22 14:52 Blood Pressure Mean 89 06/22/22 14:52 Blood Pressure Position Sitting 06/22/22 14:52 Pulse Oximetry 97 06/22/22 14:52 Oxygen Delivery Method Room Air 06/22/22 14:52 Vital Signs Temperature 98.1 F 06/22/22 14:52 Pulse Rate 78 06/22/22 14:52 Respiratory Rate 18 06/22/22 14:52 Blood Pressure 122/73 06/22/22 14:52 Pulse Oximetry 97 06/22/22 14:52 Oxygen Delivery Method Room Air 06/22/22 14:52 Temperature 98.1 F 06/22/22 14:52 Pulse Rate 78 06/22/22 14:52 Respiratory Rate 18 06/22/22 14:52 Blood Pressure 122/73 06/22/22 14:52 Pulse Oximetry 97 06/22/22 14:52 Oxygen Delivery Method Room Air 06/22/22 14:52 Medical Decision Making MDM Narrative Medical decision making narrative: Consider osteoarthritic pain, DVT, ITB band/trochanteric bursitis, muscle strain, Franco's cyst, benign dependent edema. Given history ultrasound was done of the right leg which per my conversation with supervisor aluminum fabrication was unremarkable. I discussed these findings with Mr. Restrepo. See patient discharge plan Discharge Plan Discharge Clinical Impression: Leg pain, right, Edema, peripheral Patient Disposition: Home w/ Parent or Adult Condition: Stable Additional Instructions: I appreciate that you do have some mild increase in fullness or maybe a little swelling on that right leg relative to the left. Not sure what to make of that right now. Consider using your compression stockings when up and about over the next couple of days. I wonder if you might be developing some iliotibial band tension/irritation. See handout on trochanteric bursitis. While this is not your diagnosis it is essentially a continuum of iliotibial band syndrome. The exercises are very similar. Ice is probably less of a need in your case. I discussed briefly with Orthopedics who are also recommending a foam roller over the outside of your upper leg as a part of these exercises. In your case in particular I'm quite relieved that you do not appear to have a clot. Let's see how things go over the weekend with re-evaluation certainly for worsening. Activity Level: No Restrictions Discharge Diet: Regular Prescriptions: No Action albuterol sulfate [Ventolin HFA] 90 mcg/actuation HFA aerosol inhaler 2 puff INHALATION Q4H PRN Patient Comments: INHALE TWO PUFFS BY MOUTH EVERY 4 HOURS atorvastatin 40 mg tablet 40 mg PO DAILY Patient Comments: TAKE ONE TABLET BY MOUTH EVERY DAY azelastine 137 mcg (0.1 %) aerosol,spray 2 spray INTRANASAL Q12H Patient Comments: TWO SPRAYS NASAL TWO TIMES A DAY fluticasone propion-salmeterol [Advair HFA] 230-21 mcg/actuation HFA aerosol inhaler 2 inh INHALATION Q12H Patient Comments: INHALE TWO PUFFS BY MOUTH TWICE A DAY losartan-hydrochlorothiazide 50-12.5 mg tablet 1 tab PO DAILY Patient Comments: TAKE ONE TABLET BY MOUTH EVERY DAY montelukast 10 mg tablet 10 mg PO DAILY aspirin 81 mg capsule 81 mg PO DAILY Follow Up/Referrals: Salas Raymundo MD [Primary Care Provider] - Stand Alone Forms: [employer] Info Instructions
== END 2022-06-22 16:21 | disposition home or self-care (01) ==
LOC: ED 16:12
PROVIDERS: Emergency Provider Family Medicine; PCP Family Medicine
DX: R60.1 Generalized edema (principal)
CPT/HCPCS: 93971; 99283; 99284

== ENCOUNTER 2022-10-08 07:03 | Outpatient (CLI) | payer MEDICARE, BC, SELFPAY ==
--- NOTE | 2022-10-08 08:24 | W.ANESCHARGE ---
Anesthesia Charges Start Date/Time Anesthesia Start Date: 10/08/22 Anesthesia Start Time: 07:53 Stop Date/Time Anesthesia Stop Date: 10/08/22 Anesthesia Stop Time: 08:40 Summary Extremes of Age - Over 70 or under 1: MDA
--- NOTE | 2022-10-08 08:41 | W.ANESCHARGE ---
Anesthesia Charges Start Date/Time Anesthesia Start Date: 10/08/22 Anesthesia Start Time: 07:53 Stop Date/Time Anesthesia Stop Date: 10/08/22 Anesthesia Stop Time: 08:40
== END 2022-10-08 07:04 | disposition home or self-care (01) ==
LOC: OP CLINIC 07:04
PROVIDERS: PCP Family Medicine; Visit Provider Internal Medicine Gastroenterology
DX: Z86.010 Personal history of colon polyps (principal); K63.5 Polyp of colon; K57.30 Diverticulosis of large intestine without perforation or abscess without bleeding; Q43.8 Other specified congenital malformations of intestine
CPT/HCPCS: 00811; 45380; 88305; 99100; J2704

== ENCOUNTER 2023-09-06 07:05 | Day surgery (SDC) | payer MEDICARE, BC, SELFPAY ==
[2023-09-06] VITALS (15 sets, daily range): BP systolic 140–161; BP diastolic 74–97; PULSE 55–77; RESP 14–16; TEMP 36–36.4; O2SAT 92–99; BMI 36.7
--- OUTSIDE RECORDS SUMMARY | 2023-09-06 07:07 | XMS_ITS | Encounter Summary ---
Author Organization [facility] Address [address] [address] Phone Care Team Providers Care Practice Administrator Name Role Phone Unavailable Primary Care Provider Unavailabl e Reason for Referral * Ancillary Services (Urgent) - Closed Specialty Diagnoses / Procedures Referred By Leobardo stahl Referred To Contact Radiology Diagnoses Injury of right shoulder, initial encounter Procedures XR HUMERUS RIGHT 2 OR MORE VIEWS Ruma Manzo APRN, MANAGER [employer] [address] [place] [address] Referral ID Status Reason Start Date Expiration Date Visits Re quested Visits Authorized [id number] Closed 08/15/2023 11/14/2024 1 1 Reason for Visit * Ancillary Services (Urgent) - Closed Specialty Diagnoses / Procedures Referred By Leobardo stahl Referred To Contact Radiology Diagnoses Injury of right shoulder, initial encounter Procedures XR HUMERUS RIGHT 2 OR MORE VIEWS Ruma Manzo APRN, MANAGER [employer] [address] [place] [address] Referral ID Status Reason Start Date Expiration Date Visits Re quested Visits Authorized [id number] Closed 08/15/2023 11/14/2024 1 1 Encounter Details Date Type Department Care Team (Latest Contact Info) Description 08/15/2023 4:58 PM CDT Hospital Encounter [facility] [place] [address] Ruma Manzo APRN, MANAGER [employer] [address] [place] [address] Injury of right shoulder, initial encounter Discharge Disposition: Discharged Social History Tobacco Use Types Packs/Day Years Used Date Smoking Tobacco: Never Assessed Sex and Gender Information Value Date Recorded Sex Assigned at Not on file Gender Identity Not on file Sexual Orientation Not on file Job Start Date Occupation Industry Not on file Not on file Not on file documented as of this encounter Medications at Time of Discharge Medication Sig Dispensed Refills Start Date End Date albuterol (Proventil, Ventolin) (2.5 MG/3ML) 0.083% nebulizer solution INHALE 3MLS EVERY 6 HOURS NEEDED FOR WHEEZING. 11/24/2021 albuterol HFA (Proair HFA, Ventolin HFA) 108 (90 Base) MCG/ACT inhalation aerosol Inhale 2 Puffs into the lungs four times a day as needed. 02/05/2014 aspirin EC 81 MG tablet Take 81 mg by mouth one time a day. 09/05/2009 atorvaSTATin (Lipitor) 40 MG tablet Take 40 mg by mouth one time a day. azelastine (Astelin) 0.1 % nasal spray Instill 1 [place] nasally one time a day. budesonide (Pulmicort) 0.5 MG/2ML nebulizer suspension INHALE 2ML (1 AMPULE) VIA NEBULIZER TWICE A DAY 09/04/2022 Calcium Carb-Cholecalciferol (Calcium 500 + D) 500-3.125 MG-MCG Tablet Take 500 mg by mouth two times a day. fexofenadine (Fe) 180 MG tablet Take 180 mg by mouth one time a day. 10/07/2009 mirabegron ER (MYRBETRIQ) 50 MG Tablet Extended Release 24 Hour 24 hour tablet Take 50 mg by mouth one time a day. 01/05/2019 lisinopril-hydroCHLOROth iazide (Prinzide, Zestoretic) 10-12.5 MG oral tablet Take 1 Tablet by mouth. 04/22/2018 losartan-hydroCHLOROthia zide (Hyzaar) 50-12.5 MG oral tablet Take 1 Tablet by mouth one time a day. Multiple Vitamin (therapeutic multivitamin) Tablet Take 1 Tablet by mouth. 1 documented as of this encounter Discharge Disposition Disposition Code Departure Means Destination Discharged documented in this encounter Plan of Treatment Not on file documented as of this encounter Procedures Procedure Name Priority Date/Time Associated Diagnosis Comments XR HUMERUS RIGHT 2 OR MORE VIEWS STAT 08/15/2023 5:25 PM CDT Injury of right shoulder, initial encounter documented in this encounter Results * XR HUMERUS RIGHT 2 OR MORE VIEWS (08/15/2023 5:25 PM CDT) Anatomical Region Laterality Modality Arm Radiographic Bharati ging 08/15/2023 5:25 PM CDT Narrative 08/15/2023 6:30 PM CDT This document is currently in Final Status Exam XR HUMERUS RIGHT 2 OR MORE VIEWS HISTORY: Fell down stairs and landed on right shoulder. COMPARISON: None. FINDINGS: Two views of the right humerus show normal alignment. No fractures are evident. No focal bony lesions are seen. IMPRESSION: Negative right humerus films. Dictated By: Rajiv Guzmán MD 08/15/2023 5:50 PM Edited By: ZULEYMA 08/15/2023 5:52 PM Electronically Signed: Rajiv Guzmán MD 08/15/2023 6:30 PM Procedure Note Rajiv Guzmán MD - 08/15/2023 This document is currently in Final Status Exam XR HUMERUS RIGHT 2 OR MORE VIEWS HISTORY: Fell down stairs and landed on right shoulder. COMPARISON: None. FINDINGS: Two views of the right humerus show normal alignment. Nofractures are evident. No focal bony lesions are seen. IMPRESSION: Negative right humerus films. Dictated By: Rajiv Guzmán MD 08/15/2023 5:50 PM Edited By: ZULEYMA 08/15/2023 5:52 PM Electronically Signed: Rajiv Guzmán MD 08/15/2023 6:30 PM Ruma Manzo VAULT SERVICE MECHANIC, MANAGER [employer] EC DIAGNOSTI C IMAGING ORDERABLES documented in this encounter Visit Diagnoses Diagnosis Injury of right shoulder, initial encounter documented in this encounter
--- OUTSIDE RECORDS SUMMARY | 2023-09-06 07:07 | XMS_ITS | Encounter Summary ---
Author Organization [facility] Address [address] [address] Phone Care Team Providers Care Automation And Controls Manager Name Role Phone Unavailable Primary Care Provider Unavailabl e Encounter Details Date Type Department Care Team (Latest Contact Info) Description 08/15/2023 Travel Social History Tobacco Use Types Packs/Day [...] on file documented as of this encounter Visit Diagnoses Not on filedocumented in this encounter
--- OUTSIDE RECORDS SUMMARY | 2023-09-06 07:07 | XMS_ITS | Encounter Summary ---
Author Organization [place] Address [facility] [place] [address] Care Team Providers Care Court Assistant Name Role Phone Salas Raymundo Primary Care Provider Charles Crawford MD Unavailable [phone] Charli Jefferson MD Unavailable Christie Cruz MD Unavailable [phone] Charli Jefferson MD Unavailable Christie Cruz MD Unavailable [phone] Encounter Details Date Type Department Care Team (Late st Contact Info) Description 01/07/2019 [facility]rology and [facility] [address] [facility] [address] [place] [phone] Christie Cruz MD [address] [place] [address] Social History Tobacco Use Types Packs/Day Years Used Date Smoking Tobacco: Never Smokeless Tobacco: Never Alcohol Use Standard Drinks/Week Comments Yes 0 (1 standard drink = 0.6 oz pur e alcohol) 2-3/week PHQ-2 Answer Date Recorded PHQ-2 Score 0 08/15/2018 Sex and Gender Information Value Date Recorded Sex Assigned at Male 09/04/2018 3:46 PM CDT Gender Identity Male 09/04/2018 3:46 PM CDT Sexual Orientation Straight 09/04/2018 3: 46 PM CDT documented as of this encounter Plan of Treatment Not on file documented as of this encounter Visit Diagnoses Not on filedocumented in this encounter Care Teams Court Assistant Relationship Specialty Start Date End Date Salas Raymundo PCP - General Family Practice 08/15/18 Charles Crawford MD [address] [phone] Urology 08/19/18 Charli Jefferson MD [address] [id number] Urology 08/19/18 Christie Cruz MD [address] [place] [address] Assigned Surgical Provider 12/11/19 Charli Jefferson MD [address] [address] Assigned Surgical Provider 04/17/20 Christie Cruz MD [address] [place] [phone] Assigned Surgical Provider 05/04/20 documented as of this encounter
--- OUTSIDE RECORDS SUMMARY | 2023-09-06 07:07 | XMS_ITS | Clinical Summary ---
Author Organization [facility] Address [facility]ly [facility], [facility] [place] [address] Care Team Providers Care Formulation Scientist Name Role Phone Salas Raymundo Primary Care Provider [phone] Charles Crawford MD Unavailable Charli Jefferson MD Unavailable [phone] Allergies Active Allergy Reactions Criticality Noted Date Comments Hydrocodone-Acetaminophen Nausea and Vomiting 0 03/15/2014 Medications Medication Sig Dispensed Refills Start Date End Date Status albuterol (PROAIR HFA) 108 (90 Base) MCG/ACT inhaler Inhale 2 puffs into the lungs 02/05/2014 Active aspirin 81 MG EC tablet Take 81 mg by mouth 09/05/2009 Activ e atorvastatin (LIPITOR) 40 MG tablet Take 40 mg by mouth 05/20/2018 Activ e Cholecalciferol (D 1000) 1000 units CAPS Take 2,000 Units by mouth 02/10/2016 Active fexofenadine (MIGUEL) 180 MG tablet Take 180 mg by mouth 10/07/2009 Acti ve lisinopril-hydroch lorothiazide (PRINZIDE/ZESTORET IC) 10-12.5 MG tablet Take 1 tablet by mouth 04/22/2018 Active montelukast (SINGULAIR) 10 MG tablet Take 10 mg by mouth 04/11/2017 Activ e fluticasone-salmet jung (ADVAIR HFA) 115-21 MCG/ACT inhaler Inhale 2 puffs into the lungs 09/01/2010 Active Multiple Vitamin (MULTI-VITAMINS) TABS Take 1 tablet by mouth 11/27/2010 Active ranitidine (ZANTAC) 150 MG tablet Take 150 mg by mouth 02/05/2014 Acti ve oxybutynin ER (DITROPAN-XL) 5 MG 24 hr tabletIndications: Urinary urgency Take 3 tablets (15 mg) by mouth daily 30 tablet 3 09/08/2018 Active famotidine (PEPCID) 20 MG tablet Take 20 mg by mouth 2 times daily Active FLUZONE HIGH-DOSE 0.5 ML injection See Admin Instructions 0 11/25/2018 Active mirabegron (MYRBETRIQ) 50 MG 24 hr tabletIndications: Overactive bladder Take 1 tablet (50 mg) by mouth daily 90 tablet 3 01/05/2019 Active Active Problems Problem Noted Date Diagnosed Date Essential hypertension 09/08/2018 Obesity, unspecified 09/08/2018 Sensorineural hearing loss, bilateral 09/11/2013 Prostate cancer 11/20/2012 Vitamin D deficiency 11/20/2012 Personal history of colonic polyps 08/14/2012 Overview: Colonoscopy 07/2012 normal repeat in 5 years Colonoscopy 08/2017 polyps, repeat in 5 years Left inguinal hernia 12/12/2010 Expressive aphasia syndrome 08/29/2009 Anemia, unspecified 08/05/2009 Hyperglycemia 08/05/2009 Right hemiparesis 08/05/2009 Status post tracheostomy 08/05/2009 S/P AVR (aortic valve replacement) 07/26/2009 Overview: 07/26/09 Minimally invasive aortic valve replacement (25 mm) Clemente magna supraannular pericardial tissue valve per Dr. Bond. Acute renal failure (H24) 07/11/2009 Acute respiratory failure 07/11/2009 Intracranial hemorrhage 07/11/2009 Sepsis 07/11/2009 Endocarditis, bacterial, acute/subacute 07/07/19 10 Other abnormal glucose 07/06/2009 Hyperlipidemia 07/02/2009 Impotence of organic origin 07/02/2009 Esophageal reflux 02/18/1986 Asthma 02/18/1986 Allergic rhinitis 02/19/1976 Overview: seasonal Immunizations Name Administration Dates Next Due Flu, Unspecified 11/02/2016,11/12/2015 [id number] Novel Flu 02/09/2009 Influenza (H1N1) 02/09/2009 Influenza (High Dose) 3 mitzi nt vaccine 10/31/2017 Influenza (IIV3) PF 11/02/2016, 5,10/21/2012,2011,10/09/2011,11/01/2010,10/28/2009,1 ,11/29/2003,12/21/1996, 996,12/15/1994,12/16/1993,11/26/1992, Influenza Vaccine >6 months,quad, PF 11/20/2013 Influenza Vaccine, 6+MO IM (QUADRIVALENT W/PRESERVATIVES) 11/02/2016 Influenza, seasonal, injectable, PF 10/20,11/10/2014,11/20/2010,2009 Pneumo Conj 13-V (2010&after) 04/24/2017 Pneumococcal 23 valent 04/22/2018,12/14/2008 TDAP Vaccine (Adacel) 09/01/2015,02/09/2009 Td (Adult), Adsorbed 03/16/1999 Zoster recombinant adjuvante d (SHINGRIX) 02/13/2018,01/31/2018,10/31/2017 Zoster vaccine, live 02/03/2013 Family History Medical History Relation Comments Diabetes Brother Diabetes Father Heart Disease Father Skin Cancer Father Heart Disease Mother Cancer Sister Relation Status Comments Brother Father Mother Sister Social History Tobacco Use Types Packs/Day Years Used Date Smoking Tobacco: Never Smokeless Tobacco: Never Tobacco Cessation:Counseling Given: No Alcohol Use Standard Drinks/Week Comments Yes 0 (1 standard drink = 0.6 oz pur e alcohol) 2-3/week PHQ-2 Answer Date Recorded PHQ-2 Score 0 08/15/2018 Adolescent Education Answer Date Record ed Getting School Help Needed Not on file 11/25 Sex and Gender Information Value Date Recorded Sex Assigned at Male 09/04/2018 3:46 PM CDT Gender Identity Male 09/04/2018 3:46 PM CDT Sexual Orientation Straight 09/04/2018 3: 46 PM CDT Last Filed Vital Signs Vital Sign Reading Time Taken Comments Blood Pressure 150/80 01/05/2019 2:32 PM PHLEBOTOMY SERVICES REPRESENTATIVE Pulse 61 01/05/2019 2:32 PM PHLEBOTOMY SERVICES REPRESENTATIVE Temperature 36.6 ??C (97.8 ??F) 11/12/2018 7:50 PM CD T Respiratory Rate 16 11/12/2018 7:50 PM CDT Oxygen Saturation 98% 11/12/2018 8:10 PM CDT Inhaled Oxygen Concentration - - Weight 101.6 kg (224 lb) 01/05/2019 2:32 PM PHLEBOTOMY SERVICES REPRESENTATIVE Height 174.2 cm (5' 8.6) 01/05/2019 2:32 PM PHLEBOTOMY SERVICES REPRESENTATIVE Body Mass Index 33.47 01/05/2019 2:32 PM PHLEBOTOMY SERVICES REPRESENTATIVE Plan of Treatment Not on file Medical Devices Implanted Type Area Kitchen Chef Device Identifier Shelf Expiration Date Model / Serial / Lot Kit Accessory Ucs Ams 800 [id number] Implanted:Qty : 1 on 11/12/2018 by Christie Cruz MD at [facility] Leads N/A: Abdomen [employer] 09/29/2022 [id number] / / [id number] Imp Urinary Sphincter Balloon Ams 61-70cm [id number] Implanted:Qty : 1 on 11/12/2018 by Christie Cruz MD at [facility] Metallic Hardware/Anch or N/A: Abdomen [employer] 03/11/2023 [id number] / / [id number] Imp Urinary Sphincter Ams 800 Pump System [id number] Implanted:Qty : 1 on 11/12/2018 by Christie Cruz MD at [facility] Prosthesis N/A: Scrotum [employer] 07/25/2019 [id number] / / [id number] Imp Urinary Sphincter Cuff Occlusive Ams 5.0cm [id number] Implanted:Qty : 1 on 11/12/2018 by Christie Cruz MD at [facility] Prosthesis N/A: Opal [employer] 01/20/2019 [id number] / / [id number] Description:around urethra Advance Directives For more information, please contact: [phone] Documents on File Type Date Recorded Patient Leaflet Or Newspaper Deliverer Expl anation Advance Directives and Living Will 11/24/2018 8:06 AM Health Care Directiv e 15 Healthcare Agents on File Name Relationship Healthcare Agent Relationship Communication Mary Lauro Spouse Health Care Agent Ayo Restrepo Son First Alternate Health Care Agent Carla Restrepo Daughter Second Alternat e Health Care Agent Brent Restrepo Son Third Alternate Health Care Agent Moraima (step-dtr) Octavio Relative Fourth Alternate Health Care Agent Care Teams Formulation Scientist Relationship Specialty Start Date End Date Salas Raymundo PCP - General Family Practice 08/15/18 Charles Crawford MD [id number] [address] Urology 08/19/18 Charli Jefferson MD [address] [place] [address] [address] [place] [address] Urology 08/19/18
--- OUTSIDE RECORDS SUMMARY | 2023-09-06 07:07 | XMS_ITS | Encounter Summary ---
Author Organization [facility] Address [address] [address] Phone Care Team Providers Care Volleyball Assistant Coach Name Role Phone Unavailable Primary Care Provider Unavailabl e Reason for Referral * Ancillary Services (Urgent) - Closed Specialty Diagnoses / Procedures Referred By Leobardo stahl Referred To Contact Radiology Diagnoses Injury of left elbow, initial encounter Procedures XR ELBOW LEFT 3 OR MORE VIEWS Ruma Manzo APRN, MAL [address] [place] [address] Referral ID Status Reason Start Date Expiration Date Visits Re quested Visits Authorized [id number] Closed 08/15/2023 11/14/2024 1 1 Reason for Visit * Ancillary Services (Urgent) - Closed Specialty Diagnoses / Procedures Referred By Leobardo stahl Referred To Contact Radiology Diagnoses Injury of left elbow, initial encounter Procedures XR ELBOW LEFT 3 OR MORE VIEWS Ruma Manzo APRN, TREE [employer]PER [address] [place] [address] Referral ID Status Reason Start Date Expiration Date Visits Re quested Visits Authorized [id number] Closed 08/15/2023 11/14/2024 1 1 Encounter Details Date Type Department Care Team (Latest Contact Info) Description 08/15/2023 4:59 PM CDT - 08/15/2023 11:59 PM CDT Hospital Encounter [facility] [address] [place] [address] Ruma Manzo APRN, TREE [employer]PER [address] [place] [address] Injury of left elbow, initial encounter Discharge Disposition: Discharged Social History [...] (Astelin) 0.1 % nasal spray Instill 1 [place] nasally one time a day. budesonide (Pulmicort) [...] by mouth one time a day. 01/05/2019 lisinopril-hydroCHLOROt hiazide (Prinzide, Zestoretic) 10-12.5 MG oral tablet Take 1 Tablet by mouth. 04/22/2018 losartan-hydroCHLOROthi azide (Hyzaar) 50-12.5 MG oral tablet Take 1 Tablet by mouth one time a day. Multiple Vitamin (therapeutic multivitamin) Tablet Take 1 Tablet by mouth. 11/27/2010 traMADol (Ultram) 50 MG tabletIndications:Injur y of right shoulder, initial encounter Take 1 Tablet by mouth every six hours as needed for Pain for up to 3 days. 9 Tablet 08/15/2023 08/18/2023 documented as of this encounter Discharge Disposition Disposition Code Departure Means Destination Discharged documented in this encounter Plan of Treatment Not on file documented as of this encounter Procedures Procedure Name Priority Date/Time Associated Diagnosis Comments XR ELBOW LEFT 3 OR MORE VIEWS STAT 08/15/2023 5:25 PM CDT Injury of left elbow, initial encounter documented in this encounter Results * XR ELBOW LEFT 3 OR MORE VIEWS (08/15/2023 5:25 PM CDT) Anatomical Region Laterality Modality Elbow Radiographic Bharati ging 08/15/2023 5:25 PM CDT Narrative 08/15/2023 6:30 PM CDT This document is currently in Final Status Exam XR ELBOW LEFT 3 OR MORE VIEWS HISTORY: Fell down stairs while holding hand rail with left hand, twisted left elbow, now pain and unable to laterally rotate left arm. COMPARISON: None. FINDINGS: Four views of the left elbow demonstrate no significant effusion. There is a large spur off the olecranon. No fractures are evident. IMPRESSION: Spurring off the olecranon but no left elbow fractures. Dictated By: Rajiv Guzmán MD 08/15/2023 5:51 PM Edited By: ZULEYMA 08/15/2023 5:53 PM Electronically Signed: Rajiv Guzmán MD 08/15/2023 6:30 PM Procedure Note Rajiv Guzmán MD - 08/15/2023 This document is currently in Final Status Exam XR ELBOW LEFT 3 OR MORE VIEWS HISTORY: Fell down stairs while holding hand rail with left hand, twistedleft elbow, now pain and unable to laterally rotate left arm. COMPARISON: None. FINDINGS: Four views of the left elbow demonstrate no significanteffusion. There is a large spur off the olecranon. No fractures areevident. IMPRESSION: Spurring off the olecranon but no left elbow fractures. Dictated By: Rajiv Guzmán MD 08/15/2023 5:51 PM Edited By: ZULEYMA 08/15/2023 5:53 PM Electronically Signed: Rajiv Guzmán MD 08/15/2023 6:30 PM Ruma Manzo DRAFTING LAYOUT WORKER, TREE TOPPER EC DIAGNOSTI C IMAGING ORDERABLES documented in this encounter Visit Diagnoses Diagnosis Injury of left elbow, initial encounter documented in this encounter
--- OUTSIDE RECORDS SUMMARY | 2023-09-06 07:07 | XMS_ITS | Encounter Summary ---
Author Organization [facility] Address [address] [address] Phone Care Team Providers Care Barge Captain Name Role Phone Unavailable Primary Care Provider Unavailabl e Reason for Referral * Ancillary Services (Urgent) - Closed Specialty Diagnoses / Procedures Referred By Contac t Referred To Contact Radiology Diagnoses Injury of left elbow, initial encounter Procedures XR ELBOW LEFT 3 OR MORE VIEWS Ruma Manzo APRN, INVENTORY CONTROL ASSOCIATE [address] [place] [phone] Referral ID Status Reason Start Date Expiration Date Visits Re quested Visits Authorized [id number] Closed 08/15/2023 11/14/2024 1 1 * Ancillary Services (Urgent) - Closed Specialty Diagnoses / Procedures Referred By Contac t Referred To Contact Radiology Diagnoses Injury of right shoulder, initial encounter Procedures XR HUMERUS RIGHT 2 OR MORE VIEWS Ruma Manzo APRN, INVENTORY CONTROL ASSOCIATE [address] [place] [phone] Referral ID Status Reason Start Date Expiration Date Visits Re quested Visits Authorized [id number] Closed 08/15/2023 11/14/2024 1 1 * Ancillary Services (Urgent) - Closed Specialty Diagnoses / Procedures Referred By Contac t Referred To Contact Radiology Diagnoses Injury of right shoulder, initial encounter Procedures XR SHOULDER RIGHT 2 OR MORE VIEWS Ruma Manzo APRN, INVENTORY CONTROL ASSOCIATE [address] [place] [address] Referral ID Status Reason Start Date Expiration Date Visits Re quested Visits Authorized [id number] Closed 08/15/2023 11/14/2024 1 1 Reason for Visit * Reason Comments Other Fell outside at 1500 , injured right shoulder and left arm Encounter Details Date Type Department Care Team (Late st Contact Info) Description 08/15/2023 3:50 PM CDT Office Visit [facility] [address] [place] [address] Ruma Manzo APRN, MAL [address] [place] [phone] Injury of right shoulder, initial encounter (Primary Dx); Injury of left elbow, initial encounter Social History Tobacco Use Types Packs/Day [...] Sign Reading Time Taken Comments Blood Pressure - - Pulse 45 08/15/2023 4:12 PM CDT Temperature 36.7 ??C (98.1 ??F) 08/15/2023 4:12 PM CD T Respiratory Rate 18 08/15/2023 4:12 PM CDT Oxygen Saturation 93% 08/15/2023 4:12 PM CDT Inhaled Oxygen Concentration - - Weight - - Height - - Body Mass Index - - documented in this encounter Patient Instructions * Patient Instructions* Ruma Manzo, CONCHA, MAL - 08/15/2023 3:50 PM CDT Toradol given in clinic today, please no further NSAID's the remainder of the day. Ultram 50 mg for severe pain. You can take this with Tylenol and it may enhance the effect to obtain pain relief This medication can cause drowsiness, do not drive while taking this medication. It can cause constipation, consider a high fiber diet or stool softener while taking this medication The TRACIE wrap and sling are for comfort, wear these as needed Follow up with your primary care provider as soon as possible for further evaluation For musculoskeletal injuries including: sprains, strains, bruises - use the acronym EDITH for symptomatic treatment: R- rest I - ice C - compression E - elevation For the next 24 - 72 hours apply an ice pack (put ice cubes in a plastic bag that seals at the top,wrap the bag in a clean, thin towel or cloth) over painful areas to help reduce pain and swelling. When applying ice, do not apply the ice directly to the skin. Instead wrap an ice cube(s) or a bag of ice in a thin towel or pillow case, to prevent freezing and damaging your skin. Apply ice 15 - 20 minutes at a time and then a minimum of 40 minutes off - frequently throughout the day. documented in this encounter Ordered Prescriptions Prescription Sig Dispensed Refills Start Date End Da te traMADol (Ultram) 50 MG tabletIndications:Injury of right shoulder, initial encounter Take 1 Tablet by mouth every six hours as needed for Pain for up to 3 days. 9 Tablet 08/15/2023 08/18/2023 documented in this encounter Progress Notes * Ruma Manzo APRN, CNP - 08/15/2023 3:50 PM CDT HISTORY OF PRESENT ILLNESS: Rajiv Restrepo is a 73 year old who presents today with chief complaint of shoulder injury after a fall. Patient is here with his today who reports he was walking [place] stairs [place] in [facility] [place] when he missed the bottom 2 stairs and fell onto his right shoulder. He states he was holding onto the railing with his left hand and his arm twisted and he has pain in his left elbow as well. Patient and his are here on vacation visiting and will be heading for home in [facility] tomorrow. Patient has a history of prostate cancer, aortic valve replacement, strokewith right-sided weakness. Deformity of right shoulder noted, and pain with palpation. Patient experiencing pain with abduction. No new weakness in right hand grasp, positive pulses, Cap refill less than 2 seconds, right hand and arm pink and warm. Left elbow has ball type lump in the forearm near the antecubital space. Patient unable to laterally rotate his arm at the elbow. No difficulty with medial rotation. Positive pulses, hand grasp weaker on left, hand is warm and pink, with good sensation. No past medical history on file. There is no problem list on file for this patient. Outpatient Medications Marked as Taking for the 08/15/23 encounter (Office Visit) with Ruma Manzo, CONCHA, MAL Medication Sig albuterol (Proventil, Ventolin) (2.5 MG/3ML) 0.083% nebulizer solution INHALE 3MLS EVERY 6 HOURS ASNEEDED FOR WHEEZING. albuterol HFA (Proair HFA, Ventolin HFA) 108 (90 Base) MCG/ACT inhalation aerosol Inhale 2 Puffs into the lungs four times a day as needed. aspirin EC 81 MG tablet Take 81 mg by mouth one time a day. budesonide (Pulmicort) 0.5 MG/2ML nebulizer suspension INHALE 2ML (1 AMPULE) VIA NEBULIZER TWICE A DAY fexofenadine (Fe) 180 MG tablet Take 180 mg by mouth one time a day. mirabegron ER (MYRBETRIQ) 50 MG Tablet Extended Release 24 Hour 24 hour tablet Take 50 mg by mouth one time a day. lisinopril-hydroCHLOROthiazide (Prinzide, Zestoretic) 10-12.5 MG oral tablet Take 1 Tablet by mouth. Multiple Vitamin (therapeutic multivitamin) Tablet Take 1 Tablet by mouth. Allergies Allergen Reactions Hydrocodone-Acetaminophen Other and Nausea Only Social History Socioeconomic History Marital status: Spouse name: Not on file Number of children: Not on file Years of education: Not on file Highest education level: Not on file Occupational History Not on file Tobacco Use Smoking status: Not on file Smokeless tobacco: Not on file Substance and Sexual Activity Alcohol use: Not on file Drug use: Not on file Sexual activity: Not on file Other Topics Concern Not on file Social History Narrative Not on file Social Determinants of Health Financial Resource Strain: Low Risk (05/31/2023) Received from [facility] Financial Resource Strain Difficulty of Paying Living Expenses: 3 Difficulty of Paying Living Expenses: Not on file Food Insecurity: No Food Insecurity (05/31/2023) Received from [facility] Food Insecurity Worried About Running Out of Food in the Last Year: 1 Transportation Needs: No Transportation Needs (05/31/2023) Received from [facility] Transportation Needs Lack of Transportation (Medical): 1 Physical Activity: Sufficiently Active (03/25/2022) Received from [facility] Exercise Vital Sign Days of Exercise per Week: 4 days Minutes of Exercise per Session: 50 min Stress: No Stress Concern Present (03/25/2022) Received from [facility] [place] [facility] [employer] [facility] - Occupational Stress Questionnaire Feeling of Stress : Only a little Social Connections: Socially Integrated (05/31/2023) [facility] Social Connections Frequency of Communication with Friends and Family: 0 Intimate Partner Violence: Not At Risk (03/25/2022) Received from [facility] Humiliation, Afraid, Rape, and Kick questionnaire Fear of Current or Ex-Partner: No Emotionally Abused: No Physically Abused: No Sexually Abused: No Housing Stability: Low Risk (05/31/2023) Received from [facility] Housing Stability Unable to Pay for Housing in the Last Year: 1 REVIEW OF SYSTEMS: All other systems reviewed and found to be negative PHYSICAL EXAM: Vitals: 08/15/23 1612 Pulse: (!) 45 Resp: 18 Temp: 36.7 ??C (98.1 ??F) TempSrc: Oral SpO2: 93% GENERAL APPEARANCE: Healthy; alert and oriented X3; no acute distress MUSCULOSKELETAL: Shoulder: POSITIVES: Inspection: shoulders are asymmetric, right shoulder higher, Palpation: tender with bump on the top of the shoulder/trapezius area, Range of Motion: abduction limited at 90 degrees on right, Elbow: Left elbow exam: POSITIVES: Inspection: deformity present distal to antecubital space, Palpation: swelling in the antecubital fossa, tenderness of antecubital fossa, Range of motion: supination abnormal, pain with supination, ASSESSMENT: Recent Results (from the past 24 hour(s)) XR ELBOW LEFT 3 OR MORE VIEWS Narrative This document is currently in Preliminary Status Exam XR ELBOW LEFT 3 OR [...] PM Edited By: ZULEYMA 08/15/2023 5:53 PM XR SHOULDER RIGHT 2 OR MORE VIEWS Narrative This document is currently in Preliminary Status Exam XR SHOULDER RIGHT 2 OR MORE VIEWS HISTORY: Fell down 2 stairs landed on shoulder. COMPARISON: None FINDINGS: Right shoulder images demonstrate minimal A/C joint and glenohumeral joint degenerative change. Acromion is type I. No dislocation or os acromiale is seen. IMPRESSION: Mild right shoulder degenerative changes. Dictated By: Rajiv Guzmán MD 08/15/2023 5:47 PM Edited By: ZULEYMA 08/15/2023 5:52 PM XR HUMERUS RIGHT 2 OR MORE VIEWS Narrative This document is currently in Preliminary Status Exam XR HUMERUS RIGHT 2 OR MORE VIEWS HISTORY: Fell down stairs and landed on right shoulder. COMPARISON: None. FINDINGS: Two views of the right humerus show normal alignment. No fractures are evident. No focal bony lesions are seen. IMPRESSION: Negative right humerus films. Dictated By: Rajiv Guzmán MD 08/15/2023 5:50 PM Edited By: ZULEYMA 08/15/2023 5:52 PM (S49.91XA) Injury of right shoulder, initial encounter (primary encounter diagnosis) (S59.902A) Injury of left elbow, initial encounter PLAN: GERMAN RUBIO is not available in our urgent care. Patient encouraged to follow up with his primary care provider for further evaluation of his left elbow and inability to laterally rotate. Toradol given in clinic today, please no further NSAID's the remainder of the day. Ultram 50 mg for severe pain. You can take this with Tylenol and it may enhance the effect to obtain pain relief This medication can cause drowsiness, do not drive while taking this medication. It can cause constipation, consider a high fiber diet or stool softener while taking this medication The TRACIE wrap and sling are for comfort, wear these as needed Follow up with your primary care provider as soon as possible for further evaluation For musculoskeletal injuries including: sprains, strains, bruises - use the acronym RICE for symptomatic treatment: R- rest I - ice C - compression E - elevation For the next 24 - 72 hours apply an ice pack (put ice cubes in a plastic bag that seals at the top,wrap the bag in a clean, thin towel or cloth) over painful areas to help reduce pain and swelling. When applying ice, do not apply the ice directly to the skin. Instead wrap an ice cube(s) or a bag of ice in a thin towel or pillow case, to prevent freezing and damaging your skin. Apply ice 15 - 20 minutes at a time and then a minimum of 40 minutes off - frequently throughout the day. I have discussed my diagnostic considerations with the patient. All questions were answered. Patient verbalized understanding and agrees with the plan. documented in this encounter Plan of Treatment Not on file documented as of this encounter Results * XR HUMERUS RIGHT [...] Guzmán MD 08/15/2023 6:30 PM Ruma Manzo APRN, INVENTORY CONTROL ASSOCIATE EC DIAGNOSTI C IMAGING ORDERABLES * XR SHOULDER RIGHT 2 OR MORE VIEWS (08/15/2023 5:25 PM CDT) Anatomical Region Laterality Modality Shoulder Radiographic Bharati ging 08/15/2023 5:25 PM CDT Narrative 08/15/2023 6:30 PM CDT This document is currently in Final Status Exam XR SHOULDER RIGHT 2 OR MORE VIEWS HISTORY: Fell down 2 stairs landed on shoulder. COMPARISON: None FINDINGS: Right shoulder images demonstrate minimal A/C joint and glenohumeral joint degenerative change. Acromion is type I. No dislocation or os acromiale is seen. IMPRESSION: Mild right shoulder degenerative changes. Dictated By: Rajiv Guzmán MD 08/15/2023 5:47 PM Edited By: ZULEYMA 08/15/2023 5:52 PM Electronically Signed: Rajiv Guzmán MD 08/15/2023 6:30 PM Procedure Note Rajiv Guzmán MD - 08/15/2023 This document is currently in Final Status Exam XR SHOULDER RIGHT 2 OR MORE VIEWS HISTORY: Fell down 2 stairs landed on shoulder. COMPARISON: None FINDINGS: Right shoulder images demonstrate minimal A/C joint andglenohumeral joint degenerative change. Acromion is type I. No dislocationor os acromiale is seen. IMPRESSION: Mild right shoulder degenerative changes. Dictated By: Rajiv Guzmán MD 08/15/2023 5:47 PM Edited By: ZULEYMA 08/15/2023 5:52 PM Electronically Signed: Rajiv Guzmán MD 08/15/2023 6:30 PM Ruma Manzo APRN, INVENTORY CONTROL ASSOCIATE EC DIAGNOSTI C IMAGING ORDERABLES * XR ELBOW LEFT 3 OR MORE [...] Guzmán MD 08/15/2023 6:30 PM Ruma Manzo CITY ATTORNEY, INVENTORY CONTROL ASSOCIATE EC DIAGNOSTI C IMAGING ORDERABLES documented in this encounter Visit Diagnoses Diagnosis Injury of right shoulder, initial encounter- Primary Injury of left elbow, initial encounter Injury of right shoulder, initial encounter Injury of right shoulder, initial encounter Injury of left elbow, initial encounter documented in this encounter Administered Medications Inactive Administered Medications Medication Order MAR Action Action Date Dose Rate Site acetaminophen (Tylenol) tablet 1,000 mg 1,000 mg, Oral, ONCE, 1 dose, On Autumn 08/15/23 at 1700 Given 08/15/2023 4:41 PM CDT 1,000 mg ketorolac (Toradol) injection 30 mg 30 mg, Intramuscular, ONCE, 1 dose, On Autumn 08/15/23 at 1700, Administration Charge. Please select one: Injection, SUBQ/IM Given 08/15/2023 4:43 PM CDT 30 mg Left Deltoid documented in this encounter Discontinued Medications Medication Sig Discontinue Reason Start Date End Da te famotidine (Pepcid) 20 MG tablet Take 20 mg by mouth two times a day. 08/15/2023 documented as of this encounter Historical Medications * This list may reflect changes made after this encounter. Medication Sig Dispensed Refills Start Date End Date Multiple Vitamin (therapeutic multivitamin) Tablet Take 1 Tablet by mouth. 11/27/2010 losartan-hydroCHLOROthi azide (Hyzaar) 50-12.5 MG oral tablet Take 1 Tablet by mouth one time a day. lisinopril-hydroCHLOROt hiazide (Prinzide, Zestoretic) 10-12.5 MG oral tablet Take 1 Tablet by mouth. 04/22/2018 mirabegron ER (MYRBETRIQ) 50 MG Tablet Extended Release 24 Hour 24 hour tablet Take 50 mg by mouth one time a day. 01/05/2019 fexofenadine (Fe) 180 MG tablet Take 180 mg by mouth one time a day. 10/07/2009 Calcium Carb-Cholecalciferol (Calcium 500 + D) 500-3.125 MG-MCG Tablet Take 500 mg by mouth two times a day. budesonide (Pulmicort) 0.5 MG/2ML nebulizer suspension INHALE 2ML (1 AMPULE) VIA NEBULIZER TWICE A DAY 09/04/2022 azelastine (Astelin) 0.1 % nasal spray Instill 1 [place] nasally one time a day. atorvaSTATin (Lipitor) 40 MG tablet Take 40 mg by mouth one time a day. aspirin EC 81 MG tablet Take 81 mg by mouth one time a day. 09/05/2009 albuterol HFA (Proair HFA, Ventolin HFA) 108 (90 Base) MCG/ACT inhalation aerosol Inhale 2 Puffs into the lungs four times a day as needed. 02/05/2014 albuterol (Proventil, Ventolin) (2.5 MG/3ML) 0.083% nebulizer solution INHALE 3MLS EVERY 6 HOURS NEEDED FOR WHEEZING. 11/24/2021 famotidine (Pepcid) 20 MG tablet Take 20 mg by mouth two times a day. 08/15/2023 added in this encounter
--- OUTSIDE RECORDS SUMMARY | 2023-09-06 07:07 | XMS_ITS | Clinical Summary ---
Author Organization [facility] Address [address] [address] Phone Care Team Providers Care Showroom Consultant Name Role Phone Unavailable Primary Care Provider Unavailabl e Allergies Active Allergy Reactions Criticality Noted Date Comments Hydrocodone-Acetaminophen Other,Nausea Only Low Medications Medication Sig Dispensed Refills Start Date End Date Status albuterol (Proventil, Ventolin) (2.5 MG/3ML) 0.083% nebulizer solution INHALE 3MLS EVERY 6 HOURS NEEDED FOR WHEEZING. 11/24/2021 Active albuterol HFA (Proair HFA, Ventolin HFA) 108 (90 Base) MCG/ACT inhalation aerosol Inhale 2 Puffs into the lungs four times a day as needed. 02/05/2014 Active aspirin EC 81 MG tablet Take 81 mg by mouth one time a day. 09/05/2009 Active atorvaSTATin (Lipitor) 40 MG tablet Take 40 mg by mouth one time a day. Active azelastine (Astelin) 0.1 % nasal spray Instill 1 [place] nasally one time a day. Active budesonide (Pulmicort) 0.5 MG/2ML nebulizer suspension INHALE 2ML (1 AMPULE) VIA NEBULIZER TWICE A DAY 09/04/2022 Active Calcium Carb-Cholecalcifero l (Calcium 500 + D) 500-3.125 MG-MCG Tablet Take 500 mg by mouth two times a day. Active fexofenadine (Fe) 180 MG tablet Take 180 mg by mouth one time a day. 10/07/2009 Active mirabegron ER (MYRBETRIQ) 50 MG Tablet Extended Release 24 Hour 24 hour tablet Take 50 mg by mouth one time a day. 01/05/2019 Active lisinopril-hydroCHL OROthiazide (Prinzide, Zestoretic) 10-12.5 MG oral tablet Take 1 Tablet by mouth. 04/22/2018 Active losartan-hydroCHLOR Othiazide (Hyzaar) 50-12.5 MG oral tablet Take 1 Tablet by mouth one time a day. Active Multiple Vitamin (therapeutic multivitamin) Tablet Take 1 Tablet by mouth. 11/27/2010 Active traMADol (Ultram) 50 MG tabletIndications:I njury of right shoulder, initial encounter Take 1 Tablet by mouth every six hours as needed for Pain for up to 3 days. 9 Tablet 08/15/2023 08/18/2023 Hospital, Clinic, or Other Facility Administered Medication Ordered Dose Route Frequency Start Date End Date Status ketorolac (Toradol) injection 30 mgIndications:Injury of right shoulder, initial encounter 30 mg IM ONCE 08/15/2023 08/15/2023 Ended acetaminophen (Tylenol) tablet 1,000 mgIndications:Injury of right shoulder, initial encounter 1000 mg OR ONCE 08/15/2023 08/15/2023 Ended Active Problems No known active problems Encounters Date Type Department Care Team Description 08/15/2023 4:59 PM CDT - 08/15/2023 11:59 PM CDT Hospital Encounter [facility] [address] [place] [id number] Ruma Manzo, CONCHA, FRAME TABLE OPERATOR Injury of left elbow, initial encounter Discharge Disposition: Discharged 08/15/2023 4:58 PM CDT Hospital Encounter [facility] [address] [place] [id number] Ruma Manzo, FRUIT AND VEGETABLE INSPECTOR, FRAME TABLE OPERATOR Injury of right shoulder, initial encounter Discharge Disposition: Discharged 08/15/2023 4:58 PM CDT Hospital Encounter [facility] [address] [place] [phone] Ruma Manzo, FRUIT AND VEGETABLE INSPECTOR, FRAME TABLE OPERATOR Injury of right shoulder, initial encounter Discharge Disposition: Discharged 08/15/2023 3:50 PM CDT Office Visit [facility] [address] [place] [phone] Ruma Manzo, FRUIT AND VEGETABLE INSPECTOR, FRAME TABLE OPERATOR Injury of right shoulder, initial encounter (Primary Dx); Injury of left elbow, initial encounter 08/15/2023 Travel from Last 3 Months Social History Tobacco Use Types Packs/Day Years Used Date Smoking Tobacco: Never Assessed Sex and Gender Information Value Date Recorded Sex Assigned at Not on file Gender Identity Not on file Sexual Orientation Not on file Job Start Date Occupation Industry Not on file Not on file Not on file Obstetrics History Last Filed [...] - - Body Mass Index - - Plan of Treatment Health Maintenance Due Date Last Done Comments CT Colonography 1950 Cologuard 1950 Colonoscopy 1950 Colorectal Cancer Screening 1950 FIT/FOBT 1950 MEDICARE AWV 1950 Sigmoidoscopy 1950 PERTUSSIS (Standing Order) 1971 TETANUS (Standing Order) 1971 Shingrix (Zoster recombinant ) vaccine (Standing Order) (1 of 2) 2002 RSV Vaccination (60+ yrs) (Abrysvo/Arexvy) (1 - 1-dose 60+ series) 2012 Pneumococcal Vaccine: 65+ yr s (Standing Order) (1 of 1 - PCV) 2017 Influenza Vaccine Seasonal (Standing Order) (#1) 2023 HPV Vaccine (Standing Order) Aged Out No longer eligible based on patient's age to complete this topic Hepatitis B Vaccine (Standin g Order) Aged Out No longer eligible b ased on patient's age to complete this topic Procedures Procedure Name Priority Date/Time Associated Diagnosis Comments XR HUMERUS RIGHT 2 OR MORE VIEWS STAT 08/15/2023 5:25 PM CDT Injury of right shoulder, initial encounter XR SHOULDER RIGHT 2 OR MORE VIEWS STAT 08/15/2023 5:25 PM CDT Injury of right shoulder, initial encounter XR ELBOW LEFT 3 OR MORE VIEWS STAT 08/15/2023 5:25 PM CDT Injury of left elbow, initial encounter from Last 3 Months Results * XR HUMERUS RIGHT 2 OR [...] Guzmán MD 08/15/2023 6:30 PM Ruma Manzo FRUIT AND VEGETABLE INSPECTOR, FRAME TABLE OPERATOR EC DIAGNOSTI C IMAGING ORDERABLES * XR [...] MD 08/15/2023 6:30 PM Ruma Manzo APRN, FRAME TABLE OPERATOR EC DIAGNOSTI C IMAGING ORDERABLES * XR [...] Guzmán MD 08/15/2023 6:30 PM Ruma Manzo FRUIT AND VEGETABLE INSPECTOR, FRAME TABLE OPERATOR EC DIAGNOSTI C IMAGING ORDERABLES from Last [address] [facility] [address] Rajiv Restrepo Personal/Family Self [address] [place] [address]
--- OUTSIDE RECORDS SUMMARY | 2023-09-06 07:07 | XMS_ITS | Referral Summary ---
Author Organization [place] Address [facility] [place] [address] Care Team Providers Care Tourist Guide Name Role Phone Salas Raymundo Primary Care Provider Charles Crawford MD Unavailable Charli Jefferson MD Unavailable [phone] Allergies Active Allergy Reactions Criticality Noted Date [...] Administration Dates Next Due Flu, Unspecified 11/02/2016,11/12/2015 [id number] Novel Flu 02/09/2009 Influenza (H1N1) 02/09/2009 Influenza [...] d (SHINGRIX) 02/13/2018,01/31/2018,10/31/2017 Zoster vaccine, live 02/03/2013 Social History Tobacco Use Types Packs/Day Years [...] Comments Blood Pressure 150/80 01/05/2019 2:32 PM SFDC CONSULTANT Pulse 61 01/05/2019 2:32 PM [facility]DC CONSULTANT Temperature 36.6 ??C (97.8 ??F) 11/12/2018 7:50 PM CD T Respiratory Rate 16 11/12/2018 7:50 PM CDT Oxygen Saturation 98% 11/12/2018 8:10 PM CDT Inhaled Oxygen Concentration - - Weight 101.6 kg (224 lb) 01/05/2019 2:32 PM SFDC CONSULTANT Height 174.2 cm (5' 8.6) 01/05/2019 2:32 PM [facility]DC CONSULTANT Body Mass Index 33.47 01/05/2019 2:32 PM [facility]DC CONSULTANT Plan of Treatment Not on file Medical Devices Implanted Type Area Life Skills Instructor Device Identifier Shelf Expiration Date Model / Serial / Lot Kit Accessory Ucs Ams 800 [id number] Implanted:Qty : 1 on 11/12/2018 by Christie Cruz MD at [facility] Leads N/A: Abdomen [employer] 09/29/2022 [id number] / / [id number] Imp Urinary Sphincter Balloon Ams 61-70cm [id number] Implanted:Qty : 1 on 11/12/2018 by Christie Cruz MD at [facility] Metallic Hardware/Anch or N/A: Abdomen [employer] 03/11/2023 [id number] / / [id number] Imp Urinary Sphincter Ams 800 Pump System [id number] Implanted:Qty : 1 on 11/12/2018 by Christie Cruz MD at [facility] Prosthesis N/A: Scrotum [employer] 07/25/2019 [id number] / / [id number] Imp Urinary Sphincter Cuff Occlusive Ams 5.0cm [id number] Implanted:Qty : 1 on 11/12/2018 by Christie Cruz MD at [facility] Prosthesis N/A: Opal [facility] 01/20/2019 [id number] / / [id number] Description:around urethra Advance Directives For more information, please contact: [phone] Documents on File Type Date Recorded Patient Supervisor [employer] Expl anation Advance Directives and Living Will 11/24/2018 8:06 AM Health Care Directiv e 15 Healthcare Agents on File Name Relationship Healthcare Agent Relationship Communication Mary Jeffriesen Spouse Health Care Agent Ayo Restrepo Son First Alternate Health Care Agent Carla Restrepo Daughter Second Alternat e Health Care Agent Brent Restrepo Son Third Alternate Health Care Agent Moraima (step-dtr) Octavio Relative Fourth Alternate Health Care Agent Care Teams Tourist Guide Relationship Specialty Start Date End Date Salas Raymundo PCP - General Family Practice 08/15/18 Charles Crawford MD [address] [place] [phone] Urology 08/19/18 Charli Jefferson MD [address] [facility] [address] [place], [place] [address] Urology 08/19/18
--- OUTSIDE RECORDS SUMMARY | 2023-09-06 07:07 | XMS_ITS | Encounter Summary ---
Author Organization [facility] Address [address] [address] Phone Care Team Providers Care Carpenter Inspector Name Role Phone Unavailable Primary Care Provider Unavailabl e Reason for Referral * Ancillary Services (Urgent) - Closed Specialty Diagnoses / Procedures Referred By Leobardo stahl Referred To Contact Radiology Diagnoses Injury of right shoulder, initial encounter Procedures XR SHOULDER RIGHT 2 OR MORE VIEWS Ruma Manzo APRN, CLINICAL DERMATOLOGIST [address] [place] [address] Referral ID Status Reason Start Date Expiration Date Visits Re quested Visits Authorized [id number] Closed 08/15/2023 11/14/2024 1 1 Reason for Visit * Ancillary Services (Urgent) - Closed Specialty Diagnoses / Procedures Referred By Leobardo stahl Referred To Contact Radiology Diagnoses Injury of right shoulder, initial encounter Procedures XR SHOULDER RIGHT 2 OR MORE VIEWS Ruma Manzo APRN, CLINICAL DERMATOLOGIST [address] [place] [address] Referral ID Status Reason Start Date Expiration Date Visits Re quested Visits Authorized [id number] Closed 08/15/2023 11/14/2024 1 1 Encounter Details Date Type Department Care Team (Latest Contact Info) Description 08/15/2023 4:58 PM CDT Hospital Encounter [facility] [place] [address] Ruma Manzo APRN, CLINICAL DERMATOLOGIST [address] [place] [address] Injury of right shoulder, initial [...] (Astelin) 0.1 % nasal spray Instill 1 [place] nasally one time a day. budesonide (Pulmicort) [...] Name Priority Date/Time Associated Diagnosis Comments XR SHOULDER RIGHT 2 OR MORE VIEWS STAT 08/15/2023 5:25 PM CDT Injury of right shoulder, initial encounter documented in this encounter Results * XR SHOULDER RIGHT 2 OR MORE [...] Guzmán MD 08/15/2023 6:30 PM Ruma Manzo BAKER SECOND, CLINICAL DERMATOLOGIST EC DIAGNOSTI C IMAGING ORDERABLES documented in this encounter Visit Diagnoses Diagnosis Injury of right shoulder, initial encounter documented in this encounter
--- OUTSIDE RECORDS SUMMARY | 2023-09-06 07:08 | XMS_ITS | Encounter Summary ---
Author Organization [place] Address On license of [facility] [place] [address] Care Team Providers Care Machine Adjuster Helper Name Role Phone Salas Raymundo Primary Care Provider Charles Crawford MD Unavailable [phone] Charli Jefferson MD Unavailable [phone] Christie Cruz MD Unavailable Charli Jefferson MD Unavailable [phone] Christie Cruz MD Unavailable [phone] Encounter Details Date Type Department Care Team (Late st Contact Info) Description 11/02/2018 [facility] and [facility] [address] [place] [phone] Christie Cruz MD [address] [place] [address] Social History Tobacco Use Types Packs/Day Years [...] filedocumented in this encounter Care Teams Machine Adjuster Helper Relationship Specialty Start Date End Date Salas Raymundo PCP - General Family Practice 08/15/18 Charles Crawford MD [address] [phone] Urology 08/19/18 Charli Jefferson MD [address] [address] Urology 08/19/18 Christie Cruz MD [address] [place] [address] Assigned Surgical Provider 12/11/19 Charli Jefferson MD [address] [id number] Assigned Surgical Provider 04/17/20 Christie Cruz MD [address] [place] [phone] Assigned Surgical Provider 05/04/20 documented as of this encounter
--- OUTSIDE RECORDS SUMMARY | 2023-09-06 07:08 | XMS_ITS | Referral Summary ---
Author Organization [facility] Address [address] [place] [address] Care Team Providers Care Escalator Operator Name Role Phone Elsewhere, Pcp Primary Care Provider Unavailabl e Source Comments Patient records contain information from all sites at [facility]. For routine questions regarding patient records, call [phone] during business hours, M-F 8:00 AM - 5:00 PM Central Time. Record requests for emergency care only can be directed to [phone] at any time.[facility] Allergies Active Allergy Reactions Criticality Noted Date Comments Hydrocodone-Acetaminophen Nausea And Vom iting,GI intolerance 03/15/2014 Medications Medication Sig Dispensed Refills Start Date End Date Status albuterol 90 mcg/actuation inhaler Inhale 2 puffs every 6 (six) hours as needed for wheezing or shortness of breath. 02/05/[address] tablet Take 81 mg by mouth daily. 09/05/2009 Active atorvastatin (LIPITOR) 40 mg tablet Take 40 mg by mouth at bedtime. 05/20/2018 Active cholecalciferol (VITAMIN D3) 25 mcg (1,000 Unit) capsule Take 1,000 Units by mouth 2 (two) times a day. 02/10/2016 Active fexofenadine (MIGUEL) 180 mg tablet Take 1 tablet by mouth as needed. About every 3-4 days 10/07/2009 Active fluticasone propionate (FLONASE) 50 mcg/actuation nasal spray Administer 1 spray into nostril(s) at bedtime. Active losartan-hydroCHLO ROthiazide (HYZAAR) 50-12.5 mg per tablet Take 1 tablet by mouth every morning. 09/19/2021 Active mirabegron (MYRBETRIQ) 50 mg 24 hr tablet Take 50 mg by mouth at bedtime. 01/05/2019 Active montelukast (SINGULAIR) 10 mg tablet Take 1 tablet by mouth at bedtime. 04/11/2017 Active multivitamin tablet Take 1 tablet by mouth daily. Active albuterol 2.5 mg /3 mL nebulizer solution Inhale 3 mL (2.5 mg total) by nebulization every 6 (six) hours as needed for wheezing. 75 mL 11 11/24/2021 Active Additional Information Patient taking differently:2.5 mg nebulizationAs needed, wheezing,About every 2-3 days as needed, Reported on 03/27/2022 azelastine (ASTELIN) 137 mcg/spray (0.1 %) nasal spray Administer 2 sprays into nostril(s) every morning. 11/20/2021 Active fluticasone propion-salmeteroL (ADVAIR HFA) 230-21 mcg/actuation inhaler as needed. 11/20/2021 Active calcium carbonate-vitamin D3 500 mg-3.125 mcg (125 unit) per tablet Take 500 mg by mouth 2 (two) times a day. Active Active Problems Problem Noted Date Diagnosed Date Fracture Vertebra Thoracic Closed Initial 2021 Social History Tobacco Use Types Packs/Day Years Used Date Smoking Tobacco: Never Smokeless Tobacco: Never Tobacco Cessation:Counseling Given: Not Answered Alcohol Use Standard Drinks/Week Comments Never 0 (1 standard drink = 0.6 oz pur e alcohol) Humiliation, Afraid, Rape, and Kick questionnair e Answer Date Recorded Within the last year, have y ou been afraid of your partner or ex-partner? No 03/25/2022 Within the last year, have y ou been humiliated or emotionally abused in other ways by your partner or ex-partner? No Within the last year, have y ou been kicked, hit, slapped, or otherwise physically hurt by your partner or ex-partner? No 03/25/2022 Within the last year, have y ou been raped or forced to have any kind of sexual activity by your partner or ex-partner? No 03/25/2022 Social Connection and Isolat ion Panel [NHANES] Answer Date Recorded In a typical week, how many times do you talk on the phone with family, friends, or neighbors? Three times a week 03/25/2022 How often do you get togethe r with friends or relatives? More than three times a week 03/25/2022 How often do you attend chur ch or alevism services? More than 4 times per year 03/25/2022 Do you belong to any clubs o r organizations such as methodist groups, unions, fraternal or athletic groups, or school groups? Yes 03/25/2022 How often do you attend meet ings of the clubs or organizations you belong to? More than 4 times per year 03/25/2022 Are you , , di vorced, , never , or living with a partner? 03/25/2022 AUDIT-C Answer Date Recorded Q1: How often do you have a drink containing alc ohol? 2-3 times a week 03/25/2022 Q2: How many drinks containi ng alcohol do you have on a typical day when you are drinking? 1 or 2 03/25/2022 Q3: How often do you have si x or more drinks on one occasion? Never 03/25/2022 Overall Financial Resource Strain (CARDIA) Answe r Date Recorded How hard is it for you to pa y for the very basics like food, housing, medical care, and heating? Not hard at all 03/25/2022 [facility] of Occupat ional Health - Occupational Stress Questionnaire Answer Date Recorded Do you feel stress - tense, restless, nervous, or anxious, or unable to sleep at night because your mind is troubled all the time - these days? Only a little 03/25/2022 Exercise Vital Sign Answer Date Recorde d On average, how many days pe r week do you engage in moderate to strenuous exercise (like a brisk walk)? 4 days 03/25/2022 On average, how many minutes do you engage in exercise at this level? 50 min 03/25/2022 Hunger Vital Sign Answer Date Recorded Within the past 12 months, y ou worried that your food would run out before you got the money to buy more. Never true 03/25/19 23 Within the past 12 months, t he food you bought just didn't last and you didn't have money to get more. Never true 03/25/2022 PRAPARE - Transportation Answer Date Re corded In the past 12 months, has l ack of transportation kept you from medical appointments or from getting medications? No 06/2022 In the past 12 months, has l ack of transportation kept you from meetings, work, or from getting things needed for daily living? No 03/25/2022 Housing Stability Vital Sign Answer Aguilar e Recorded In the last 12 months, was t here a time when you were not able to pay the mortgage or rent on time? No 03/25/2022 In the last 12 months, how many places have you lived? 1 03/25/2022 In the last 12 months, was t here a time when you did not have a steady place to sleep or slept in a long-term (including now)? No 03/25/2022 Nutrition Answer Date Recorded Nutrition: EVOO Fat Source Yes 03/25 On average, how many serving s of fruits and vegetables do you eat per day (serving size is equal to 1 cup or approximately the size of a tennis ball)? 2-3 03/25/2022 Dental Answer Date Recorded Dental: Regular Dentist Yes 03/25/19 Employment Answer Date Recorded Employment status Retired 03/25/2022 Education Answer Date Recorded What is the highest level of school you have completed or the highest degree you have received? Bachelor's degree (e.g., BA, AB, BS) 03/25/2022 Sex and Gender Information Value Date Recorded Sex Assigned at Male 03/25/2022 2:27 PM LEAD SOFTWARE DEVELOPMENT ENGINEER Gender Identity Male 03/25/2022 2:27 PM LEAD SOFTWARE DEVELOPMENT ENGINEER Sexual Orientation Straight 03/25/2022 2: 27 PM LEAD SOFTWARE DEVELOPMENT ENGINEER Last Filed Vital Signs Vital Sign Reading Time Taken Comments Blood Pressure 113/62 11/24/2021 1:30 PM CDT Pulse 83 11/24/2021 1:30 PM CDT Temperature 36.9 ??C (98.4 ??F) 11/24/2021 1:30 PM CD T Respiratory Rate 18 11/24/2021 8:30 AM CDT Oxygen Saturation 94% 11/24/2021 8:30 AM CDT Inhaled Oxygen Concentration - - Weight 107 kg (236 lb 8.9 oz) 11/23/2021 1:57 PM CDT Height 176.8 cm (5' 9.6) 11/21/2021 12:09 AM CD T Body Mass Index 34.33 11/21/2021 12:09 AM CDT Plan of Treatment Not on file Medical Devices Implanted Type Area Auto Damage Estimator Device Identifier Shelf Expiration Date Model / Serial / Lot Ams 800 System Implanted:11/12 (Quantity not on file) Artificial Sphincter Pelvis [id number] / / Description:AMS 800 per Care Everywhere SLJ Grft Bn Fem Hd Frzn 44 - [id number] - [id number] Implanted:Qty: 1 on 11/21/2021 by Wilmer Nevarez M.D. at [facility] Bone or Tissue Posterior : Spine Thoracic [employer] 01/06/2026 [id number] / [id number] / Aortic Valve Implanted:07/26 (Quantity not on file) Cardiac Valve Prosthesis Heart 3000TFX / / Description:Rohit reed PERIMOUNT magna pericardial aortic bioprostheses MRI Cond[facility] 11/21/21 Wax Bn Nblbl 2.5gr - [id number] Implanted:Qty: 1 on 11/21/2021 by Wilmer Nevarez M.D. at [facility] Hardware e.g. pins/screws /rods Posterior : Spine Thoracic [employer] 901 / / Spn Scrw Slr Sld 5.5 - [id number] Implanted:Qty: 12 on 11/21/2021 by Wilmer Nevarez M.D. at [facility] Hardware e.g. pins/screws /rods Posterior : Spine Thoracic Med[employer]onic [id number] / / Spn Seb Slr Str Lng 5.5x500 - [id number] Implanted:Qty: 1 on 11/21/2021 by Wilmer Nevarez M.D. at [facility] Hardware e.g. pins/screws /rods Posterior : Spine Thoracic [employer] [id number] / / Spn Scrw Slr Nagi Mas 6.5x45 - [id number] Implanted:Qty: 12 on 11/21/2021 by Wilmer Nevarez M.D. at [facility] Hardware e.g. pins/screws /rods Posterior : Spine Thoracic Med[employer]onic [id number] / / Procedures Procedure Name Priority Date/Time Associated Diagnosis Comments BASIC METABOLIC PANEL, S/P Routine 11/23/2021 3:41 AM CDT from Last 3 Months or Most Recently Relevant to Health Maintenance Results * Basic Metabolic Panel (11/23/2021 3:41 AM CDT) Potassium, S 4.4 3.6 - 5.2 mmol/L 11/23/2021 4:58 AM CDT DTL Sodium, S 137 135 - 145 mmol/L 11/23/2021 4:58 AM CDT DTL Chloride, S 101 98 - 107 mmol/L 11/23/2021 4:58 AM CDT DTL Bicarbonate, S 26 22 - 29 mmol/L 11/23/2021 4:58 AM CDT DTL Anion Gap 10 7 - 15 11/23/2021 4:58 AM CDT DTL BUN (Blood Urea Nitrogen), S 14 8 - 24 mg/dL 11/23/2021 4:58 AM CDT DTL Creatinine 0.98 0.74 - 1.35 mg/dL 11/23/2021 4:58 AM CDT DTL Estimated GFR (eGFR) 83 >=60 mL/min/BSA 11/23/2021 4:58 AM CDT DTL Comment: Estimated GFR calculated using the 2020 CKD_EPI creatinine equation. Calcium, Total, S 9.1 8.8 - 10.2 mg/dL 11/23/2021 4:58 AM CDT DTL Glucose, S 105 70 - 140 mg/dL 11/23/2021 4:58 AM CDT DTL Blood (Blood, Venous) 11/23/2021 3:41 AM CDT 11/23/2021 4:40 AM CDT Vince Hernandez M.D. LAB BLOOD ADD-ON [facility] [address] [place] [address], [place] DTL [facility] [address] [place] [address] from Last 3 Months or Most Recently Relevant to Health Maintenance Advance Directives For more information, please contact: [phone] * Full Code (Latest Code Status on File) Date Activated Date Inactivated Comments 11/21/2021 12:22 AM 11/24/2021 5:46 PM Question Answer Comments Full Code: Discussed Care Teams Escalator Operator Relationship Specialty Start Date End Date Elsewhere, Pcp PCP - General 04/21/18
--- OUTSIDE RECORDS SUMMARY | 2023-09-06 07:08 | XMS_ITS | Clinical Summary ---
Author Organization [facility] Address [address] [place] [address] Care Team Providers Care Drinking Water Technician Name Role Phone Elsewhere, Pcp Primary Care Provider Unavailabl e Source Comments Patient records contain information from all sites at [facility]. For routine questions regarding patient records, call [phone] during business hours, M-F 8:00 AM - 5:00 PM Central Time. Record requests for emergency care only can be directed to [phone] at any time.[facility] Allergies Active Allergy Reactions Criticality Noted [...] often do you attend chur ch or spiritism services? More than 4 times per year 03/25/2022 Do you belong to any clubs o r organizations such as gnosticism groups, unions, fraternal or athletic groups, or [...] and heating? Not hard at all 03/25/2022 [facility] of Occupat ional Health - Occupational Stress [...] place to sleep or slept in a half-way (including now)? No 03/25/2022 Nutrition Answer Date [...] Sex Assigned at Male 03/25/2022 2:27 PM AIR CONDITIONING UNIT TESTER Gender Identity Male 03/25/2022 2:27 PM AIR CONDITIONING UNIT TESTER Sexual Orientation Straight 03/25/2022 2: 27 PM AIR CONDITIONING UNIT TESTER Last Filed Vital Signs Vital Sign Reading [...] 1950 FIT 1950 Hepatitis C Screening 1950 Creatinine Level (Kidney Fun ction Test) 11/23/2022 11/23/2021, 11/22/2021, 11/20/2021, Additional history exists Potassium Level 11/23/2022 11/23/2021, 06/2021, 11/20/2021, Additional history exists Sodium Level 11/23/2022 11/23/2021, 06/2021, 11/20/2021, Additional history exists Depression Screening (Annual PHQ-2) 02/18/2023 Fall Risk Screen (Annual) 02/18/2023 COVID-19 Vaccine (2022- 4 season) 2023 11/19/2022, 12/18/2021, 05/19/2021, Additional history exists Influenza Vaccine (#1) 2023 , 12/18/2021, 11/16/2020, Additional history exists Fasting Glucose for Diabetes Screening 11/23/2024 11/23/2021, 11/22/2021, 11/20/2021, Additional history exists DTaP,Tdap,and Td Vaccines (3 - Td or Tdap) 08/31/2025 09/01/2015, 02/09/2009, 03/16/1999 Zoster Vaccines Completed 02/13/2018, 01/18, 10/31/2017, Additional history exists Pneumococcal vaccine (65+ years) Completed 04/22/2018, 04/24/2017, 12/14/2008 Medical Devices Implanted Type Area Salon Customer Experience Specialist Device Identifier Shelf Expiration Date Model / Serial / Lot Ams 800 System Implanted:11/12 (Quantity not on file) Artificial Sphincter Pelvis [id number] / / Description:AMS 800 per Care Everywhere SLJ Grft Bn Fem Hd Frzn 44 - [id number] - [id number] Implanted:Qty: 1 on 11/21/2021 by Wilmer Nevarez M.D. 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 at [facility] Hardware e.g. pins/screws /rods Posterior : Spine Thoracic [employer] Specialties 901 / / Spn Scrw Slr Sld 5.5 - [id number] Implanted:Qty: 12 on 11/21/2021 by Wilmer Nevarez M.D. at [facility] Hardware e.g. pins/screws /rods Posterior : Spine Thoracic Medtronic [id number] / / Spn Seb Slr Str Lng 5.5x500 - [id number] Implanted:Qty: 1 on 11/21/2021 by Wilmer Nevarez M.D. at [facility] Hardware e.g. pins/screws /rods Posterior : Spine Thoracic Medtronic [id number] / / Spn Scrw Slr Nagi Mas 6.5x45 - [id number] Implanted:Qty: 12 on 11/21/2021 by Wilmer Nevarez M.D. at [facility] Hardware e.g. pins/screws /rods Posterior : Spine Thoracic Medtronic [id number] / / Procedures Procedure Name Priority Date/Time Associated Diagnosis Comments BASIC METABOLIC PANEL, S/P Routine 11/23/2021 3:41 AM CDT from Last 3 Months or Most Recently Relevant to Health Maintenance Results * Basic Metabolic Panel (11/23/2021 3:41 AM CDT) [facility] Potassium, S 4.4 3.6 - 5.2 mmol/L [...] CDT Vince Hernandez M.D. LAB BLOOD ADD-ON [facility] [address] [place] [address], [facility] [address] [place] [address] from Last 3 Months or Most Recently Relevant to Health Maintenance Advance Directives For more information, please contact: [phone] * Full Code (Latest Code Status on File) Date Activated Date Inactivated Comments 11/21/2021 12:22 AM 11/24/2021 5:46 PM Question Answer Comments Full Code: Discussed Care Teams Drinking Water Technician Relationship Specialty Start Date End Date Elsewhere, Pcp PCP - General 04/21/18
--- OUTSIDE RECORDS SUMMARY | 2023-09-06 07:08 | XMS_ITS | Encounter Summary ---
Author Organization [place] Address [facility] [place] [address] Care Team Providers Care Furniture Sales Associate Name Role Phone Salas Raymundo Primary Care Provider Charles Crawford MD Unavailable Charli Jefferson MD Unavailable Christie Cruz MD Unavailable Charli Jefferson MD Unavailable Christie Cruz MD Unavailable [phone] Encounter Details Date Type Department Care Team (Late st Contact Info) Description 09/10/2018 [facility] and [facility] [address] [facility] [place] [phone] Charli Jefferson MD [address] [facility] [address] [place], [place] [address] Social History Tobacco Use Types Packs/Day Years [...] on filedocumented in this encounter Care Teams Furniture Sales Associate Relationship Specialty Start Date End Date Salas Raymundo PCP - General Family Practice 08/15/18 Charles Crawford MD [address] [phone] Urology 08/19/18 Charli Jefferson MD [address] [address] Urology 08/19/18 Christie Cruz MD [address] [place] [address] Assigned Surgical Provider 12/11/19 Charli Jefferson MD [address] [address] Assigned Surgical Provider 04/17/20 Christie Cruz MD [address] [place] [phone] Assigned Surgical Provider 05/04/20 documented as of this encounter
--- OUTSIDE RECORDS SUMMARY | 2023-09-06 07:08 | XMS_ITS ---
Author Organization [facility] Address [address] [place] [address] Care Team Providers Care Superintendent Operations Division Name Role Phone Unavailable Unavailable Unavailable Surgery Details Not on file Complications Check Surgery Details section. Procedure Estimated Blood Loss Check Surgery Details section. Procedure Findings Check Surgery Details section. Procedure Specimens Taken Check Surgery Details section.
--- OUTSIDE RECORDS SUMMARY | 2023-09-06 07:08 | XMS_ITS | Encounter Summary ---
Author Organization [place] Address [facility] [place] [address] Care Team Providers Care Heavy Equipment Operator Name Role Phone Salas Raymundo Primary Care Provider Charles Crawford MD Unavailable [phone] Charli Jefferson MD Unavailable Christie Cruz MD Unavailable Charli Jefferson MD Unavailable [phone] Christie Cruz MD Unavailable [phone] Encounter Details Date Type Department Care Team (Late st Contact Info) Description 11/13/2018 [facility] [address] [facility] [address] [place] [phone] Tracey Bhandari, RN Social History Tobacco Use Types Packs/Day Years [...] on filedocumented in this encounter Care Teams Heavy Equipment Operator Relationship Specialty Start Date End Date Salas Raymundo PCP - General Family Practice 08/15/18 Charles Crawfodr MD [address] [phone] Urology 08/19/18 Charli Jefferson MD [address] [place] [address] Urology 08/19/18 Christie Cruz MD [address] [place] [phone] Assigned Surgical Provider 12/11/19 Charli Jefferson MD [address] [address] Assigned Surgical Provider 04/17/20 Christie Cruz MD [address] [place] [address] Assigned Surgical Provider 05/04/20 documented as of this encounter
--- OUTSIDE RECORDS SUMMARY | 2023-09-06 07:08 | XMS_ITS | Encounter Summary ---
Author Organization [place] Address [facility] [place] [address] Care Team Providers Care Animal Surgeon Name Role Phone Salas Raymundo Primary Care Provider [phone] Charles Crawford MD Unavailable Charli Jefferson MD Unavailable [phone] Christie Cruz MD Unavailable [phone] Charli Jefferson MD Unavailable [phone] Christie Cruz MD Unavailable Encounter Details Date Type Department Care Team (Late st Contact Info) Description 11/03/2018 [facility] and [facility]rolog[facility] Cancers [address] [facility] [address] 4th [place] [phone] Anaya Mallory LPN Social History Tobacco Use Types Packs/Day Years [...] on filedocumented in this encounter Care Teams Animal Surgeon Relationship Specialty Start Date End Date Salas Raymundo PCP - General Family Practice 08/15/18 Charles Crawford MD [address] [phone] Urology 08/19/18 Charli Jefferson MD [address] [place] [address] Urology 08/19/18 Christie Cruz MD [address] [place] [phone] Assigned Surgical Provider 12/11/19 Charli Jefferson MD [address] [address] Assigned Surgical Provider 04/17/20 Christie Cruz MD [address] [place] [phone] Assigned Surgical Provider 05/04/20 documented as of this encounter
--- OUTSIDE RECORDS SUMMARY | 2023-09-06 07:08 | XMS_ITS | Clinical Summary ---
Author Organization [facility] Address [place], [place] [address] Care Team Providers Care Shearing Machine Tender Name Role Phone Salas Raymundo MD Primary Care Provider Allergies Active Allergy Reactions Criticality Noted Date Comments Hydrocodone-Acetaminophen Vomiting 03/15/2014 Medications Medication Sig Dispensed Refills Start Date End Date Status aspirin enteric coated 81 mg tablet Take 1 tablet by mouth once daily with a meal. 30 tablet 0 09/05/2009 Active fexofenadine (MIGUEL) 180 mg tablet Take 1 tablet by mouth once daily. 90 tablet 3 10/07/2009 Active Additional Information Patient taking differently:180 mg OralDAILY PRN, Reported on 06/14/2021 multivitamin (MVI) tablet Take 1 tablet by mouth once daily. 0 11/27/2010 Active albuterol HFA (PRO-AIR; VENTOLIN; PROVENTIL) 90 mcg/actuation inhaler Inhale 2 Puffs by mouth 4 times daily if needed. 0 02/05/2014 Active montelukast (SINGULAIR) 10 mg tablet Take 1 tablet by mouth at bedtime. 0 04/11/2017 Active amoxicillin (AMOXIL) 500 mg capsule TAKE ONE CAPSULE BY MOUTH THREE TIMES A DAY, STARTING THE MORNING PRIOR TO THE PROCEDURE 04/14/2020 Active azelastine 137 mcg/actuation (ASTELIN) nasal spray Inhale 1 Jewell into affected nostril(s) once daily. Active fluticasone (50 mcg per actuation) nasal solution (FLONASE) Inhale 1 Jewell into affected nostril(s) once daily in the afternoon. Active Calcium-Cholecalcif jung, D3, (CALCIUM 500+D) 500 mg-10 mcg (400 unit) chewable tablet 11/21/2021 Active budesonide (PULMICORT RESPULES) 0.5 mg/2 mL neb suspension INHALE 2ML (1 AMPULE) VIA NEBULIZER TWICE A DAY 09/04/2022 Active albuterol (PROVENTIL) 0.083 % neb solution INHALE 3MLS EVERY 6 HOURS NEEDED FOR WHEEZING. 09/01/2022 Active fluticasone propion-salmeterol (AIRDUO RESPICLICK) 232-14 mcg/actuation inhaler Inhale 1 Puff by mouth two times daily. 05/21/2023 Active mirabegron EXTENDED-release (MYRBETRIQ) 50 mg tabletIndications:O veractive bladder Take 1 Tablet (50 mg) by mouth once daily. 90 Tablet 3 05/31/2023 Active atorvastatin (LIPITOR) 40 mg tabletIndications:H ypertension, unspecified type Take 1 Tablet (40 mg) by mouth once daily. 90 Tablet 3 05/31/2023 Active losartan-hydrochlor othiazide, 50-12.5 mg, (HYZAAR) 50-12.5 mg tabletIndications:B enign essential HTN Take 1 Tablet by mouth once daily. 90 Tablet 3 05/31/2023 Active Active Problems Problem Noted Date Diagnosed Date Colon polyp 10/10/2022 Overview: Colonoscopy 09/2022 TA, long colon repeat in 7 years, propofol, colowrap Tinnitus, bilateral 06/25/2022 Status post thoracic spinal fusion 11/21/2021 T8-9 [place] after fall. 12/06/2021 Status post Paxton fundoplication 06/14/2021 05/0 04/2021 Cough syncope 05/11/2020 Urinary incontinence 05/11/2020 Sensorineural hearing loss, bilateral 09/11/2013 Prostate cancer 11/20/2012 Inguinal hernia, left 12/12/2010 Right hemiparesis 08/05/2009 S/P AVR (aortic valve replacement) 07/26/2009 Overview: 07/26/09 Minimally invasive aortic valve replacement (25 mm) Clemente magna supraannular pericardial tissue valve per Dr. Bond. Intracranial hemorrhage, left 07/14/2009 Unspecified asthma(493.90) Impotence of organic origin Other and unspecified hyperlipidemia Obesity, unspecified Unspecified essential hypertension Allergic rhinitis, cause unspecified Overview: seasonal Prediabetes Resolved Problems Problem Noted Date Diagnosed Date Resolved Date Hiatal hernia 09/08/2020 05/25/2022 Laryngopharyngeal reflux (LPR) 09/08/2020 05/25/2022 Chronic cough 09/08/2020 05/25/2022 Vitamin D deficiency 11/20/2012 021 Personal history of colonic polyps 08/14/2012 05/11/2020 Overview: Colonoscopy 07/2012 normal repeat in 5 years Colonoscopy 08/2017 polyps, repeat in 5 years Expressive aphasia syndrome 08/29/2009 04/30/2019 Clostridium difficile infection 08/05/2009 08/14/2012 S/p tracheostomy 08/05/2009 05/11/2020 Diarrhea 08/05/2009 08/14/2012 Encephalopathy 08/05/2009 05/11/2020 Anemia, unspecified 08/05/2009 05/12/19 21 Hyperglycemia 08/05/2009 05/11/2020 Fever 07/14/2009 08/14/2012 Sepsis, MRSA 07/11/2009 05/23/2021 Acute renal failure 07/11/2009 04/30/19 20 Acute respiratory failure 07/11/2009 Endocarditis, bacterial, acute/subacute 07/06/2009 05/31/2023 Esophageal reflux 05/25/2022 Other abnormal glucose 05/23 Encounters Date Type Department Care Team Description 09/04/2023 Orders Only [address] [place] [phone] Akbar Hand MD 1 scan: (1-Ord) 09/03/2023 09/03/2023 4:00 PM CDT [address] [phone] Akbar Hand MD Pre-Op Exam (DOS 09/06/2023 no concerns) 09/03/2023 Travel 09/02/2023 Telephone [facility] [address] [place] [address] Salas Raymundo MD Results 08/30/2023 Medical Messaging [facility] [address] [place] [address] Salas Raymundo MD Orthopedic Appt 08/29/2023 Orders Only [facility] [address] [place] [address] Salas Raymundo MD 3 scans: (3-Ord) RAYUS RAD, RT SHOULDER, 08/28/2023 08/20/2023 4:45 PM CDT Ancillary Procedure [facility] [address] [place] [address] 08/20/2023 3:45 PM CDT Office Visit [facility] [address] [place] [address] Salas Raymundo MD Follow Up (Urgent Care in [place], 08/15/2023 fell on steps, injured left elbow and right shoulder); Medication Management (Taking magnesium 210 mg BID ) 08/20/2023 Travel from Last 3 Months Immunizations Name Administration Dates Next Due AMB Influenza, IIV4 PF (=>6 mos Flulaval,Fluzone Fluarix)(Flu Clinic Only) 11/20/2013 COVID-19 Vaccine Spikevax (M oderna 50mcg/0.5mL) 12YO+ [id number] Formula PF 05/31/2023 COVID-19 vaccine ([employer] NTech 30mcg/0.3mL) 12YO+ LADONNA-SUCROSE PF, MDV 05/19/2021 COVID-19 vaccine ([employer] NTech 30mcg/0.3mL) PF, MDV 11/17/2020,05/02/2020,04/11/2020 Influenza A (H1N1), Inactivated 02/09/2009 Influenza A (H1N1), Inactiva moncho (Age >=3 Years) 02/09/2009 Influenza Virus, Unspecified 11/02/2016,11/12/19 16 Influenza, High-dose Inactivated 021,10/05/2019,11/25/2018,10/31 Influenza, IIV3 (Age 6-35 mos) 6,11/10/2014,11/20/2010,10/28 Influenza, IIV3 (Age >=3 years) 11/03/19 17,11/11/2014,10/21/2012,10/28,11/01/2010,10/28/2009,11/18/2008 ,11/29/2003,12/21/1996,11/27/1995,11/19,12/16/1993,11/26/1992, 2 Influenza, IIV4 11/20/2013 Influenza, IIV4 (=>6mos) MDV 11/02/2016 Influenza, Inactivated AIIV4 (Age 65+ Years) Preserv Free 11/15/2022,12/18/2021,11/16/2020 Pneumococcal Conj 20-valent (Prevnar 20) 05/31/2023 Pneumococcal Poly,23-Valent (Pneumovax) 04/22/2018,12/14/2008 Pneumococcal conj 13-Valent (Prevnar 13) 04/24/2017 RSV, Bivalent Vaccine Recons tituted (Abrysvo 120MCG/0.5mL) 11/15/2022 Td (Age >=7 Years) 03/16/1999 Tdap 09/01/2015,02/09/2009 Zoster (Shingrix-RZV, recombinant) 02/13/2018, Zoster (Zostavax-ZVL, live) 02/03/2013 Family History Medical History Relation Name Comments Diabetes Brother Diabetes Father type 2 Heart Disease Father SD at age 55 Heart Disease Mother CHF Cancer-colon Neg. Cancer Sister 1 Liver, Brain, L kaylan Cancer Sister 2 uterine Anesthesia Problem No Family History Relation Name Status Comments Brother Father Mother Neg. Sister 1 Sister 2 Social History Tobacco Use Types Packs/Day Years Used Date Smoking Tobacco: Never Smokeless Tobacco: Never Tobacco Cessation:Counseling Given: No Alcohol Use Standard Drinks/Week Comments Yes 0 (1 standard drink = 0.6 oz pur e alcohol) 1-3 drinks a week PHQ-2 Answer Date Recorded PHQ-2 TOTAL SCORE 0 05/31/2023 Social Connections Answer Date Recorded Frequency of Communication with Friends and Fami ly 0 05/31/2023 Financial Resource Strain Answer Date R ecorded Difficulty of Paying Living Expenses 3 05/31/2023 Difficulty of Paying Living Expenses Not on file 05/31/2023 Food Insecurity Answer Date Recorded Worried About Running Out of Food in the Last Ye ar 1 05/31/2023 Transportation Needs Answer Date Record ed Lack of Transportation (Medical) 1 05/31/2023 Housing Stability Answer Date Recorded Unable to Pay for Housing in the Last Year 1 05/31/2023 Sex and Gender Information Value Date Recorded Sex Assigned at Not on file Gender Identity Not on file Sexual Orientation Not on file Obstetrics History Last Filed Vital Signs Vital Sign Reading Time Taken Comments Blood Pressure 120/70 09/03/2023 4:12 PM CDT Pulse 75 09/03/2023 4:12 PM CDT Temperature 36.7 ??C (98.1 ??F) 09/03/2023 4:12 PM CD T Respiratory Rate 18 09/03/2023 4:12 PM CDT Oxygen Saturation 95% 09/03/2023 4:12 PM CDT Inhaled Oxygen Concentration - - Weight 109.5 kg (241 lb 8 oz) 09/03/2023 4:12 PM CDT Height 174 cm (5' 8.5) 09/03/2023 4:12 PM CDT Body Mass Index 36.18 09/03/2023 4:12 PM CDT Plan of Treatment Upcoming Encounters Date Type Department Care Team (Latest Contact Info) Description 09/24/2023 7:15 AM CDT [facility] [address] [place] [address] Karol Heath, OT [address] [place] [address] 09/25/2023 9:00 AM CDT Ancillary Procedure [facility] [address] [facility] [place] [phone] 10/01/2023 1:30 PM CDT Office Visit [facility] [address] [place] [address] Princess Santamaria MD [address] [facility] [address] [place] [address] Health Maintenance Due Date Last Done Comments COVID-19 vaccine series (2022- season) 2023 05/31/2023, 11/19/2022, 12/18/2021, Additional history exists Influenza for age 65+ 10/20/2023 11/15/2022 , 12/18/2021, 11/16/2020, Additional history exists Depression screening for age 12+ 05/30/2024 05/31/2023, 05/25/2022, 05/25/2022, Additional history exists Medicare Wellness for age 65+ 05/31/2024, 05/25/2022, 05/23/2021, Additional history exists BMI (ht and wt on same day) for age 18+ 09/02/2024 09/03/2023, 05/31/2023, 05/25/2022, Additional history exists Tetanus booster 08/31/2025 09/01/2015, 01/19, 03/16/1999 Lipids for age 45-75 05/30/2028 05/31/2023, 05/25/2022, 05/19/2021, Additional history exists Colonoscopy through age 75 10/08/202910/08, 10/08/2022, 08/20/2017, Additional history exists Hepatitis C screening for ag e 18-79 Completed 02/08/2015, 07/27/2009 Tdap Completed 09/01/2015, 02/09/2009 Zoster (shingles) series for age 50+ Completed 02/13/2018, 10/31/2017, 02/03/2013 Pneumococcal series for age 65+ Completed 05/31/2023, 04/22/2018, 04/24/2017, Additional history exists Medical Devices Implanted Type Area Vp Software Device Identifier Shelf Expiration Date Model / Serial / Lot Anw Hh [id number] Implanted:Qty: 1 on 07/26/2009 at [facility] Explanted:at [facility] (Quantity not on file) Aortic Valve Crackle Kris 04/20/2013 [id number] / [id number] / Procedures Procedure Name Priority Date/Time Associated Diagnosis Comments CBC W PLT NO DIFF Routine 09/03/2023 5:0 4 PM CDT Hypertension, unspecified type EKG 12 LEAD Routine 09/03/2023 12:00 AM CDT Hypertension, unspecified type MR SHOULDER RIGHT WO Routine 08/28/2023 12:00 AM CDT Acute pain of right shoulder MR ELBOW LEFT WO Routine 08/28/2023 12:0 0 AM CDT Left elbow pain XR CLAVICLE RIGHT Routine 08/20/2023 4:4 1 PM CDT Pain of right clavicle LIPID PANEL W REFLEX MEASURED LDL Routine 05/31/2023 8:40 AM CDT Mixed hyperlipidemia COLONOSCOPY SCREENING Routine 10/08/2022 12:00 AM CDT History of colon polyps ANTI HCV Routine 02/08/2015 10:54 AM AWNINGS MECHANIC Need for hepatitis C screening test from Last 3 Months or Most Recently Relevant to Health Maintenance Results * CBC W PLT NO DIFF (09/03/2023 5:04 PM CDT) WHITE BLOOD COUNT 7.4 4.5 - 11.0 thou/cu mm 09/03/2023 5:26 PM T [facility] RED BLOOD COUNT 5.27 4.30 - 5.90 mil/cu mm 09/03/2023 5:26 PM CDT [facility] HEMOGLOBIN 15.5 13.5 - 17.5 g/dL 09/03/2023 5:26 PM T [facility] HEMATOCRIT 46.3 37.0 - 53.0 % 09/03/2023 5:26 PM [facility] MCV 88 80 - 100 fL 09/03/2023 5:26 PM CDT [facility] MCH 29.4 26.0 - 34.0 pg 09/03/2023 5:26 PM [facility] MCHC 33.5 32.0 - 36.0 g/dL 09/03/2023 5:26 PM CDT [facility] RDW 14.7 11.5 - 15.5 % 09/03/2023 5:26 PM CDT [facility] PLATELET COUNT 182 140 - 440 thou/cu mm 09/03/2023 5:26 PM CDT [facility] MPV 9.5 6.5 - 11.0 fL 09/03/2023 5:26 PM CDT [facility] Blood BLOOD SPECIMEN / Unknown Venipuncture / Unknown 09/03/2023 5:04 PM CDT 09/03/2023 5:06 PM CDT Akbar Hand MD HEMATOLOGY Performing Organization Address City/State/[facility] Co de Phone Number [facility] [address] [place] [address] * EKG 12 LEAD (09/03/2023 12:00 AM CDT) Akbar Hand MD EKG ORD * MR SHOULDER RIGHT WO (08/28/2023 12:00 AM CDT) Anatomical Region Laterality Modality SHOULDER R Magnetic Resonan ce Salas Raymundo MD MR * MR ELBOW LEFT WO (08/28/2023 12:00 AM CDT) Anatomical Region Laterality Modality ELBOW L Magnetic Resonan ce Salas Raymundo MD MR * XR CLAVICLE RIGHT (08/20/2023 4:41 PM CDT) Anatomical Region Laterality Modality CLAVICLE R, CLAVICLES Computed R adiography 08/21/2023 4:21 PM CDT Narrative 08/21/2023 4:21 PM CDT For Patients: ??As a result of the Century Cures Act, medical imaging exams and procedure reports are released immediately into your electronic medical record. ??You may view this report before your referring provider. ??If you have questions, please contact your health care provider. Indication: Right clavicle pain Technique: Two views right clavicle Comparison: None Findings: Subacromial spur noted. Hypertrophic changes at the glenohumeral joint. Postop changes to the mediastinum and to the thoracic spine. Increased distance at the coracoclavicular interval measuring 2.1 cm. Increased distance at the acromioclavicular joint measuring 1 cm. Impression: Degenerative joint disease with subacromial spur. Widening of the distances between the clavicle and coracoid along with the clavicle and acromion consistent with chronic AC joint separation. Dictated by Rajiv Leon MD @ 08/21/2023 4:21:26 PM (Electronically Signed) Procedure Note Rajiv Leon MD - 08/21/2023 For Patients: As a result of the Cures Act, medical imagingexams and procedure reports are released immediately into your electronicmedical record. You may view this report before your referring provider.If you have questions, please contact your health care provider. Indication: Right clavicle pain Technique: Two views right clavicle Comparison: None Findings: Subacromial spur noted. Hypertrophic changes at the glenohumeral joint.Postop changes to the mediastinum and to the thoracic spine. Increaseddistance at the coracoclavicular interval measuring 2.1 cm. Increaseddistance at the acromioclavicular joint measuring 1 cm. Impression: Degenerative joint disease with subacromial spur. Widening of thedistances between the clavicle and coracoid along with the clavicle andacromion consistent with chronic AC joint separation. Dictated by Rajiv Leon MD @ 08/21/2023 4:21:26 PM (Electronically Signed) Salas Raymundo MD GENERAL IMAGIN G * LIPID PANEL W REFLEX MEASURED LDL (05/31/2023 8:40 AM CDT) CHOLESTEROL,TOTAL 116 100 - 199 mg/dL 05/31/2023 5:02 PM CDT [facility] Comment: Cholesterol, Total Reference Ranges Desirable <200 mg/dL Borderline 200-239 mg/dL High >=240 mg/dL TRIGLYCERIDES 79 <150 mg/dL 05/31/2023 5:02 PM CDT [facility] HDL CHOLESTEROL 43 >40 mg/dL 5:02 PM CDT [facility] NON-HDL CHOLESTEROL 73 <145 mg/dl 05/31/2023 5:02 PM CDT [facility] CHOL/HDL RATIO 2.70 <4.50 05/31/2023 5:02 PM CDT [facility] LDL CHOLESTEROL 57 <=130 mg/dL 05/31/2023 5:02 PM CDT [facility] VLDL CHOLESTEROL 16 <=30 mg/dL 05/31/2023 5:02 PM CDT [facility] PROVIDER ORDERED STATUS RANDOM 05/31/2023 5:02 PM CDT [facility] Blood BLOOD SPECIMEN / Unknown Venipuncture / Unknown 05/31/2023 8:40 AM CDT 05/31/2023 8:42 AM CDT Salas Raymundo MD CHEMISTRY Performing Organization Address City/[facility]/ZIP Co de Phone Number [facility] [address] [place] [address] * COLONOSCOPY SCREENING (10/08/2022 12:00 AM CDT) Salas Raymundo MD GI PROCEDURE O RD * ANTI HCV (02/08/2015 10:54 AM AWNINGS MECHANIC) HEPATITIS C ANTIBODY Non-Reacti ve Non-Reacti ve 02/08/2015 4:44 PM AWNINGS MECHANIC [facility] Blood specimen (specimen) BLOOD SPECIMEN / Unknown Venipuncture / Unknown 02/08/2015 10:54 AM AWNINGS MECHANIC 02/08/2015 10:54 AM AWNINGS MECHANIC Narrative [facility] - 02/08/2015 4:44 PM AWNINGS MECHANIC Antibodies to HCV not detected; does not exclude the possibility of exposure to HCV. Salas Raymundo MD SEND OUTS [facility] [address] [place] [address], from Last 3 Months or Most Recently Relevant to Health Maintenance Additional Health Concerns Infection Onset Date Last Indicated MRSA Clearance Comment:Infection Control Note: Hx of MRSA, surveillance criteria met, no need for further testing or isolation precautions. Do not delete or resolve the infection flag. MRSA + urine 07/05/09 06/13/2021 06/13/2021 Advance Directives Documents on File Type Date Recorded Patient Pharmaceutical Analyst Expl anation Healthcare Directive 02/09/2015 2:08 PM Elizabeth NICK, 12/27/2014 * Full Code (Latest Code Status on File) Date Activated Date Inactivated Comments 06/14/2021 7:53 AM 06/16/2021 3:07 PM Question Answer Comments Code Status Discussion: Not Discussed * Full Code Date Activated Date Inactivated Comments 08/29/2009 11:18 AM 09/06/2009 6:38 PM * Full Code Date Activated Date Inactivated Comments 07/26/2009 1:05 PM 08/08/2009 3:32 PM * Full Code Date Activated Date Inactivated Comments 07/05/2009 7:15 AM 07/26/2009 1:05 PM Care Teams Shearing Machine Tender Relationship Specialty Start Date End Date Raymundo, Salas Mis, MD [address] [place], [place] [id number] PCP - General 07/13/05
--- OUTSIDE RECORDS SUMMARY | 2023-09-06 07:08 | XMS_ITS | Encounter Summary ---
Author Organization [place] Address [facility] [place] [address] Care Team Providers Care Director Water And Waste Services Name Role Phone Salas Raymundo Primary Care Provider hCarles Crawford MD Unavailable [phone] Charli Jefferson MD Unavailable Christie Cruz MD Unavailable Charli Jefferson MD Unavailable Christie Cruz MD Unavailable Encounter Details Date Type Department Care Team (Late st Contact Info) Description 12/14/2018 [facility] Urology and [facility] for Prostate and Urologic Cancers [address] [facility] [address] [place] [phone] Christie Cruz MD [address] [place] [address] Social History Tobacco Use Types Packs/Day Years [...] filedocumented in this encounter Care Teams Director Water And Waste Services Relationship Specialty Start Date End Date Salas Raymundo PCP - General Family Practice 08/15/18 Charles Crawford MD [address] [phone] Urology 08/19/18 Charli Jefferson MD [address] [phone] Urology 08/19/18 Christie Cruz MD [address] [place] [address] Assigned Surgical Provider 12/11/19 Charli Jefferson MD [address] [phone] Assigned Surgical Provider 04/17/20 Christie Cruz MD [address] [place] [phone] Assigned Surgical Provider 05/04/20 documented as of this encounter
[2023-09-06] MEDS: MIDAZOLAM HCL 1 MG/ML inj IVP (07:58)
[2023-09-06] MEDS: fentaNYL 100 MCG/2 ML inj IVP (07:59)
[2023-09-06] MEDS: LACTATED RINGERS 1000 ML 1,000 ML 100 ML IV ×2 (08:00→09:41)
--- NOTE | 2023-09-06 08:13 | SUR.PREOP ---
TIME?OUT:?0757 PT/RN/MDA?VERIFICATION?OF?SURGICAL?SITE,?PROCEDURE,?AND?CONSENT OBTAINED?PRIOR?TO?INVASIVE?PROCEDURE.
--- NOTE | 2023-09-06 08:18 | P.NB_ITS ---
Nerve Block Nerve Block Time Seen by Provider: 08:06 Date Seen: 09/06/23 Type of block requested by surgeon for post-operative analgesia: axillary Side: left Time out performed: Yes Verification of patient name: Yes Verification of date of : Yes Site marking: site marked Name of person performing procedure: Anthony Continuous monitoring Was continuous monitoring of O2 sat, B/P, loading machine operator helper, recorded every 15 minutes?: Yes Procedure Checklist: sterile prep, needles and gloves Ultrasound guided. Images saved: Yes Medications given in 5ml increments after negative aspiration: Ropivicaine %: 0.5 mL: 30 Needle gauge: 22 Patient tolerated procedure well: Yes Additional comments: Needle noted adjacent to nerve Block Charges Block Charge (with Pro Fee): Brachial Plexus Use of Ultrasound Machine for Block: Yes- US Guidance/pain block
--- NOTE | 2023-09-06 08:18 | W.ANESCHARGE ---
Anesthesia Charges Start Date/Time Anesthesia Start Date: 09/06/23 Anesthesia Start Time: 08:36 Stop Date/Time Anesthesia Stop Date: 09/06/23 Anesthesia Stop Time: 11:27 Summary Extremes of Age - Over 70 or under 1: MDA
--- NOTE | 2023-09-06 08:38 | P.ORPRC_ITS ---
Procedure Note Date of procedure: 09/06/23 Procedure: PREOPERATIVE DIAGNOSIS: 1. Left distal biceps rupture POSTOPERATIVE DIAGNOSIS: 1. Left distal biceps rupture PROCEDURE: 1. Left distal biceps debridement SURGEON: Jason Smith MD. LOBSTERMAN: Laurel Lau P.A.-C. - An delinquent tax collection assistant was critical for this case to aid in patient positioning, tissue retraction, limb manipulation/positioning, and closure. ANESTHESIA: General with axillary nerve block IMPLANTS: None TOURNIQUET: Not utilized ESTIMATED BLOOD LOSS: 25 mL COMPLICATIONS: Biceps tendon was significantly retracted proximally and could not be mobilized. After mobilization and muscle relaxation tendon was still 5 cm short of its insertion site on the radial tuberosity. Tendon was unable to be repaired, and no allograft was available for augmentation. INDICATIONS: The patient is a pleasant 73-year-old male who sustained a traumatic left distal biceps tendon rupture approximately 3 weeks ago. Recommendation was subsequently made for surgical repair to restore function of the biceps. Prior to surgery, the risks and benefits of procedure were discussed with patient, all questions were answered, and informed consent was obtained. DESCRIPTION OF PROCEDURE: Following a thorough discussion of risks, benefits, and alternatives consent was obtained and the operative site was marked. The patient was brought to the operating room and placed supine on the operating table. Induction of anesthesia was undertaken. IV Ancef was administered within 1 hr of incision preoperatively for prophylaxis. A tourniquet was placed on the patient's operative arm but was not utilized during the course of p rocedure. Left upper extremity was then prepped and draped in usual sterile fashion. A surgical time-out was performed confirming patient identity, surgical site, and surgical procedure. A longitudinal incision measuring 3-4 cm was made on the proximal volar forearm distal to the elbow flexion crease along the ulnar border of the brachioradialis. Blunt dissection was used to dissect through the subcutaneous tissues. Electrocautery was used to achieve hemostasis. Blunt dissection was utilized and the distal biceps tendon stump could be palpated in the distal upper arm. To access the tendon a secondary incision measuring approximately 2 cm was made over the anterior distal upper arm at the level of the biceps tendon retraction. The distal biceps tendon was identified and was dissected away from surrounding soft tissues. The end of the tendon was debrided. A #2 FiberLoop suture was then used to whipstitch the distal end of the biceps tendon. After whipstitch was complete, the tendon was able to pass through the 7 mm sizing block. Elbow was then placed in full extension and full supination. Deep dissection was used to expose the radial tuberosity. Radial tuberosity was identified and cleared of soft tissue. A 3.2 mm bicortical tunnel was drilled in the radial tuberosity. Prior to drilling, fluoroscopic imaging was used to confirm drill placement in the radial tuberosity. An 8 mm unicortical tunnel was then drilled over the 3.2 mm guide pin. Guide pin and Reamer were removed. Wound was irrigated with normal saline and bone debris was removed. The sutures were then passed deep to the vascular structures in the anterior arm and brought to the radial tuberosity. The biceps tendon was then tension but could not be mobilized to the insertion site. To aid mobilization, the tourniquet was removed from the upper arm. Patient was then converted to general anesthesia with muscular relaxation, but tendon could still not be mobilized to its insertion site. At this point, it was determined that repair could not be performed without the use of an allograft tendon. Allograft tendon was not available for the case today. Decision was subsequently made to return at a later date for biceps tendon repair using allograft. Wounds were again copiously irrigated with normal saline and closed with 3-0 nylon sutures. Sterile dressing was applied. Patient was awoken from anesthesia and transferred to the PACU in stable condition. POSTOPERATIVE PLAN: 1. Patient be discharged home on day of surgery. 2. May perform activities as tolerated with the left upper extremity. 3. Ice and elevation for pain and swelling. 4. Tramadol or tcxf-qzz-qoheltt pain medications as needed for pain control. 5. Will return to the operating room next week for distal biceps repair using allograft tendon.
--- NOTE | 2023-09-06 08:38 | W.PM.H&PU ---
History & Physical Update History & Physical Update H&P Reviewed and patient assessed: No changes noted
[2023-09-06] MEDS: CEFAZOLIN 2 GM INJ IVP (08:45)
--- NOTE | 2023-09-06 08:56 | CRLHL7_ITS ---
For Patients: As a result of the Century Cures Act, medical imaging exams and procedure reports are released immediately into your electronic medical record. You may view this report before your referring provider. If you have questions, please contact your health care provider. Indication: Orthopedic surgery Technique: Two fluoroscopic images of the left elbow. Fluoroscopic time 8.8 seconds. IMPRESSION: Fluoroscopic guidance for procedure regarding the proximal radius. Dictated by Rajiv Leon MD @ 09/06/2023 12:03:12 PM (Electronically Signed)
--- NOTE | 2023-09-06 11:30 | W.ANESCHARGE ---
Anesthesia Charges Start Date/Time Anesthesia Start Date: 09/06/23 Anesthesia Start Time: 08:36 Stop Date/Time Anesthesia Stop Date: 09/06/23 Anesthesia Stop Time: 11:27
== END 2023-09-06 12:55 | disposition home or self-care (01) ==
LOC: OR 07:06
PROVIDERS: PCP Family Medicine; Visit Provider Orthopaedic Surgery
PROC: (CPT 24341; principal; 2023-09-06 08:15)
DX: S46.212A Strain of muscle, fascia and tendon of other parts of biceps, left arm, initial encounter (principal); G89.18 Other acute postprocedural pain
CPT/HCPCS: 24341; 01716; 64415; 73070; 76000; 76942; 99100; A4580; C1713; J0330; J0690; J2250; J2405; J2704; J2710; J2795; J3010; J3490; J7120

== ENCOUNTER 2023-09-13 06:08 | Day surgery (SDC) | payer MEDICARE, BC, SELFPAY ==
[2023-09-13] VITALS (8 sets, daily range): BP systolic 92–150; BP diastolic 61–96; PULSE 50–79; RESP 16; TEMP 36.2–36.7; O2SAT 92–96; BMI 36.7
--- OUTSIDE RECORDS SUMMARY | 2023-09-13 06:10 | XMS_ITS | Encounter Summary ---
Author Organization [facility] Address [address] [address] Phone Care Team Providers Care Seo Assistant Name Role Phone Unavailable Primary Care Provider Unavailabl e Reason for Referral * Ancillary Services (Urgent) - Closed Specialty Diagnoses / Procedures Referred By Leobardo stahl Referred To Contact Radiology Diagnoses Injury of left elbow, initial encounter Procedures XR ELBOW LEFT 3 OR MORE VIEWS Ruma Manzo APRN, MAL [address] [place] [address] Referral ID Status Reason Start Date Expiration Date Visits Re quested Visits Authorized [id number] Closed 08/15/2023 11/14/2024 1 1 Reason for Visit * Ancillary Services (Urgent) - Closed Specialty Diagnoses / Procedures Referred By Leobardo stahl Referred To Contact Radiology Diagnoses Injury of left elbow, initial encounter Procedures XR ELBOW LEFT 3 OR MORE VIEWS Ruma Manzo APRN, DIAMOND FINISHING SUPERVISOR [address] [place] [address] Referral ID Status Reason Start Date Expiration Date Visits Re quested Visits Authorized [id number] Closed 08/15/2023 11/14/2024 1 1 Encounter Details Date Type Department Care Team (Latest Contact Info) Description 08/15/2023 4:59 PM CDT - 08/15/2023 11:59 PM CDT Hospital Encounter [facility] GENERAL RAD[facility]Y [address] [place] [address] Ruma Manzo APRN, DIAMOND FINISHING SUPERVISOR [address] [place] [address] Injury of left elbow, initial [...] (Astelin) 0.1 % nasal spray Instill 1 [place] nasally one time a day. budesonide (Pulmicort) [...] Guzmán MD 08/15/2023 6:30 PM Ruma Manzo OPERATIONAL TRAINER, DIAMOND FINISHING SUPERVISOR EC DIAGNOSTI C IMAGING ORDERABLES documented in this encounter Visit Diagnoses Diagnosis Injury of left elbow, initial encounter documented in this encounter
--- OUTSIDE RECORDS SUMMARY | 2023-09-13 06:10 | XMS_ITS | Clinical Summary ---
Author Organization [facility] Address [address] [address] Phone Care Team Providers Care Insulation Manager Name Role Phone Unavailable Primary Care [...] (Astelin) 0.1 % nasal spray Instill 1 [place] nasally one time a day. Active budesonide [...] - 08/15/2023 11:59 PM CDT Hospital Encounter [facility] GENERAL RADIOLOGY [address] [place] [address] Ruma Manzo, CONCHA, DIRECTOR OF ANALYTICS Injury of left elbow, initial encounter Discharge Disposition: Discharged 08/15/2023 4:58 PM CDT Hospital Encounter [facility] RADIOLOGY [address] [place] [address] Ruma Manzo, INTERFACE ENGINEER, DIRECTOR OF ANALYTICS Injury of right shoulder, initial encounter Discharge Disposition: Discharged 08/15/2023 4:58 PM CDT Hospital Encounter [facility] GENERAL RADIOLOGY [address] [place] [address] Ruma Manzo, INTERFACE ENGINEER, DIRECTOR OF ANALYTICS Injury of right shoulder, initial encounter Discharge Disposition: Discharged 08/15/2023 3:50 PM CDT Office Visit [facility] [address] [place] [address] Ruma Manzo, INTERFACE ENGINEER, DIRECTOR OF ANALYTICS Injury of right shoulder, initial encounter (Primary [...] Guzmán MD 08/15/2023 6:30 PM Ruma Manzo INTERFACE ENGINEER, DIRECTOR OF ANALYTICS EC DIAGNOSTI C IMAGING ORDERABLES * XR [...] MD 08/15/2023 6:30 PM Ruma Manzo APRN, DIRECTOR OF ANALYTICS EC DIAGNOSTI C IMAGING ORDERABLES * XR [...] Guzmán MD 08/15/2023 6:30 PM Ruma Manzo INTERFACE ENGINEER, DIRECTOR OF ANALYTICS EC DIAGNOSTI C IMAGING ORDERABLES from Last [address] [place] [address] Rajiv Restrepo Personal/Family Self [address] [facility] [place] [address]
--- OUTSIDE RECORDS SUMMARY | 2023-09-13 06:11 | XMS_ITS | Clinical Summary ---
Author Organization [facility] Address [address] [place] [address] Care Team Providers Care Fryline Attendant Name Role Phone Elsewhere, Pcp Primary Care Provider Unavailabl e Source Comments Patient records contain information from all sites at [facility]. For routine questions regarding patient records, call [phone] during business hours, M-F 8:00 AM - 5:00 PM Central Time. Record requests for emergency care only can be directed to [phone] at any time.[facility] Allergies Active Allergy Reactions Criticality Noted Date [...] often do you attend chur ch or protestant services? More than 4 times per year 03/25/2022 Do you belong to any clubs o r organizations such as hoahaoism groups, unions, fraternal or athletic groups, or [...] and heating? Not hard at all 03/25/2022 [facility] of Occupat ional Health - Occupational Stress [...] place to sleep or slept in a snf (including now)? No 03/25/2022 Nutrition Answer Date [...] Sex Assigned at Male 03/25/2022 2:27 PM GENERATOR REPAIRER Gender Identity Male 03/25/2022 2:27 PM GENERATOR REPAIRER Sexual Orientation Straight 03/25/2022 2: 27 PM GENERATOR REPAIRER Last Filed Vital Signs Vital Sign Reading [...] 04/24/2017, 12/14/2008 Medical Devices Implanted Type Area Photographic Printer Device Identifier Shelf Expiration Date Model / Serial / Lot Ams 800 System Implanted:11/12 (Quantity not on file) Artificial Sphincter Pelvis [id number] / / Description:AMS 800 per Care Everywhere SLJ Grft Bn Fem Hd Frzn 44 - [id number] - [id number] Implanted:Qty: 1 on 11/21/2021 by Wilmer Nevarez M.D. at [facility] Bone or Tissue Posterior : Spine Thoracic [employer] 01/06/2026 [id number] / [id number] / Aortic Valve Implanted:07/26 (Quantity not on file) Cardiac Valve Prosthesis Heart 3000TFX / / Description:Rohit ds PERIMOUNT magna pericardial aortic bioprostheses MRI Conditional per Saman SLJ 11/21/21 Wax Bn Nblbl 2.5gr - [id number] Implanted:Qty: 1 on 11/21/2021 by Wilmer Nevarez M.D. at [facility] Hardware e.g. pins/screws /rods Posterior : Spine Thoracic [employer] 901 / / Spn Scrw Slr Sld 5.5 - [id number] Implanted:Qty: 12 on 11/21/2021 by Wilmer Nevarez M.D. at [facility] Hardware e.g. pins/screws /rods Posterior : Spine Thoracic Medtronic [id number] / / Spn Seb Slr Str Lng 5.5x500 - [id number] Implanted:Qty: 1 on 11/21/2021 by Wilmer Nevarez M.D. at [facility] Hardware e.g. pins/screws /rods Posterior : Spine Thoracic Medtronic [id number] / / Spn Scrw Slr Nagi Mas 6.5x45 - [id number] Implanted:Qty: 12 on 11/21/2021 by Wilmer Nevarez M.D. at [facility] Hardware e.g. pins/screws /rods Posterior : Spine Thoracic Medtronic [id number] / / Procedures Procedure Name Priority Date/Time Associated Diagnosis Comments BASIC METABOLIC PANEL, S/P Routine 11/23/2021 3:41 AM CDT from Last 3 Months or Most Recently Relevant to Health Maintenance Results * Basic Metabolic Panel (11/23/2021 3:41 AM CDT) [facility] Potassium, S 4.4 3.6 - 5.2 [...] CDT Vince Hernandez M.D. LAB BLOOD ADD-ON [facility] [address] [place] [address], [facility] [address] [place] [address] from Last 3 Months or Most Recently Relevant to Health Maintenance Advance Directives For more information, please contact: [phone] * Full Code (Latest Code Status on File) Date Activated Date Inactivated Comments 11/21/2021 12:22 AM 11/24/2021 5:46 PM Question Answer Comments Full Code: Discussed Care Teams Fryline Attendant Relationship Specialty Start Date End Date Elsewhere, Pcp PCP - General 04/21/18
--- OUTSIDE RECORDS SUMMARY | 2023-09-13 06:11 | XMS_ITS | Encounter Summary ---
Author Organization [facility] Address [address] [address] Phone Care Team Providers Care Attorney Recruiter Name Role Phone Unavailable Primary Care Provider [...]
--- OUTSIDE RECORDS SUMMARY | 2023-09-13 06:11 | XMS_ITS | Clinical Summary ---
Author Organization [employer] [facility] Address [place], [place] [address] Care Team Providers Care Construction Grip Name Role Phone Salas Raymundo MD Primary [...] 137 mcg/actuation (ASTELIN) nasal spray Inhale 1 Mobile into affected nostril(s) once daily. Active fluticasone (50 mcg per actuation) nasal solution (FLONASE) Inhale 1 Mobile into affected nostril(s) once daily in the [...] Status post thoracic spinal fusion 11/21/2021 T8-9 [place] after fall. 12/06/2021 Status post [place] fundoplication [...] Encounters Date Type Department Care Team Description 09/09/2023 Transcribe Orders [facility] [place] [address] [address] [address] Terrance Smith MD 09/06/2023 Orders Only [facility] Scanner 1 scan: (1-Ord) [facility], XR ELBOW LT 2V, 09/06/2023 09/04/2023 Orders Only [facility] [address] [facility] [place] [address] Akbar Hand MD 1 scan: (1-Ord) 09/03/2023 09/03/2023 4:00 PM CDT Preop Visit [facility] [address] [place] [address] Akbar Hand MD Pre-Op Exam (DOS 09/06/2023 no concerns) 09/03/2023 Travel 09/02/2023 Telephone [facility] [address] [place] [address] Salas Raymundo MD Results 08/30/2023 Medical Messaging [facility] [address] [place] [address] Salas Raymundo MD Orthopedic Appt 08/29/2023 Orders Only [facility] [address] [place] [address] Salas Raymundo MD 3 scans: (3-Ord) [facility], RT SHOULDER, 08/28/2023 08/20/2023 4:45 PM CDT Ancillary Procedure [facility] [address] [place] [address] 08/20/2023 3:45 PM CDT Office Visit [facility] [address] [place] [address] Salas Raymundo MD Follow Up (Urgent Care in [place], 08/15/2023 fell on steps, injured left elbow and right shoulder); Medication Management (Taking magnesium 210 mg BID ) 08/20/2023 Travel from Last 3 Months Immunizations Name Administration Dates Next Due AMB Influenza, IIV4 PF (=>6 mos Flulaval,Fluzone Fluarix)(Flu Clinic Only) 11/20/2013 COVID-19 Vaccine Spikevax (M oderna 50mcg/0.5mL) 12YO+ [id number] Formula PF 05/31/2023 COVID-19 vaccine (Sweet P's NTech 30mcg/0.3mL) 12YO+ LADONNA-SUCROSE PFMDV 05/19/2021 COVID-19 vaccine (Ligon Discovery 30mcg/0.3mL) PF, MDV 11/17/2020,05/02/2020,04/11/2020 Influenza A (H1N1), [...] Diabetes Father type 2 Heart Disease Father AL at age 55 Heart Disease Mother CHF [...] Department Care Team (Latest Contact Info) Description 09/25/2023 9:00 AM CDT Ancillary Procedure [facility] [address] [place] [address] 10/01/2023 7:15 AM CDT Appointment [address] [place] [address] Karol Heath, OT [address] [facility] [place] [address] 10/01/2023 1:30 PM CDT Office Visit [facility] [address] [place] [id number] Princess Santamaria MD [address] [facility] [address] [place] [address] Health Maintenance Due Date Last Done Comments [...] history exists Medical Devices Implanted Type Area Regulatory Affairs Assistant Device Identifier Shelf Expiration Date Model / Serial / Lot Anw Hh [id number] Implanted:Qty: 1 on 07/26/2009 at [facility] Explanted:at [facility] (Quantity not on file) Aortic Valve Riskalyze Kris 04/20/2013 [id number] / [id number] / Procedures Procedure Name Priority Date/Time Associated Diagnosis Comments SCAN-RADIOLOGY REPORT 09/06/2023 12:00 AM CDT CBC W PLT NO DIFF Routine 09/03/2023 [...] polyps ANTI HCV Routine 02/08/2015 10:54 AM NUCLEAR TECHNICIAN Need for hepatitis C screening test from Last 3 Months or Most Recently Relevant to Health Maintenance Results * SCAN-RADIOLOGY REPORT (09/06/2023 12:00 AM CDT) Anatomical Region Laterality Modality Other Scanner OTHER * CBC W PLT NO DIFF (09/03/2023 5:04 PM CDT) WHITE BLOOD COUNT 7.4 4.5 - 11.0 thou/cu mm 09/03/2023 5:26 PM CDT [facility] RED BLOOD COUNT 5.27 4.30 - 5.90 mil/cu mm 09/03/2023 5:26 PM CDT [facility] HEMOGLOBIN 15.5 13.5 - 17.5 g/dL 09/03/2023 5:26 PM CDT [facility] HEMATOCRIT 46.3 37.0 - 53.0 % 09/03/2023 5:26 PM CDT [facility] MCV 88 80 - 100 fL 09/03/2023 5:26 PM CDT [facility] MCH 29.4 26.0 - 34.0 pg 09/03/2023 5:26 PM CDT [facility] MCHC 33.5 32.0 - 36.0 g/dL 09/03/2023 5:26 PM T [facility] RDW 14.7 11.5 - 15.5 % 09/03/2023 5:26 PM T [facility] PLATELET COUNT 182 140 - 440 thou/cu mm 09/03/2023 5:26 PM T [facility] MPV 9.5 6.5 - 11.0 fL 09/03/2023 5:26 PM [facility] Blood BLOOD SPECIMEN / Unknown Venipuncture / Unknown 09/03/2023 5:04 PM CDT 09/03/2023 5:06 PM CDT Akbar Hand MD HEMATOLOGY Performing Organization Address City/State/[facility] Co de Phone Number [facility] [address] [place] [phone] * EKG 12 LEAD (09/03/2023 12:00 AM [...] For Patients: ??As a result of the Cures Act, medical imaging exams and procedure [...] For Patients: As a result of the s Act, medical imagingexams and procedure reports are [...] - 199 mg/dL 05/31/2023 5:02 PM CDT [facility]kar[facility] Comment: Cholesterol, Total Reference Ranges Desirable <200 mg/dL Borderline 200-239 mg/dL High >=240 mg/dL TRIGLYCERIDES 79 <150 mg/dL 05/31/2023 5:02 PM CDT [facility] HDL CHOLESTEROL 43 >40 mg/dL 5:02 PM CDT [facility] NON-HDL CHOLESTEROL 73 <145 mg/dl 05/31/2023 5:02 PM CDT [facility] CHOL/HDL RATIO 2.70 <4.50 05/31/2023 5:02 PM CDT [facility] LDL CHOLESTEROL 57 <=130 mg/dL 05/31/2023 5:02 PM CDT [facility] VLDL CHOLESTEROL 16 <=30 mg/dL 05/31/2023 5:02 PM CDT [facility] PROVIDER ORDERED STATUS RANDOM 05/31/2023 5:02 PM CDT [facility] Blood BLOOD SPECIMEN / Unknown Venipuncture / Unknown 05/31/2023 8:40 AM CDT 05/31/2023 8:42 AM CDT Salas Raymundo MD [facility] [address] [place] [address], * COLONOSCOPY SCREENING (10/08/2022 12:00 AM CDT) Salas Raymundo MD GI PROCEDURE O RD * ANTI HCV (02/08/2015 10:54 AM NUCLEAR TECHNICIAN) HEPATITIS C ANTIBODY Non-Reacti ve Non-Reacti ve 02/08/2015 4:44 PM NUCLEAR TECHNICIAN [facility] Blood specimen (specimen) BLOOD SPECIMEN / Unknown Venipuncture / Unknown 02/08/2015 10:54 AM NUCLEAR TECHNICIAN 02/08/2015 10:54 AM NUCLEAR TECHNICIAN Narrative [facility] - 02/08/2015 4:44 PM NUCLEAR TECHNICIAN Antibodies to HCV not detected; does not exclude the possibility of exposure to HCV. Salas Raymundo MD SEND OUTS [facility] [address] [place] [address], from Last 3 Months or Most Recently Relevant to Health Maintenance Additional Health Concerns Infection Onset Date Last Indicated MRSA Clearance Comment:Infection Control Note: Hx of MRSA, surveillance criteria met, no need for further testing or isolation precautions. Do not delete or resolve the infection flag. MRSA + urine 07/05/09 06/13/2021 06/13/2021 Advance Directives Documents on File Type Date Recorded Patient Telephone Sales Representative Expl anation Healthcare Directive 02/09/2015 2:08 PM A Carlene NICK, 12/27/2014 * Full Code (Latest Code [...] 7:15 AM 07/26/2009 1:05 PM Care Teams Construction Grip Relationship Specialty Start Date End Date [place] [address] [address] PCP - General 07/13/05
--- OUTSIDE RECORDS SUMMARY | 2023-09-13 06:11 | XMS_ITS | Encounter Summary ---
Author Organization [place] Address [facility] [place] [address] Care Team Providers Care Cloud Operations Engineer Name Role Phone Salas Raymundo Primary Care Provider Charles Crawford MD Unavailable Charli Jefferson MD Unavailable [phone] Christie Cruz MD Unavailable [phone] Charli Jefferson MD Unavailable [phone] Christie Cruz MD Unavailable Encounter Details Date Type Department Care Team (Late st Contact Info) Description 11/03/2018 [facility] Urology and [facility] Urolog[facility] C[facility] [address] [facility] [address] 4th [place] [phone] Anaya Mallory LPN Social History Tobacco Use [...] on filedocumented in this encounter Care Teams Cloud Operations Engineer Relationship Specialty Start Date End Date Salas Raymundo PCP - General Family Practice 08/15/18 Charles Crawford MD [address] [phone] Urology 08/19/18 Charli Jefferson MD [address] [place] [address] Urology 08/19/18 Christie Cruz MD [address] [place] [address] Assigned Surgical Provider 12/11/19 Charli Jefferson MD [address] [address] Assigned Surgical Provider 04/17/20 Christie Cruz MD [address] [place] [address] Assigned Surgical Provider 05/04/20 documented as of this encounter
--- OUTSIDE RECORDS SUMMARY | 2023-09-13 06:11 | XMS_ITS | Referral Summary ---
Author Organization [facility] Address [address] [place] [address] Care Team Providers Care Industrial Truck Driver Name Role Phone Elsewhere, Pcp Primary Care Provider Unavailabl e Source Comments Patient records contain information from all sites at [facility]. For routine questions regarding patient records, call [phone] during business hours, M-F 8:00 AM - 5:00 PM Central Time. Record requests for emergency care only can be directed to [phone] at any time.[facility] Allergies Active Allergy Reactions Criticality Noted Date [...] often do you attend chur ch or yazdanism services? More than 4 times per year 03/25/2022 Do you belong to any clubs o r organizations such as congregational groups, unions, fraternal or athletic groups, or [...] and heating? Not hard at all 03/25/2022 [facility] - Occupational Stress [...] place to sleep or slept in a custodial (including now)? No 03/25/2022 Nutrition Answer Date [...] Sex Assigned at Male 03/25/2022 2:27 PM BIOMEDICAL ENGINEERING TECHNOLOGIST Gender Identity Male 03/25/2022 2:27 PM BIOMEDICAL ENGINEERING TECHNOLOGIST Sexual Orientation Straight 03/25/2022 2: 27 PM BIOMEDICAL ENGINEERING TECHNOLOGIST Last Filed Vital Signs Vital Sign Reading [...] on file Medical Devices Implanted Type Area Java Developer With Security Clearance Device Identifier Shelf Expiration Date Model / Serial / Lot Ams 800 System Implanted:11/12 (Quantity not on file) Artificial Sphincter Pelvis [id number] / / Description:AMS 800 per Care Everywhere SLJ Grft Bn Fem Hd Frzn 44 - [id number] - [id number] Implanted:Qty: 1 on 11/21/2021 by Wilmer Nevarez M.D. at [facility] Bone or Tissue Posterior : Spine Thoracic [employer] 01/06/2026 [id number] / [id number] / Aortic Valve Implanted:07/26 (Quantity not on file) Cardiac Valve Prosthesis Heart [id number] / / Description:Rohit reed PERIMOUNT magna pericardial aortic bioprostheses MRI Conditional [facility] 11/21/21 Wax Bn Nblbl 2.5gr - [id number] Implanted:Qty: 1 on 11/21/2021 by Wilmer Nevarez M.D. at [facility] Hardware e.g. pins/screws /rods Posterior : Spine Thoracic [employer] Special[employer] 901 / / Spn Scrw Slr Sld 5.5 - [id number] Implanted:Qty: 12 on 11/21/2021 by Wilmer Nevarez M.D. at [facility] Hardware e.g. pins/screws /rods Posterior : Spine Thoracic Medtronic [id number] / / Spn Seb Slr Str Lng 5.5x500 - [id number] Implanted:Qty: 1 on 11/21/2021 by Wilmer Nevarez M.D. at [facility] Hardware e.g. pins/screws /rods Posterior : Spine Thoracic Medtronic [id number] / / Spn Scrw Slr Nagi Mas 6.5x45 - [id number] Implanted:Qty: 12 on 11/21/2021 by Wilmer Nevarez M.D. at [facility] Hardware e.g. pins/screws /rods Posterior : Spine Thoracic Medtronic [id number] / / Procedures Procedure Name Priority Date/Time [...] CDT Vince Hernandez M.D. LAB BLOOD ADD-ON [facility] [address] [place] [address], [place] DTL [facility] [address] [place] [address] from Last 3 Months or Most Recently Relevant to Health Maintenance Advance Directives For more information, please contact: [phone] * Full Code (Latest Code Status on File) Date Activated Date Inactivated Comments 11/21/2021 12:22 AM 11/24/2021 5:46 PM Question Answer Comments Full Code: Discussed Care Teams Industrial Truck Driver Relationship Specialty Start Date End Date Elsewhere, Pcp PCP - General 04/21/18
--- OUTSIDE RECORDS SUMMARY | 2023-09-13 06:11 | XMS_ITS | Encounter Summary ---
Author Organization [place] Address [facility] [place] [address] Care Team Providers Care Deputy Director Of Finance Name Role Phone Salas Raymundo Primary Care Provider Charles Carwford MD Unavailable Charli Jefferson MD Unavailable Christie Cruz MD Unavailable Charli Jefferson MD Unavailable Christie Cruz MD Unavailable Encounter Details Date Type Department Care Team (Late st Contact Info) Description 01/07/2019 [facility] Urology and [facility] for Prostate and Urologic Cancers [address] [facility] [address] 4th [place] [phone] Christie Cruz MD [address] [place] [address] Social History Tobacco Use Types Packs/Day Years [...] on filedocumented in this encounter Care Teams Deputy Director Of Finance Relationship Specialty Start Date End Date Salas Raymundo PCP - General Family Practice 08/15/18 Charles Crawford MD [address] [phone] Urology 08/19/18 Charli Jefferson MD [address] [address] Urology 08/19/18 Christie Cruz MD [address] [place] [address] Assigned Surgical Provider 12/11/19 Charli Jefferson MD [address] 3408[address] Assigned Surgical Provider 04/17/20 Christie Cruz MD [address] [place] [address] Assigned Surgical Provider 05/04/20 documented as of this encounter
--- OUTSIDE RECORDS SUMMARY | 2023-09-13 06:11 | XMS_ITS | Encounter Summary ---
Author Organization [facility] Address [address] [address] Phone Care Team Providers Care Checkout Supervisor Name Role Phone Unavailable Primary Care Provider Unavailabl e Reason for Referral * Ancillary Services (Urgent) - Closed Specialty Diagnoses / Procedures Referred By Contac t Referred To Contact Radiology Diagnoses Injury of left elbow, initial encounter Procedures XR ELBOW LEFT 3 OR MORE VIEWS Ruma Manzo APRN, CRUISE COUNSELOR [address] [place] [address] Referral ID Status Reason Start Date Expiration Date Visits Re quested Visits Authorized [id number] Closed 08/15/2023 11/14/2024 1 1 * Ancillary Services (Urgent) - Closed Specialty Diagnoses / Procedures Referred By Contac t Referred To Contact Radiology Diagnoses Injury of right shoulder, initial encounter Procedures XR HUMERUS RIGHT 2 OR MORE VIEWS Ruma Manzo APRN, CRUISE COUNSELOR [address] [place] [address] Referral ID Status Reason Start Date Expiration Date Visits Re quested Visits Authorized [id number] Closed 08/15/2023 11/14/2024 1 1 * Ancillary Services (Urgent) - Closed Specialty Diagnoses / Procedures Referred By Contac t Referred To Contact Radiology Diagnoses Injury of right shoulder, initial encounter Procedures XR SHOULDER RIGHT 2 OR MORE VIEWS Ruma Manzo APRN, CRUISE COUNSELOR [address] [place] [address] Referral ID Status Reason Start Date Expiration Date Visits Re quested Visits Authorized [id number] Closed 08/15/2023 11/14/2024 1 1 Reason for Visit * Reason Comments Other Fell outside at 1500 , injured right shoulder and left arm Encounter Details Date Type Department Care Team (Late st Contact Info) Description 08/15/2023 3:50 PM CDT Office Visit [facility] [address] [place] [address] Ruma Manzo APRN, MAL [address] [place] [address] Injury of right shoulder, initial [...] [place] stairs [place] the [place] in [facility] when he missed the bottom 2 stairs and fell onto his right shoulder. He states he was holding onto the railing with his left hand and his arm twisted and he has pain in his left elbow as well. Patient and his are here on vacation visiting and will be heading for home in [facility] tomorrow. Patient has a history of prostate [...] Resource Strain: Low Risk (05/31/2023) Received from [email or web address] Financial Resource Strain Difficulty of Paying Living Expenses: 3 Difficulty of Paying Living Expenses: Not on file Food Insecurity: No Food Insecurity (05/31/2023) Received from [email or web address] Food Insecurity Worried About Running Out of Food in the Last Year: 1 Transportation Needs: No Transportation Needs (05/31/2023) Received from [facility] Transportation Needs Lack of Transportation (Medical): 1 Physical Activity: Sufficiently Active (03/25/2022) Received from [facility] Exercise Vital Sign Days of Exercise per Week: 4 days Minutes of Exercise per Session: 50 min Stress: No Stress Concern Present (03/25/2022) Received from [facility] [place] [facility] - Occupational Stress Questionnaire Feeling of Stress : Only a little Social Connections: Socially Integrated (05/31/2023) [facility] Social Connections Frequency of Communication with Friends and Family: 0 Intimate Partner Violence: Not At Risk (03/25/2022) Received from [facility] Humiliation, Afraid, Rape, and Kick questionnaire Fear of Current or Ex-Partner: No Emotionally Abused: No Physically Abused: No Sexually Abused: No Housing Stability: Low Risk (05/31/2023) Received from [facility] Housing Stability Unable to Pay for [...] MD 08/15/2023 6:30 PM Ruma Manzo APRN, CRUISE COUNSELOR EC DIAGNOSTI C IMAGING ORDERABLES * XR [...] MD 08/15/2023 6:30 PM Ruma Manzo APRN, CRUISE COUNSELOR EC DIAGNOSTI C IMAGING ORDERABLES * XR [...] Guzmán MD 08/15/2023 6:30 PM Ruma Manzo AG EQUIPMENT FIELD SERVICE TECHNICIAN, CRUISE COUNSELOR EC DIAGNOSTI C IMAGING ORDERABLES documented in [...] (Astelin) 0.1 % nasal spray Instill 1 [place] nasally one time a day. atorvaSTATin (Lipitor) [...]
--- OUTSIDE RECORDS SUMMARY | 2023-09-13 06:11 | XMS_ITS | Encounter Summary ---
Author Organization [place] Address [facility]0 [facility] [place] [address] Care Team Providers Care Cutting Inspector Name Role Phone Salas Raymundo Primary Care Provider [phone] Charles Crawford MD Unavailable Charli Jefferson MD Unavailable Christie Cruz MD Unavailable [phone] Charli Jefferson MD Unavailable [phone] Christie Cruz MD Unavailable [phone] Encounter Details Date Type Department Care Team (Late st Contact Info) Description 11/02/2018 [facility] Urology and [facility] Pro[facility] and Urologic Cancers [address] 4th [place] [phone] Christie Cruz MD [address] [place] [address] Social History Tobacco Use Types Packs/Day Years [...] on filedocumented in this encounter Care Teams Cutting Inspector Relationship Specialty Start Date End Date Salas Raymundo PCP - General Family Practice 08/15/18 Charles Crawford MD [address] [phone] Urology 08/19/18 Charli Jefferson MD [address] 2032[address] Urology 08/19/18 Christie Cruz MD [address] [place] [address] Assigned Surgical Provider 12/11/19 Charli Jefferson MD [address] 8168[address] Assigned Surgical Provider 04/17/20 Christie Cruz MD [address] [place] [address] Assigned Surgical Provider 05/04/20 documented as of this encounter
--- OUTSIDE RECORDS SUMMARY | 2023-09-13 06:11 | XMS_ITS | Clinical Summary ---
Author Organization [place] Address [facility] [place] [address] Care Team Providers Care Associate Financial Representative Name Role Phone Salas Raymundo Primary Care Provider [phone] Charles Crawford MD Unavailable [phone] Charli Jefferson MD Unavailable [phone] Allergies Active Allergy Reactions Criticality Noted Date [...] Administration Dates Next Due Flu, Unspecified 11/02/2016,11/12/2015 [id number] Novel Flu 02/09/2009 Influenza (H1N1) 02/09/2009 Influenza [...] Comments Blood Pressure 150/80 01/05/2019 2:32 PM NICKER AND BREAKER Pulse 61 01/05/2019 2:32 PM NICKER AND BREAKER Temperature 36.6 ??C (97.8 ??F) 11/12/2018 7:50 PM CD T Respiratory Rate 16 11/12/2018 7:50 PM CDT Oxygen Saturation 98% 11/12/2018 8:10 PM CDT Inhaled Oxygen Concentration - - Weight 101.6 kg (224 lb) 01/05/2019 2:32 PM NICKER AND BREAKER Height 174.2 cm (5' 8.6) 01/05/2019 2:32 PM NICKER AND BREAKER Body Mass Index 33.47 01/05/2019 2:32 PM NICKER AND BREAKER Plan of Treatment Not on file Medical Devices Implanted Type Area Car Dumper Operator Helper Device Identifier Shelf Expiration Date Model / Serial / Lot Kit Accessory Ucs Ams 800 [id number] Implanted:Qty : 1 on 11/12/2018 by Christie Cruz MD at [facility] Leads N/A: Abdomen [employer] 09/29/2022 [id number] / / [id number] Imp Urinary Sphincter Balloon Ams 61-70cm [id number] Implanted:Qty : 1 on 11/12/2018 by Christie Cruz MD at [facility] Metallic Hardware/Anch or N/A: Abdomen [employer] 03/11/2023 [id number] / / [id number] Imp Urinary Sphincter Ams 800 Pump System [id number] Implanted:Qty : 1 on 11/12/2018 by Christie Cruz MD at [facility] Prosthesis N/A: Scrotum [employer] 07/25/2019 [id number] / / [id number] Imp Urinary Sphincter Cuff Occlusive Ams 5.0cm [id number] Implanted:Qty : 1 on 11/12/2018 by Christie Cruz MD at [facility] Prosthesis N/A: Opal [employer] 01/20/2019 [id number] / / [id number] Description:around urethra Advance Directives For more information, please contact: [phone] Documents on File Type Date Recorded Patient Crop Duster Helper Expl anation Advance Directives and Living Will [...] Fourth Alternate Health Care Agent Care Teams Associate Financial Representative Relationship Specialty Start Date End Date Salas Raymundo PCP - General Family Practice 08/15/18 Charles Crawford MD [address] [address] Urology 08/19/18 Charli Jefferson MD [address] [place] [address] [address] [place] [address] Urology 08/19/18
--- OUTSIDE RECORDS SUMMARY | 2023-09-13 06:11 | XMS_ITS | Encounter Summary ---
Author Organization [place] Address [facility] [place] [address] Care Team Providers Care Rn Trauma Name Role Phone Salas Raymundo Primary Care Provider [phone] Charles Crawford MD Unavailable [phone] Charli Jefferson MD Unavailable Christie Cruz MD Unavailable [phone] Charli Jefferson MD Unavailable Christie Cruz MD Unavailable Encounter Details Date Type Department Care Team (Late st Contact Info) Description 09/10/2018 [facility] Urology and [facility] for Prostate and Urologic Cancers [address] [facility] [address] 4th [place] [phone] Charli Jefferson MD [address] [facility] [address] [place], [place] [address] Social History Tobacco Use Types Packs/Day Years [...] on filedocumented in this encounter Care Teams Rn Trauma Relationship Specialty Start Date End Date Salas Raymundo PCP - General Family Practice 08/15/18 Charles Crawford MD [address] [phone] Urology 08/19/18 Charli Jefferson MD [address] [address] Urology 08/19/18 Christie Cruz MD [address] [place] [address] Assigned Surgical Provider 12/11/19 Charli Jefferson MD [address] [address] Assigned Surgical Provider 04/17/20 Christie Cruz MD [address] [place] [phone] Assigned Surgical Provider 05/04/20 documented as of this encounter
--- OUTSIDE RECORDS SUMMARY | 2023-09-13 06:11 | XMS_ITS | Referral Summary ---
Author Organization [place] Address [facility] [place] [address] Care Team Providers Care Bung Dropper Name Role Phone Salas Raymundo Primary Care Provider Charles Crawford MD Unavailable Charli Jefferson MD Unavailable [phone] Allergies Active Allergy Reactions Criticality Noted Date [...] Administration Dates Next Due Flu, Unspecified 11/02/2016,11/12/2015 [id number] Novel Flu 02/09/2009 Influenza (H1N1) 02/09/2009 Influenza [...] Comments Blood Pressure 150/80 01/05/2019 2:32 PM SENIOR SUPPLIER QUALITY ENGINEER Pulse 61 01/05/2019 2:32 PM SENIOR SUPPLIER QUALITY ENGINEER Temperature 36.6 ??C (97.8 ??F) 11/12/2018 7:50 PM CD T Respiratory Rate 16 11/12/2018 7:50 PM CDT Oxygen Saturation 98% 11/12/2018 8:10 PM CDT Inhaled Oxygen Concentration - - Weight 101.6 kg (224 lb) 01/05/2019 2:32 PM SENIOR SUPPLIER QUALITY ENGINEER Height 174.2 cm (5' 8.6) 01/05/2019 2:32 PM SENIOR SUPPLIER QUALITY ENGINEER Body Mass Index 33.47 01/05/2019 2:32 PM SENIOR SUPPLIER QUALITY ENGINEER Plan of Treatment Not on file Medical Devices Implanted Type Area Scorer Helper Device Identifier Shelf Expiration Date Model / Serial / Lot Kit Accessory Ucs Ams 800 [id number] Implanted:Qty : 1 on 11/12/2018 by Christie Cruz MD at [facility] Leads N/A: Abdomen [employer] 09/29/2022 [id number] / / [id number] Imp Urinary Sphincter Balloon Ams 61-70cm [id number] Implanted:Qty : 1 on 11/12/2018 by Christie Cruz MD at [facility] Metallic Hardware/Anch or N/A: Abdomen [employer] 03/11/2023 [id number] / / [id number] Imp Urinary Sphincter Ams 800 Pump System [id number] Implanted:Qty : 1 on 11/12/2018 by Christie Cruz MD at [facility] Prosthesis N/A: Scrotum [employer] 07/25/2019 [id number] / / [id number] Imp Urinary Sphincter Cuff Occlusive Ams 5.0cm [id number] Implanted:Qty : 1 on 11/12/2018 by Christie Cruz MD at [facility] Prosthesis N/A: Opal [facility] 01/20/2019 [id number] / / [id number] Description:around urethra Advance Directives For more information, please contact: [phone] Documents on File Type Date Recorded Patient Photographic Spotter Expl anation Advance Directives and Living Will 11/24/2018 8:06 AM Health Care Directiv e 15 Healthcare Agents on File Name Relationship Healthcare Agent Relationship Communication Mary Jeffriesen Spouse Health Care Agent Ayo Restrepo Son First Alternate Health Care Agent Carla Restrepo Daughter Second Alternat e Health Care Agent Brent Rsetrepo Son Third Alternate Health Care Agent Moraima (step-dtr) Octavio Relative Fourth Alternate Health Care Agent Care Teams Bung Dropper Relationship Specialty Start Date End Date Salas Raymundo PCP - General Family Practice 08/15/18 Charles Crawford MD [address] [place] [phone] Urology 08/19/18 Charli Jefferson MD 420 [facility] [address] [place], [place] [address] Urology 08/19/18
--- OUTSIDE RECORDS SUMMARY | 2023-09-13 06:11 | XMS_ITS | Encounter Summary ---
Author Organization [place] Address [facility] [place] [address] Care Team Providers Care Deputy Felony Clerk Name Role Phone Salas Raymundo Primary Care Provider [phone] Charles Crawford MD Unavailable [phone] Charli Jefferson MD Unavailable Christie Cruz MD Unavailable [phone] Charli Jefferson MD Unavailable Christie Cruz MD Unavailable Encounter Details Date Type Department Care Team (Late st Contact Info) Description 12/14/2018 [facility] Urology and [facility] for Prostate and Urologic Cancers [address] [facility] [address] 4th [place] [phone] Christie Cruz MD [address] [place] [address] Social History Tobacco Use Types Packs/Day Years [...] filedocumented in this encounter Care Teams Deputy Felony Clerk Relationship Specialty Start Date End Date Salas Raymundo PCP - General Family Practice 08/15/18 Charles Crawford MD [address] [phone] Urology 08/19/18 Charli Jefferson MD [address] 2450[address] Urology 08/19/18 Christie Cruz MD [address] [place] [address] Assigned Surgical Provider 12/11/19 Charli Jefferson MD [address] 8277[address] Assigned Surgical Provider 04/17/20 Christie Cruz MD [address] [place] [address] Assigned Surgical Provider 05/04/20 documented as of this encounter"
--- OUTSIDE RECORDS SUMMARY | 2023-09-13 06:11 | XMS_ITS ---
Author Organization [facility] Address [address] [place] [address] Care Team Providers Care Microfilm Operator Name Role Phone Unavailable Unavailable Unavailable Surgery Details Not on file Complications Check Surgery Details section. Procedure Estimated Blood Loss Check Surgery Details section. Procedure Findings Check Surgery Details section. Procedure Specimens Taken Check Surgery Details section.
--- OUTSIDE RECORDS SUMMARY | 2023-09-13 06:11 | XMS_ITS | Encounter Summary ---
Author Organization [facility] Address [address] [address] Phone Care Team Providers Care Networking Administrator Name Role Phone Unavailable Primary Care Provider Unavailabl e Reason for Referral * Ancillary Services (Urgent) - Closed Specialty Diagnoses / Procedures Referred By Leobardo stahl Referred To Contact Radiology Diagnoses Injury of right shoulder, initial encounter Procedures XR SHOULDER RIGHT 2 OR MORE VIEWS Ruma Manzo APRN, PROTECTIVE SIGNAL SUPERINTENDENT [address] [place] [address] Referral ID Status Reason Start Date Expiration Date Visits Re quested Visits Authorized [id number] Closed 08/15/2023 11/14/2024 1 1 Reason for Visit * Ancillary Services (Urgent) - Closed Specialty Diagnoses / Procedures Referred By Leobardo stahl Referred To Contact Radiology Diagnoses Injury of right shoulder, initial encounter Procedures XR SHOULDER RIGHT 2 OR MORE VIEWS Ruma Manzo APRN, PROTECTIVE SIGNAL SUPERINTENDENT [address] [place] [address] Referral ID Status Reason Start Date Expiration Date Visits Re quested Visits Authorized [id number] Closed 08/15/2023 11/14/2024 1 1 Encounter Details Date Type Department Care Team (Latest Contact Info) Description 08/15/2023 4:58 PM CDT Hospital Encounter [facility] [place] [address] Ruma Manzo APRN, PROTECTIVE SIGNAL SUPERINTENDENT [address] [place] [address] Injury of right shoulder, initial [...] (Astelin) 0.1 % nasal spray Instill 1 [place] nasally one time a day. budesonide (Pulmicort) [...] Guzmán MD 08/15/2023 6:30 PM Ruma Manzo OFFICE CLIN ASST, PROTECTIVE SIGNAL SUPERINTENDENT EC DIAGNOSTI C IMAGING ORDERABLES documented in this encounter Visit Diagnoses Diagnosis Injury of right shoulder, initial encounter documented in this encounter
--- OUTSIDE RECORDS SUMMARY | 2023-09-13 06:11 | XMS_ITS | Encounter Summary ---
Author Organization [facility] Address [address] [address] Phone Care Team Providers Care Software Engineering Analyst Name Role Phone Unavailable Primary Care Provider Unavailabl e Reason for Referral * Ancillary Services (Urgent) - Closed Specialty Diagnoses / Procedures Referred By Leobardo stahl Referred To Contact Radiology Diagnoses Injury of right shoulder, initial encounter Procedures XR HUMERUS RIGHT 2 OR MORE VIEWS Ruma Manzo APRN, PONY ROLL FINISHER [address] [place] [address] Referral ID Status Reason Start Date Expiration Date Visits Re quested Visits Authorized [id number] Closed 08/15/2023 11/14/2024 1 1 Reason for Visit * Ancillary Services (Urgent) - Closed Specialty Diagnoses / Procedures Referred By Leobardo stahl Referred To Contact Radiology Diagnoses Injury of right shoulder, initial encounter Procedures XR HUMERUS RIGHT 2 OR MORE VIEWS Ruma Manzo APRN, PONY ROLL FINISHER [address] [place] [address] Referral ID Status Reason Start Date Expiration Date Visits Re quested Visits Authorized [id number] Closed 08/15/2023 11/14/2024 1 1 Encounter Details Date Type Department Care Team (Latest Contact Info) Description 08/15/2023 4:58 PM CDT Hospital Encounter [facility] [place] [place] [address] Ruma Manzo APRN, PONY ROLL FINISHER [address] [place] [address] Injury of right shoulder, initial [...] (Astelin) 0.1 % nasal spray Instill 1 [place] nasally one time a day. budesonide (Pulmicort) [...] Guzmán MD 08/15/2023 6:30 PM Ruma Manzo STAFFING DIRECTOR, PONY ROLL FINISHER EC DIAGNOSTI C IMAGING ORDERABLES documented in this encounter Visit Diagnoses Diagnosis Injury of right shoulder, initial encounter documented in this encounter
--- OUTSIDE RECORDS SUMMARY | 2023-09-13 06:11 | XMS_ITS | Encounter Summary ---
Author Organization [facility] Address [facility] [place] [address] Care Team Providers Care Fast Food Server Name Role Phone Salas Raymundo Primary Care Provider Charles Crawford MD Unavailable [phone] Charli Jefferson MD Unavailable Christie Cruz MD Unavailable [phone] Charli Jefferson MD Unavailable Christie Cruz MD Unavailable Encounter Details Date Type Department Care Team (Late st Contact Info) Description 11/13/2018 [facility] [address] [facility] [address] [place] [phone] Tracey Bhandari, RN Social History Tobacco Use [...] on filedocumented in this encounter Care Teams Fast Food Server Relationship Specialty Start Date End Date Salas Raymundo PCP - General Family Practice 08/15/18 Charles Crawford MD [address] [phone] Urology 08/19/18 Charli Jefferson MD [address] [place] [id number] Urology 08/19/18 Christie Cruz MD [address] [place] [phone] Assigned Surgical Provider 12/11/19 Charli Jefferson MD [address] [address] Assigned Surgical Provider 04/17/20 Christie Cruz MD [address] [place] [address] Assigned Surgical Provider 05/04/20 documented as of this encounter
--- OUTSIDE RECORDS SUMMARY | 2023-09-13 06:12 | XMS_ITS | Continuity of Care Document ---
Author Organization [facility] Address [facility] [address] [place] [address]- Care Team Providers Care Sericulturist Name Role Phone Tiffanie Cunningham MD Primary Care Physician Encounter 05/28/23 - 06/04/23 [facility] [address] [place], [place] [address] Allergies, Adverse Reactions, Alerts Substance Criticality Severity Reaction Reaction Severity Status HYDROcodone Active Medications Advair HFA 230 mcg-21 mcg/inh inhalation aerosol 2 puff(s), Inhale, bid, Instructions: rinse mouth and throat after use, # 3 EA, 2 Refill(s), Type: Maintenance, Pharmacy: [facility], [place], [place], 2 puff(s) Inhale bid,Instr:rinse mouth and throat after use, 68.25, in, 01/01/23 11:27:00 HOSPITALITY WORKERS, Height Measured, 240.6, lb, 01/01/23 11:27:00 HOSPITALITY WORKERS,Weight Measured Start Date: 01/21/23 Status: Ordered aspirin 81 mg oral tablet = 1 tab(s) ( 81 mg ), po, daily, 0 Refill(s), Type: Maintenance Start Date: 06/08/14 Status: Ordered atorvastatin 40 mg oral tablet = 1 tab(s) ( 40 mg ), Oral, daily, 0 Refill(s), Type: Maintenance Start Date: 05/27/18 Status: Ordered azelastine 205.5 mcg/inh (0.15%) nasal spray 1 spray(s), Nasal, bid, Instructions: (may switch to azelastine 0.1% nasal if not covered), # 3 EA,1 Refill(s), Type: Maintenance, Pharmacy: [facility], [place], 1 spray(s) Nasal bid,Instr:(may switch to azelastine 0.1% nasal if not covered), 68.25, in, 01/01/23 11:27:00 HOSPITALITY WORKERS, Height Measured, 240.6, lb, 01/01/23 11:27:00 HOSPITALITY WORKERS, Weight Measured Start Date: 01/01/23 Status: Ordered budesonide 0.5 mg/2 mL inhalation suspension = 2 mL ( 0.5 mg ), NEB, bid, # 120 mL, 1 Refill(s), Type: Maintenance, Pharmacy: [facility] [place], 2 mL NEB bid, 68.25, in, 01/01/23 11:27:00 HOSPITALITY WORKERS, Height Measured, 240.6, lb, 01/01/23 11:27:00 HOSPITALITY WORKERS, Weight Measured Start Date: 01/01/23 Status: Ordered famotidine 0 Refill(s), Type: Maintenance Start Date: 05/31/20 Status: Ordered fexofenadine 180 mg oral tablet = 1 tab(s) ( 180 mg ), po, prn, PRN: as needed for allergy symptoms, 0 Refill(s), Type: Maintenance Start Date: 06/08/14 Status: Ordered fluticasone 50 mcg/inh nasal spray 1 spray(s), nasal, daily, 0 Refill(s), Type: Maintenance Start Date: 05/23/16 Status: Ordered fluticasone-salmeterol 232 mcg-14 mcg/inh inhalation powder 1 puff, Inhale, bid, # 3 EA, 2 Refill(s), Type: Maintenance, Pharmacy: [facility], [place], 1 puff Inhale bid, 68.25, in, 01/01/23 11:27:00 HOSPITALITY WORKERS, Height Measured, 240.6, lb, 01/01/23 11:27:00 HOSPITALITY WORKERS, Weight Measured Start Date: 01/01/23 Status: Ordered hydrochlorothiazide-losartan 12.5 mg-50 mg oral tablet Instructions: TAKE ONE TABLET BY MOUTH EVERY DAY Start Date: 01/02/23 Status: Ordered lisinopril po, daily, 0 Refill(s), Type: Maintenance Start Date: 05/31/15 Status: Ordered montelukast 10 mg oral tablet = 1 tab(s) ( 10 mg ), Oral, qpm, # 90 tab(s), 0 Refill(s), Type: Maintenance, [facility] [place], 1 tab(s) Oral qpm, 68.25, in, 01/01/23 11:27:00 HOSPITALITY WORKERS, Height Measured, 240.6, lb, 01/01/23 11:27:00 HOSPITALITY WORKERS, Weight Measured Start Date: 05/20/23 Status: Ordered montelukast 10 mg oral tablet = 1 tab(s) ( 10 mg ), PO, daily, # 90 tab(s), 3 Refill(s), Type: Maintenance, [facility] [place], 1 tab(s) Oral daily, 68, in, 05/31/20 13:24:00 CDT, Height Measured, 232, lb, 05/31/20 13:24:00 CDT, Weight Measured Start Date: 05/31/20 Status: Ordered Myrbetriq 50 mg oral tablet, extended release = 1 tab(s) ( 50 mg ), Oral, daily, 0 Refill(s), Type: Maintenance Start Date: 01/31/21 Status: Ordered Myrbetriq 50 mg oral tablet, extended release = 1 tab(s) ( 50 mg ), Oral, daily, 0 Refill(s), Type: Maintenance Start Date: 09/04/22 Status: Ordered omeprazole Oral, daily, 0 Refill(s), Type: Maintenance Start Date: 05/31/20 Status: Ordered ranitidine 150 mg oral tablet = 1 tab(s) ( 150 mg ), po, bid, 0 Refill(s), Type: Maintenance Start Date: 07/14/13 Status: Ordered Ventolin HFA 90 mcg/inh inhalation aerosol 2 puff(s), Inhale, q4 hrs, # 18 unknown unit, 1 Refill(s), Type: Maintenance, [facility] [place], INHALE TWO PUFFS BY MOUTH EVERY 4 HOURS, 68.25, in, 01/01/23 11:27:00 HOSPITALITY WORKERS, Height Measured, 240.6, lb, 01/01/23 11:27:00 HOSPITALITY WORKERS, Weight Measured Start Date: 05/28/23 Status: Ordered Vitamin D with Minerals oral tablet 1 tab(s), po, daily, 0 Refill(s), Type: Maintenance Start Date: 06/08/14 Status: Ordered Problem List Condition Confirmation Course Effective Dates Status H ealth Status Informant Mild allergic rhinitis Confirmed Active Vision loss of left eye Confirmed Active Chronic rhinitis Confirmed Active Hiatal hernia with GERD Confirmed Active History of fusion of thoracic spine Confirmed Active History of repair of hiatal hernia Confirmed Active Asthma, moderate persistent Confirmed Active Obesity Probable Diagnosis Active Procedures Procedure Date Related Diagnosis Body Site Status Hernia repair 1 Completed 2014 Social History Social History Type Response Smoking Status Never (less than 100 in lifetime) entered on: 06/05/22 Sex Male Patient Care team information Care Team Personnel Name: Tiffanie Cunningham MD Position: EMR Provider Access (Peds) Member Role: Primary Care Physician Address: Address: [address] P: F: [place] [address]- [place] Family History Name: UnknownRelationship: Mother Condition State Severity Life Cycle Status Age at Onset Heart disease.. POSITIVE Name: UnknownRelationship: Father Condition State Severity Life Cycle Status Age at Onset Heart disease.. POSITIVE Name: UnknownRelationship: Sister Condition State Severity Life Cycle Status Age at Onset Mental illness POSITIVE Name: UnknownRelationship: Grandmother (M) Condition State Severity Life Cycle Status Age at Onset Heart disease.. POSITIVE Name: UnknownRelationship: Grandfather (P) Condition State Severity Life Cycle Status Age at Onset Heart disease.. POSITIVE
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
[2023-09-13] MEDS: LACTATED RINGERS 1000 ML 1,000 ML 100 ML IV (06:55)
[2023-09-13] MEDS: SODIUM CHLORIDE 0.9 % (FLUSH) 10 ML SYRINGE IVF (06:55)
--- NOTE | 2023-09-13 07:15 | W.PM.H&PU ---
History & Physical Update History & Physical Update H&P Reviewed and patient assessed: No changes noted
--- NOTE | 2023-09-13 07:15 | PM.ORPRC ---
Procedure Note Date of procedure: 09/13/23 Procedure: PREOPERATIVE DIAGNOSIS: 1. Left distal biceps rupture POSTOPERATIVE DIAGNOSIS: 1. Left distal biceps rupture PROCEDURE: 1. Left distal biceps repair SURGEON: Jason mSith MD. OPERATIONS MANAGER/COORDINATOR: Estephanie Graham. An assistant unit forester was critical for this case to aid in patient positioning, tissue retraction, limb manipulation/positioning, and closure. ANESTHESIA: Monitored anesthesia care with axillary nerve block IMPLANTS: Arthrex biceps button implant and a 7 mm x 10 mm peek tenodesis screw; tibialis allograft ESTIMATED BLOOD LOSS: 50 mL COMPLICATIONS: None evident INDICATIONS: The patient is a pleasant 73-year-old male who sustained a ruptured left distal biceps tendon approximately 1 month ago. Last week he he underwent surgery for distal biceps tendon repair. However, tendon could not be mobilized enough for reattachment and no graft was available to augment the repair. He returns today for left distal biceps tendon repair with allograft tendon. Prior to surgery, the risks and benefits of procedure were discussed with patient, all questions were answered, and informed consent was obtained. DESCRIPTION OF PROCEDURE: Following a thorough discussion of risks, benefits, and alternatives consent was obtained and the operative site was marked. Axillary nerve block was performed by anesthesia staff, and patient was brought to the operating room and placed supine on the operating table. Monitored anesthesia care was provided. IV Ancef was administered within 1 hr of incision preoperatively for prophylaxis. Left upper extremity was then prepped and draped in usual sterile fashion. A surgical time-out was performed confirming patient identity, surgical site, and surgical procedure. The previously made longitudinal incision in the distal upper arm was extended to to a length approximately 5 cm. Blunt dissection was used to dissect through the subcutaneous tissues. This wound was then irrigated copious amounts of normal saline. The distal biceps and tendon stump tendon was identified and was dissected away from surrounding soft tissues. The end of the tendon had been previously debrided. The tibialis allograft which had been thawing on the back table was then weaved a Pulvertaft fashion through the distal biceps at the musculotendinous junction and through the remnant distal biceps tendon stump. This construct was then held in place with interrupted FiberTape sutures securing the graft to the the biceps tendon stump and the distal biceps musculotendinous junction. A #2 FiberLoop suture was then used to whipstitch the 2 distal ends of the tibialis allograft together creating a distal biceps tendon which measured approximately 7 cm from the musculotendinous junction to the end of the allograft. After whipstitch was complete, the tendon was able to pass through the 7 mm sizing block. Elbow was then placed in full extension and full supination. The previously made longitudinal incision on the proximal forearm was opened and wound was irrigated with normal saline. Blunt dissection was used to expose the radial tuberosity. The previously drilled radial tunnel was identified and cleared of soft tissue, and there wound was irrigated with normal saline.. Sutures from the distal biceps tendon were then passed under the anterior soft tissues of the elbow down to the radial tuberosity. The sutures were then passed through the biceps button implant. The button batch records clerk was used to pass the implant through both cortices of the radial tuberosity and button was flipped and seated on the cortical bone. Fluoroscopic imaging was used to confirm button deployment and correct position on the radius at the level of the radial tuberosity. Suture ends were then tensioned docking the tendon into the unicortical tunnel. In order to dock the tendon, the elbow was flexed to approximately 80?. Once the tendon was fully seated, suture ends were tied together. A 7 mm by 10 mm peek tenodesis screw was loaded over 1 suture limb, and the screw was inserted on the radial side of the bone tunnel. Once the tenodesis screw was fully seated, sutures were tied over the top of the screw, and remnant suture was cut and removed. Gentle extension of the elbow was performed, and elbow was able to be extended to about 30-40? short of full extension. Wounds were again irrigated with normal saline. Wound was then closed with 2-0 Vicryl, 2-0 Stratafix, and Exofin glue. Sterile dressings were applied followed by a well-padded long-arm posterior splint was applied with the arm in approximately 40? of flexion. Patient was awoken from anesthesia and transferred to the PACU in stable condition. POSTOPERATIVE PLAN: 1. No lifting, pushing, or pulling with the left upper extremity 2. Keep splint clean and dry, wear sling when ambulating and as needed for comfort 3. Ice and elevation for pain and swelling 4. Tramadol or [id number] pain medications as needed for pain control. 5. Follow-up in [facility]opedic Clinic in 10-14 days for wound check and splint removal. 6. Will initiate formal physical therapy per the distal biceps tendon repair rehabilitation protocol in 2 weeks.
--- NOTE | 2023-09-13 07:17 | SUR.PREOP ---
TIME?OUT:?0717 PT/RN/MDA?VERIFICATION?OF?SURGICAL?SITE,?PROCEDURE,?AND?CONSENT OBTAINED?PRIOR?TO?INVASIVE?PROCEDURE.
[2023-09-13] MEDS: fentaNYL 100 MCG/2 ML inj IVP (07:25)
[2023-09-13] MEDS: MIDAZOLAM HCL 1 MG/ML inj IVP (07:25)
[2023-09-13] MEDS: CEFAZOLIN 2 GM INJ IVP (07:45)
--- NOTE | 2023-09-13 07:45 | CRLHL7_ITS ---
For Patients: As a result of the Cures Act, medical imaging exams and procedure reports are released immediately into your electronic medical record. You may view this report before your referring provider. If you have questions, please contact your health care provider. Indication: INTRA OP BICEPS TENDON REPAIR EXAM Technique: Two fluoroscopic images of the left elbow. Fluoroscopic time 3.5 seconds. IMPRESSION: Fluoroscopic guidance for distal biceps tendon repair. Dictated by Rajiv Leon MD @ 09/13/2023 3:09:17 PM (Electronically Signed)
--- NOTE | 2023-09-13 08:02 | W.PM.NB ---
Nerve Block Nerve Block Time Seen by Provider: 07:28 Date Seen: 09/13/23 Type of block requested by surgeon for post-operative analgesia: axillary Side: left Time out performed: Yes Verification of patient name: Yes Verification of date of : Yes Site marking: site marked Name of person performing procedure: Anthony Continuous monitoring Was continuous monitoring of O2 sat, B/P, monitor technician, recorded every 15 minutes?: Yes Procedure Checklist: sterile prep, needles and gloves Ultrasound guided. Images saved: Yes Medications given in 5ml increments after negative aspiration: Ropivicaine %: 0.5 mL: 30 Needle gauge: 22 Patient tolerated procedure well: Yes Additional comments: Needle noted adjacent to nerve Block Charges Block Charge (with Pro Fee): Brachial Plexus Use of Ultrasound Machine for Block: Yes- US Guidance/pain block
--- NOTE | 2023-09-13 08:02 | W.ANESCHARGE ---
Anesthesia Charges Start Date/Time Anesthesia Start Date: 09/13/23 Anesthesia Start Time: 07:36 Stop Date/Time Anesthesia Stop Date: 09/13/23 Anesthesia Stop Time: 10:19 Summary Extremes of Age - Over 70 or under 1: MDA
--- NOTE | 2023-09-13 08:22 | W.ANESCHARGE ---
Anesthesia Charges Start Date/Time Anesthesia Start Date: 09/13/23 Anesthesia Start Time: 07:36 Stop Date/Time Anesthesia Stop Date: 09/13/23 Anesthesia Stop Time: 10:19
== END 2023-09-13 11:20 | disposition home or self-care (01) ==
PROVIDERS: PCP Family Medicine; Visit Provider Orthopaedic Surgery
PROC: (CPT 24341; principal; 2023-09-13 07:30)
DX: S46.212A Strain of muscle, fascia and tendon of other parts of biceps, left arm, initial encounter (principal); G89.18 Other acute postprocedural pain
CPT/HCPCS: 24341; 01716; 64415; 73070; 76000; 76942; 99100; A4580; C1713; J0690; J2250; J2405; J2704; J2795; J3010; J7120